=== PATIENT | male | born 1965 | race Hispanic/Latino ===

== ENCOUNTER 2024-06-26 20:20 | Inpatient (IN) | payer OTHER, SELFPAY ==
--- NOTE | ~2024-06-26 | XR_ITS ---
EXAMINATION: XR chest ET placement DATE: 06/26/2024 20:47 INDICATION: Intubation. TECHNIQUE: A single frontal view of the chest was obtained. COMPARISON: Chest 2 views 06/28/2015 FINDINGS: There is no pneumonia, pleural effusion, or pneumothorax. The heart size is normal. The end otracheal tube tip is 2.4 cm above the terri. The nasogastric tube tip is in the stomach. IMPRESSION: 1. No acute cardiopulmonary disease. Reviewed, dictated and finalized at location A.
[2024-06-26 20:22] VITALS: BP 49/37; PULSE 64; RESP 19; TEMP 36.4; O2SAT 92
[2024-06-26 20:25] VITALS: PULSE 64; O2SAT 92
[2024-06-26] MEDS: RAPID SEQUENCE INTUBATION KIT 1 EACH (20:30)
[2024-06-26 20:38] VITALS: BP 49/37; PULSE 64
[2024-06-26] MEDS: NOREPINEPHRINE 8 MG/D5W 250 ML 8 MG/250 ML BAG 5 MG (20:38)
[2024-06-26 20:40] VITALS: PULSE 100; O2SAT 93
[2024-06-26 21:03] LABS: Hematocrit 53.6 % (42.0-52.0); Hemoglobin 16.7 g/dL (14.0-18.0); Mean Corpuscular HGB Conc 31.2 g/dl (32-36); Mean Corpuscular Hemoglobin 30.1 pg (26-34); Mean Corpuscular Volume 96.8 fl (80-100); Mean Platelet Volume 10.3 fl (7.4-10.4); Platelet Count Result 272 k/mm3 (150-375); Red Blood Count 5.54 M/mm3 (4.6-6.20); Red Cell Distribution Width 13.8 % (11.5-14.5); White Blood Count 14.5 K/mm3 (4.5-10.0)
--- NOTE | 2024-06-26 21:05 | ED.CPR ---
HPI - CPR General Chief Complaint: Cardiac Arrest/CPR Stated Complaint: POST CARDIAC ARREST/ROSC IN FIELD History of Present Illness HPI narrative: Patient is a 59-year-old male who presents to the emergency department this evening status post return of spontaneous circulation. EMS states that patient was a witnessed cardiac arrest by a bystander who started CPR. Upon their arrival, CPR continued and patient was administered a total of 3 epinephrine, 2 defibrillations and 300 mg of IV amiodarone with return of spontaneous circulation. Patient intubated prior to arrival. [place] achieved approximately 6 minutes prior to arrival to the emergency department. Remainder of the history of present illness and review of systems limited secondary to patient's current status. Related Data Allergies Allergy/AdvReac Type Severity Reaction Status Date / Time morphine Allergy Mild Itching Verified 05/30/24 11:22 Review of Systems Review of Systems: Unable to obtain a full review of systems secondary to patient's current status. [facility] Past Medical History Medical History Allergic rhinitis Anxiety and depression Arthritis Calculus of gallbladder with acute cholecystitis without obstruction Diabetes HTN (hypertension) Hyperplastic colon polyp Testosterone deficiency Vitamin B12 deficiency Surgical History Surgical History H/O knee surgery H/O shoulder surgery History of back surgery History of facial surgery Hx of cholecystectomy Social History Social History Smoking status: Former smoker Alcohol intake: current Substance use: never Substance use type: does not use Living arrangements: with family Occupation/Education: occupation Gender identity (if verbalized by the patient): Male Sexual Orientation (if Verbalized by the Patient): Straight or Heterosexual Exam Narrative: General: Unresponsive, intubated. HEENT: Pupils round and reactive to light, foaming in the oropharynx Neck: Trachea midline, no JVD, no lymphadenopathy. Cardiovascular: Regular rate and rhythm, no murmurs, rubs or gallops, no peripheral edema. Respiratory: Intubated actively being bagged, normal breath sounds bilaterally slightly diminished on a left side. Abdomen: Soft, nontender, nondistended. Musculoskeletal: No joint swelling or deformity, normal muscle tone. Skin: No rashes or petechia, no signs of infection. Neurological: Intubated and mechanically ventilated, unable to assess. Course Vital Signs Vital signs: Vital Signs Temperature 97.6 F 06/26/24 20:22 Pulse Rate 64 06/26/24 20:22 Respiratory Rate 19 06/26/24 20:22 Blood Pressure 49/37 L 06/26/24 20:22 Pulse Oximetry 92 06/26/24 20:22 Oxygen Delivery Mechanical Ventilation 06/26/24 20:22 Temperature 97.6 F 06/26/24 20:22 Pulse Rate 61 06/26/24 22:19 Respiratory Rate 19 06/26/24 20:22 Blood Pressure 83/67 L 06/26/24 22:19 Pulse Oximetry 92 06/26/24 20:25 Oxygen Delivery Mechanical Ventilation 06/26/24 20:25 MDM - Cardiac Arrest/CPR MDM Narrative Medical decision making narrative: The patient was evaluated by myself in the emergency department. History is obtained from EMS and physical exam was performed. External medical records were reviewed at this time. IV was established and pertinent tests were ordered. Shortly after arrival, patient was starting to breathe on his own, clamped down on the ET tube. Pupils equal and reactive bilaterally. Patient was administered 100 mg of IV rocuronium and 20 mg of IV etomidate as he is biting down on the tube. ET tube placement was confirmed and tube was pulled back 1 cm. Patient had bilateral breath sounds that were equal. Vital signs were obtained and patient was found to have a blood pressure of 49/37 mmHg. Patient was administ
--- NOTE | 2024-06-26 21:08 | PC.NURSE ---
Called [facility] at 2053. Called [facility] to be on standby at 2054. Did edna for the laboratory assistant at 2055. Kristina called back at 2056. Ranjana called back at 2099. Cary called back at 2102.
[2024-06-26 21:13] LABS: INR 1.3; Prothrombin Time 16.3 Seconds (11.1-14.7)
[2024-06-26 21:14] LABS: Partial Thromboplastin Time 31.6 Seconds (22.3-36.8)
[2024-06-26 21:15] LABS: Add Urine Microscopic? YES; Appearance Urine Clear (Clear); Bacteria Urine None Seen /hpf; Bilirubin Urine Negative (Negative); Blood Urine 2+ (Negative); Color Urine Yellow (Yellow); Glucose Urine UA 3+ mg/dL (Negative); Ketones Urine Negative (Negative); Leukocyte Esterase Ur Negative LEU/UL (Negative); Need Manual Microscopic Reviewed; Nitrate Urine Negative (Negative); Non Pathogenic Casts 0-2; Protein Urine Trace mg/dL (Negative); RBC Urine 21-50 /hpf (0-2); Specific Grav Ur 1.019 (1.001-1.035); Squamous Epithelial Cell Urine None Seen /hpf (Few); Urobilinogen Urine 0.2 mg/dL (<2.0)
[2024-06-26] MEDS: HEPARIN SOD/D5W 100 UNITS/ML 25,000 UNITS/250 ML BAG 10 UNITS IV CONT (21:15)
--- NOTE | 2024-06-26 21:17 | PC.NURSE ---
Addendum entered by Maura Dumas RN 06/26/24 22:14: Dr. Perez verbally ordered profolol but due to pt low blood pressure we had it on standby. Pt never received profolol. Addendum entered by Maura Dumas RN 06/26/24 21:45: Pt arrival to ED around [address] Perez in room along with development educator Kelly, Alison ParkerLhqlfx-Vowyz-Bzxvdue-Ruchi, and krystal Barrientos and ED respiratory. Items present in room include crash cart, ultrasound, KATHI, RSI kit, and suctioning. Pt initial vital signs are 64 hr, 19 resp, 92% on mechanical ventilation, and 49/37. Dr. Perez verbally ordered to continue EMS NS fluid bag along with an additional liter of NS and for a Levophed drip to be started. FANNY Pacheco and Nina started these medications at 2014 and 2037. Pt is breathing on his own and fighting the ET tube so Dr. Perez verbally ordered 20 of etimidate and rocuronium 100 of rocuronium. FANNY Pacheco administered these medications at 2029 in R AC peripheral access. X-ray called to confirm placement of ET tube at 2039 and confirmed in correct spot. FANNY Hopper placed NG tube in pt 25 at the lip around 2034. At 2043 pt vitals were 68 hr, 17 respirations, 90%, and 90/62. ED respiratory and FANNY Pacheco bagging pt in transition to being placed on BIPAP. Temp fink was placed 2040. Pt was placed on BIPAP at 2049. Vitals at 2051: 114 hr, 16 resp, 91% and 111/80. EKG was taken and shown a STEMI. STEMI called to ED at 2055 and shipyard laborer notified to come in. Dr. Perez verbally ordered 5000 of heparin drip and started in L wrist at 2101. FANNY Pacheco and Mattie prepped pt for shipyard laborer. lab aid arrival to ED around 2129. Report was given to Ranjana from shipyard laborer and they departed with pt and ED respiratory at 2139. Original Note: Pt arrival to ED around [address] Perez in room along with development educator Katie, RNs Bella, and techs Floyd and ED respiratory. Items present in room include crash cart, ultrasound, KATHI and suctioning. Pt initial vital signs are 64 hr, 19 resp, 92% on mechanical ventilation, and 49/37. Dr. Perez verbally ordered for a Levophed drip to be started. Pt was fighting the ET tube so Dr. Lovell verbally ordered 20 of etimidate and rocuronium 100 of rocuronium.
--- NOTE | 2024-06-26 21:21 | PC.NURSE ---
2108 5,000 unit heparin bolus given via IV push alanis Perez.
[2024-06-26 21:22] LABS: Alveolar/Arterial O2 Gradient 568.3 mmHg; Base Excess ABG -21.5 mEq/l (+/-2.0); Fractional Inspired Oxygen 100 %; HCO3 ABG 10.8 mEq/l (22.0-26.0); Oxygen Saturation ABG 91.7 % (95.0-100.0); Oxyhemoglobin 91.4 % THb (90.0-100.0); PCO2 ABG 49.7 mmHg (35.0-45.0); PO2 FiO2 Ratio Arterial Blood 0.95 %; Total Hemoglobin 16.3 g/dL (12.0-18.0)
[2024-06-26 21:22] LABS: Alanine Aminotransferase 125 U/L (6-50); Albumin Level 4.6 g/dL (3.5-5.1); Alkaline Phosphatase 83 U/L (38-126); Anion Gap 32 mmol/L (4-12); Aspartate Amino Transferase 196 U/L (17-59); Bilirubin,Total 0.6 mg/dL (0.2-1.3); Blood Urea Nitrogen 13 mg/dL (9-20); Calcium 9.3 mg/dL (8.4-10.2); Carbon Dioxide 12 mmol/L (22-30); Chloride 95 mmol/L (98-107); Estimated CRCL calculation 49 ml/min; Estimated Glomerular Filt Rate 48; Glucose 339 mg/dL (65-110); Lipase 235 U/L (23-300); Potassium 2.5 mmol/L (3.4-5.0); Sodium 139 mmol/L (137-145)
[2024-06-26 21:23] LABS: Device VENTILATOR; Modified Allen's Test Pass; Site Drawn RIGHT RADIAL; pH ABG 6.953 (7.350-7.450)
[2024-06-26 21:24] LABS: Troponin I 0.027 ng/mL (0.000-0.034)
[2024-06-26 21:24] LABS: Arterial Blood Gas PEEP 5 cmH2O; Arterial Blood Gas Tidal Volume 510 ml; Arterial Blood Gas Vent Mode CMV; Arterial Blood Gas Ventilator rate 18 /MIN
[2024-06-26 21:34] LABS: Band Neutrophils Percent 2 % (0-6); Eosinophils Absolute Manual 0.43 K/mm3 (0.02-0.50); Eosinophils Percent Manual 3 % (0-4); Lymphocytes Absolute Manual 7.97 K/mm3 (1.1-4.5); Monocytes Percent Manual 9 % (3-9); Neutrophils Absolute Manual 4.78 K/mm3 (1.3-6.7); Neutrophils Percent Manual 31 % (46-73); Nucleated Red Blood Cells 1 %; Total Cells Counted 100
[2024-06-26 21:35] LABS: Platelet Estimate Adequate (Adequate); Schistocytes None Seen
--- NOTE | 2024-06-26 21:40 | PC.NURSE ---
2140: Pt did not receive the medications aspirin and brillinta due to the pt being intubated and NG tube being on continuous suction due to the pts bloody secretions.
[2024-06-26 21:43] LABS: Lactic Acid Reflex 16.6 mmol/L (0.7-2.0)
[2024-06-26 21:45] LABS: Magnesium 2.7 mg/dL (1.6-2.3)
--- NOTE | 2024-06-26 21:56 | WPDMODSED ---
Moderate Sedation Note-Pt Data Patient Data Diagnosis: STEMI Present Complaint: STEMI Procedure to be performed/Plan: Primary PCI Allergies Allergy/AdvReac Type Severity Reaction Status Date / Time morphine Allergy Mild Itching Verified 05/30/24 11:22 Home Medications Medication Instructions Recorded Confirmed Type albuterol sulfate 90 mcg/actuation See Rx Instructions inhalation Q6H 04/28/23 05/30/24 Rx aerosol inhaler shortness of breath or wheezing #8.5 grams diclofenac sodium 75 mg 75 mg PO BID #180 tabs 04/28/23 05/30/24 Rx tablet,delayed release ergocalciferol (vitamin D2) 1,250 1,250 mcg PO WEEKLY #12 caps 04/28/23 05/30/24 Rx mcg (50,000 unit) capsule (Vitamin D2) simvastatin 40 mg tablet 40 mg PO QHS #90 tabs 11/06/23 05/30/24 Rx amlodipine 10 mg-valsartan 320 1 tablet PO DAILY #90 tabs 02/07/24 05/30/24 Rx mg-hydrochlorothiazide 25 mg tablet fenofibrate nanocrystallized 145 145 mg PO DAILY #90 tabs 02/07/24 05/30/24 Rx mg tablet quetiapine 25 mg tablet (Seroquel) 25 mg PO QHS #90 tabs 02/07/24 05/30/24 Rx nabumetone 750 mg tablet 750 mg PO BID PRN arthritis pain 02/13/24 05/30/24 Rx #180 tabs glimepiride 2 mg tablet 2 mg PO BID #180 tabs 03/01/24 05/30/24 Rx sildenafil 100 mg tablet See Rx Instructions .Route 04/02/24 05/30/24 Rx .COMPLEX #30 tabs zolpidem 10 mg tablet 10 mg PO QHS PRN insomnia #30 tabs 04/02/24 05/30/24 Rx escitalopram oxalate 20 mg tablet 20 mg PO DAILY #90 tabs 04/30/24 05/30/24 Rx dapagliflozin propanediol 10 mg 10 mg PO DAILY #90 tabs 05/29/24 05/30/24 Rx tablet (Farxiga) cyanocobalamin (vitamin B-12) 1,000 mcg IM MONTHLY #3 mL 05/30/24 Rx 1,000 mcg/mL injection solution montelukast 10 mg tablet 10 mg PO DAILY #30 tabs 05/30/24 05/30/24 Rx (Singulair) syringe with needle, safety 3 mL #9 ea 05/30/24 Rx 21 gauge x 1 (Monoject Safety Syringes) testosterone cypionate 200 mg/mL 200 mg IM .2weeks #1 mL 06/03/24 Rx intramuscular oil nirmatrelvir 300 mg (150 mg See Rx Instructions PO .COMPLEX 06/13/24 Rx x2)-ritonavir 100 mg tablet,dose #30 ea pack (Paxlovid) sitagliptin phosphate 100 mg 100 mg PO DAILY #90 tabs 06/14/24 Rx tablet (Januvia) Current Medications: Active Medications Heparin Sodium (Porcine) (Heparin Sodium 5,000 Units/Ml Vial) 3,500 units IV PUSH PRN PRN PRN Reason: aPTT 55 - 70 seconds Heparin Sodium (Porcine) (Heparin Sodium 5,000 Units/Ml Vial) 4,000 units IV PUSH PRN PRN PRN Reason: aPTT less than 55 seconds Norepinephrine Bitartrate (Levophed 8 Mg/D5w 250 Ml) 8 mg in 250 mls @ 9.375 mls/hr IV CONT .Q24H HUMBERTO; Protocol Heparin Sodium/Dextrose (Heparin Sodium/D5w 100 Units/Ml) 25,000 units in 250 mls @ 10 mls/hr IV CONT .Q24H HUMBERTO; Protocol Last Admin: 06/26/24 21:15 Dose: 1,000 units/hr, 10 mls/hr Potassium Chloride (Kcl 20 Meq/Sw 100 Ml) 100 mls @ 50 mls/hr IVPB ONCE ONE Stop: 06/26/24 23:21 Potassium Chloride (Kcl 20 Meq/Sw 100 Ml) 100 mls @ 50 mls/hr IVPB ONCE ONE Stop: 06/26/24 23:26 Sedation/Anesthesia: No previous sedation/anesthesia problems (including family history). [facility] Past Medical History Medical History Allergic rhinitis Anxiety and depression Arthritis Calculus of gallbladder with acute cholecystitis without obstruction Diabetes HTN (hypertension) Hyperplastic colon polyp Testosterone deficiency Vitamin B12 deficiency Surgical History Surgical History H/O knee surgery H/O shoulder surgery History of back surgery History of facial surgery Hx of cholecystectomy Social History Social History Smoking status: Former smoker Alcohol intake: current Substance use: never Substance use type: does not use Living arrangements: with family Occupation/Education: occupation Gender identity (if verbalized
--- NOTE | 2024-06-26 21:57 | PM.IMHP ---
H&P: HPI History of Present Illness Date/Time: 06/26/24 21:57 Chief Complaint: VFIB cardiac arrest Narrative: Patient is a 59 year old male with hypertension, hyperlipidemia, diabetes mellitus, COPD, low testosterone who presented to [place] ER after out of hospital cardiac arrest. Patient intubated and sedated, therefore, cannot obtain any history from the patient. History obtained from the patient's chart and medical team. Per EMS, patient had a witnessed out of hospital cardiac arrest. CPR started by bystander and taken over by EMS. Patient was administered total of 3 rounds of Epi, 2 defibrillations, and 300mg IV Amiodarone with ROSC. Patient intubated prior to arrival to ED. In the ED, initial EKG showed sinus rhythm with ST elevations in the anterolateral leads. Patient was started on Levophed for hypotension. Cath team activated. UPDATE: Additional history obtained from the patient's girlfriend after cardiac catheterization. Patient arrested while they were having sex. He turned blue. She called 911 and started chest compressions immediately. Markie had not reported any symptoms or complaints earlier in the day. He does not smoke. Drinks a few beers every few days -- has not had any alcohol withdrawal symptoms in the past. Review of Systems Review of Systems: ROS unobtainable: Yes unobtainable due to endotracheal tube and unobtainable due to medical condition PMFSH Past Medical History Medical History Allergic rhinitis Anxiety and depression Arthritis Calculus of gallbladder with acute cholecystitis without obstruction Diabetes HTN (hypertension) Hyperplastic colon polyp Testosterone deficiency Vitamin B12 deficiency Surgical History Surgical History H/O knee surgery H/O shoulder surgery History of back surgery History of facial surgery Hx of cholecystectomy Social History Social History Smoking status: Former smoker Alcohol intake: current Substance use: never Substance use type: does not use Living arrangements: with family Occupation/Education: occupation Gender identity (if verbalized by the patient): Male Sexual Orientation (if Verbalized by the Patient): Straight or Heterosexual Meds Home Medications and Allergies Home Medications Medication Instructions Recorded Confirmed Type albuterol sulfate 90 mcg/actuation See Rx Instructions inhalation Q6H 04/28/23 05/30/24 Rx aerosol inhaler shortness of breath or wheezing #8.5 grams diclofenac sodium 75 mg 75 mg PO BID #180 tabs 04/28/23 05/30/24 Rx tablet,delayed release ergocalciferol (vitamin D2) 1,250 1,250 mcg PO WEEKLY #12 caps 04/28/23 05/30/24 Rx mcg (50,000 unit) capsule (Vitamin D2) simvastatin 40 mg tablet 40 mg PO QHS #90 tabs 11/06/23 05/30/24 Rx amlodipine 10 mg-valsartan 320 1 tablet PO DAILY #90 tabs 02/07/24 05/30/24 Rx mg-hydrochlorothiazide 25 mg tablet fenofibrate nanocrystallized 145 145 mg PO DAILY #90 tabs 02/07/24 05/30/24 Rx mg tablet quetiapine 25 mg tablet (Seroquel) 25 mg PO QHS #90 tabs 02/07/24 05/30/24 Rx nabumetone 750 mg tablet 750 mg PO BID PRN arthritis pain 02/13/24 05/30/24 Rx #180 tabs glimepiride 2 mg tablet 2 mg PO BID #180 tabs 03/01/24 05/30/24 Rx sildenafil 100 mg tablet See Rx Instructions .Route 04/02/24 05/30/24 Rx .COMPLEX #30 tabs zolpidem 10 mg tablet 10 mg PO QHS PRN insomnia #30 tabs 04/02/24 05/30/24 Rx escitalopram oxalate 20 mg tablet 20 mg PO DAILY #90 tabs 04/30/24 05/30/24 Rx dapagliflozin propanediol 10 mg 10 mg PO DAILY #90 tabs 05/29/24 05/30/24 Rx tablet (Farxiga) cyanocobalamin (vitamin B-12) 1,000 mcg IM MONTHLY #3 mL 05/30/24 Rx 1,000 mcg/mL injection solution montelukast 10 mg tablet 10 mg PO DAILY #30 tabs 05/30/24 05/30/24 Rx (Singulair) syringe with needle, safety 3 mL #9 ea 05/12
[2024-06-26 22:19] VITALS: BP 83/67; PULSE 61
[2024-06-26] MEDS: NOREPINEPHRINE 8 MG/D5W 250 ML 8 MG/250 ML BAG 9.38 MG IV CONT (22:19)
--- NOTE | 2024-06-26 23:00 | ECG_ITS ---
Test Date: 2024-06-26 20:34:57 Measurements Intervals [place] Rate: 56 P: 86 WV: 152 QRS: 102 QRSD: 116 T: 0 QT: 386 QTc: 373 Interpretive Statements SINUS BRADYCARDIA RIGHT AXIS DEVIATION [QRS AXIS > 100] LOW QRS VOLTAGE IN PRECORDIAL LEADS [QRS DEFLECTION < 1.0 mV IN CHEST LEADS] MODERATE INTRAVENTRICULAR CONDUCTION DELAY [110+ ms QRS DURATION] MARKED ST ELEVATION, CONSIDER ANTEROLATERAL INJURY [MARKED ST ELEVATION W/O NORMALLY INFLECTED T-WAVE IN V3-V6] ACUTE OR No previous ECG available for comparison Electronically Signed On 06-27-2024 10:19:57 CDT by Radha Alvarado M.D.
[2024-06-27] VITALS (15 sets, daily range): BP systolic 93–143; BP diastolic 62–102; PULSE 96–112; RESP 21–28; TEMP 36.8; O2SAT 98–100; BMI 29.7
--- NOTE | 2024-06-27 | WPDCARDPROC ---
Cardiac Cath Procedure Note Date of procedure:: 06/27/24 Performing physician:: CATHETERIZATION LABORATORY REPORT Procedure Date: 06/27/2024 Piano Teacher: Radha Alvarado M.D., [facility]? Referring Physician: Tha Perez M.D. ([facility]) Anesthesia: Versed and Fentanyl were ordered and given in my presence at 22:07, procedure ended at 23:54. Supervision of nurse monitored moderate sedation with Versed and Fentanyl was provided for 107 minutes. Total of Versed 4mg and Fentanyl 100mcg were administered by the Environmental Protection Officer FANNY Weston. Pre-op Diagnosis: Anterolateral STEMI Post-op Diagnosis: 1. Two vessel coronary artery disease. PASTRY CHEF of the proximal RCA with wwtti-it-ncpic and hhve-ds-ssvob collaterals. Complete occlusion of the proximal LAD, with roakt-sy-gkqq-collaterals to the septal branches. Unable to wire the LAD occlusion despite multiple attempts with multiple wires; suspect this may be more of a subacute/chronic occlusion. Likely combination of underlying significant CAD + significant hypokalemia (K of 2.5) precipitated ventricular arrhythmia. 2. Left ventricular end-diastolic pressure of 8mmHg Procedure(s): 1. Moderate sedation 2. Ultrasound-guided access of the right radial artery 3. Coronary angiography 4. Left heart cath 5. Left ventricular angiogram 6. Ultrasound-guided access of the right common femoral artery 7. IABP placement 8. Ultrasound-guided access of the left femoral vein. 9. Insertion of 5F venous sheath in the left femoral vein for central line access Access Site: Right radial artery Right common femoral artery Left femoral vein Brief History and Clinical Indications: Patient is a 59 year old male with hypertension, hyperlipidemia, diabetes mellitus, COPD, low testosterone who presented to [place] ER after out of hospital cardiac arrest. Patient intubated and sedated, therefore, cannot obtain any history from the patient. History obtained from the patient's chart and medical team. Per EMS, patient had a witnessed out of hospital cardiac arrest. CPR started by bystander and taken over by EMS. Patient was administered total of 3 rounds of Epi, 2 defibrillations, and 300mg IV Amiodarone with ROSC. Patient intubated prior to arrival to ED. In the ED, initial EKG showed sinus rhythm with ST elevations in the anterolateral leads. Patient was started on Levophed for hypotension. Cath team activated. Time out called, patient name, date of , medical record number, allergies, procedure performed, identify Piano Teacher, patient and staff member concurred with accurate data, procedure carried on. Findings: LEFT HEART CATHETERIZATION FINDINGS: 1. Left main: The distal left main has a 40% stenosis. 2. Left anterior descending: The proximal LAD is completely occluded in its proximal portion right at the bifurcation of the diagonal branch. There are bicxx-ft-elbj collaterals from the RCA to the LAD septal branches. 3. Ramus: The Ramus has mild disease in the proximal portion. No significant obstructive disease. 4. Left circumflex: The left circumflex artery has mild disease in the proximal portion. No significant obstructive disease. 5. Right coronary artery: The RCA is the dominant vessel. The RCA is PASTRY CHEF in the proximal portion. There are umwbq-tg-qxktw bridging collaterals providing some antegrade flow. There are wker-bb-xkmdt collaterals filling the distal RCA territory. There are olddu-tf-ptor collaterals from the RCA to the LAD septal branches. 6. Left ventricle: A. End-diastolic pressure 8 mmHg. B. LV gram: LVEF appears to be preserved (Was done while on Levophed). The apex appears to be hypokinetic. C. No significant gradient across aortic valve on catheter pullback. Description of Procedure: Patient transferred to chemical laboratory technician room. Prepped and draped in usual sterile fashion. 2% lidocaine injected subcutaneously in right wrist area. 22-gauge venipuncture catheter used to acces
[2024-06-27 00:01] LABS: Reflex Lactic Acid Yes or No Add Lactic
[2024-06-27] MEDS: FENTANYL 2,500MCG/NS250ML(*CRX 2,500 MCG/250 ML BAG 7.5 MCG IV CONT (01:30)
[2024-06-27] MEDS: MIDAZOLAM 100MG/NS 100ML(*CRX) 100 MG/100 ML BAG IV CONT (01:31)
--- NOTE | 2024-06-27 01:31 | ADMGEN ---
This patient, Markie Delgado, was admitted to Intensive Care Unit-5 on 06/27/24 at 0105. Patient/family oriented to hospital policies and general routines including ID bracelet, bed and alarms, visiting hours, pain management, procedures, bathroom and other care routines, personal items, smoking policy, room service/diet, and visiting hours. Information on how to activate the Rapid Response Team has been discussed. Patient/Family are encouraged to report perceived risks to care and to ask questions if they do not understand what they are told or what they should do.
--- NOTE | 2024-06-27 01:34 | PM.TDS ---
Transfer Discharge Sum: Prov Provider Date of admission: 06/26/24 21:10 Primary care physician: DANIS Castillo Admitting clinician: Radha Alvarado MD Attending physician on admission: Radha Alvarado Attending physician on discharge: Radha Alvarado Discharging clinician: Radha Alvarado Anticipated date of transfer: 06/27/24 Receiving physician/facility: [facility] DS: Admitting Diagnosis Discharge Date 06/27 Admitting Diagnosis STEMI, out of hospital cardiac arrest DS: Discharge Diagnosis Discharge Diagnosis (1) ST elevation (STEMI) myocardial infarction: Code(s): I21.3 - ST elevation (STEMI) myocardial infarction of unspecified site Status: Acute (2) Cardiac arrest with ventricular fibrillation: Code(s): I46.9 - Cardiac arrest, cause unspecified; I49.01 - Ventricular fibrillation Status: Acute (3) Hypokalemia: Code(s): E87.6 - Hypokalemia Status: Acute (4) COPD (chronic obstructive pulmonary disease): Qualifiers: COPD type: unspecified COPD Qualified Code(s): J44.9 - Chronic obstructive pulmonary disease, unspecified Code(s): J44.9 - Chronic obstructive pulmonary disease, unspecified Status: Acute (5) Dyslipidemia: Code(s): E78.5 - Hyperlipidemia, unspecified Status: Acute (6) HTN (hypertension): Qualifiers: Hypertension type: primary hypertension Qualified Code(s): I10 - Essential (primary) hypertension Code(s): I10 - Essential (primary) hypertension Status: Acute (7) Diabetes: Qualifiers: Diabetes mellitus type: type 2 Diabetes mellitus manager terminal insulin use: without manager terminal use Diabetes mellitus complication status: without complication Qualified Code(s): E11.9 - Type 2 diabetes mellitus without complications Code(s): E11.9 - Type 2 diabetes mellitus without complications Status: Acute Transfer Discharge Sum: Med Medications Active and Home Medications: Home Medications albuterol sulfate 90 mcg/actuation aerosol inhaler See Rx Instructions inhalation Q6H shortness of breath or wheezing #8.5 grams 04/28/23 [Rx Confirmed 05/30/24] diclofenac sodium 75 mg tablet,delayed release 75 mg PO BID #180 tabs 04/28/23 [Rx Confirmed 05/30/24] ergocalciferol (vitamin D2) 1,250 mcg (50,000 unit) capsule (Vitamin D2) 1,250 mcg PO WEEKLY #12 caps 04/28/23 [Rx Confirmed 05/30/24] simvastatin 40 mg tablet 40 mg PO QHS #90 tabs 11/06/23 [Rx Confirmed 05/30/24] amlodipine 10 mg-valsartan 320 mg-hydrochlorothiazide 25 mg tablet 1 tablet PO DAILY #90 tabs 02/07/24 [Rx Confirmed 05/30/24] fenofibrate nanocrystallized 145 mg tablet 145 mg PO DAILY #90 tabs 02/07/24 [Rx Confirmed 05/30/24] quetiapine 25 mg tablet (Seroquel) 25 mg PO QHS #90 tabs 02/07/24 [Rx Confirmed 05/30/24] nabumetone 750 mg tablet 750 mg PO BID PRN arthritis pain #180 tabs 02/13/24 [Rx Confirmed 05/30/24] glimepiride 2 mg tablet 2 mg PO BID #180 tabs 03/01/24 [Rx Confirmed 05/30/24] sildenafil 100 mg tablet See Rx Instructions .Route .COMPLEX #30 tabs 04/02/24 [Rx Confirmed 05/30/24] zolpidem 10 mg tablet 10 mg PO QHS PRN insomnia #30 tabs 04/02/24 [Rx Confirmed 05/30/24] escitalopram oxalate 20 mg tablet 20 mg PO DAILY #90 tabs 04/30/24 [Rx Confirmed 05/30/24] dapagliflozin propanediol 10 mg tablet (Farxiga) 10 mg PO DAILY #90 tabs 05/29/24 [Rx Confirmed 05/30/24] cyanocobalamin (vitamin B-12) 1,000 mcg/mL injection solution 1,000 mcg IM MONTHLY #3 mL 05/30/24 [Rx] montelukast 10 mg tablet (Singulair) 10 mg PO DAILY #30 tabs 05/30/24 [Rx Confirmed 05/30/24] syringe with needle, safety 3 mL 21 gauge x 1 (Monoject Safety Syringes) #9 ea 05/30/24 [Rx] testosterone cypionate 200 mg/mL intramuscular oil 200 mg IM .2weeks #1 mL 06/03/24 [Rx] nirmatrelvir 300 mg (150 mg x2)-ritonavir 100 mg tablet,dose pack (Paxlovid) See Rx Instructions PO .COMPLEX #30 ea 06/13/24 [Rx] sitagliptin phosphate 100 mg tablet (Januvia) 100 mg PO DAILY #9
[2024-06-27] MEDS: KCL 20 MEQ/SW 100 ML 100 ML 50 MEQ IVPB (01:52)
[2024-06-27] MEDS: SODIUM BICARBONATE 8.4% 50 MEQ/50 ML SYRINGE 100 MEQ IV PUSH (01:56)
--- NOTE | 2024-06-27 02:09 | ADMGEN ---
This patient, Markie Delgado, was admitted to Intensive Care Unit-5. Patient/family oriented to hospital policies and general routines including ID bracelet, bed and alarms, visiting hours, pain management, procedures, bathroom and other care routines, personal items, smoking policy, room service/diet, and visiting hours. Information on how to activate the Rapid Response Team has been discussed. Patient/Family are encouraged to report perceived risks to care and to ask questions if they do not understand what they are told or what they should do.
[2024-06-27] MEDS: VASOPRESSIN INJ 100 UNITS in DEXTROSE 5% 95 ML IV CONT (02:20)
--- NOTE | 2024-06-27 02:52 | PC.NURSE ---
Flight team arrived at 1028
== END 2024-06-27 03:34 | disposition short-term general hospital (02) | DRG 270 ==
LOC: ANHED 20:43 → ANHICU 21:12
PROVIDERS: Admitting Provider Internal Medicine; Emergency Provider Emergency Medicine; PCP Nurse Practitioner Family; Visit Provider Internal Medicine
PROC: 4A023N7 Measurement of Cardiac Sampling and Pressure, Left Heart, Percutaneous Approach (ICD-10-PCS; CPT 93452; principal; 2024-06-26 21:20)
PROC: 5A1935Z Respiratory Ventilation, Less than 24 Consecutive Hours (ICD-10-PCS; CPT 92920; 2024-06-26 21:20)
PROC: 5A1935Z Respiratory Ventilation, Less than 24 Consecutive Hours (ICD-10-PCS; CPT 36140; 2024-06-26 21:20)
PROC: 5A1935Z Respiratory Ventilation, Less than 24 Consecutive Hours (ICD-10-PCS; 2024-06-26 21:20)
DX: I21.09 ST elevation (STEMI) myocardial infarction involving other coronary artery of anterior wall (principal); I46.2 Cardiac arrest due to underlying cardiac condition; I49.01 Ventricular fibrillation; F32.A Depression, unspecified; E53.8 Deficiency of other specified B group vitamins; E11.9 Type 2 diabetes mellitus without complications; E87.6 Hypokalemia; F41.9 Anxiety disorder, unspecified; I10 Essential (primary) hypertension; I25.10 Atherosclerotic heart disease of native coronary artery without angina pectoris; J44.9 Chronic obstructive pulmonary disease, unspecified; Z90.49 Acquired absence of other specified parts of digestive tract; Z87.891 Personal history of nicotine dependence; Z79.84 Long term (current) use of oral hypoglycemic drugs
CPT/HCPCS: 33967; 36140; 36415; 36600; 43762; 80053; 81001; 82805; 83605; 83690; 83735; 84484; 85018; 85025; 85610; 85730; 87086; 92920; 93005; 93458; 94002; 96365; 96366; 96367; 96376; 99285; A9270; C1725; C1769; C1887; C1894; J0583; J1644; J2003; J2250; J2305; J2371; J2704; J3010; J3480; J7040

== ENCOUNTER 2024-08-15 08:07 | Outpatient (CLI) | payer OTHER, SELFPAY ==
--- NOTE | 2024-08-15 12:49 | P.NEURO_ITS ---
Neurology EEG Report General Information Date of Study: 08/15/24 TEST electroencephalogram DIAGNOSIS history of head trauma CONDITION OF RECORDING neurodiagnostic lab EEG NUMBER [id number] CLINICAL HISTORY History of myocardial infarction 10 weeks ago and a fall leading to head trauma EEG DESCRIPTION During wakefulness the background activity consists of posterior dominant for the med to 10 hertz with an amplitude of 20-40 microvolts which appears well- formed and reactive to eye opening. Anteriorly low amplitude mixed frequency activity was seen. There is a good anteroposterior gradient. Hyperventilation was not performed. Patient did not progress to stage 2 sleep. Forty social performed during which no significant abnormal background changes were seen. No episode of driving response was noted. IMPRESSION This is a normal EEG obtained during awake state.
== END 2024-08-15 08:08 | disposition home or self-care (01) ==
LOC: ANHNEURO 08:09
PROVIDERS: PCP Nurse Practitioner Family; Visit Provider Psychiatry & Neurology Neurology
DX: Z87.828 Personal history of other (healed) physical injury and trauma (principal)
CPT/HCPCS: 95816

== ENCOUNTER 2024-08-21 09:43 | Outpatient (CLI) | payer OTHER, SELFPAY ==
--- NOTE | ~2024-08-21 | CT_ITS ---
CT Scan of the Chest without Contrast: Clinical Indication: Prominent right hilum Technique: Contiguous sections were acquired throughout the chest without intravenous contrast. Dose reduction technique was used on this scan by utilizing automated exposure control and iterative recon struction technique. The dose-length product (DLP) was 209.45 mGy-cm. Findings: There is no evidence of any significant mediastinal, hilar or axillary lymphadenopathy. Extensive cor onary artery calcification present. There is no evidence of pleural or pericardial effusion. The lungs are clear. No pulmonary nodules or infiltrates are noted. Images through the upper abdomen reveal no abnormalities. Impression: No significant abnormalities seen. Reviewed, dictated and finalized at location . HOST/HOSTESS Impression: No significant abnormalities seen.
== END 2024-08-21 09:44 | disposition home or self-care (01) ==
PROVIDERS: PCP Nurse Practitioner Family; Visit Provider Nurse Practitioner Family
DX: R93.89 Abnormal findings on diagnostic imaging of other specified body structures (principal)
CPT/HCPCS: 71250

== ENCOUNTER 2024-10-18 08:55 | Outpatient (CLI) | payer OTHER, SELFPAY ==
--- OUTSIDE RECORDS SUMMARY | 2024-10-18 09:18 | XMS_ITS | Encounter Summary ---
Author Organization [facility] Healthcare Address [address] [place] [address] Care Team Providers Care Child Support Case Officer Name Role Phone Victor Manuel Woo MD Unavailable Radha Alvarado MD Unavailable Mariela Del Castillo MD Primary Care Provider [phone] Reason for Visit * Reason Onset Date Comments Dizziness 10/15/2024 Encounter Details Date Type Department Care Team (Late st Contact Info) Description 10/15/2024 Telephone [facility] Cardiology [address] [place] [address] Radha Alvarado MD [address] [address] Dizziness Social History Tobacco Use Types Packs/Day Years Used Date Smoking Tobacco: Former Cigarettes Smokeless Tobacco: Never Comments:Has not smoked sinc e age 24. OASIS D0700: Social Isolation Answer Da te Recorded Frequency of experiencing loneliness or isolatio n Never 10/07/2024 OASIS A1250: Transportation Answer Date Recorded Lack of Transportation (Medical) No 10/07/2024 Lack of Transportation (Non-Medical) No 10/07/2024 Patient Unable or Declines to Respond No 10/07/2024 OASIS B1300: Health Literacy Answer Sam e Recorded Frequency of needing help to read materials from doctor or pharmacy Never 10/07/2024 [facility] Utilities Answer Date Recorded In the past 12 months has th e electric, gas, oil, or water company threatened to shut off services in your home? No 09/24/2024 Social Connection and Isolation Panel [NHANES] A nswer Date Recorded In a typical week, how many times do you talk on the phone with family, friends, or neighbors? Patient declined 09/24/2024 How often do you get togethe r with friends or relatives? Never 09/24/2024 How often do you attend baptism or spiritism serv ices? Never 09/24/2024 Do you belong to any clubs o r organizations such as baptism groups, unions, fraternal or athletic groups, or school groups? No 09/24/2024 How often do you attend meet ings of the clubs or organizations you belong to? Never 09/24/2024 Are you , , di vorced, , never , or living with a partner? 09/24/2024 AUDIT-C Answer Date Recorded Q1: How often do you have a drink containing alcohol? Never 09/24/2024 Q2: How many drinks containi ng alcohol do you have on a typical day when you are drinking? Patient does not drink Q3: How often do you have si x or more drinks on one occasion? Never 09/24/2024 Overall Financial Resource Strain (CARDIA) Answe r Date Recorded How hard is it for you to pa y for the very basics like food, housing, medical care, and heating? Somewhat hard 09/24/2024 PHQ-2 Answer Date Recorded PHQ-2 Total Score (If total score is 3 or more points, staff should administer the PHQ-9) 0 09/25/2024 Hunger Vital Sign Answer Date Recorded Within the past 12 months, y ou worried that your food would run out before you got the money to buy more. Sometimes true Within the past 12 months, t he food you bought just didn't last and you didn't have money to get more. Sometimes true PRAPARE - Transportation Answer Date Re corded In the past 12 months, has l ack of transportation kept you from medical appointments or from getting medications? No 09/11 In the past 12 months, has l ack of transportation kept you from meetings, work, or from getting things needed for daily living? No 09/24/2024 Housing Stability Vital Sign Answer Sam e Recorded In the last 12 months, was t here a time when you were not able to pay the mortgage or rent on time? No 09/24/2024 In the past 12 months, how m any times have you moved where you were living? 0 09/24/2024 At any time in the past 12 m [facility], were you homeless or living in a long term (including now)? No 09/24/2024 Personal Safety Answer Date Recorded Have you ever been in or are you currently in a harmful physical or emotional relationship or is someone making you feel afraid or unsafe? 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 R PROGRAMMER * Telephone Encounter - Marlys Aden RN - 10/15/2024 3:58 PM R PROGRAMMER Spoke with sabrina Uribe scheduled on in the office with CT. 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 Jojo states pt has c/o constant dizziness x 3 days.Bp 134/90 hr 68 BS 157. No pain, no sob, per Jojo pt is stable when he walks. No change in dizziness with position change or head movement. Pt eating and drinking fine. She states that a call was placed to pcp office and they were advised to call our office to discuss. Jojo states she is worried that pts electrolytes are off. Advised to have pt ambulate with caution, go to ER for any new orworsening symptoms. Will forward to RP. Please advise. R PROGRAMMER * Telephone Encounter - Amy Serrato - 10/15/2024 1:54 PM CST Jojo (pts S.O.) states that for the last 3 days the patient has been experiencing dizziness. States that she believes it may be due to his medications. Requesting a call back to discuss. Please advise. Thank you. 10/15 BP: 134/90 Contact [phone] R PROGRAMMER documented in this encounter Plan of Treatment Not on file documented as of this encounter Visit Diagnoses Not on filedocumented in this encounter Care Teams Child Support Case Officer Relationship Specialty Start Date End Date Mariela Del Castillo MD [address] [facility] [address] [address] PCP - General Family Medicine 09/26/24 [place] [address] [place] [address] Surgeon Cardiothoracic Surgery 09/26/24 Radha Alvarado MD [address] [facility] [address], [place] [address] Consulting Physician Interventional Cardiology 09/26/24 documented as of this encounter
--- OUTSIDE RECORDS SUMMARY | 2024-10-18 09:18 | XMS_ITS | Encounter Summary ---
Author Organization [facility] Healthcare Address [address] [place] [address] Care Team Providers Care Steel Post Installer Name Role Phone Victor Manuel Woo MD Unavailable [phone] Radha Alvarado MD Unavailable [phone] Mariela Del Castillo MD Primary Care Provider [phone] Encounter Details Date Type Department Care Team (Late st Contact Info) Description 10/04/2024 [facility] Post Discharge Follow up phone call [facility] [address] [place] [address] Ruchi Whitman RN Social History Tobacco Use Types Packs/Day Years [...] materials from doctor or pharmacy Never 10/07/2024 [facility] Utilities Answer Date Recorded In the past 12 months has e electric, gas, oil, or water company [...] Never 09/24/2024 How often do you attend sabianist or hinduism serv ices? Never 09/24/2024 Do you belong to any clubs o r organizations such as sabianist groups, unions, fraternal or athletic groups, or [...] any time in the past 12 m [facility], were you homeless or living in a longterm (including now)? No 09/24/2024 Personal Safety Answer Date Recorded Have you ever been in or are you currently in a harmful physical or emotional relationship or is someone making you feel afraid or unsafe? 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 Gender Identity Not on file Sexual Orientation Not on file documented as of this encounter Plan of Treatment Not on file documented as of this encounter Visit Diagnoses Not on filedocumented in this encounter Care Teams Steel Post Installer Relationship Specialty Start Date End Date Mariela Del Castillo MD [address] [facility] [address] [address] PCP - General Family Medicine 09/26/24 [place] [address] [address] [facility] [address] [place] [address] Surgeon Cardiothoracic Surgery 09/26/24 Radha Alvarado MD [address] [facility] [address], [place] [address] Consulting Physician Interventional Cardiology 09/26/24 documented as of this encounter
--- OUTSIDE RECORDS SUMMARY | 2024-10-18 09:18 | XMS_ITS | Encounter Summary ---
Author Organization [facility] Healthcare Address [address] [place] [id number] Care Team Providers Care Cell Pourer Name Role Phone Victor Manuel Woo MD Unavailable [phone] Radha Alvarado MD Unavailable [phone] Mariela Del Castillo MD Primary Care Provider [phone] Reason for Visit * Reason Comments Follow-up Encounter Details Date Type Department Care Team (Late st Contact Info) Description 10/17/2024 2:00 PM SLITTING MACHINE OPERATOR Office Visit [facility] Medical Group Cardiology [address] [address] Jazmin Machado NP [address] [facility] [address] [place] [address] Dizziness (Primary Dx); Coronary artery disease involving [place] coronary artery of [place] heart without angina pectoris; Hx of CABG; Type 2 diabetes mellitus without complication, with long-term current use of insulin ([facility]/HCC) (HCC) Social History Tobacco Use Types Packs/Day Years [...] materials from doctor or pharmacy Never 10/07/2024 [facility] Utilities Answer Date Recorded In the [...] Never 09/24/2024 How often do you attend christian or amish serv ices? Never 09/24/2024 Do you belong to any clubs o r organizations such as christian groups, unions, fraternal or athletic groups, or [...] any time in the past 12 m [facility], were you homeless or living in a [facility] (including now)? No 09/24/2024 Personal Safety Answer Date Recorded Have you ever been in or are you currently in a harmful physical or emotional relationship or is someone making you feel afraid or unsafe? Denies 09/20/2024 Sex and Gender Information Value Date Recorded Sex Assigned at Not on file Legal Sex Male 1:22 PM SLITTING MACHINE OPERATOR Gender Identity Not on file Sexual Orientation Not on file documented as of this encounter Last Filed Vital Signs Vital Sign Reading Time Taken Comments Blood Pressure 128/76 10/17/2024 1:58 PM SLITTING MACHINE OPERATOR Pulse 68 10/17/2024 1:58 PM SLITTING MACHINE OPERATOR Temperature - - Respiratory Rate - - Oxygen Saturation 98% 10/17/2024 1:58 PM SLITTING MACHINE OPERATOR Inhaled Oxygen Concentration - - Weight 82.1 kg (181 lb) 10/17/2024 1:58 PM SLITTING MACHINE OPERATOR Height 170.2 cm (5' 7 ) 10/17/2024 1:58 PM SLITTING MACHINE OPERATOR Body Mass Index 28.35 10/17/2024 1:58 PM SLITTING MACHINE OPERATOR documented in this encounter Progress Notes * Jazmin Machado NP - 10/17/2024 2:00 PM CST Images from the original note were not included. [facility] Medical Group Cardiology [address] [place] [address] Date of Visit: 10/17/2024 Patient ID: Markie Delgado 1965 Chief Complaint Patient presents with Follow-up Markie Delgado is a 59 y.o. male who comes to the office for a hospital follow up after CABG with thecomplaint of new onset dizziness. History of Present Illness: Markie Delgado is a 59 y.o. male with the following history: Coronary artery disease, found at the time of VF cardiac arrest in June 2024. Cardiac catheterization showed FARM OPERATIONS TECHNICAL DIRECTOR of the proximal RCA and complete occlusion of the proximal LAD. Unable to wire the LAD, suspecting it was more of a subacute or even chronic occlusion. Subsequent ECGs showed improvement in the ST elevations with no signs of active ischemia on ECGs. Transferred to [facility] for CTS evaluation. Required IABP for cardiogenic shock. Had prolonged hospitalization due to issues with mental status -- deemed not to be a candidate for CABG or complex PCI given issues with encephalopathy likely due to anoxic brain injury Ventricular fibrillation cardiac arrest in June 2024. [facility] Cardiac catheterization showed FARM OPERATIONS TECHNICAL DIRECTOR of the proximal RCA and complete occlusion of the proximal LAD. Unable to wire the LAD, suspecting it was more of a subacute or even chronic occlusion. Subsequent ECGs showed improvement in the ST elevations with no signs of active ischemia on ECGs. VF arrest likely due to underlying severe CAD, hypokalemia (K was 2.5 on presentation). Not a candidate for ICD given issues with encephalopathy due to anoxic brain injury and inability to cooperate. Heart failure with reduced LVEF / Ischemic cardiomyopathy, diagnosed in June 2024. LVEF 06/27/2024 30-40%. Repeat TTE 07/07/2024 showed LVEF 40%. Paroxysmal atrial fibrillation, diagnosed during hospitalization in June 2024. Hypertension Hyperlipidemia Type 2 Diabetes mellitus 08/14/[address] Alvarado: Presents for hospital follow up visit. Since being discharged from the hospital, he has not had any more issues with delirium. Has diffuse chest pain that comes with changing body positions, has been getting better since hospital discharge. Tolerating currentmedications well. Seeing Dr. Camejo with Neurology at [place]. Not back to fully doing the activities that he was doing before his cardiac arrest, but working on becoming more active. Interval history: Markie Delgado was taken to the operating room on 09/20/24 for CABG x3-CASAS to LAD, SVG to PDA, SVG to diagonal branch; ligation of left atrial appendage, performed by Dr. Woo. He had more PAF post-operatively and by the time of discharge was in sinus rhythm on amiodarone and Eliquis. 10/17/2024 Hospital follow-up with VESSEL BUILDER: Mrakie Delgado comes to the office today for a hospital followup visit. He is here for complaint of dizziness. He is accompanied by his significant other Jojo. Five days ago he began having dizziness which occurs throughout the day. Perhaps a little worse when he stands up, but no worse or better when he turns his head. He denies any vision changes or any sense of sinus congestion. Home blood pressures have been 130s over 70s, blood sugars 120s to 130s. He denies syncope falls chest pain or shortness of breath. He has reduced appetite but no nausea or vomiting, bowel habits normal. Medical History: Past Medical History: Diagnosis Date Anoxic encephalopathy ([facility]) Anxiety denies - states has mood disorder Cardiac arrest with ventricular fibrillation ([facility]/HCC) ([facility]) Cardiogenic shock ([facility]) COPD (chronic obstructive pulmonary disease) ([facility]) Coronary artery disease Delayed emergence from general anesthesia Depression denies - states has mood disorder Diabetes mellitus ([facility]) Hyperlipidemia Hypertension Insomnia PAF (paroxysmal atrial fibrillation) (CMS/HCC) ([facility]) PONV (postoperative nausea and vomiting) STEMI (ST elevation myocardial infarction) ([facility]) Type 2 diabetes mellitus ([facility]) Past Surgical History: Procedure Laterality Date CARDIAC CATHETERIZATION 06/2024 @ [facility] CHOLECYSTECTOMY COLONOSCOPY REPLACEMENT TOTAL KNEE Bilateral SHOULDER ARTHROSCOPY Right rotator cuff and tendon repair SPINE SURGERY 1994 L4-5 Social History Tobacco Use Smoking Status Former Types: Cigarettes Smokeless Tobacco Never Tobacco Comments Has not smoked since age 24. Social History Tobacco Use Smoking status: Former Types: Cigarettes Smokeless tobacco: Never Tobacco comments: Has not smoked since age 24. Substance and Sexual Activity Drug use: Not Currently Sexual activity: Defer Alcohol Use: Not At Risk (09/24/2024) AUDIT-C Frequency of Alcohol Consumption: Never Average Number of Drinks: Patient does not drink Frequency of Binge Drinking: Never Family History Family history unknown: Yes Review of Systems Constitutional: Positive for decreased appetite and weight loss. Negative for malaise/fatigue and weight gain. Cardiovascular: Negative for chest pain, dyspnea on exertion, leg swelling, near-syncope, orthopnea, palpitations, paroxysmal nocturnal dyspnea and syncope. Respiratory: Negative for cough, shortness of breath and sleep disturbances due to breathing. Neurological: Positive for dizziness. Vital Signs: BP 128/76 (BP Location: Left arm, Patient Position: Sitting) Pulse 68 Ht 170.2 cm (5' 7 ) Wt 82.1 kg (181 lb) SpO2 98% BMI 28.35 kg/m?? 14:15 BP sitting 120/74 14:17 BP standing 118/70 Physical Exam Constitutional: General: He is not in acute distress. Appearance: He is well-developed. HENT: Head: Normocephalic and atraumatic. Eyes: General: No scleral icterus. Extraocular Movements: Extraocular movements intact. Conjunctiva/sclera: Conjunctivae normal. Neck: Vascular: No JVD. Trachea: No tracheal deviation. Cardiovascular: Rate and Rhythm: Normal rate and regular rhythm. Heart sounds: Normal heart sounds. No murmur heard. Comments: Sternal incision looks benign, mostly healed Pulmonary: Effort: Pulmonary effort is normal. No respiratory distress. Breath sounds: Normal breath sounds. Skin: General: Skin is warm and dry. Neurological: Mental Status: He is alert and oriented to person, place, and time. Psychiatric: Mood and Affect: Mood normal. Behavior: Behavior normal. Allergies Allergen Reactions Morphine Itching Current Outpatient Medications: Accu-Chek Softclix Lancets lancets, USE TO TEST EVERY DAY, Disp: , Rfl: amiodarone (PACERONE) 200 mg tablet, Take 2 tablets (400 mg total) by mouth 2 (two) times a day for7 days, THEN 2 tablets (400 mg total) daily., Disp: 88 tablet, Rfl: 0 apixaban (ELIQUIS) 5 mg tablet, Take 1 tablet (5 mg total) by mouth every 12 (twelve) hours, Disp: 60 tablet, Rfl: 1 aspirin 81 mg chewable tablet, Take 1 tablet (81 mg total) by mouth daily, Disp: 30 tablet, Rfl: 11 blood glucose diagnostic strip, 1 month supply, Disp: 100 strip, Rfl: 0 blood-glucose meter kit, 1 meter, Disp: 1 kit, Rfl: 0 carvediloL (COREG) 6.25 mg tablet, Take 1 tablet (6.25 mg total) by mouth 2 (two) times a day with meals, Disp: 60 tablet, Rfl: 1 dapagliflozin propanediol (FARXIGA) 10 mg tablet, Take 1 tablet (10 mg total) by mouth every morning, Disp: , Rfl: docusate sodium (COLACE) 100 mg capsule, Take 1 capsule (100 mg total) by mouth 2 (two) times a day, Disp: , Rfl: Droplet Pen Needle 31 gauge x 3/16 needle, USE ONE DAILY WITH INSULIN PEN, Disp: , Rfl: escitalopram (LEXAPRO) 20 mg tablet, Take 1 tablet (20 mg total) by mouth daily, Disp: 30 tablet, Rfl: 1 folic acid (FOLVITE) 1 mg tablet, Take 1 tablet (1 mg total) by mouth daily, Disp: 30 tablet, Rfl: 11 furosemide (LASIX) 40 mg tablet, Take 1 tablet (40 mg total) by mouth daily, Disp: 30 tablet, Rfl: 0 glimepiride (AMARYL) 2 mg tablet, Take 1 tablet (2 mg total) by mouth 2 (two) times a day after breakfast and dinner, Disp: , Rfl: insulin glargine 100 unit/mL (3 mL) pen for injection, Inject 5 Units under the skin daily, Disp: 15 mL, Rfl: 0 potassium chloride ER (KLOR-CON) 20 mEq CR tablet, Take 1 tablet (20 mEq total) by mouth daily WithLasix, Disp: 30 tablet, Rfl: 0 QUEtiapine (SEROquel) 25 mg tablet, Take 1 tablet (25 mg total) by mouth nightly, Disp: 30 tablet, Rfl: 1 rosuvastatin (CRESTOR) 40 mg tablet, Take 1 tablet (40 mg total) by mouth nightly, Disp: 30 tablet,Rfl: 1 spironolactone (ALDACTONE) 25 mg tablet, Take 1 tablet (25 mg total) by mouth daily, Disp: 30 tablet, Rfl: 1 thiamine (VITAMIN B1) 100 mg tablet, Take 1 tablet (100 mg total) by mouth daily, Disp: 30 tablet, Rfl: 11 traZODone (DESYREL) 100 mg tablet, Take 1 tablet (100 mg total) by mouth nightly, Disp: 30 tablet, Rfl: 0 zolpidem (AMBIEN) 10 mg tablet, Take 1 tablet (10 mg total) by mouth nightly as needed for sleep, Disp: , Rfl: acetaminophen 500 mg capsule, Take 2 capsules (1,000 mg total) by mouth every 6 (six) hours (Patient not taking: Reported on 10/17/2024), Disp: , Rfl: oxyCODONE (ROXICODONE) 5 mg immediate release tablet, Take 1 tablet (5 mg total) by mouth every 4 (four) hours as needed for pain (Patient not taking: Reported on 10/17/2024), Disp: 21 tablet, Rfl: 0 Lab Results Component Value Date POTASSIUM 3.9 10/01/2024 BUNSER 11 10/01/2024 CREATININE 0.88 10/01/2024 CHOL 132 06/27/2024 TRIG 115 06/30/2024 LDLCALC 56 06/27/2024 HDL 40 06/27/2024 Lab Results Component Value Date WBC 8.0 10/01/2024 HGB 9.2 (L) 10/01/2024 HCT 28.8 (L) 10/01/2024 MCV 86.7 10/01/2024 No results found for this or any previous visit (from the past 4 hours). No results found for: POCCHOL , POCHDL , POCTRIG , POCLDL , POCNONHDL , POCCHLPL Assessment: Diagnoses and all orders for this visit: Dizziness (Primary) - Basic metabolic panel; Future - CBC with auto differential; Future - Lipid panel; Future Coronary artery disease involving [place] coronary artery of [place] heart without angina pectoris Hx of CABG Type 2 diabetes mellitus without complication, with long-term current use of insulin ([facility]) ([facility]) Plan/Recommendations: He is s/p CABG 4 weeks ago. Five days ago he began experiencing persistent dizziness. Symptom is not consistent with vertigo. He has not recorded any episodes of hypoglycemia associated with this. Orthostatic blood pressure check in the office today is negative. Patient's significant other is concerned about electrolyte derangement. I will send him for a BMP, and because he is postop I will recheck his CBC as well. The patient also requests to check a fasting lipid panel. He will go to the lab tomorrow morning, I will watch her his result, and follow-up him over the phone with recommendations. For now no medication changes are immediately indicated. 10/17/2024 JONNY You- Nurse Practitioner with [facility] Cardiology This note is dictated and transcribed using [employer] Software. Ship Painter Helper variancesmay occur. Despite proofreading, typographical errors may occur. Cosigned by Radha Alvarado MD at 10/17/2024 2:50 PM SLITTING MACHINE OPERATOR TING MACHINE OPERATOR TING MACHINE OPERATOR documented in this encounter Plan of Treatment Scheduled Orders Name Type Priority Associated Diagnoses Orde r Schedule Basic metabolic panel Lab Routine Dizziness Expected: 10/17/2024, Expires: 10/17/2025 CBC with auto differential Lab Routine Dizziness Expected: 10/17/2024, Expires: 10/17/2025 Lipid panel Lab Routine Dizziness Expected: 10/17/2024, Expires: 10/17/2025 documented as of this encounter Visit Diagnoses Diagnosis Dizziness- Primary Dizziness and giddiness Coronary artery disease involving [place] coronary artery of [place] heart without angina pectoris Hx of CABG Postsurgical aortocoronary bypass status Type 2 diabetes mellitus without complication, with long-term current use of insulin ([facility]/HCC) ([facility]) documented in this encounter Historical Medications * This list may reflect changes made after this encounter. zolpidem (AMBIEN) 10 mg tabletIndications :Sleep-Onset Insomnia Take 1 tablet (10 mg total) by mouth nightly as needed for sleep added in this encounter Care Teams Cell Pourer Relationship Specialty Start Date End Date Mariela Del Castillo MD [address] [facility] [address] [address] PCP - General Family Medicine 09/26/24 [place] [address] [facility] [address] [place] [address] Surgeon Cardiothoracic Surgery 09/26/24 Radha Alvarado MD [address] [facility] [address], [place] [id number] Consulting Physician Interventional Cardiology 09/26/24 documented as of this encounter
--- OUTSIDE RECORDS SUMMARY | 2024-10-18 09:19 | XMS_ITS | Clinical Summary ---
Author Organization [facility] Address [address] [place] [id number] Care Team Providers Care Vat Tender Name Role Phone Cassidyt, Generic Provider Primary Care Provider Unavailable Allergies No known active allergies Medications simvastatin (ZOCOR) 40 mg tablet 1 tab(s) Active amLODIPine-valsa rtan 5-320 mg Tablet 1 tab(s) Active escitalopram oxalate (LEXAPRO) 10 mg tablet 1 tab(s) Active traMADoL (ULTRAM) 50 mg tablet 1-2 tab(s) 06/09/2017 Active fenofibric acid (TRILIPIX) 135 mg Capsule, Delayed Release(E.C.) 1 cap(s) Active diclofenac sodium (VOLTAREN) 75 mg Tablet, Delayed Release (E.C.) 1 tab(s) 04/20/2017 Acti ve dapagliflozin (Farxiga) 5 mg Tablet Take by mouth daily. Active diclofenac sodium (VOLTAREN) 75 mg Tablet, Delayed Release (E.C.) Take 1 Tablet (75 mg) by mouth 2 times daily. 60 Tablet 3 01/14/2021 Active Active Problems Problem Noted Date Diagnosed Date Status post bilateral knee replacements 01/15/20 21 Family History Medical History Relation Name Comments Arthritis-osteo Mother Hypertension Mother Relation Name Status Comments Mother Social History Tobacco Use Types Packs/Day Years Used Date Smoking Tobacco: Never Alcohol Use Standard Drinks/Week Comments Never 0 (1 standard drink = 0.6 oz pur e alcohol) Sex and Gender Information Value Date Recorded Sex Assigned at Not on file Legal Sex Male 11:35 PM CDT Gender Identity Not on file Sexual Orientation Not on file Last Filed Vital Signs Vital Sign Reading Time Taken Comments Blood Pressure 122/64 01/14/2021 9:10 AM CDT Pulse - - Temperature - - Respiratory Rate - - Oxygen Saturation - - Inhaled Oxygen Concentration - - Weight 88.5 kg (195 lb) 01/14/2021 9:10 AM CDT Height 170.2 cm (5' 7 ) 01/14/2021 9:10 AM CDT Body Mass Index 30.54 01/14/2021 9:10 AM CDT Plan of Treatment Health Maintenance Due Date Last Done Comments DTAP/TDAP/TD VACCINES (1 - Tdap) 01/21/1983 COLORECTAL SCREENING 01/21/2009 Colorectal Cancer Screening 01/21/2009 FIT-DNA Q 3 years 01/21/2009 FIT/FOBT Q 1 year 01/21/2009 Flex Sig/CT Colonography Q 5 years 01/21/2009 ZOSTER VACCINE (1 of 2) 01/21/2014 RSV VACCINE (60+ or ) (1 - Risk 60-74 years 1-dose series) 2024 INFLUENZA VACCINE (#1) 2024 HEPATITIS B VACCINES Aged Out No long er eligible based on patient's age [place] [phone] Care Teams Vat Tender Relationship Specialty Start Date End Date Alondra Cerna Provider PCP - General 01/14/21
--- OUTSIDE RECORDS SUMMARY | 2024-10-18 09:19 | XMS_ITS | Referral Summary ---
Author Organization [facility] Address [address] [place] [address] Care Team Providers Care Literature Teacher Name Role Phone Victor Manuel Woo MD Unavailable [phone] Giuseppe Alvarado MD Unavailable [phone] Mariela Del Castillo MD Primary Care Provider [phone] Encounters Date Type Department Care Team Description 10/17/2024 2:00 PM ARTIST BLACKSMITH Office Visit [facility] Cardiology [address] [place] [address] [address] [place] [address] Jamzin Machado NP Dizziness (Primary Dx); Coronary artery disease involving [place] coronary artery of [place] heart without angina pectoris; Hx of CABG; Type 2 diabetes mellitus without complication, with long-term current use of insulin ([facility]) (HCC) 10/15/[address] [facility] Cardiology [address] [place] [address] [address] [place] [address] Giuseppe Alvarado MD Dizziness 10/07/2024 Home Care Visit [address] [address] [address] [place] [address] Gerson Medina RN SN VIRTUAL OASIS DISCHARGE 10/07/2024 Home Care Visit [address] [place] [id number] Zhane Mathis, RN TELEPHONE ENCOUNTER 10/04/2024 [facility] Post Discharge Follow up phone call [facility] [address] [place] [address] Ruchi Whitman RN 10/02/2024 Home Care Visit [address] [address] [address] [place] [address] Zhane Mathis, RN CASE COMMUNICATION 10/02/2024 Telephone [facility] [address] [facility] [address] [place] [address] Mariela Del Castillo MD 10/01/2024 11:45 AM ARTIST BLACKSMITH - 10/01/2024 11:59 PM ARTIST BLACKSMITH Hospital Encounter [facility] [address] [place] [address] Discharge Disposition: Discharge to home or self care 10/01/2024 11:00 AM ARTIST BLACKSMITH Home Care Visit [address] [address] [address] [place] [address] Gerson Medina RN SN HOME VISIT 09/30/2024 1:00 PM ARTIST BLACKSMITH Home Care Visit [address] [address] [address] [place] [address] Alicia Auguste, PT PT INITIAL EVALUATION 09/29/2024 Plan of Care Documentation [address] [address] [address] [place] [address] 09/27/2024 2:00 PM ARTIST BLACKSMITH Home Care Visit [address] [address] [address] [place] [address] Tangela Zavala, FANNY SN OASIS START OF CARE 09/26/2024 Telephone [facility] [address] [facility] [address] [place] [address] Mariela Del Castillo MD suzan 09/26/2024 Telephone [facility] Home Care Services [address] [place] [address] Paul Alexandre MA 09/20/2024 5:29 AM ARTIST BLACKSMITH - 09/26/2024 5:43 PM ARTIST BLACKSMITH Hospital Encounter [address] [address] Victor Manuel Woo MD Coronary artery disease of [place] artery of [place] heart with stable angina pectoris (HCC) (Primary Dx); Coronary artery disease (CAD) excluded; Primary hypertension; Type 2 diabetes mellitus with hyperglycemia, without long-term current use of insulin (HCC) Discharge Disposition: Discharge to home, home health skilled care 09/20/2024 8:00 AM ARTIST BLACKSMITH - 09/20/2024 1:00 PM ARTIST BLACKSMITH Surgery [facility] Operating Room [address] [place] [id number] Victor Manuel Woo MD CABG X 2-3, LIGATION OF LA APPENDAGE /240MIN 09/20/2024 7:50 AM ARTIST BLACKSMITH Anesthesia Event [facility] Operating Room [address] [place] [id number] Barry Ellington MD Barnhart, Lynlee Jo, NP 09/17/2024 8:55 AM ARTIST BLACKSMITH - 09/17/2024 11:59 PM ARTIST BLACKSMITH Hospital Encounter [facility] Diagnostic Imaging [address] [place] [id number] Discharge Disposition: Discharge to home or self care 09/17/2024 8:45 AM ARTIST BLACKSMITH Pre-Admission Testing [facility] Pre Anesthesia Testing [address] [place] [id number] Coronary artery disease of [place] heart with stable angina pectoris, unspecified vessel or lesion type (HCC); Pre-op testing 09/05/2024 Telephone [facility] Medical Group Cardiology [address] [facility] [address] [place] [phone] Giuseppe Alvarado MD 08/27/2024 2:30 PM ARTIST BLACKSMITH Office Visit [facility] Surgery [address] [facility] [address] [place] [phone] Victor Manuel Woo MD Coronary artery disease involving [place] coronary artery of [place] heart without angina pectoris 08/26/2024 10:15 AM ARTIST BLACKSMITH Ancillary Procedure [facility] Cardiology [address] [facility] [address] [place] [phone] Coronary artery disease involving [place] coronary artery of [place] heart without angina pectoris 08/14/2024 Telephone [facility] Medical [facility] Cardiology at [address] [place] [phone] Giuseppe Alvarado MD 08/14/2024 9:00 AM ARTIST BLACKSMITH Office Visit [facility] Cardiology at [address] [place] [address] Giuseppe Alvarado MD Type 2 diabetes mellitus with hyperglycemia, unspecified whether intermediate manager insulin use (HCC) (Primary Dx); Coronary artery disease involving [place] coronary artery of [place] heart without angina pectoris; Cardiac arrest with ventricular fibrillation (CMS/HCC) (HCC); Paroxysmal atrial fibrillation (CMS/HCC) (HCC); Primary hypertension; Mixed hyperlipidemia from Last 3 Months Allergies Active Allergy Reactions Criticality Noted Date Comments Morphine Itching Low 06/27/2024 Medications dapagliflozin propanediol (FARXIGA) 10 mg tabletIndication s:heart failure associated with type 2 diabetes mellitus Take 1 tablet (10 mg total) by mouth every morning Active apixaban (ELIQUIS) 5 mg tabletIndication s:atrial fibrillation Take 1 tablet (5 mg total) by mouth every 12 (twelve) hours 60 tablet 1 07/17/20 24 Active escitalopram (LEXAPRO) 20 mg tabletIndication s:Anxiety with Depression Take 1 tablet (20 mg total) by mouth daily 30 tablet 1 07/17/20 24 Active QUEtiapine (SEROquel) 25 mg tabletIndication s:Generalized Anxiety Disorder Take 1 tablet (25 mg total) by mouth nightly 30 tablet 1 07/17/20 24 Active aspirin 81 mg chewable tabletIndication s:Myocardial Reinfarction Prevention Take 1 tablet (81 mg total) by mouth daily 30 tablet 07/18/20 24 025 Active folic acid (FOLVITE) 1 mg tabletIndication s:Folate Deficiency Take 1 tablet (1 mg total) by mouth daily 30 tablet 07/18/20 24 025 Active insulin glargine 100 unit/mL (3 mL) pen for injectionIndicat ions:Diabetes Inject 5 Units under the skin daily 15 mL 07/17/20 24 Active thiamine (VITAMIN B1) 100 mg tabletIndication s:Thiamine Deficiency Take 1 tablet (100 mg total) by mouth daily 30 tablet 11 07/18/20 24 025 Active traZODone (DESYREL) 100 mg tabletIndication s:insomnia associated with depression Take 1 tablet (100 mg total) by mouth nightly 30 tablet 07/17/20 24 Active blood-glucose meter kit 1 meter 1 kit 07/17/20 24 Active blood glucose diagnostic strip 1 month supply 100 strip 07/17/20 24 Active Droplet Pen Needle 31 gauge x 11/24 needle USE ONE DAILY WITH INSULIN PEN 08/28/20 Active Accu-Chek Softclix Lancets lancets USE TO TEST EVERY DAY 08/29/20 24 Active glimepiride (AMARYL) 2 mg tabletIndication s:type 2 diabetes mellitus Take 1 tablet (2 mg total) by mouth 2 (two) times a day after breakfast and dinner 09/18/19 25 Active rosuvastatin (CRESTOR) 40 mg tabletIndication s:coronary artery disease Take 1 tablet (40 mg total) by mouth nightly 30 tablet 1 09/26/19 25 025 Active acetaminophen 500 mg capsuleIndicatio ns:Pain Take 2 capsules (1,000 mg total) by mouth every 6 (six) hours 09/26/19 25 Active Additional Information Patient not taking.Reported on 10/17/2024 amiodarone (PACERONE) 200 mg tabletIndication s:Prevention of A. Fib Post Cardio-Thoracic Surgery Take 2 tablets (400 mg total) by mouth 2 (two) times a day for 7 days, THEN 2 tablets (400 mg total) daily. 88 tablet 09/26/19 25 025 Active docusate sodium (COLACE) 100 mg capsuleIndicatio ns:constipation Take 1 capsule (100 mg total) by mouth 2 (two) times a day 09/26/19 25 Active furosemide (LASIX) 40 mg tablet Take 1 tablet (40 mg total) by mouth daily 30 tablet 09/27/19 25 025 Active potassium chloride ER (KLOR-CON) 20 mEq CR tablet Take 1 tablet (20 mEq total) by mouth daily With Lasix 30 tablet 09/26/19 25 025 Active spironolactone (ALDACTONE) 25 mg tablet Take 1 tablet (25 mg total) by mouth daily 30 tablet 1 09/27/19 25 025 Active carvediloL (COREG) 6.25 mg tabletIndication s:Myocardial Reinfarction Prevention Take 1 tablet (6.25 mg total) by mouth 2 (two) times a day with meals 60 tablet 1 09/26/19 25 025 Active oxyCODONE (ROXICODONE) 5 mg immediate release tabletIndication s:Pain Take 1 tablet (5 mg total) by mouth every 4 (four) hours as needed for pain 21 tablet 09/26/19 Active Additional Information Patient not taking.Reported on 10/17/2024 zolpidem (AMBIEN) 10 mg tabletIndication s:Sleep-Onset Insomnia Take 1 tablet (10 mg total) by mouth nightly as needed for sleep Active carvediloL (COREG) 12.5 mg tablet Take 1 tablet (12.5 mg total) by mouth 2 (two) times a day with meals 60 tablet 11 07/17/20 24 025 Discontinu ed(Stop Taking at Discharge) rosuvastatin (CRESTOR) 20 mg tablet Take 1 tablet (20 mg total) by mouth nightly 30 tablet 07/17/20 24 025 Discontinu ed(Stop Taking at Discharge) losartan (COZAAR) 25 mg tablet Take 1 tablet (25 mg total) by mouth daily 30 tablet 11 08/14/20 24 025 Discontinu ed(Stop Taking at Discharge) methocarbamoL (ROBAXIN) 500 mg tabletIndication s:Muscle Spasm Take 1 tablet (500 mg total) by mouth 3 (three) times a day for 7 days 21 tablet 09/26/19 25 Active Problems Problem Noted Date Diagnosed Date Coronary artery disease (CAD) excluded Coronary artery disease of n ative heart with stable angina pectoris 08/27/2024 Coronary artery disease invo lving [place] coronary artery of [place] heart without angina pectoris 08/14/2024 Cardiac arrest with ventricular fibrillation (CM S/HCC) 08/14/2024 Primary hypertension 08/14/2024 Mixed hyperlipidemia 08/14/2024 Paroxysmal atrial fibrillation (CMS/HCC) 024 Gross hematuria 07/13/2024 Altered mental status 07/13/2024 Type 2 diabetes mellitus wit h hyperglycemia, without long-term current use of insulin 07/12/2024 STEMI (ST elevation myocardial infarction) 06/27 Cardiogenic shock 06/27/2024 Anoxic encephalopathy 06/27/2024 TATY (obstructive sleep apnea) 02/18/2022 Overview (02/18/2022): Refused treatment. Status post uvulectomy Status post bilateral knee replacements 01/15/20 21 Immunizations Name Administration Dates Next Due Influenza, Quadrivalent, Sherin l Culture-based MDCK, Preservative Free, Antibiotic Free, Intramuscular 07/20/2022,06/24/2017 Influenza, Quadrivalent, Spl it, Preservative Free, Intramuscular 07/07/2021,05/26/2020,06/24/2018 Influenza, Trivalent, IM (MDV) 06/28/2014,2012 Influenza, Trivalent, Preser vative Free, Intramuscular 06/30/2016 Pneumococcal Conjugate Pcv20 07/20/2022 Pneumococcal Polysaccharide PPV23 07/06/2013 Social History Tobacco Use Types Packs/Day Years Used Date Smoking Tobacco: Former Cigarettes Smokeless Tobacco: Never Tobacco Cessation:Counseling Given: Not Answered Comments:Has not smoked since age 24. OASIS D0700: Social Isolation Answer [...] materials from doctor or pharmacy Never 10/07/2024 [facility] Utilities Answer Date Recorded In the past 12 months has th e [employer] gas, oil, or water [employer] threatened to shut off services in your home? No 09/24/2024 Social Connection and Isolation Panel [NHANES] A nswer Date Recorded In a typical week, how many times do you talk on the phone with family, friends, or neighbors? Patient declined 09/24/2024 How often do you get togethe r with friends or relatives? Never 09/24/2024 How often do you attend taoism or zoroastrian serv ices? Never 09/24/2024 Do you belong to any clubs o r organizations such as taoism groups, unions, fraternal or athletic groups, or [...] any time in the past [address] [facility], were you homeless or living in a assisted (including now)? No 09/24/2024 Personal Safety Answer Date Recorded Have you ever been in or are you currently in a harmful physical or emotional relationship or is someone making you feel afraid or unsafe? Denies 09/20/2024 Sex and Gender Information Value Date Recorded Sex Assigned at Not on file Legal Sex Male 1:22 PM ARTIST BLACKSMITH Gender Identity Not on file Sexual Orientation Not on file Last Filed Vital Signs Vital Sign Reading Time Taken Comments Blood Pressure 128/76 10/17/2024 1:58 PM ARTIST BLACKSMITH Pulse 68 10/17/2024 1:58 PM ARTIST BLACKSMITH Temperature 36.3 C (97.4 F) 10/01/2024 11:26 AM ARTIST BLACKSMITH Respiratory Rate 18 10/01/2024 11:26 AM ARTIST BLACKSMITH Oxygen Saturation 98% 10/17/2024 1:58 PM ARTIST BLACKSMITH Inhaled Oxygen Concentration - - Weight 82.1 kg (181 lb) 10/17/2024 1:58 PM ARTIST BLACKSMITH Height 170.2 cm (5' 7 ) 10/17/2024 1:58 PM ARTIST BLACKSMITH Body Mass Index 28.35 10/17/2024 1:58 PM ARTIST BLACKSMITH Plan of Treatment Not on file Medical Devices Implanted Type Area Telephoto Installer Device Identifier Shelf Expiration Date Model / Serial / Lot Atricure Device Closure Atriclip Nitinol Titanium Polyester 45 D L45mm L6cm Flexible Shaft Plunger Irrigator Gravity Flow Left Atrial Appendage Exclusion System [id number] - [id number] Implanted:Qty: 1 on 09/20/2024 by Victor Manuel Woo MD at [facility] Clip Left: Atrial Appendage Atricure 04/11/2027 [id number] / / [id number] Procedures Procedure Name Priority Date/Time Associated Diagnosis Comments EGFR Routine 10/01/2024 11:45 AM ARTIST BLACKSMITH CBC WITHOUT DIFFERENTIAL Routine 10/01/2024 11:45 AM ARTIST BLACKSMITH GLUCOSE, RANDOM (OUTREACH) Routine 10/01/2024 11:45 AM ARTIST BLACKSMITH BASIC METABOLIC PANEL WITHOUT GLUCOSE, PLASMA (OUTREACH) Routine 10/01/2024 11:45 AM ARTIST BLACKSMITH POTASSIUM LEVEL Timed 09/26/2024 12:55 PM ARTIST BLACKSMITH POCT GLUCOSE DEVICE Routine 09/26/2024 1 2:08 PM ARTIST BLACKSMITH PEP THERAPY Routine 09/26/2024 9:20 AM ARTIST BLACKSMITH POCT GLUCOSE DEVICE Routine 09/26/2024 7 :40 AM ARTIST BLACKSMITH XR CHEST 1 VIEW IP Routine 09/26/2024 5:50 AM ARTIST BLACKSMITH EGFR Routine 09/26/2024 4:50 AM ARTIST BLACKSMITH MAGNESIUM Routine 09/26/2024 4:50 AM ARTIST BLACKSMITH RENAL FUNCTION PANEL Routine 09/26/2024 4:50 AM ARTIST BLACKSMITH CBC WITHOUT DIFFERENTIAL Routine 09/26/2024 4:50 AM ARTIST BLACKSMITH ECG 12-LEAD STAT 09/26/2024 3:00 AM ARTIST BLACKSMITH POCT GLUCOSE DEVICE Routine 09/26/2024 2 :16 AM ARTIST BLACKSMITH POCT GLUCOSE DEVICE Routine 09/25/2024 8 :04 PM ARTIST BLACKSMITH POCT GLUCOSE DEVICE Routine 09/25/2024 5 :43 PM ARTIST BLACKSMITH POCT GLUCOSE DEVICE Routine 09/25/2024 1 2:25 PM ARTIST BLACKSMITH POCT GLUCOSE DEVICE Routine 09/25/2024 8 :01 AM ARTIST BLACKSMITH XR CHEST 1 VIEW IP Routine 09/25/2024 5:47 AM ARTIST BLACKSMITH EGFR Routine 09/25/2024 5:40 AM ARTIST BLACKSMITH PROTIME-INR Routine 09/25/2024 5:40 AM ARTIST BLACKSMITH APTT Routine 09/25/2024 5:40 AM ARTIST BLACKSMITH MAGNESIUM Routine 09/25/2024 5:40 AM ARTIST BLACKSMITH RENAL FUNCTION PANEL Routine 09/25/2024 5:40 AM ARTIST BLACKSMITH CBC WITHOUT DIFFERENTIAL Routine 09/25/2024 5:40 AM ARTIST BLACKSMITH POCT GLUCOSE DEVICE Routine 09/24/2024 9 :58 PM ARTIST BLACKSMITH POCT GLUCOSE DEVICE Routine 09/24/2024 5 :30 PM ARTIST BLACKSMITH POCT GLUCOSE DEVICE Routine 09/24/2024 1 2:14 PM ARTIST BLACKSMITH EGFR Routine 09/24/2024 10:41 AM ARTIST BLACKSMITH MAGNESIUM Routine 09/24/2024 10:41 AM ARTIST BLACKSMITH RENAL FUNCTION PANEL Routine 09/24/2024 10:41 AM ARTIST BLACKSMITH CBC WITHOUT DIFFERENTIAL Routine 09/24/2024 10:41 AM ARTIST BLACKSMITH ECG 12-LEAD Routine 09/24/2024 10:30 AM ARTIST BLACKSMITH POCT GLUCOSE DEVICE Routine 09/24/2024 7 :58 AM ARTIST BLACKSMITH XR CHEST 1 VIEW IP Routine 09/24/2024 6:29 AM ARTIST BLACKSMITH POCT GLUCOSE DEVICE Routine 09/23/2024 9 :35 PM ARTIST BLACKSMITH POCT GLUCOSE DEVICE Routine 09/23/2024 4 :59 PM ARTIST BLACKSMITH EGFR Timed 09/23/2024 2:00 PM ARTIST BLACKSMITH MAGNESIUM Timed 09/23/2024 2:00 PM ARTIST BLACKSMITH RENAL FUNCTION PANEL Timed 09/23/2024 2:00 PM ARTIST BLACKSMITH POCT GLUCOSE DEVICE Routine 09/23/2024 1 1:59 AM ARTIST BLACKSMITH POCT GLUCOSE DEVICE Routine 09/23/2024 8 :06 AM ARTIST BLACKSMITH CRITICAL CARE Routine 09/23/2024 7:46 AM ARTIST BLACKSMITH Coronary artery disease of [place] artery of [place] heart with stable angina pectoris (HCC) EGFR Routine 09/23/2024 4:41 AM ARTIST BLACKSMITH DIFFERENTIAL AUTO Routine 09/23/2024 4:4 1 AM ARTIST BLACKSMITH CALCIUM,IONIZED, WHOLE BLOOD STAT 09/23/2024 4:41 AM ARTIST BLACKSMITH OXYHEMOGLOBIN, CENTRAL VENOUS STAT 09/23/2024 4:41 AM ARTIST BLACKSMITH PHOSPHORUS Routine 09/23/2024 4:41 AM ARTIST BLACKSMITH MAGNESIUM Routine 09/23/2024 4:41 AM ARTIST BLACKSMITH BASIC METABOLIC PANEL Routine 09/23/2024 4:41 AM ARTIST BLACKSMITH CBC WITH AUTO DIFFERENTIAL Routine 09/23/2024 4:41 AM ARTIST BLACKSMITH XR CHEST 1 VIEW IP Routine 09/23/2024 4:01 AM ARTIST BLACKSMITH MAGNESIUM STAT 09/22/2024 9:55 PM ARTIST BLACKSMITH CALCIUM,IONIZED, WHOLE BLOOD STAT 09/22/2024 9:55 PM ARTIST BLACKSMITH POTASSIUM LEVEL STAT 09/22/2024 9:55 PM ARTIST BLACKSMITH POCT GLUCOSE DEVICE Routine 09/22/2024 8 :09 PM ARTIST BLACKSMITH CRITICAL CARE Routine 09/22/2024 7:30 PM ARTIST BLACKSMITH Coronary artery disease of [place] artery of [place] heart with stable angina pectoris (HCC) POCT GLUCOSE DEVICE Routine 09/22/2024 5 :04 PM ARTIST BLACKSMITH EGFR Routine 09/22/2024 1:16 PM ARTIST BLACKSMITH DIFFERENTIAL AUTO Routine 09/22/2024 1:1 6 PM ARTIST BLACKSMITH MAGNESIUM Routine 09/22/2024 1:16 PM ARTIST BLACKSMITH CBC WITH AUTO DIFFERENTIAL Routine 09/22/2024 1:16 PM ARTIST BLACKSMITH CALCIUM,IONIZED, WHOLE BLOOD Routine 09/22/2024 1:16 PM ARTIST BLACKSMITH BASIC METABOLIC PANEL Routine 09/22/2024 1:16 PM ARTIST BLACKSMITH POCT GLUCOSE DEVICE Routine 09/22/2024 1 2:17 PM ARTIST BLACKSMITH POCT GLUCOSE DEVICE Routine 09/22/2024 8 :05 AM ARTIST BLACKSMITH CRITICAL CARE Routine 09/22/2024 6:52 AM ARTIST BLACKSMITH Coronary artery disease of [place] artery of [place] heart with stable angina pectoris (HCC) XR CHEST 1 VIEW IP Routine 09/22/2024 5:35 AM ARTIST BLACKSMITH OXYHEMOGLOBIN, CENTRAL VENOUS STAT 09/22/2024 4:15 AM ARTIST BLACKSMITH EGFR Routine 09/22/2024 3:33 AM ARTIST BLACKSMITH DIFFERENTIAL AUTO Routine 09/22/2024 3:3 3 AM ARTIST BLACKSMITH PHOSPHORUS Routine 09/22/2024 3:33 AM ARTIST BLACKSMITH MAGNESIUM Routine 09/22/2024 3:33 AM ARTIST BLACKSMITH BASIC METABOLIC PANEL Routine 09/22/2024 3:33 AM ARTIST BLACKSMITH CBC WITH AUTO DIFFERENTIAL Routine 09/22/2024 3:33 AM ARTIST BLACKSMITH POCT GLUCOSE DEVICE Routine 09/21/2024 1 1:56 PM ARTIST BLACKSMITH POCT GLUCOSE DEVICE Routine 09/21/2024 8 :43 PM ARTIST BLACKSMITH EGFR STAT 09/21/2024 8:27 PM ARTIST BLACKSMITH DIFFERENTIAL AUTO STAT 09/21/2024 8:2 7 PM ARTIST BLACKSMITH CALCIUM,IONIZED, WHOLE BLOOD STAT 09/21/2024 8:27 PM ARTIST BLACKSMITH MAGNESIUM STAT 09/21/2024 8:27 PM ARTIST BLACKSMITH CBC WITH AUTO DIFFERENTIAL STAT 09/21/2024 8:27 PM ARTIST BLACKSMITH BASIC METABOLIC PANEL STAT 09/21/2024 8:27 PM ARTIST BLACKSMITH CRITICAL CARE Routine 09/21/2024 7:29 PM ARTIST BLACKSMITH Coronary artery disease of [place] artery of [place] heart with stable angina pectoris (HCC) POCT GLUCOSE DEVICE Routine 09/21/2024 7 :19 PM ARTIST BLACKSMITH POCT GLUCOSE DEVICE Routine 09/21/2024 6 :13 PM ARTIST BLACKSMITH POCT GLUCOSE DEVICE Routine 09/21/2024 4 :56 PM ARTIST BLACKSMITH POCT GLUCOSE DEVICE Routine 09/21/2024 2 :45 PM ARTIST BLACKSMITH EGFR Timed 09/21/2024 1:42 PM ARTIST BLACKSMITH MAGNESIUM Timed 09/21/2024 1:42 PM ARTIST BLACKSMITH CALCIUM,IONIZED, WHOLE BLOOD Timed 09/21/2024 1:42 PM ARTIST BLACKSMITH BASIC METABOLIC PANEL Timed 09/21/2024 1:42 PM ARTIST BLACKSMITH CBC WITHOUT DIFFERENTIAL Timed 09/21/2024 1:42 PM ARTIST BLACKSMITH POCT GLUCOSE DEVICE Routine 09/21/2024 1 2:36 PM ARTIST BLACKSMITH POCT GLUCOSE DEVICE Routine 09/21/2024 1 0:50 AM ARTIST BLACKSMITH ECG 12-LEAD Routine 09/21/2024 10:14 AM ARTIST BLACKSMITH POCT GLUCOSE DEVICE Routine 09/21/2024 9 :43 AM ARTIST BLACKSMITH POCT GLUCOSE DEVICE Routine 09/21/2024 8 :39 AM ARTIST BLACKSMITH CRITICAL CARE Routine 09/21/2024 8:32 AM ARTIST BLACKSMITH Coronary artery disease of [place] artery of [place] heart with stable angina pectoris (HCC) POCT GLUCOSE DEVICE Routine 09/21/2024 7 :31 AM ARTIST BLACKSMITH POCT GLUCOSE DEVICE Routine 09/21/2024 6 :28 AM ARTIST BLACKSMITH XR CHEST 1 VIEW IP Routine 09/21/2024 6:00 AM ARTIST BLACKSMITH POCT GLUCOSE DEVICE Routine 09/21/2024 5 :01 AM ARTIST BLACKSMITH EGFR Routine 09/21/2024 4:41 AM ARTIST BLACKSMITH DIFFERENTIAL AUTO Routine 09/21/2024 4:4 1 AM ARTIST BLACKSMITH OXYHEMOGLOBIN, CENTRAL VENOUS Routine 09/21/2024 4:41 AM ARTIST BLACKSMITH PHOSPHORUS Routine 09/21/2024 4:41 AM ARTIST BLACKSMITH MAGNESIUM Routine 09/21/2024 4:41 AM ARTIST BLACKSMITH BASIC METABOLIC PANEL Routine 09/21/2024 4:41 AM ARTIST BLACKSMITH CBC WITH AUTO DIFFERENTIAL Routine 09/21/2024 4:41 AM ARTIST BLACKSMITH POCT GLUCOSE DEVICE Routine 09/21/2024 4 :04 AM ARTIST BLACKSMITH POCT GLUCOSE DEVICE Routine 09/21/2024 2 :57 AM ARTIST BLACKSMITH POCT GLUCOSE DEVICE Routine 09/21/2024 1 :42 AM ARTIST BLACKSMITH POCT GLUCOSE DEVICE Routine 09/21/2024 1 2:45 AM ARTIST BLACKSMITH POCT GLUCOSE DEVICE Routine 09/20/2024 1 1:46 PM ARTIST BLACKSMITH OXYHEMOGLOBIN, CENTRAL VENOUS STAT 09/20/2024 11:41 PM ARTIST BLACKSMITH EGFR STAT 09/20/2024 11:33 PM ARTIST BLACKSMITH DIFFERENTIAL AUTO STAT 09/20/2024 11: 33 PM ARTIST BLACKSMITH MAGNESIUM STAT 09/20/2024 11:33 PM ARTIST BLACKSMITH CBC WITH AUTO DIFFERENTIAL STAT 09/20/2024 11:33 PM ARTIST BLACKSMITH CALCIUM,IONIZED, WHOLE BLOOD STAT 09/20/2024 11:33 PM ARTIST BLACKSMITH BASIC METABOLIC PANEL STAT 09/20/2024 11:33 PM ARTIST BLACKSMITH POCT GLUCOSE DEVICE Routine 09/20/2024 1 0:34 PM ARTIST BLACKSMITH BLOOD GAS, ARTERIAL STAT 09/20/2024 1 0:30 PM ARTIST BLACKSMITH POCT GLUCOSE DEVICE Routine 09/20/2024 9 :38 PM ARTIST BLACKSMITH POCT GLUCOSE DEVICE Routine 09/20/2024 8 :35 PM ARTIST BLACKSMITH POCT GLUCOSE DEVICE Routine 09/20/2024 7 :33 PM ARTIST BLACKSMITH EGFR STAT 09/20/2024 6:39 PM ARTIST BLACKSMITH CALCIUM,IONIZED, WHOLE BLOOD STAT 09/20/2024 6:39 PM ARTIST BLACKSMITH MAGNESIUM STAT 09/20/2024 6:39 PM ARTIST BLACKSMITH BASIC METABOLIC PANEL STAT 09/20/2024 6:39 PM ARTIST BLACKSMITH CBC WITHOUT DIFFERENTIAL Timed 09/20/2024 6:39 PM ARTIST BLACKSMITH BLOOD GAS, ARTERIAL Timed 09/20/2024 6 :39 PM ARTIST BLACKSMITH POCT GLUCOSE DEVICE Routine 09/20/2024 6 :30 PM ARTIST BLACKSMITH POCT GLUCOSE DEVICE Routine 09/20/2024 5 :07 PM ARTIST BLACKSMITH POCT GLUCOSE DEVICE Routine 09/20/2024 4 :25 PM ARTIST BLACKSMITH XR CHEST 1 VIEW Critical/Life-T hreatening 09/20/2024 3:00 PM ARTIST BLACKSMITH EGFR STAT 09/20/2024 2:59 PM ARTIST BLACKSMITH CALCIUM,IONIZED, WHOLE BLOOD STAT 09/20/2024 2:59 PM ARTIST BLACKSMITH APTT STAT 09/20/2024 2:59 PM ARTIST BLACKSMITH PROTIME-INR STAT 09/20/2024 2:59 PM ARTIST BLACKSMITH CBC WITHOUT DIFFERENTIAL Timed 09/20/2024 2:59 PM ARTIST BLACKSMITH BLOOD GAS, ARTERIAL Timed 09/20/2024 2 :59 PM ARTIST BLACKSMITH BASIC METABOLIC PANEL STAT 09/20/2024 2:59 PM ARTIST BLACKSMITH CRITICAL CARE Routine 09/20/2024 2:58 PM ARTIST BLACKSMITH Coronary artery disease of [place] artery of [place] heart with stable angina pectoris (HCC) POCT GLUCOSE DEVICE Routine 09/20/2024 2 :44 PM ARTIST BLACKSMITH POC BLOOD GAS AND CHEMISTRIES, ARTERIAL Routine 09/20/2024 1:56 PM ARTIST BLACKSMITH TRANSFUSE PLATELETS Timed 09/20/2024 1 :19 PM ARTIST BLACKSMITH POCT ACTIVATED CLOTTING TIME, HIGH RANGE Routine 09/20/2024 12:52 PM ARTIST BLACKSMITH POC BLOOD GAS AND CHEMISTRIES, ARTERIAL Routine 09/20/2024 12:50 PM ARTIST BLACKSMITH POCT ACTIVATED CLOTTING TIME, HIGH RANGE Routine 09/20/2024 12:47 PM ARTIST BLACKSMITH POC BLOOD GAS AND CHEMISTRIES, ARTERIAL Routine 09/20/2024 12:18 PM ARTIST BLACKSMITH POCT ACTIVATED CLOTTING TIME, HIGH RANGE Routine 09/20/2024 12:15 PM ARTIST BLACKSMITH PLATELET COUNT STAT 09/20/2024 12:03 PM ARTIST BLACKSMITH POC BLOOD GAS AND CHEMISTRIES, ARTERIAL Routine 09/20/2024 11:28 AM ARTIST BLACKSMITH POCT ACTIVATED CLOTTING TIME, HIGH RANGE Routine 09/20/2024 11:26 AM ARTIST BLACKSMITH POC BLOOD GAS AND CHEMISTRIES, ARTERIAL Routine 09/20/2024 10:47 AM ARTIST BLACKSMITH POCT ACTIVATED CLOTTING TIME, HIGH RANGE Routine 09/20/2024 10:44 AM ARTIST BLACKSMITH POCT ACTIVATED CLOTTING TIME, HIGH RANGE Routine 09/20/2024 9:44 AM ARTIST BLACKSMITH ANESTHESIA ARTERIAL LINE PLACEMENT Routine 09/20/2024 9:37 AM ARTIST BLACKSMITH ANESTHESIA CENTRAL VENOUS LINE PLACEMENT Routine 09/20/2024 9:35 AM ARTIST BLACKSMITH ANESTHESIA CENTRAL VENOUS LINE PLACEMENT Routine 09/20/2024 9:35 AM ARTIST BLACKSMITH SD AN ELECTIVE ENDOTRACHEAL AIRWAY Routine 09/20/2024 9:34 AM ARTIST BLACKSMITH POC BLOOD GAS AND CHEMISTRIES, ARTERIAL Routine 09/20/2024 8:31 AM ARTIST BLACKSMITH POCT ACTIVATED CLOTTING TIME, HIGH RANGE Routine 09/20/2024 8:27 AM ARTIST BLACKSMITH CORONARY ARTERY BYPASS GRAFT - INTERNAL MAMMARY/SAPHENOUS VEIN GRAFT - LEG 09/20/2024 7:49 AM ARTIST BLACKSMITH Coronary artery disease of [place] heart with stable angina pectoris, unspecified vessel or lesion type (HCC) CORONARY ARTERY BYPASS GRAFT - INTERNAL MAMMARY ARTERY 09/20/2024 7:49 AM ARTIST BLACKSMITH Coronary artery disease of [place] heart with stable angina pectoris, unspecified vessel or lesion type (HCC) TYPE AND SCREEN Timed 09/20/2024 7:25 AM ARTIST BLACKSMITH POCT GLUCOSE DEVICE Routine 09/20/2024 6 :11 AM ARTIST BLACKSMITH PREPARE PLATELETS STAT 09/20/2024 5:3 1 AM ARTIST BLACKSMITH PREPARE RBC STAT 09/20/2024 5:31 AM ARTIST BLACKSMITH ECG 12-LEAD Routine 09/17/2024 9:25 AM ARTIST BLACKSMITH Coronary artery disease of [place] heart with stable angina pectoris, unspecified vessel or lesion type (HCC) XR CHEST PA LATERAL 2 VIEWS Schedule Routine, Read Routine (OP Routine) 09/17/2024 9:07 AM ARTIST BLACKSMITH Coronary artery disease of [place] heart with stable angina pectoris, unspecified vessel or lesion type (HCC) EGFR Routine 09/17/2024 9:01 AM ARTIST BLACKSMITH Coronary artery disease of [place] heart with stable angina pectoris, unspecified vessel or lesion type (HCC) BASIC METABOLIC PANEL Routine 09/17/2024 9:01 AM ARTIST BLACKSMITH Coronary artery disease of [place] heart with stable angina pectoris, unspecified vessel or lesion type (HCC) PROTIME-INR Routine 09/17/2024 9:01 AM ARTIST BLACKSMITH Coronary artery disease of [place] heart with stable angina pectoris, unspecified vessel or lesion type (HCC) APTT Routine 09/17/2024 9:01 AM ARTIST BLACKSMITH Coronary artery disease of [place] heart with stable angina pectoris, unspecified vessel or lesion type (HCC) CBC WITHOUT DIFFERENTIAL Routine 09/17/2024 9:01 AM ARTIST BLACKSMITH Coronary artery disease of [place] heart with stable angina pectoris, unspecified vessel or lesion type (HCC) TYPE AND SCREEN Routine 09/17/2024 9:01 AM ARTIST BLACKSMITH Coronary artery disease of [place] heart with stable angina pectoris, unspecified vessel or lesion type (HCC) HEMOGLOBIN A1C Routine 09/17/2024 9:01 AM ARTIST BLACKSMITH Pre-op testing URINALYSIS AND REFLEX TO MICROSCOPIC AND CULTURE Routine 09/17/2024 9:01 AM ARTIST BLACKSMITH Coronary artery disease of [place] heart with stable angina pectoris, unspecified vessel or lesion type (HCC) TRANSTHORACIC ECHO (TTE) LIMITED/FOLLOW UP WO DOPPLER/CF W CONTRAST Routine 08/26/2024 11:20 AM ARTIST BLACKSMITH Coronary artery disease involving [place] coronary artery of [place] heart without angina pectoris LIPID PANEL Timed 06/27/2024 10:26 AM CDT HEPATITIS PANEL, ACUTE STAT 06/27/2024 5:24 AM CDT from Last 3 Months or Most Recently Relevant to Health Maintenance Results * (ABNORMAL) Glucose, random (Outreach) (10/01/2024 11:45 AM ARTIST BLACKSMITH) Glucose 228(H) 70 - 199 mg/dL Comment: Interpretive Data Fasting glucose >/= 126 mg/dl is diagnostic for diabetes. Fasting is defined as no caloric intake for at least 8 hours. Fasting glucose between 100 mg/dl to 125 mg/dl is diagnostic of prediabetes. In a patient with classic symptoms of hyperglycemia or hyperglycemic crisis, a random glucose >/= 200 mg/dl is diagnostic for diabetes. In the absence of unequivocal hyperglycemia, results should be confirmed by repeat testing. The classification and Diagnosis of Diabetes Diabetes Care 202; 46: S19-S40. Current interpretive data was last revised 2022. Blood 10/01/2024 11:4 5 AM ARTIST BLACKSMITH 10/01/2024 3:38 PM ARTIST BLACKSMITH us Notinfile Unknown LAB BLOOD ORDERABLES Final Res ult [facility] [place] [address] * eGFR (10/01/2024 11:45 AM ARTIST BLACKSMITH) eGFR >90 >=60 mL/min/1. 73 m2 Comment: Interpretive Data Reference Interval Normal >/= 90 mL/min/1.73m2 Mildly decreased* 60 - 89 mL/min/1.73m2 Mildly to moderately decreased 45 - 59 mL/min/1.73m2 Moderately to severely decreased 30 - 44 mL/min/1.73m2 Severely decreased 15 - 29 mL/min/1.73m2 Kidney Failure < 15 mL/min/1.73m2 *Relative to young adult level Estimated glomerular filtration rate is determined by the 2020 CKD-EPI equation recommended by the National Kidney Foundation (A Unifying Approach to GFR Estimation: Recommendations of the NKF-ASK Task Force on Reassessing the Inclusion of Race in Diagnosing Kidney Disease, JASN 2020). The CKD-EPI equation should not be used for patients with unstable renal function and has not been validated in children and those over 70. Current interpretive data was last reviewed 2021. Blood 10/01/2024 11:4 5 AM ARTIST BLACKSMITH 10/01/2024 4:03 PM ARTIST BLACKSMITH us Notinfile Unknown LAB BLOOD ORDERABLES Final Res ult [facility] [place] [address] * Basic metabolic panel without glucose (10/01/2024 11:45 AM ARTIST BLACKSMITH) [facility] Sodium 137 135 - 145 mmol/L Comment:Repeated and Verifie d Potassium, pl 3.9 3.3 - 4.9 mmol/L [facility] Comment:Repeated and Verifie d Chloride 101 97 - 110 mmol/L [facility] Comment:Repeated and Verifie d CO2 23 22 - 32 mmol/L [facility] Anion gap 13 2 - 15 mmol/L [facility] Comment:Reviewed BUN 11 6 - 25 mg/dL [facility] Creatinine 0.88 0.80 - 1.30 mg/dL [facility] Calcium 9.0 8.5 - 10.3 mg/dL [facility] Comment:Repeated and Verifie d Blood 10/01/2024 11:4 5 AM ARTIST BLACKSMITH 10/01/2024 3:38 PM ARTIST BLACKSMITH us Notinfile Unknown LAB BLOOD ORDERABLES Final Res ult [facility] [place] [address] * (ABNORMAL) CBC without differential (10/01/2024 11:45 AM ARTIST BLACKSMITH) [facility] WBC 8.0 3.8 - 9.9 K/cumm Hgb 9.2(L) 13.0 - 17.5 g/dL [facility] Hct 28.8(L) 38.9 - 50.3 % [facility] Plt 565(H) 150 - 400 K/cumm [facility] MPV 9.8 9.1 - 12.3 fL [facility] RBC 3.32(L) 4.30 - 5.80 M/cumm [facility] MCV 86.7 81.3 - 96.4 fL [facility] MCH 27.7 27.1 - 33.3 pg [facility] MCHC 31.9(L) 32.3 - 35.7 g/dL [facility] RDW CV 13.3 11.1 - 14.9 % [facility] RDW SD 42.0 35.7 - 48.1 fL [facility] NRBC abs 0.00 0.00 - 0.01 K/cumm [facility] Blood 10/01/2024 11:4 5 AM ARTIST BLACKSMITH 10/01/2024 3:38 PM ARTIST BLACKSMITH Notinfile Unknown LAB BLOOD ORDERABLES Final Res ult [facility] [place] [address] * (ABNORMAL) Potassium (09/26/2024 12:55 PM ARTIST BLACKSMITH) Potassium, pl 3.2(L) 3.3 - 4.9 mmol/L Blood 09/26/2024 12:5 5 PM ARTIST BLACKSMITH 09/26/2024 1:01 PM ARTIST BLACKSMITH us Celsa Orosco NP LAB BLOOD ORDERABLES Final Result Performing Organization Address [facility]/ZIP Co de Phone Number TAB [address] [address] [place] [address] * POCT glucose (09/26/2024 12:08 PM ARTIST BLACKSMITH) Glucose, POC 166 70 - 199 mg/dL Blood 09/26/2024 12:0 8 PM ARTIST BLACKSMITH 09/26/2024 12:08 PM ARTIST BLACKSMITH Victor Manuel Woo MD LAB POCT ORDERABLES - DEVICE Final Result Performing Organization Address City/[facility]/ZIP Co de Phone Number [facility] [place] [address] [address] [place] [address] * POCT glucose (09/26/2024 7:40 AM ARTIST BLACKSMITH) Glucose, POC 177 70 - 199 mg/dL Blood 09/26/2024 7:40 AM ARTIST BLACKSMITH 09/26/2024 7:40 AM ARTIST BLACKSMITH us Victor Manuel Woo MD LAB POCT ORDERABLES - DEVICE Final Result TAB [place] [place] [address] * XR Chest 1 View - Portable - in AM (09/26/2024 5:50 AM ARTIST BLACKSMITH) Anatomical Region Laterality Modality Body, Chest N/A Computed Radiogr aphy 09/26/2024 10:5 4 AM ARTIST BLACKSMITH Impressions 09/26/2024 10:54 AM ARTIST BLACKSMITH Stable cardiomegaly without failure. Electronically signed by: Teddy Doherty M.D. Narrative 09/26/2024 10:54 AM ARTIST BLACKSMITH EXAMINATION: XR CHEST 1 VIEW DATE: 09/26/2024 5:15 AM HISTORY: Follow-up cardiac surgery FINDINGS:Compared with study the previous day, cardiomegaly with postsurgical changes stable. Central sheath superior vena cava. No failure or pneumothorax. Procedure Note Teddy Doherty MD - 09/26/2024 EXAMINATION: XR CHEST 1 VIEW DATE: 09/26/2024 5:15 AM HISTORY: Follow-up cardiac surgery FINDINGS:Compared with study the previous day, cardiomegaly with postsurgical changes stable. Central sheath superior vena cava. No failure or pneumothorax. IMPRESSION: Stable cardiomegaly without failure. Electronically signed by: Teddy Doherty M.D. us Apoorva Mar PRESTIDIGITATOR IMG XR PROCEDURES Final Result * eGFR (09/26/2024 4:50 AM ARTIST BLACKSMITH) eGFR >90 >=60 mL/min/1. 73 m2 Comment: Interpretive Data Reference Interval Normal >/= 90 mL/min/1.73m2 Mildly decreased* 60 - 89 mL/min/1.73m2 Mildly to moderately decreased 45 - 59 mL/min/1.73m2 Moderately to severely decreased 30 - 44 mL/min/1.73m2 Severely decreased 15 - 29 mL/min/1.73m2 Kidney Failure < 15 mL/min/1.73m2 *Relative to young adult level Estimated glomerular filtration rate is determined by the 2020 CKD-EPI equation recommended by the National Kidney Foundation (A Unifying Approach to GFR Estimation: Recommendations of the NKF-ASK Task Force on Reassessing the Inclusion of Race in Diagnosing Kidney Disease, JASN 2020). The CKD-EPI equation should not be used for patients with unstable renal function and has not been validated in children and those over 70. Current interpretive data was last reviewed 2021. Blood 09/26/2024 4:50 AM ARTIST BLACKSMITH 09/26/2024 5:07 AM ARTIST BLACKSMITH Apoorva Mar NP LAB BLOOD ORDERABLES Fin al Result [facility] [address] [address] [place] [address] * (ABNORMAL) CBC without differential (09/26/2024 4:50 AM ARTIST BLACKSMITH) WBC 7.1 3.8 - 9.9 K/cumm Hgb 8.6(L) 13.0 - 17.5 g/dL [facility] Hct 26.8(L) 38.9 - 50.3 % [facility] Plt 296 150 - 400 K/cumm [facility] MPV 9.8 9.1 - 12.[address] [facility] RBC 3.17(L) 4.30 - 5.80 M/cumm [facility] MCV 84.5 81.3 - 96.[address] [facility] MCH 27.1 27.1 - 33.[address] [facility] MCHC 32.1(L) 32.3 - 35.7 g/dL [facility] RDW CV 13.2 11.1 - 14.9 % [facility] RDW SD 40.9 35.7 - 48.[address] [facility] NRBC abs 0.02(H) 0.00 - 0.01 K/cumm [facility] Blood 09/26/2024 4:50 AM ARTIST BLACKSMITH 09/26/2024 5:03 AM ARTIST BLACKSMITH Apoorva Mar PRESTIDIGITATOR LAB BLOOD ORDERABLES Fin al Result Performing Organization Address [facility] Co de Phone Number TAB [place] [address] [address] [place] [address] * Magnesium (09/26/2024 4:50 AM ARTIST BLACKSMITH) Pathologist [facility] Magnesium 1.8 1.4 - 2.5 mg/dL Blood 09/26/2024 4:50 AM ARTIST BLACKSMITH 09/26/2024 5:03 AM ARTIST BLACKSMITH Apoorva Mar PRESTIDIGITATOR LAB BLOOD ORDERABLES Fin al Result Performing Organization Address [facility] Phone Number TAB [address] [place] [address] * (ABNORMAL) Renal function panel (09/26/2024 4:50 AM ARTIST BLACKSMITH) Pathologist [facility] Sodium 135 135 - 145 mmol/L Potassium, pl 2.9(L) 3.3 - 4.9 mmol/L [facility] Chloride 91(L) 97 - 110 mmol/L [facility] CO2 30 22 - 32 mmol/L [facility] Anion gap 14 2 - 15 mmol/L [facility] BUN 13 6 - 25 mg/dL [facility] Creatinine 0.64(L) 0.80 - 1.30 mg/dL [facility] Glucose 168 70 - 199 mg/dL [facility] Comment: Interpretive Data Fasting glucose >/= 126 mg/dl is diagnostic for diabetes. Fasting is defined as no caloric intake for at least 8 hours. Fasting glucose between 100 mg/dl to 125 mg/dl is diagnostic of prediabetes. In a patient with classic symptoms of hyperglycemia or hyperglycemic crisis, a random glucose >/= 200 mg/dl is diagnostic for diabetes. In the absence of unequivocal hyperglycemia, results should be confirmed by repeat testing. The classification and Diagnosis of Diabetes Diabetes Care 2021; 46: S19-S40. Current interpretive data was last revised 2022. Calcium 9.3 8.5 - 10.3 mg/dL [facility] Phosphorus, pl 3.8 2.3 - 4.5 mg/dL [facility] Albumin 3.8 3.5 - 5.0 g/dL TAB Blood 09/26/2024 4:50 AM ARTIST BLACKSMITH 09/26/2024 5:03 AM ARTIST BLACKSMITH Apoorva Mar NP LAB BLOOD ORDERABLES Fin al Result Performing Organization Address [facility] Co de Phone Number TAB [place] [address] [address] Department [place] [place] [address] * ECG 12 lead (09/26/2024 3:00 AM ARTIST BLACKSMITH) 09/26/2024 3:00 AM ARTIST BLACKSMITH Narrative [facility] - 09/26/2024 10:04 AM ARTIST BLACKSMITH Vent Rate: 76 bpm RR Interval: 789 msec SD Interval: 164 msec QRS Duration: 101 msec QT Interval: 328 msec QTC Interval: 358 msec P-R-T [place]: 20 - 18 - 35 degrees IMPRESSION: SINUS RHYTHM SEPTAL MYOCARDIAL INFARCTION , OF INDETERMINATE AGE POSSIBLE INFERIOR MYOCARDIAL INFARCTION , OF INDETERMINATE AGE Electronically Signed By: Dion Mitchell MD, [facility] Victor Manuel Woo MD ECG ORDERABLES Final Result Performing Organization Address [facility] Phone Number [facility] * POCT glucose (09/26/2024 2:16 AM ARTIST BLACKSMITH) Glucose, POC 157 70 - 199 mg/dL Blood 09/26/2024 2:16 AM ARTIST BLACKSMITH 09/26/2024 2:16 AM ARTIST BLACKSMITH Victor Manuel Woo MD LAB POCT ORDERABLES - DEVICE Final Result Performing Organization Address [facility] Co de Phone Number TAB [place] [address] [address] [place] [address] * POCT glucose (09/25/2024 8:04 PM ARTIST BLACKSMITH) Glucose, POC 179 70 - 199 mg/dL Blood 09/25/2024 8:04 PM ARTIST BLACKSMITH 09/25/2024 8:04 PM ARTIST BLACKSMITH us Victor Manuel Woo MD LAB POCT ORDERABLES - DEVICE Final Result TAB [place] [address] [address] [facility] [employer] [address] * POCT glucose (09/25/2024 5:43 PM ARTIST BLACKSMITH) Glucose, POC 143 70 - 199 mg/dL Blood 09/25/2024 5:43 PM ARTIST BLACKSMITH 09/25/2024 5:43 PM ARTIST BLACKSMITH Victor Manuel Woo MD LAB POCT ORDERABLES - DEVICE Final Result Performing Organization Address [facility] Co de Phone Number YOLISLLUVIA [place] [address] [address] [facility] [employer] [address] * (ABNORMAL) POCT glucose (09/25/2024 12:25 PM ARTIST BLACKSMITH) Glucose, POC 226(H) 70 - 199 mg/dL Blood 09/25/2024 12:2 5 PM ARTIST BLACKSMITH 09/25/2024 12:25 PM ARTIST BLACKSMITH us Victor Manuel Woo MD LAB POCT ORDERABLES - DEVICE Final Result Performing Organization Address [facility] Co de Phone Number YOLISLLUVIA [place] [address] [address] [place] [address] * POCT glucose (09/25/2024 8:01 AM ARTIST BLACKSMITH) Glucose, POC 147 70 - 199 mg/dL Blood 09/25/2024 8:01 AM ARTIST BLACKSMITH 09/25/2024 8:01 AM ARTIST BLACKSMITH us Victor Manuel Woo MD LAB POCT ORDERABLES - DEVICE Final Result Performing Organization Address City/[facility]/ZIP Co de Phone Number YOLISLLUVIA [place] [address] [address] [place] [address] * XR Chest 1 View - Portable - in AM (09/25/2024 5:47 AM ARTIST BLACKSMITH) Anatomical Region Laterality Modality Body, Chest N/A Computed Radiogr aphy 09/25/2024 8:20 AM ARTIST BLACKSMITH Impressions 09/25/2024 8:20 AM ARTIST BLACKSMITH Stable cardiomegaly without failure. Electronically signed by: Rodrick Modi M.D. Narrative 09/25/2024 8:20 AM ARTIST BLACKSMITH EXAMINATION: XR CHEST 1 VIEW DATE: 09/25/2024 5:20 AM HISTORY: Follow-up cardiac surgery FINDINGS:Compared with study the previous day, cardiomegaly with postsurgical changes stable. Central sheath superior vena cava. No failure or pneumothorax. Procedure Note Rodrick Modi MD - 09/25/2024 EXAMINATION: XR CHEST 1 VIEW DATE: 09/25/2024 5:20 AM HISTORY: Follow-up cardiac surgery FINDINGS:Compared with study the previous day, cardiomegaly with postsurgical changes stable. Central sheath superior vena cava. No failure or pneumothorax. IMPRESSION: Stable cardiomegaly without failure. Electronically signed by: Rodrick Modi M.D. Apoorva Mar PRESTIDIGITATOR IMG XR PROCEDURES Final Result * eGFR (09/25/2024 5:40 AM ARTIST BLACKSMITH) eGFR >90 >=60 mL/min/1. 73 m2 Comment: Interpretive Data Reference Interval Normal >/= 90 mL/min/1.73m2 Mildly decreased* 60 - 89 mL/min/1.73m2 Mildly to moderately decreased 45 - 59 mL/min/1.73m2 Moderately to severely decreased 30 - 44 mL/min/1.73m2 Severely decreased 15 - 29 mL/min/1.73m2 Kidney Failure < 15 mL/min/1.73m2 *Relative to young adult level Estimated glomerular filtration rate is determined by the 2020 CKD-EPI equation recommended by the National Kidney Foundation (A Unifying Approach to GFR Estimation: Recommendations of the NKF-ASK Task Force on Reassessing the Inclusion of Race in Diagnosing Kidney Disease, JASN 2020). The CKD-EPI equation should not be used for patients with unstable renal function and has not been validated in children and those over 70. Current interpretive data was last reviewed 2021. Blood 09/25/2024 5:40 AM ARTIST BLACKSMITH 09/25/2024 6:03 AM ARTIST BLACKSMITH Apoorva Mar PRESTIDIGITATOR LAB BLOOD ORDERABLES Fin al Result Performing Organization Address [facility] Co de Phone Number [facility] [address] [address] [facility] [employer] [address] * aPTT (09/25/2024 5:40 AM ARTIST BLACKSMITH) aPTT 30 28 - 38 sec Comment: Interpretive Data Heparin therapeutic range: 66.0 - 100.0 seconds. Range based on correlation with therapeutic heparin activity range of 0.3 - 0.7 Units/mL. Current interpretive data was last revised on 2023. Blood 09/25/2024 5:40 AM ARTIST BLACKSMITH 09/25/2024 5:58 AM ARTIST BLACKSMITH Celsa Orosco PRESTIDIGITATOR LAB BLOOD ORDERABLES Final Result Performing Organization Address [facility] Co de Phone Number [facility] [address] [address] [facility] [place] [address] * Protime-INR (09/25/2024 5:40 AM ARTIST BLACKSMITH) PT 12.8 9.7 - 13.0 sec INR 1.18 0.90 - 1.20 TAB Comment: Interpretive data Oral anticoagulant therapeutic ranges: Venous thromboembolism prophylaxis or treatment: 2.0-3.0 CARDIOLOGY Standard range: 2.0-3.0 High-intensity range: 2.5-3.5 Refer to indication-specific guidelines for appropriate target ranges for prosthetic heart valve replacement. Current interpretive data was last revised on 2019. Blood 09/25/2024 5:40 AM ARTIST BLACKSMITH 09/25/2024 5:58 AM ARTIST BLACKSMITH Celsa Orosco PRESTIDIGITATOR LAB BLOOD ORDERABLES Final Result Performing Organization Address City/[facility]/ZIP Co de Phone Number TAB [place] [place] [employer] [address] * (ABNORMAL) CBC without differential (09/25/2024 5:40 AM ARTIST BLACKSMITH) WBC 6.4 3.8 - 9.9 K/cumm Hgb 8.3(L) 13.0 - 17.5 g/dL [facility] Hct 26.0(L) 38.9 - 50.3 % [facility] Plt 236 150 - 400 K/cumm [facility] MPV 9.9 9.1 - 12.3 fL [facility] RBC 3.08(L) 4.30 - 5.80 M/cumm [facility] MCV 84.4 81.3 - 96.4 fL [facility] MCH 26.9(L) 27.1 - 33.3 pg [facility] MCHC 31.9(L) 32.3 - 35.7 g/dL [facility] RDW CV 13.2 11.1 - 14.9 % [facility] RDW SD 40.5 35.7 - 48.[address] [facility] NRBC abs 0.00 0.00 - 0.01 K/cumm [facility] Blood 09/25/2024 5:40 AM ARTIST BLACKSMITH 09/25/2024 5:58 AM ARTIST BLACKSMITH Apoorva Mar PRESTIDIGITATOR LAB BLOOD ORDERABLES Fin al Result Performing Organization Address City/[facility]/ZIP Co de Phone Number TAB [place] Department [place] [employer] [place] [address] * Magnesium (09/25/2024 5:40 AM ARTIST BLACKSMITH) Magnesium 2.1 1.4 - 2.5 mg/dL Blood 09/25/2024 5:40 AM ARTIST BLACKSMITH 09/25/2024 5:58 AM ARTIST BLACKSMITH Apoorva Mar PRESTIDIGITATOR LAB BLOOD ORDERABLES Fin al Result TAB [place] [address] [place] [address] * (ABNORMAL) Renal function panel (09/25/2024 5:40 AM ARTIST BLACKSMITH) Sodium 138 135 - 145 mmol/L Potassium, pl 2.9(L) 3.3 - 4.9 mmol/L [facility] Chloride 94(L) 97 - 110 mmol/L [facility] CO2 31 22 - 32 mmol/L [facility] Anion gap 13 2 - 15 mmol/L [facility] BUN 16 6 - 25 mg/dL [facility] Creatinine 0.63(L) 0.80 - 1.30 mg/dL [facility] Glucose 125 70 - 199 mg/dL [facility] Comment: Interpretive Data Fasting glucose >/= 126 mg/dl is diagnostic for diabetes. Fasting is defined as no caloric intake for at least 8 hours. Fasting glucose between 100 mg/dl to 125 mg/dl is diagnostic of prediabetes. In a patient with classic symptoms of hyperglycemia or hyperglycemic crisis, a random glucose >/= 200 mg/dl is diagnostic for diabetes. In the absence of unequivocal hyperglycemia, results should be confirmed by repeat testing. The classification and Diagnosis of Diabetes Diabetes Care 202; 46: S19-S40. Current interpretive data was last revised 2022. Calcium 9.1 8.5 - 10.3 mg/dL [facility] Phosphorus, pl 4.6(H) 2.3 - 4.5 mg/dL [facility] Albumin 3.6 3.5 - 5.0 g/dL [facility] Blood 09/25/2024 5:40 AM ARTIST BLACKSMITH 09/25/2024 5:58 AM ARTIST BLACKSMITH us Apoorva Mra NP LAB BLOOD ORDERABLES Fin al Result TAB [place] [address] [address] [place] [address] * POCT glucose (09/24/2024 9:58 PM ARTIST BLACKSMITH) Glucose, POC 138 70 - 199 mg/dL Blood 09/24/2024 9:58 PM ARTIST BLACKSMITH 09/24/2024 9:58 PM ARTIST BLACKSMITH us Victor Manuel Woo MD LAB POCT ORDERABLES - DEVICE Final Result Performing Organization Address [facility] Co de Phone Number TAB [place] [address] [address] [facility] [place] [address] * POCT glucose (09/24/2024 5:30 PM ARTIST BLACKSMITH) Glucose, POC 117 70 - 199 mg/dL Blood 09/24/2024 5:30 PM ARTIST BLACKSMITH 09/24/2024 5:30 PM ARTIST BLACKSMITH us Victor Manuel Woo MD LAB POCT ORDERABLES - DEVICE Final Result Performing Organization Address [facility] de Phone Number TAB GEO [address] [address] [facility] [employer] [address] * (ABNORMAL) POCT glucose (09/24/2024 12:14 PM ARTIST BLACKSMITH) Glucose, POC 215(H) 70 - 199 mg/dL Blood 09/24/2024 12:1 4 PM ARTIST BLACKSMITH 09/24/2024 12:14 PM ARTIST BLACKSMITH Result [facility] us Victor Manuel Woo MD LAB POCT ORDERABLES - DEVICE Final Result Performing Organization Address [facility] de Phone Number TAB GUARDADO [address] [address] [facility] [employer] [address] * eGFR (09/24/2024 10:41 AM ARTIST BLACKSMITH) eGFR >90 >=60 mL/min/1. 73 m2 Comment: Interpretive Data Reference Interval Normal >/= 90 mL/min/1.73m2 Mildly decreased* 60 - 89 mL/min/1.73m2 Mildly to moderately decreased 45 - 59 mL/min/1.73m2 Moderately to severely decreased 30 - 44 mL/min/1.73m2 Severely decreased 15 - 29 mL/min/1.73m2 Kidney Failure < 15 mL/min/1.73m2 *Relative to young adult level Estimated glomerular filtration rate is determined by the 2020 CKD-EPI equation recommended by the National Kidney Foundation (A Unifying Approach to GFR Estimation: Recommendations of the NKF-ASK Task Force on Reassessing the Inclusion of Race in Diagnosing Kidney Disease, JASN 2020). The CKD-EPI equation should not be used for patients with unstable renal function and has not been validated in children and those over 70. Current interpretive data was last reviewed 2021. Blood 09/24/2024 10:4 1 AM ARTIST BLACKSMITH 09/24/2024 10:41 AM ARTIST BLACKSMITH Apoorva Mar NP LAB BLOOD ORDERABLES Fin al Result [facility] [address] [address] [place] [address] * (ABNORMAL) CBC without differential (09/24/2024 10:41 AM ARTIST BLACKSMITH) Pathologist [facility] WBC 7.0 3.8 - 9.9 K/cumm Hgb 8.5(L) 13.0 - 17.5 g/dL [facility] Hct 26.3(L) 38.9 - 50.3 % [facility] Plt 200 150 - 400 K/cumm [facility] MPV 10.3 9.1 - 12.[address] [facility] RBC 3.10(L) 4.30 - 5.80 M/cumm [facility] MCV 84.8 81.3 - 96.[address] [facility] MCH 27.4 27.1 - 33.3 pg [facility] MCHC 32.3 32.3 - 35.7 g/dL [facility] RDW CV 13.2 11.1 - 14.9 % [facility] RDW SD 41.1 35.7 - 48.[address] [facility] NRBC abs 0.00 0.00 - 0.01 K/cumm [facility] Blood 09/24/2024 10:4 1 AM ARTIST BLACKSMITH 09/24/2024 10:41 AM ARTIST BLACKSMITH us Apoorva Mar PRESTIDIGITATOR LAB BLOOD ORDERABLES Fin al Result Performing Organization Address City/[facility]/ZIP Co de Phone Number TAB GUARDADO [address] [address] [facility] [employer] [address] * Magnesium (09/24/2024 10:41 AM ARTIST BLACKSMITH) Pathologist [facility] Magnesium 1.7 1.4 - 2.5 mg/dL Blood 09/24/2024 10:4 1 AM ARTIST BLACKSMITH 09/24/2024 10:41 AM ARTIST BLACKSMITH Apoorva Mar PRESTIDIGITATOR LAB BLOOD ORDERABLES Fin al Result Performing Organization Address [facility] de Phone Number TAB GUARDADO [address] [address] Department [employer] [address] * (ABNORMAL) Renal function panel (09/24/2024 10:41 AM ARTIST BLACKSMITH) Pathologist [facility] Sodium 136 135 - 145 mmol/L Potassium, pl 3.2(L) 3.3 - 4.9 mmol/L [facility] Chloride 93(L) 97 - 110 mmol/L [facility] CO2 30 22 - 32 mmol/L [facility] Anion gap 13 2 - 15 mmol/L [facility] BUN 20 6 - 25 mg/dL [facility] Creatinine 0.64(L) 0.80 - 1.30 mg/dL [facility] Glucose 258(H) 70 - 199 mg/dL [facility] Comment: Interpretive Data Fasting glucose >/= 126 mg/dl is diagnostic for diabetes. Fasting is defined as no caloric intake for at least 8 hours. Fasting glucose between 100 mg/dl to 125 mg/dl is diagnostic of prediabetes. In a patient with classic symptoms of hyperglycemia or hyperglycemic crisis, a random glucose >/= 200 mg/dl is diagnostic for diabetes. In the absence of unequivocal hyperglycemia, results should be confirmed by repeat testing. The classification and Diagnosis of Diabetes Diabetes Care 2021; 46: S19-S40. Current interpretive data was last revised 2022. Calcium 9.1 8.5 - 10.3 mg/dL [facility] Phosphorus, pl 2.6 2.3 - 4.5 mg/dL [facility] Albumin 3.6 3.5 - 5.0 g/dL [facility] Blood 09/24/2024 10:4 1 AM ARTIST BLACKSMITH 09/24/2024 10:41 AM ARTIST BLACKSMITH Apoorva Mar PRESTIDIGITATOR LAB BLOOD ORDERABLES Fin al Result Performing Organization Address [facility] Co de Phone Number TAB GUARDADO [address] [address] Department [place] [employer] [place] [address] * ECG 12 lead (09/24/2024 10:30 AM ARTIST BLACKSMITH) 09/24/2024 10:3 0 AM ARTIST BLACKSMITH Narrative [facility] - 09/24/2024 1:12 PM ARTIST BLACKSMITH Vent Rate: 75 bpm RR Interval: 790 msec SD Interval: 156 msec QRS Duration: 95 msec QT Interval: 402 msec QTC Interval: 432 msec P-R-T [place]: 26 - 10 - 47 degrees IMPRESSION: SINUS RHYTHM PROBABLE INFERIOR MYOCARDIAL INFARCTION , OF INDETERMINATE AGE [35 ms Q WAVE IN II/aVF] ANTEROSEPTAL MYOCARDIAL INFARCTION , OF INDETERMINATE AGE [40+ ms Q WAVE IN V1- V4] ABNORMAL ECG No significant change since previous tracing Electronically Signed By: Feliz Garnett MD, [facility] us Celsa Orosco PRESTIDIGITATOR ECG ORDERABLES Final Resu lt Performing Organization Address [facility] Co de Phone Number [facility] * POCT glucose (09/24/2024 7:58 AM ARTIST BLACKSMITH) Glucose, POC 172 70 - 199 mg/dL Blood 09/24/2024 7:58 AM ARTIST BLACKSMITH 09/24/2024 7:58 AM ARTIST BLACKSMITH us Victor Manuel Woo MD LAB POCT ORDERABLES - DEVICE Final Result Performing Organization Address [facility]/ZIP Co de Phone Number TAB GUARDADO [address] [address] [place] [address] * XR Chest 1 View - Portable - in AM (09/24/2024 6:29 AM ARTIST BLACKSMITH) Anatomical Region Laterality Modality Body, Chest N/A Computed Radiogr aphy 09/24/2024 8:06 AM ARTIST BLACKSMITH Impressions 09/24/2024 8:06 AM ARTIST BLACKSMITH Chest tube removal without pneumothorax. No failure. Electronically signed by: Rodrick Modi M.D. Narrative 09/24/2024 8:06 AM ARTIST BLACKSMITH EXAMINATION: XR CHEST 1 VIEW DATE: 09/24/2024 5:10 AM HISTORY: Cardiac surgery follow-up FINDINGS:Compared with the study of the prior day, interval removal of thoracostomy tubes and mediastinal drain. Ralston-Shae catheter withdrawn into the superior vena cava. Cardiomegaly with postsurgical changes are seen without failure. No pneumothorax. No infiltrates Procedure Note Rodrick Modi MD - 09/24/2024 EXAMINATION: XR CHEST 1 VIEW DATE: 09/24/2024 5:10 AM HISTORY: Cardiac surgery follow-up FINDINGS:Compared with the study of the prior day, interval removal of thoracostomy tubes and mediastinal drain. Ralston-Shae catheter withdrawn into the superior vena cava. Cardiomegaly with postsurgical changes are seen without failure. No pneumothorax. No infiltrates IMPRESSION: Chest tube removal without pneumothorax. No failure. Electronically signed by: Rodrick Modi M.D. us Apoorva Mar PRESTIDIGITATOR IMG XR PROCEDURES Final Result * POCT glucose (09/23/2024 9:35 PM ARTIST BLACKSMITH) Glucose, POC 109 70 - 199 mg/dL Blood 09/23/2024 9:35 PM ARTIST BLACKSMITH 09/23/2024 9:35 PM ARTIST BLACKSMITH us Victor Manuel Woo MD LAB POCT ORDERABLES - DEVICE Final Result TAB [address] [address] Department of Laboratories [place], [place] [id number] * (ABNORMAL) POCT glucose (09/23/2024 4:59 PM ARTIST BLACKSMITH) Glucose, POC 220(H) 70 - 199 mg/dL Blood 09/23/2024 4:59 PM ARTIST BLACKSMITH 09/23/2024 4:59 PM ARTIST BLACKSMITH Victor Manuel Woo MD LAB POCT ORDERABLES - DEVICE Final Result Performing Organization Address City/[facility] Co de Phone Number TAB GUARDADO [address] [address] Department [place] [address] * eGFR (09/23/2024 2:00 PM ARTIST BLACKSMITH) eGFR >90 >=60 mL/min/1. 73 m2 Comment: Interpretive Data Reference Interval Normal >/= 90 mL/min/1.73m2 Mildly decreased* 60 - 89 mL/min/1.73m2 Mildly to moderately decreased 45 - 59 mL/min/1.73m2 Moderately to severely decreased 30 - 44 mL/min/1.73m2 Severely decreased 15 - 29 mL/min/1.73m2 Kidney Failure < 15 mL/min/1.73m2 *Relative to young adult level Estimated glomerular filtration rate is determined by the 2020 CKD-EPI equation recommended by the National Kidney Foundation (A Unifying Approach to GFR Estimation: Recommendations of the NKF-ASK Task Force on Reassessing the Inclusion of Race in Diagnosing Kidney Disease, JASN 2020). The CKD-EPI equation should not be used for patients with unstable renal function and has not been validated in children and those over 70. Current interpretive data was last reviewed 2021. Blood 09/23/2024 2:00 PM ARTIST BLACKSMITH 09/23/2024 2:04 PM ARTIST BLACKSMITH us Apoorva Mar NP LAB BLOOD ORDERABLES Fin al Result Performing Organization Address City/[facility]/ZIP Co de Phone Number TAB GUARDADO [address] [address] Department [employer] [place] [address] * Magnesium (09/23/2024 2:00 PM ARTIST BLACKSMITH) Magnesium 2.0 1.4 - 2.5 mg/dL Blood 09/23/2024 2:00 PM ARTIST BLACKSMITH 09/23/2024 2:04 PM ARTIST BLACKSMITH Apoorva Mar PRESTIDIGITATOR LAB BLOOD ORDERABLES Fin al Result Performing Organization Address [facility] Co de Phone Number TAB GUARDADO [address] [address] [place] [employer] [place] [address] * (ABNORMAL) Renal function panel (09/23/2024 2:00 PM ARTIST BLACKSMITH) Pathologist [facility] Sodium 135 135 - 145 mmol/L Potassium, pl 3.2(L) 3.3 - 4.9 mmol/L [facility] Chloride 96(L) 97 - 110 mmol/L [facility] CO2 29 22 - 32 mmol/L [facility] Anion gap 10 2 - 15 mmol/L [facility] BUN 18 6 - 25 mg/dL [facility] Creatinine 0.51(L) 0.80 - 1.30 mg/dL [facility] Glucose 224(H) 70 - 199 mg/dL [facility] Comment: Interpretive Data Fasting glucose >/= 126 mg/dl is diagnostic for diabetes. Fasting is defined as no caloric intake for at least 8 hours. Fasting glucose between 100 mg/dl to 125 mg/dl is diagnostic of prediabetes. In a patient with classic symptoms of hyperglycemia or hyperglycemic crisis, a random glucose >/= 200 mg/dl is diagnostic for diabetes. In the absence of unequivocal hyperglycemia, results should be confirmed by repeat testing. The classification and Diagnosis of Diabetes Diabetes Care 2021; 46: S19-S40. Current interpretive data was last revised 2022. Calcium 8.8 8.5 - 10.3 mg/dL [facility] Phosphorus, pl 2.2(L) 2.3 - 4.5 mg/dL [facility] Albumin 3.6 3.5 - 5.0 g/dL [facility] Blood 09/23/2024 2:00 PM ARTIST BLACKSMITH 09/23/2024 2:04 PM ARTIST BLACKSMITH Apoorva Mar PRESTIDIGITATOR LAB BLOOD ORDERABLES Fin al Result Performing Organization Address [facility] Co de Phone Number TAB GUARDADO [address] [address] Department [employer] [place] [address] * (ABNORMAL) POCT glucose (09/23/2024 11:59 AM ARTIST BLACKSMITH) Glucose, POC 236(H) 70 - 199 mg/dL Blood 09/23/2024 11:5 9 AM ARTIST BLACKSMITH 09/23/2024 11:59 AM ARTIST BLACKSMITH Victor Manuel Woo MD LAB POCT ORDERABLES - DEVICE Final Result Performing Organization Address [facility] [place] [address] [address] [facility] [employer] [address] * POCT glucose (09/23/2024 8:06 AM ARTIST BLACKSMITH) Glucose, POC 158 70 - 199 mg/dL Blood 09/23/2024 8:06 AM ARTIST BLACKSMITH 09/23/2024 8:06 AM ARTIST BLACKSMITH Victor Manuel Woo MD LAB POCT ORDERABLES - DEVICE Final Result Performing Organization Address [facility] [place] [address] [address] [facility] [employer] [place] [address] * Critical Care (09/23/2024 7:46 AM ARTIST BLACKSMITH) Narrative Jamal Lombardi MD - 09/23/2024 7:46 AM ARTIST BLACKSMITH Apoorva Mar NP 09/23/2024 8:10 AM Critical Care Performed by: Apoorva Mar NP Authorized by: Apoorva Mar NP CRITICAL CARE: Team: ANDRESSA Shift: AM Level of Billing: Critical Care My time spent with this patient was 100 minutes: Critical Provider Statement: I have seen and examined the patient on this day of service. I have reviewed and confirmed the history, physical exam, laboratory and radiologic data as documented in the signed ICU note. I have reviewed and discussed my treatment plan with the ICU team and other medical/dairy feed sales consultant staff, making frequent assessments and decisions regarding this patient's complex medical care. Critical Care time was exclusive of time spent performing separately billed procedures, treating other patients, and teaching. This time was in addition to and separate from critical care provided by other practitioners in my group on this day of service. Critical Care was necessary to treat or prevent imminent or life-threatening deterioration of the following conditions: I spent time reviewing and interpreting data from bedside monitors, laboratory results, and imaging, I spent time discussing the management of this critically ill patient with consultants and the medical staff and I spent time documenting in the medical record Apoorva Mar NP IN CLINIC/BEDSIDE ORDERA BLES Final Result * Oxyhemoglobin, central venous (09/23/2024 4:41 AM ARTIST BLACKSMITH) Oxyhemoglobin, CV 68.3 % Comment: Interpretive Data No reference range established. Current interpretive data was last revised 2019. Blood 09/23/2024 4:41 AM ARTIST BLACKSMITH 09/23/2024 4:50 AM ARTIST BLACKSMITH Victor Manuel Woo MD LAB BLOOD ORDERABLES Final R esult Performing Organization Address City/[facility] [place] [address] [place] [employer] [place] [address] * Calcium, ionized, whole blood (09/23/2024 4:41 AM ARTIST BLACKSMITH) Ca, ionized, bld 4.88 4.50 - 5.10 mg/dL Blood 09/23/2024 4:41 AM ARTIST BLACKSMITH 09/23/2024 4:50 AM ARTIST BLACKSMITH Victor Manuel Woo MD LAB [place]LOOD [place] [address] [address] Department [employer] [place], [place] [id number] * eGFR (09/23/2024 4:41 AM ARTIST BLACKSMITH) eGFR >90 >=60 mL/min/1. 73 m2 Comment: Interpretive Data Reference Interval Normal >/= 90 mL/min/1.73m2 Mildly decreased* 60 - 89 mL/min/1.73m2 Mildly to moderately decreased 45 - 59 mL/min/1.73m2 Moderately to severely decreased 30 - 44 mL/min/1.73m2 Severely decreased 15 - 29 mL/min/1.73m2 Kidney Failure < 15 mL/min/1.73m2 *Relative to young adult level Estimated glomerular filtration rate is determined by the 2020 CKD-EPI equation recommended by the National Kidney Foundation (A Unifying Approach to GFR Estimation: Recommendations of the NKF-ASK Task Force on Reassessing the Inclusion of Race in Diagnosing Kidney Disease, JASN 2020). The CKD-EPI equation should not be used for patients with unstable renal function and has not been validated in children and those over 70. Current interpretive data was last reviewed 2021. Blood 09/23/2024 4:41 AM ARTIST BLACKSMITH 09/23/2024 4:51 AM ARTIST BLACKSMITH us Victor Manuel Woo MD LAB BLOOD ORDERABLES Final R esult [facility] [address] [address] [place] [address] * Differential, auto (09/23/2024 4:41 AM ARTIST BLACKSMITH) Neutrophil abs 6.0 1.5 - 6.5 K/cumm Imm gran abs 0.0 0.0 - 0.1 K/cumm [facility] Lymphocyte abs 2.0 0.8 - 3.3 K/cumm [facility] Monocyte abs 0.7 0.2 - 0.8 K/cumm [facility] Eosinophil abs 0.4 0.0 - 0.5 K/cumm [facility] Basophil abs 0.0 0.0 - 0.1 K/cumm [facility] Neutrophil pct 64.9 % [facility] Comment: Interpretive Data Percent cell count reference ranges are not reported, since discordance with absolute values may lead to misinterpretation of CBC data. Current Interpretive Data was last revised on 2017. Imm gran pct 0.3 % TAB Comment: Interpretive Data Percent cell count reference ranges are not reported, since discordance with absolute values may lead to misinterpretation of CBC data. Current Interpretive Data was last revised on 2017. Lymphocyte pct 21.9 % [facility] Comment: Interpretive Data Percent cell count reference ranges are not reported, since discordance with absolute values may lead to misinterpretation of CBC data. Current Interpretive Data was last revised on 2017. Monocyte pct 7.9 % [facility] Comment: Interpretive Data Percent cell count reference ranges are not reported, since discordance with absolute values may lead to misinterpretation of CBC data. Current Interpretive Data was last revised on 2017. Eosinophil pct 4.7 % [facility] Comment: Interpretive Data Percent cell count reference ranges are not reported, since discordance with absolute values may lead to misinterpretation of CBC data. Current Interpretive Data was last revised on 2017. Basophil pct 0.3 % [facility] Comment: Interpretive Data Percent cell count reference ranges are not reported, since discordance with absolute values may lead to misinterpretation of CBC data. Current Interpretive Data was last revised on 2017. Blood 09/23/2024 4:41 AM ARTIST BLACKSMITH 09/23/2024 4:54 AM ARTIST BLACKSMITH us Victor Manuel Woo MD LAB BLOOD ORDERABLES Final R esult [facility] [address] [address] [place] [address] * (ABNORMAL) CBC with auto differential (09/23/2024 4:41 AM ARTIST BLACKSMITH) WBC 9.3 3.8 - 9.9 K/cumm Hgb 8.5(L) 13.0 - 17.5 g/dL [facility] Hct 26.3(L) 38.9 - 50.3 % [facility] Plt 133(L) 150 - 400 K/cumm [facility] MPV 10.3 9.1 - 12.[address] [facility] RBC 3.02(L) 4.30 - 5.80 M/cumm [facility] MCV 87.1 81.3 - 96.[address] [facility] MCH 28.1 27.1 - 33.[address] [facility] MCHC 32.3 32.3 - 35.7 g/dL [facility] RDW CV 13.5 11.1 - 14.9 % [facility] RDW SD 42.5 35.7 - 48.[address] [facility] NRBC abs 0.00 0.00 - 0.01 K/cumm [facility] Blood 09/23/2024 4:41 AM ARTIST BLACKSMITH 09/23/2024 4:54 AM ARTIST BLACKSMITH Victor Manuel Woo MD LAB BLOOD ORDERABLES Final R esult Performing Organization Address [facility] Co de Phone Number TAB [phone] [address] [facility] [employer] [address] * (ABNORMAL) Phosphorus (09/23/2024 4:41 AM ARTIST BLACKSMITH) Phosphorus, pl 2.2(L) 2.3 - 4.5 mg/dL Blood 09/23/2024 4:41 AM ARTIST BLACKSMITH 09/23/2024 4:51 AM ARTIST BLACKSMITH Victor Manuel Woo MD LAB BLOOD ORDERABLES Final R esult Performing Organization Address [facility] de Phone Number YOLISLLUVIA [address] [address] [facility] [employer] [address] * Magnesium (09/23/2024 4:41 AM ARTIST BLACKSMITH) Magnesium 2.0 1.4 - 2.5 mg/dL Blood 09/23/2024 4:41 AM ARTIST BLACKSMITH 09/23/2024 4:51 AM ARTIST BLACKSMITH Victor Manuel Woo MD LAB BLOOD ORDERABLES Final R esult Performing Organization Address [facility] Co de Phone Number TAB [address] [address] [facility] [employer] [place] [address] * (ABNORMAL) Basic metabolic panel (09/23/2024 4:41 AM ARTIST BLACKSMITH) Sodium 136 135 - 145 mmol/L Potassium, pl 3.9 3.3 - 4.9 mmol/L [facility] Chloride 102 97 - 110 mmol/L [facility] CO2 25 22 - 32 mmol/L [facility] Anion gap 9 2 - 15 mmol/L [facility] BUN 12 6 - 25 mg/dL [facility] Creatinine 0.51(L) 0.80 - 1.30 mg/dL [facility] Glucose 162 70 - 199 mg/dL [facility] Comment: Interpretive Data Fasting glucose >/= 126 mg/dl is diagnostic for diabetes. Fasting is defined as no caloric intake for at least 8 hours. Fasting glucose between 100 mg/dl to 125 mg/dl is diagnostic of prediabetes. In a patient with classic symptoms of hyperglycemia or hyperglycemic crisis, a random glucose >/= 200 mg/dl is diagnostic for diabetes. In the absence of unequivocal hyperglycemia, results should be confirmed by repeat testing. The classification and Diagnosis of Diabetes Diabetes Care 202; 46: S19-S40. Current interpretive data was last revised 2022. Calcium 8.8 8.5 - 10.3 mg/dL [facility] Blood 09/23/2024 4:41 AM ARTIST BLACKSMITH 09/23/2024 4:51 AM ARTIST BLACKSMITH Victor Manuel Woo MD LAB BLOOD ORDERABLES Final [place] [address] [address] [place] [address] * XR Chest 1 View - Portable - in AM (09/23/2024 4:01 AM ARTIST BLACKSMITH) Anatomical Region Laterality Modality Body, Chest N/A Computed Radiogr aphy 09/23/2024 8:39 AM ARTIST BLACKSMITH Impressions 09/23/2024 8:39 AM ARTIST BLACKSMITH No failure. No pneumothorax. Electronically signed by: Rodrick Modi M.D. Narrative 09/23/2024 8:39 AM ARTIST BLACKSMITH EXAMINATION: XR CHEST 1 VIEW DATE: 09/23/2024 3:15 AM HISTORY: Cardiac surgery follow-up FINDINGS:When compared with study of the prior day, cardiomegaly with postsurgical changes stable. Thoracostomy tubes and mediastinal drain and Ralston-Shae catheter remain in place. Cardiomegaly is seen. No evidence of pneumothorax or failure. Procedure Note Rodrick Modi MD - 09/23/2024 EXAMINATION: XR CHEST 1 VIEW DATE: 09/23/2024 3:15 AM HISTORY: Cardiac surgery follow-up FINDINGS:When compared with study of the prior day, cardiomegaly with postsurgical changes stable. Thoracostomy tubes and mediastinal drain and Ralston-Shae catheter remain in place. Cardiomegaly is seen. No evidence of pneumothorax or failure. IMPRESSION: No failure. No pneumothorax. Electronically signed by: Rodrick Modi M.D. Apoorva Mar PRESTIDIGITATOR IMG XR PROCEDURES Final Result * (ABNORMAL) Calcium, ionized, whole blood (09/22/2024 9:55 PM ARTIST BLACKSMITH) Pathologist [facility] Ca, ionized, bld 4.49(L) 4.50 - 5.10 mg/dL Blood 09/22/2024 9:55 PM ARTIST BLACKSMITH 09/22/2024 10:01 PM ARTIST BLACKSMITH Victor Manuel Woo MD LAB BLOOD ORDERABLES Final R esult Performing Organization Address [facility] de Phone Number [facility] [address] [address] Department [place] [employer] [place] [address] * Potassium (09/22/2024 9:55 PM ARTIST BLACKSMITH) [facility] Potassium, pl 3.4 3.3 - 4.9 mmol/L Blood 09/22/2024 9:55 PM ARTIST BLACKSMITH 09/22/2024 10:01 PM ARTIST BLACKSMITH Victor Manuel Woo MD LAB BLOOD ORDERABLES Final R esult Performing Organization Address [facility]/[place] [facility] Co de Phone Number TAB [phone] [address] [place] [employer] [place] [address] * Magnesium (09/22/2024 9:55 PM ARTIST BLACKSMITH) Magnesium 1.9 1.4 - 2.5 mg/dL Blood 09/22/2024 9:55 PM ARTIST BLACKSMITH 09/22/2024 10:01 PM ARTIST BLACKSMITH Victor Manuel Woo MD LAB BLOOD ORDERABLES Final R esult Performing Organization Address [facility] Co de Phone Number TAB GUARDADO [address] [address] [place] [address] * POCT glucose (09/22/2024 8:09 PM ARTIST BLACKSMITH) Glucose, POC 147 70 - 199 mg/dL Blood 09/22/2024 8:09 PM ARTIST BLACKSMITH 09/22/2024 8:09 PM ARTIST BLACKSMITH Result [facility] Victor Manuel Woo MD LAB POCT ORDERABLES - DEVICE Final Result Performing Organization Address [facility] de Phone Number TAB GUARDADO [address] [place] [address] * Critical Care (09/22/2024 7:30 PM ARTIST BLACKSMITH) Narrative Andressa Jacobs MD - 09/22/2024 7:30 PM ARTIST BLACKSMITH Alex Melendez PA 09/23/2024 5:26 AM Critical Care Performed by: Alex Melendez PA Authorized by: Alex Melendez PA CRITICAL CARE: Team: MELINA Shift: PM Level of Billing: Critical Care My time spent with this patient was 60 minutes: Critical Provider Statement: I have seen and examined the patient on this day of service. I have reviewed and confirmed the history, physical exam, laboratory and radiologic data as documented in the signed ICU note. I have reviewed and discussed my treatment plan with the ICU team and other medical/dairy feed sales consultant staff, making frequent assessments and decisions regarding this patient's complex medical care. Critical Care time was exclusive of time spent performing separately billed procedures, treating other patients, and teaching. This time was in addition to and separate from critical care provided by other practitioners in my group on this day of service. Critical Care was necessary to treat or prevent imminent or life-threatening deterioration of the following conditions: I spent time reviewing and interpreting data from bedside monitors, laboratory results, and imaging, I spent time discussing the management of this critically ill patient with consultants and the medical staff and I spent time documenting in the medical record us Alex SEVILLA IN CLINIC/BEDSIDE ORDERABLES Fin al Result * POCT glucose (09/22/2024 5:04 PM ARTIST BLACKSMITH) Glucose, POC 174 70 - 199 mg/dL Blood 09/22/2024 5:04 PM ARTIST BLACKSMITH 09/22/2024 5:04 PM ARTIST BLACKSMITH Victor Manuel Woo MD LAB POCT ORDERABLES - DEVICE Final Result TAB [id number] [place] [employer] [address] * Calcium, ionized, whole blood (09/22/2024 1:16 PM ARTIST BLACKSMITH) Ca, ionized, bld 4.58 4.50 - 5.10 mg/dL Blood 09/22/2024 1:16 PM ARTIST BLACKSMITH 09/22/2024 1:24 PM ARTIST BLACKSMITH Victor Manuel Woo MD LAB BLOOD ORDERABLES Final R esult Performing Organization Address City/[facility]/ZIP Co de Phone Number [facility] [address] [address] [employer] [place], [place] [id number] * eGFR (09/22/2024 1:16 PM ARTIST BLACKSMITH) eGFR >90 >=60 mL/min/1. 73 m2 Comment: Interpretive Data Reference Interval Normal >/= 90 mL/min/1.73m2 Mildly decreased* 60 - 89 mL/min/1.73m2 Mildly to moderately decreased 45 - 59 mL/min/1.73m2 Moderately to severely decreased 30 - 44 mL/min/1.73m2 Severely decreased 15 - 29 mL/min/1.73m2 Kidney Failure < 15 mL/min/1.73m2 *Relative to young adult level Estimated glomerular filtration rate is determined by the 2020 CKD-EPI equation recommended by the National Kidney Foundation (A Unifying Approach to GFR Estimation: Recommendations of the NKF-ASK Task Force on Reassessing the Inclusion of Race in Diagnosing Kidney Disease, JASN 202). The CKD-EPI equation should not be used for patients with unstable renal function and has not been validated in children and those over 70. Current interpretive data was last reviewed 2021. Blood 09/22/2024 1:16 PM ARTIST BLACKSMITH 09/22/2024 1:24 PM ARTIST BLACKSMITH us Victor Manuel Woo MD LAB BLOOD ORDERABLES Final R esult [facility] [id number] [place] [address] * (ABNORMAL) Differential, auto (09/22/2024 1:16 PM ARTIST BLACKSMITH) Neutrophil abs 6.8(H) 1.5 - 6.5 K/cumm Imm gran abs 0.1 0.0 - 0.1 K/cumm [facility] Lymphocyte abs 1.7 0.8 - 3.3 K/cumm [facility] Monocyte abs 0.9(H) 0.2 - 0.8 K/cumm [facility] Eosinophil abs 0.3 0.0 - 0.5 K/cumm [facility] Basophil abs 0.0 0.0 - 0.1 K/cumm [facility] Neutrophil pct 69.4 % [facility] Comment: Interpretive Data Percent cell count reference ranges are not reported, since discordance with absolute values may lead to misinterpretation of CBC data. Current Interpretive Data was last revised on 2017. Imm gran pct 0.6 % TAB Comment: Interpretive Data Percent cell count reference ranges are not reported, since discordance with absolute values may lead to misinterpretation of CBC data. Current Interpretive Data was last revised on 2017. Lymphocyte pct 17.0 % TAB Comment: Interpretive Data Percent cell count reference ranges are not reported, since discordance with absolute values may lead to misinterpretation of CBC data. Current Interpretive Data was last revised on 2017. Monocyte pct 9.6 % [facility] Comment: Interpretive Data Percent cell count reference ranges are not reported, since discordance with absolute values may lead to misinterpretation of CBC data. Current Interpretive Data was last revised on 2017. Eosinophil pct 3.1 % [facility] Comment: Interpretive Data Percent cell count reference ranges are not reported, since discordance with absolute values may lead to misinterpretation of CBC data. Current Interpretive Data was last revised on 2017. Basophil pct 0.3 % [facility] Comment: Interpretive Data Percent cell count reference ranges are not reported, since discordance with absolute values may lead to misinterpretation of CBC data. Current Interpretive Data was last revised on 2017. Blood 09/22/2024 1:16 PM ARTIST BLACKSMITH 09/22/2024 1:25 PM ARTIST BLACKSMITH us Victor Manuel Woo MD LAB BLOOD ORDERABLES Final R esult [facility] [address] [address] [place] [address] * (ABNORMAL) CBC with auto differential (09/22/2024 1:16 PM ARTIST BLACKSMITH) WBC 9.8 3.8 - 9.9 K/cumm Hgb 8.4(L) 13.0 - 17.5 g/dL [facility] Hct 25.7(L) 38.9 - 50.3 % [facility] Plt 112(L) 150 - 400 K/cumm [facility] MPV 9.8 9.1 - 12.[address] [facility] RBC 2.97(L) 4.30 - 5.80 M/cumm [facility] MCV 86.5 81.3 - 96.[address] [facility] MCH 28.3 27.1 - 33.[address] [facility] MCHC 32.7 32.3 - 35.7 g/dL [facility] RDW CV 13.6 11.1 - 14.9 % [facility] RDW SD 42.3 35.7 - 48.[address] [facility] NRBC abs 0.00 0.00 - 0.01 K/cumm [facility] Blood 09/22/2024 1:16 PM ARTIST BLACKSMITH 09/22/2024 1:25 PM [facility]IST BLACKSMITH Victor Manuel Woo MD LAB BLOOD ORDERABLES Final R esult TAB GUARDADO [address] [address] [facility] [employer] [place] [address] * Magnesium (09/22/2024 1:16 PM ARTIST BLACKSMITH) Pathologist [facility] Magnesium 2.1 1.4 - 2.5 mg/dL Blood 09/22/2024 1:16 PM ARTIST BLACKSMITH 09/22/2024 1:24 PM [facility]IST BL[facility]SMITH Victor Manuel Woo MD LAB BLOOD ORDERABLES Final R esult Performing Organization Address [facility] de Phone Number TAB GURADADO [address] [address] [place] [address] * (ABNORMAL) Basic metabolic panel (09/22/2024 1:16 PM ARTIST BLACKSMITH) Pathologist [facility] Sodium 137 135 - 145 mmol/L Potassium, pl 4.3 3.3 - 4.9 mmol/L [facility] Chloride 106 97 - 110 mmol/L [facility] CO2 20(L) 22 - 32 mmol/L [facility] Anion gap 11 2 - 15 mmol/L [facility] BUN 14 6 - 25 mg/dL [facility] Creatinine 0.60(L) 0.80 - 1.30 mg/dL [facility] Glucose 207(H) 70 - 199 mg/dL [facility] Comment: Interpretive Data Fasting glucose >/= 126 mg/dl is diagnostic for diabetes. Fasting is defined as no caloric intake for at least 8 hours. Fasting glucose between 100 mg/dl to 125 mg/dl is diagnostic of prediabetes. In a patient with classic symptoms of hyperglycemia or hyperglycemic crisis, a random glucose >/= 200 mg/dl is diagnostic for diabetes. In the absence of unequivocal hyperglycemia, results should be confirmed by repeat testing. The classification and Diagnosis of Diabetes Diabetes Care 2021; 46: S19-S40. Current interpretive data was last revised 2022. Calcium 8.5 8.5 - 10.3 mg/dL [facility] Blood 09/22/2024 1:16 PM ARTIST BLACKSMITH 09/22/2024 1:24 PM ARTIST BLACKSMITH Victor Manuel Woo MD LAB BLOOD ORDERABLES Final R esult Performing Organization Address [facility] Co de Phone Number TAB [phone] [address] [facility] [employer] [address] * POCT glucose (09/22/2024 12:17 PM ARTIST BLACKSMITH) Glucose, POC 187 70 - 199 mg/dL Blood 09/22/2024 12:1 7 PM ARTIST BLACKSMITH 09/22/2024 12:17 PM ARTIST BLACKSMITH Victor Manuel Woo MD LAB POCT ORDERABLES - DEVICE Final Result Performing Organization Address [facility] Co de Phone Number YOLISLLUVIA [address] [address] [facility] [employer] [address] * (ABNORMAL) POCT glucose (09/22/2024 8:05 AM ARTIST BLACKSMITH) Glucose, POC 225(H) 70 - 199 mg/dL Blood 09/22/2024 8:05 AM ARTIST BLACKSMITH 09/22/2024 8:05 AM ARTIST BLACKSMITH Victor Manuel Woo MD LAB POCT ORDERABLES - DEVICE Final Result Performing Organization Address [facility] Co de Phone Number [facility] [address] [address] [facility] [employer] [address] * Critical Care (09/22/2024 6:52 AM ARTIST BLACKSMITH) Narrative Jamal Lombardi MD - 09/22/2024 6:52 AM ARTIST BLACKSMITH Ora Smith NP 09/22/2024 6:16 PM Critical Care Performed by: Ora Smith NP Authorized by: Ora Smith NP CRITICAL CARE: Team: ANDRESSA Shift: AM Level of Billing: Critical Care My time spent with this patient was 60 minutes: Critical Provider Statement: I have seen and examined the patient on this day of service. I have reviewed and confirmed the history, physical exam, laboratory and radiologic data as documented in the signed ICU note. I have reviewed and discussed my treatment plan with the ICU team and other medical/dairy feed sales consultant staff, making frequent assessments and decisions regarding this patient's complex medical care. Critical Care time was exclusive of time spent performing separately billed procedures, treating other patients, and teaching. This time was in addition to and separate from critical care provided by other practitioners in my group on this day of service. Critical Care was necessary to treat or prevent imminent or life-threatening deterioration of the following conditions: I spent time reviewing and interpreting data from bedside monitors, laboratory results, and imaging, I spent time discussing the management of this critically ill patient with consultants and the medical staff and I spent time documenting in the medical record Ora Smith NP IN CLINIC/BEDSIDE ORDERABLES Final Result * XR Chest 1 View - Portable - in AM (09/22/2024 5:35 AM ARTIST BLACKSMITH) Anatomical Region Laterality Modality Body, Chest N/A Computed Radiogr aphy 09/22/2024 8:12 AM ARTIST BLACKSMITH Impressions 09/22/2024 8:12 AM ARTIST BLACKSMITH Findings/impression: Pulmonary arterial catheter, right thoracostomy tube, left thoracostomy tube, and mediastinal drain are appropriately positioned. Poststernotomy changes are noted. Cardiomediastinal silhouette is normal in size. No pneumothorax or pleural effusion. Mild pulmonary vascular congestion. No consolidation. Electronically signed by: Raul Mendieta II, D.O. Narrative 09/22/2024 8:12 AM ARTIST BLACKSMITH EXAMINATION: XR CHEST 1 VIEW DATE: 09/22/2024 5:00 AM INDICATION: Cardiac surgery. COMPARISON: 09/21/2024. Procedure Note Raul Mendieta II, DO - 09/22/2024 EXAMINATION: XR CHEST 1 VIEW DATE: 09/22/2024 5:00 AM INDICATION: Cardiac surgery. COMPARISON: 09/21/2024. IMPRESSION: Findings/impression: Pulmonary arterial catheter, right thoracostomy tube, left thoracostomy tube, and mediastinal drain are appropriately positioned. Poststernotomy changes are noted. Cardiomediastinal silhouette is normal in size. No pneumothorax or pleural effusion. Mild pulmonary vascular congestion. No consolidation. Electronically signed by: Raul Mendieta II, D.O. us Apoorva Mar PRESTIDIGITATOR IMG XR PROCEDURES Final Result * Oxyhemoglobin, central venous (09/22/2024 4:15 AM ARTIST BLACKSMITH) Oxyhemoglobin, CV 59.1 % Comment: Interpretive Data No reference range established. Current interpretive data was last revised 2019. Blood 09/22/2024 4:15 AM ARTIST BLACKSMITH 09/22/2024 4:25 AM ARTIST BLACKSMITH us Victor Manuel Woo MD LAB BLOOD ORDERABLES Final R esult [facility] [id number] [address] [facility] [place], [place] [id number] * eGFR (09/22/2024 3:33 AM ARTIST BLACKSMITH) eGFR >90 >=60 mL/min/1. 73 m2 Comment: Interpretive Data Reference Interval Normal >/= 90 mL/min/1.73m2 Mildly decreased* 60 - 89 mL/min/1.73m2 Mildly to moderately decreased 45 - 59 mL/min/1.73m2 Moderately to severely decreased 30 - 44 mL/min/1.73m2 Severely decreased 15 - 29 mL/min/1.73m2 Kidney Failure < 15 mL/min/1.73m2 *Relative to young adult level Estimated glomerular filtration rate is determined by the 2020 CKD-EPI equation recommended by the National Kidney Foundation (A Unifying Approach to GFR Estimation: Recommendations of the NKF-ASK Task Force on Reassessing the Inclusion of Race in Diagnosing Kidney Disease, JASN 2020). The CKD-EPI equation should not be used for patients with unstable renal function and has not been validated in children and those over 70. Current interpretive data was last reviewed 2021. Blood 09/22/2024 3:33 AM ARTIST BLACKSMITH 09/22/2024 4:33 AM ARTIST BLACKSMITH us Victor Manuel Woo MD LAB BLOOD ORDERABLES Final R esult [facility] [id number] [address] [place] [address] * (ABNORMAL) Differential, auto (09/22/2024 3:33 AM ARTIST BLACKSMITH) Neutrophil abs 8.8(H) 1.5 - 6.5 K/cumm Imm gran abs 0.1 0.0 - 0.1 K/cumm [facility] Lymphocyte abs 1.5 0.8 - 3.3 K/cumm [facility] Monocyte abs 1.0(H) 0.2 - 0.8 K/cumm [facility] Eosinophil abs 0.1 0.0 - 0.5 K/cumm [facility] Basophil abs 0.0 0.0 - 0.1 K/cumm [facility] Neutrophil pct 76.2 % [facility] Comment: Interpretive Data Percent cell count reference ranges are not reported, since discordance with absolute values may lead to misinterpretation of CBC data. Current Interpretive Data was last revised on 2017. Imm gran pct 0.6 % [facility] Comment: Interpretive Data Percent cell count reference ranges are not reported, since discordance with absolute values may lead to misinterpretation of CBC data. Current Interpretive Data was last revised on 2017. Lymphocyte pct 12.9 % [facility] Comment: Interpretive Data Percent cell count reference ranges are not reported, since discordance with absolute values may lead to misinterpretation of CBC data. Current Interpretive Data was last revised on 2017. Monocyte pct 9.0 % [facility] Comment: Interpretive Data Percent cell count reference ranges are not reported, since discordance with absolute values may lead to misinterpretation of CBC data. Current Interpretive Data was last revised on 2017. Eosinophil pct 1.0 % [facility] Comment: Interpretive Data Percent cell count reference ranges are not reported, since discordance with absolute values may lead to misinterpretation of CBC data. Current Interpretive Data was last revised on 2017. Basophil pct 0.3 % [facility] Comment: Interpretive Data Percent cell count reference ranges are not reported, since discordance with absolute values may lead to misinterpretation of CBC data. Current Interpretive Data was last revised on 2017. Blood 09/22/2024 3:33 AM ARTIST BLACKSMITH 09/22/2024 4:34 AM ARTIST BLACKSMITH Victor Manuel Woo MD LAB BLOOD ORDERABLES Final R esult Performing Organization Address City/[facility]/ZIP Co de Phone Number TAB GUARDADO [address] [place] [employer] [place] [address] * (ABNORMAL) CBC with auto differential (09/22/2024 3:33 AM ARTIST BLACKSMITH) WBC 11.6(H) 3.8 - 9.9 K/cumm Hgb 8.8(L) 13.0 - 17.5 g/dL [facility] Hct 26.9(L) 38.9 - 50.3 % [facility] Plt 126(L) 150 - 400 K/cumm [facility] MPV 10.2 9.1 - 12.3 fL [facility] RBC 3.11(L) 4.30 - 5.80 M/cumm [facility] MCV 86.5 81.3 - 96.4 fL [facility] MCH 28.3 27.1 - 33.3 pg [facility] MCHC 32.7 32.3 - 35.7 g/dL [facility] RDW CV 13.6 11.1 - 14.9 % [facility] RDW SD 42.8 35.7 - 48.[address] [facility] NRBC abs 0.00 0.00 - 0.01 K/cumm [facility] Blood 09/22/2024 3:33 AM ARTIST BLACKSMITH 09/22/2024 4:34 AM [facility]IST [facility] Victor Manuel Woo MD LAB BLOOD ORDERABLES Final R esult TAB GUARDADO [address] [address] [place] [address] * Phosphorus (09/22/2024 3:33 AM ARTIST BLACKSMITH) Pathologist [facility] Phosphorus, pl 3.2 2.3 - 4.5 mg/dL Blood 09/22/2024 3:33 AM ARTIST BLACKSMITH 09/22/2024 4:33 AM ARTIST BLACKSMITH Victor Manuel Woo MD LAB BLOOD ORDERABLES Final R esult Performing Organization Address City/[facility] Co de Phone Number TAB GUARDADO [address] [address] [place] [address] * Magnesium (09/22/2024 3:33 AM ARTIST BLACKSMITH) [facility] Magnesium 2.1 1.4 - 2.5 mg/dL Blood 09/22/2024 3:33 AM ARTIST BLACKSMITH 09/22/2024 4:33 AM ARTIST BLACKSMITH Victor Manuel Woo MD LAB BLOOD ORDERABLES Final R esult Performing Organization Address [facility] de Phone Number TAB GUARDAD[address] [address] [address] [place] [address] * (ABNORMAL) Basic metabolic panel (09/22/2024 3:33 AM ARTIST BLACKSMITH) Pathologist [facility] Sodium 139 135 - 145 mmol/L Potassium, pl 3.8 3.3 - 4.9 mmol/L [facility] Chloride 106 97 - 110 mmol/L [facility] CO2 21(L) 22 - 32 mmol/L [facility] Anion gap 12 2 - 15 mmol/L [facility] BUN 12 6 - 25 mg/dL [facility] Creatinine 0.68(L) 0.80 - 1.30 mg/dL [facility] Glucose 210(H) 70 - 199 mg/dL [facility] Comment: Interpretive Data Fasting glucose >/= 126 mg/dl is diagnostic for diabetes. Fasting is defined as no caloric intake for at least 8 hours. Fasting glucose between 100 mg/dl to 125 mg/dl is diagnostic of prediabetes. In a patient with classic symptoms of hyperglycemia or hyperglycemic crisis, a random glucose >/= 200 mg/dl is diagnostic for diabetes. In the absence of unequivocal hyperglycemia, results should be confirmed by repeat testing. The classification and Diagnosis of Diabetes Diabetes Care 2021; 46: S19-S40. Current interpretive data was last revised 2022. Calcium 8.4(L) 8.5 - 10.3 mg/dL TAB Blood 09/22/2024 3:33 AM ARTIST BLACKSMITH 09/22/2024 4:33 AM ARTIST BLACKSMITH Victor Manuel Woo MD LAB BLOOD ORDERABLES Final R esult Performing Organization Address [facility] Co de Phone Number YOLISLLUVIA [address] [address] [employer] [place], [place] [id number] * POCT glucose (09/21/2024 11:56 PM ARTIST BLACKSMITH) Glucose, POC 175 70 - 199 mg/dL Blood 09/21/2024 11:5 6 PM ARTIST BLACKSMITH 09/21/2024 11:56 PM ARTIST BLACKSMITH Victor Manuel Woo MD LAB POCT ORDERABLES - DEVICE Final Result Performing Organization Address [facility] Co de Phone Number [facility] [address] [place] [address] * POCT glucose (09/21/2024 8:43 PM ARTIST BLACKSMITH) Glucose, POC 118 70 - 199 mg/dL Blood 09/21/2024 8:43 PM ARTIST BLACKSMITH 09/21/2024 8:43 PM ARTIST BLACKSMITH Victor Manuel Woo MD LAB POCT ORDERABLES - DEVICE Final Result Performing Organization Address [facility] Co de Phone Number TAB [address] [address] [place] [address] * Calcium, ionized, whole blood (09/21/2024 8:27 PM ARTIST BLACKSMITH) Ca, ionized, bld 4.60 4.50 - 5.10 mg/dL Blood 09/21/2024 8:27 PM ARTIST BLACKSMITH 09/21/2024 8:33 PM ARTIST BLACKSMITH Victor Manuel Woo MD LAB BLOOD ORDERABLES Final R esult Performing Organization Address City/[facility]/ZIP Co de Phone Number TAB GUARDADO [address] [address] Department [place] [employer] [place] [address] * eGFR (09/21/2024 8:27 PM ARTIST BLACKSMITH) eGFR >90 >=60 mL/min/1. 73 m2 Comment: Interpretive Data Reference Interval Normal >/= 90 mL/min/1.73m2 Mildly decreased* 60 - 89 mL/min/1.73m2 Mildly to moderately decreased 45 - 59 mL/min/1.73m2 Moderately to severely decreased 30 - 44 mL/min/1.73m2 Severely decreased 15 - 29 mL/min/1.73m2 Kidney Failure < 15 mL/min/1.73m2 *Relative to young adult level Estimated glomerular filtration rate is determined by the 2020 CKD-EPI equation recommended by the National Kidney Foundation (A Unifying Approach to GFR Estimation: Recommendations of the NKF-ASK Task Force on Reassessing the Inclusion of Race in Diagnosing Kidney Disease, JASN 2020). The CKD-EPI equation should not be used for patients with unstable renal function and has not been validated in children and those over 70. Current interpretive data was last reviewed 2021. Blood 09/21/2024 8:27 PM ARTIST BLACKSMITH 09/21/2024 8:37 PM ARTIST BLACKSMITH Victor Manuel Woo MD LAB BLOOD ORDERABLES Final R esult TAB [address] [address] [address] Department of [employer] [place], [place] [phone] * (ABNORMAL) Differential, auto (09/21/2024 8:27 PM ARTIST BLACKSMITH) Neutrophil abs 8.0(H) 1.5 - 6.5 K/cumm Imm gran abs 0.1 0.0 - 0.1 K/cumm [facility] Lymphocyte abs 2.0 0.8 - 3.3 K/cumm [facility] Monocyte abs 1.2(H) 0.2 - 0.8 K/cumm [facility] Eosinophil abs 0.2 0.0 - 0.5 K/cumm [facility] Basophil abs 0.1 0.0 - 0.1 K/cumm [facility] Neutrophil pct 69.4 % [facility] Comment: Interpretive Data Percent cell count reference ranges are not reported, since discordance with absolute values may lead to misinterpretation of CBC data. Current Interpretive Data was last revised on 2017. Imm gran pct 0.6 % [facility] Comment: Interpretive Data Percent cell count reference ranges are not reported, since discordance with absolute values may lead to misinterpretation of CBC data. Current Interpretive Data was last revised on 2017. Lymphocyte pct 17.8 % [facility] Comment: Interpretive Data Percent cell count reference ranges are not reported, since discordance with absolute values may lead to misinterpretation of CBC data. Current Interpretive Data was last revised on 2017. Monocyte pct 10.0 % [facility] Comment: Interpretive Data Percent cell count reference ranges are not reported, since discordance with absolute values may lead to misinterpretation of CBC data. Current Interpretive Data was last revised on 2017. Eosinophil pct 1.8 % [facility] Comment: Interpretive Data Percent cell count reference ranges are not reported, since discordance with absolute values may lead to misinterpretation of CBC data. Current Interpretive Data was last revised on 2017. Basophil pct 0.4 % [facility] Comment: Interpretive Data Percent cell count reference ranges are not reported, since discordance with absolute values may lead to misinterpretation of CBC data. Current Interpretive Data was last revised on 2017. Blood 09/21/2024 8:27 PM ARTIST BLACKSMITH 09/21/2024 8:33 PM ARTIST BLACKSMITH us Victor Manuel Woo MD LAB BLOOD ORDERABLES Final R esult TAB [place] [address] Department of Laboratories [place] [id number] * (ABNORMAL) CBC with auto differential (09/21/2024 8:27 PM ARTIST BLACKSMITH) WBC 11.5(H) 3.8 - 9.9 K/cumm Hgb 9.1(L) 13.0 - 17.5 g/dL [facility] Hct 28.0(L) 38.9 - 50.3 % [facility] Plt 138(L) 150 - 400 K/cumm [facility] CH MPV 9.5 9.1 - 12.3 fL [facility] RBC 3.26(L) 4.30 - 5.80 M/cumm [facility] CH MCV 85.9 81.3 - 96.4 fL [facility] CH MCH 27.9 27.1 - 33.3 pg [facility] CH MCHC 32.5 32.3 - 35.7 g/dL [facility] RDW CV 13.5 11.1 - 14.9 % [facility] RDW SD 42.1 35.7 - 48.1 fL [facility] NRBC abs 0.00 0.00 - 0.01 K/cumm [facility] Blood 09/21/2024 8:27 PM ARTIST BLACKSMITH 09/21/2024 8:33 PM ARTIST BLACKSMITH Victor Manuel Woo MD LAB BLOOD ORDERABLES Final R esult Performing Organization Address City/[facility] Co de Phone Number YOLISLLUVIA [place] [place] [address] * Magnesium (09/21/2024 8:27 PM ARTIST BLACKSMITH) Pathologist [facility] Magnesium 1.9 1.4 - 2.5 mg/dL Blood 09/21/2024 8:27 PM ARTIST BLACKSMITH 09/21/2024 8:33 PM ARTIST BLACKSMITH Victor Manuel Woo MD LAB BLOOD ORDERABLES Final R esult TAB [place] [address] Department [place] [employer] [place] [address] * (ABNORMAL) Basic metabolic panel (09/21/2024 8:27 PM ARTIST BLACKSMITH) Sodium 140 135 - 145 mmol/L Potassium, pl 3.4 3.3 - 4.9 mmol/L [facility] Chloride 107 97 - 110 mmol/L [facility] CO2 21(L) 22 - 32 mmol/L [facility] Anion gap 12 2 - 15 mmol/L [facility] BUN 11 6 - 25 mg/dL [facility] Creatinine 0.76(L) 0.80 - 1.30 mg/dL [facility] Glucose 117 70 - 199 mg/dL [facility] Comment: Interpretive Data Fasting glucose >/= 126 mg/dl is diagnostic for diabetes. Fasting is defined as no caloric intake for at least 8 hours. Fasting glucose between 100 mg/dl to 125 mg/dl is diagnostic of prediabetes. In a patient with classic symptoms of hyperglycemia or hyperglycemic crisis, a random glucose >/= 200 mg/dl is diagnostic for diabetes. In the absence of unequivocal hyperglycemia, results should be confirmed by repeat testing. The classification and Diagnosis of Diabetes Diabetes Care 2021; 46: S19-S40. Current interpretive data was last revised 2022. Calcium 8.6 8.5 - 10.3 mg/dL [facility] Blood 09/21/2024 8:27 PM ARTIST BLACKSMITH 09/21/2024 8:33 PM ARTIST BLACKSMITH us Victor Manuel Woo MD LAB BLOOD ORDERABLES Final R esult [facility] [address] [place] [address] * Critical Care (09/21/2024 7:29 PM ARTIST BLACKSMITH) Narrative Andressa Jacobs MD - 09/21/2024 7:29 PM ARTIST BLACKSMITH Alex Melendez PA 09/22/2024 5:41 AM Critical Care Performed by: Alex Melendez PA Authorized by: Alex Melendez PA CRITICAL CARE: Team: ANDRESSA Shift: PM Level of Billing: Critical Care My time spent with this patient was 65 minutes: Critical Provider Statement: I have seen and examined the patient on this day of service. I have reviewed and confirmed the history, physical exam, laboratory and radiologic data as documented in the signed ICU note. I have reviewed and discussed my treatment plan with the ICU team and other medical/dairy feed sales consultant staff, making frequent assessments and decisions regarding this patient's complex medical care. Critical Care time was exclusive of time spent performing separately billed procedures, treating other patients, and teaching. This time was in addition to and separate from critical care provided by other practitioners in my group on this day of service. Critical Care was necessary to treat or prevent imminent or life-threatening deterioration of the following conditions: I spent time reviewing and interpreting data from bedside monitors, laboratory results, and imaging, I spent time discussing the management of this critically ill patient with consultants and the medical staff and I spent time documenting in the medical record us Alex SEVILLA IN CLINIC/BEDSIDE ORDERABLES Fin al Result * POCT glucose (09/21/2024 7:19 PM ARTIST BLACKSMITH) Glucose, POC 142 70 - 199 mg/dL Blood 09/21/2024 7:19 PM ARTIST BLACKSMITH 09/21/2024 7:19 PM ARTIST BLACKSMITH Victor Manuel Woo MD LAB POCT ORDERABLES - DEVICE Final Result Performing Organization Address [facility] [place] [address] [address] [place] [address] * POCT glucose (09/21/2024 6:13 PM ARTIST BLACKSMITH) Glucose, POC 130 70 - 199 mg/dL Blood 09/21/2024 6:13 PM ARTIST BLACKSMITH 09/21/2024 6:13 PM ARTIST BLACKSMITH Victor Manuel Woo MD LAB POCT ORDERABLES - DEVICE Final Result Performing Organization Address [facility] [place] [address] [address] Department [place] [employer] [place] [address] * POCT glucose (09/21/2024 4:56 PM ARTIST BLACKSMITH) Glucose, POC 141 70 - 199 mg/dL Blood 09/21/2024 4:56 PM ARTIST BLACKSMITH 09/21/2024 4:56 PM ARTIST BLACKSMITH us Victor Manuel Woo MD LAB POCT ORDERABLES - DEVICE Final Result Performing Organization Address [facility] Co de Phone Number TAB [place] [address] [facility] [employer] [address] * POCT glucose (09/21/2024 2:45 PM ARTIST BLACKSMITH) [facility] Glucose, POC 116 70 - 199 mg/dL Blood 09/21/2024 2:45 PM ARTIST BLACKSMITH 09/21/2024 2:45 PM ARTIST BLACKSMITH us Victor Manuel Woo MD LAB POCT ORDERABLES - DEVICE Final Result Performing Organization Address [facility] de Phone Number TAB GEO [address] [place] [employer] [address] * Calcium, ionized, whole blood (09/21/2024 1:42 PM ARTIST BLACKSMITH) [facility] Ca, ionized, bld 4.93 4.50 - 5.10 mg/dL Blood 09/21/2024 1:42 PM ARTIST BLACKSMITH 09/21/2024 1:44 PM ARTIST BLACKSMITH Result [facility] us Victor Manuel Woo MD LAB BLOOD ORDERABLES Final R esult Performing Organization Address [facility] Co de Phone Number YOLISLLUVIA GUARD[place] [address] [facility] [place] [address] * eGFR (09/21/2024 1:42 PM ARTIST BLACKSMITH) [facility] eGFR >90 >=60 mL/min/1. 73 m2 Comment: Interpretive Data Reference Interval Normal >/= 90 mL/min/1.73m2 Mildly decreased* 60 - 89 mL/min/1.73m2 Mildly to moderately decreased 45 - 59 mL/min/1.73m2 Moderately to severely decreased 30 - 44 mL/min/1.73m2 Severely decreased 15 - 29 mL/min/1.73m2 Kidney Failure < 15 mL/min/1.73m2 *Relative to young adult level Estimated glomerular filtration rate is determined by the 2020 CKD-EPI equation recommended by the National Kidney Foundation (A Unifying Approach to GFR Estimation: Recommendations of the NKF-ASK Task Force on Reassessing the Inclusion of Race in Diagnosing Kidney Disease, JASN 202). The CKD-EPI equation should not be used for patients with unstable renal function and has not been validated in children and those over 70. Current interpretive data was last reviewed 2021. Blood 09/21/2024 1:42 PM ARTIST BLACKSMITH 09/21/2024 1:46 PM ARTIST BLACKSMITH us Victor Manuel Woo MD LAB BLOOD ORDERABLES Final R esult [facility] [address] [place] [address] * (ABNORMAL) CBC without differential (09/21/2024 1:42 PM ARTIST BLACKSMITH) WBC 9.5 3.8 - 9.9 K/cumm Hgb 9.3(L) 13.0 - 17.5 g/dL [facility] Hct 29.1(L) 38.9 - 50.3 % [facility] Plt 149(L) 150 - 400 K/cumm [facility] MPV 9.6 9.1 - 12.[address] [facility] RBC 3.37(L) 4.30 - 5.80 M/cumm [facility] MCV 86.4 81.3 - 96.4 fL [facility] MCH 27.6 27.1 - 33.3 pg [facility] MCHC 32.0(L) 32.3 - 35.7 g/dL [facility] RDW CV 13.3 11.1 - 14.9 % [facility] RDW SD 42.2 35.7 - 48.1 fL [facility] NRBC abs 0.00 0.00 - 0.01 K/cumm [facility] Blood 09/21/2024 1:42 PM ARTIST BLACKSMITH 09/21/2024 1:46 PM ARTIST BLACKSMITH Victor Manuel Woo MD LAB BLOOD ORDERABLES Final R esult Performing Organization Address City/[facility]/ZIP Co de Phone Number TAB [place] [address] [place] [address] * Magnesium (09/21/2024 1:42 PM ARTIST BLACKSMITH) Pathologist [facility] Magnesium 2.0 1.4 - 2.5 mg/dL Blood 09/21/2024 1:42 PM ARTIST BLACKSMITH 09/21/2024 1:44 PM ARTIST BLACKSMITH Victor Manuel Woo MD LAB BLOOD ORDERABLES Final R [facility] Performing Organization Address [facility] de Phone Number TAB [place] [address] [place] [address] * (ABNORMAL) Basic metabolic panel (09/21/2024 1:42 PM ARTIST BLACKSMITH) Pathologist [facility] Sodium 141 135 - 145 mmol/L Potassium, pl 3.6 3.3 - 4.9 mmol/L [facility] Chloride 109 97 - 110 mmol/L [facility] CO2 20(L) 22 - 32 mmol/L [facility] Anion gap 12 2 - 15 mmol/L [facility] BUN 10 6 - 25 mg/dL [facility] Creatinine 0.70(L) 0.80 - 1.30 mg/dL [facility] Glucose 130 70 - 199 mg/dL [facility] Comment: Interpretive Data Fasting glucose >/= 126 mg/dl is diagnostic for diabetes. Fasting is defined as no caloric intake for at least 8 hours. Fasting glucose between 100 mg/dl to 125 mg/dl is diagnostic of prediabetes. In a patient with classic symptoms of hyperglycemia or hyperglycemic crisis, a random glucose >/= 200 mg/dl is diagnostic for diabetes. In the absence of unequivocal hyperglycemia, results should be confirmed by repeat testing. The classification and Diagnosis of Diabetes Diabetes Care 2021; 46: S19-S40. Current interpretive data was last revised 2022. Calcium 8.6 8.5 - 10.3 mg/dL [facility] Blood 09/21/2024 1:42 PM ARTIST BLACKSMITH 09/21/2024 1:44 PM ARTIST BLACKSMITH us Victor Manuel Woo MD LAB BLOOD ORDERABLES Final R esult Performing Organization Address [facility] Co de Phone Number TAB GU[place] [address] [address] [facility] [employer] [address] * POCT glucose (09/21/2024 12:36 PM ARTIST BLACKSMITH) Glucose, POC 100 70 - 199 mg/dL Blood 09/21/2024 12:3 6 PM ARTIST BLACKSMITH 09/21/2024 12:36 PM ARTIST BLACKSMITH us Victor Manuel Woo MD LAB POCT ORDERABLES - DEVICE Final Result Performing Organization Address [facility] Co de Phone Number TAB [place] [address] [address] [facility] [employer] [address] * POCT glucose (09/21/2024 10:50 AM ARTIST BLACKSMITH) Glucose, POC 115 70 - 199 mg/dL Blood 09/21/2024 10:5 0 AM ARTIST BLACKSMITH 09/21/2024 10:50 AM ARTIST BLACKSMITH us Victor Manuel Woo MD LAB POCT ORDERABLES - DEVICE Final Result Performing Organization Address [facility] Co de Phone Number TAB [place] [address] [address] [facility] [employer] [address] * ECG 12 lead (09/21/2024 10:14 AM ARTIST BLACKSMITH) 09/21/2024 10:1 4 AM ARTIST BLACKSMITH Narrative [facility] - 09/21/2024 12:09 PM ARTIST BLACKSMITH Vent Rate: 74 bpm RR Interval: 803 msec SD Interval: 154 msec QRS Duration: 96 msec QT Interval: 374 msec QTC Interval: 402 msec P-R-T [place]: 11 - -9 - 50 degrees IMPRESSION: SINUS RHYTHM WITH SINUS ARRHYTHMIA INFERIOR MYOCARDIAL INFARCTION , OF INDETERMINATE AGE [40+ ms Q WAVE AND/OR ST/T ABNORMALITY IN II/aVF] ABNORMAL ECG NO CHANGE FROM PREVIOUS TRACING NOTED Electronically Signed By: Bashir Mayberry MD Victor Manuel Woo MD ECG ORDERABLES Final Result Performing Organization Address [facility] Co de Phone Number [facility] * POCT glucose (09/21/2024 9:43 AM ARTIST BLACKSMITH) Glucose, POC 137 70 - 199 mg/dL Blood 09/21/2024 9:43 AM ARTIST BLACKSMITH 09/21/2024 9:43 AM ARTIST BLACKSMITH Victor Manuel Woo MD LAB POCT ORDERABLES - DEVICE Final Result Performing Organization Address [facility] Co ar Phone Number TAB [place] [address] Department [place] [employer] [place] [address] * POCT glucose (09/21/2024 8:39 AM ARTIST BLACKSMITH) Glucose, POC 127 70 - 199 mg/dL Blood 09/21/2024 8:39 AM ARTIST BLACKSMITH 09/21/2024 8:39 AM ARTIST BLACKSMITH Victor Manuel Woo MD LAB POCT ORDERABLES - DEVICE Final Result Performing Organization Address [facility] [place] [address] [address] Department [place] [employer] [place] [address] * Critical Care (09/21/2024 8:32 AM ARTIST BLACKSMITH) Narrative Jamal Lombardi MD - 09/21/2024 8:32 AM ARTIST BLACKSMITH Ora Smith NP 09/21/2024 6:09 PM Critical Care Performed by: Ora Smith NP Authorized by: Ora Smith NP CRITICAL CARE: Team: ANDRESSA Shift: AM Level of Billing: Critical Care My time spent with this patient was 65 minutes: Critical Provider Statement: I have seen and examined the patient on this day of service. I have reviewed and confirmed the history, physical exam, laboratory and radiologic data as documented in the signed ICU note. I have reviewed and discussed my treatment plan with the ICU team and other medical/dairy feed sales consultant staff, making frequent assessments and decisions regarding this patient's complex medical care. Critical Care time was exclusive of time spent performing separately billed procedures, treating other patients, and teaching. This time was in addition to and separate from critical care provided by other practitioners in my group on this day of service. Critical Care was necessary to treat or prevent imminent or life-threatening deterioration of the following conditions: I spent time reviewing and interpreting data from bedside monitors, laboratory results, and imaging, I spent time discussing the management of this critically ill patient with consultants and the medical staff and I spent time documenting in the medical record Ora Smith NP IN CLINIC/BEDSIDE ORDERABLES Final Result * POCT glucose (09/21/2024 7:31 AM ARTIST BLACKSMITH) Glucose, POC 135 70 - 199 mg/dL Blood 09/21/2024 7:31 AM ARTIST BLACKSMITH 09/21/2024 7:31 AM ARTIST BLACKSMITH Victor Manuel Woo MD LAB POCT ORDERABLES - DEVICE Final Result Performing Organization Address [facility] de Phone [place] [facility] [address] [address] [place] [address] * POCT glucose (09/21/2024 6:28 AM ARTIST BLACKSMITH) Glucose, POC 137 70 - 199 mg/dL Blood 09/21/2024 6:28 AM ARTIST BLACKSMITH 09/21/2024 6:28 AM ARTIST BLACKSMITH Victor Manuel Woo MD LAB POCT ORDERABLES - DEVICE Final Result Performing Organization Address [facility] [place] [address] [address] Department [place] [employer] [place] [address] * XR Chest 1 View - Portable - in AM (09/21/2024 6:00 AM ARTIST BLACKSMITH) Anatomical Region Laterality Modality Body, Chest N/A Computed Radiogr aphy 09/21/2024 7:53 AM ARTIST BLACKSMITH Impressions 09/21/2024 7:53 AM ARTIST BLACKSMITH Findings/impression: Pulmonary arterial catheter, mediastinal drain, and bilateral thoracostomy tubes are appropriately positioned. No cardiomegaly. Poststernotomy changes and mild pulmonary vascular congestion. No pneumothorax or pleural effusion. Electronically signed by: Raul Mendieta II, D.O. Narrative 09/21/2024 7:53 AM ARTIST BLACKSMITH EXAMINATION: XR CHEST 1 VIEW DATE: 09/21/2024 5:05 AM INDICATION: Cardiac surgery. COMPARISON: 09/20/2024. Procedure Note Raul Mendieta II, DO - 09/21/2024 EXAMINATION: XR CHEST 1 VIEW DATE: 09/21/2024 5:05 AM INDICATION: Cardiac surgery. COMPARISON: 09/20/2024. IMPRESSION: Findings/impression: Pulmonary arterial catheter, mediastinal drain, and bilateral thoracostomy tubes are appropriately positioned. No cardiomegaly. Poststernotomy changes and mild pulmonary vascular congestion. No pneumothorax or pleural effusion. Electronically signed by: Raul Mendieta II, D.O. us Apoorva Mar PRESTIDIGITATOR IMG XR PROCEDURES Final Result * POCT glucose (09/21/2024 5:01 AM ARTIST BLACKSMITH) Glucose, POC 121 70 - 199 mg/dL Blood 09/21/2024 5:01 AM ARTIST BLACKSMITH 09/21/2024 5:01 AM ARTIST BLACKSMITH us Victor Manuel Woo MD LAB POCT ORDERABLES - DEVICE Final Result TAB [place] [address] [address] [place] [address] * Oxyhemoglobin, central venous (09/21/2024 4:41 AM ARTIST BLACKSMITH) Oxyhemoglobin, CV 66.2 % Comment: Interpretive Data No reference range established. Current interpretive data was last revised 2019. Blood 09/21/2024 4:41 AM ARTIST BLACKSMITH 09/21/2024 4:59 AM ARTIST BLACKSMITH Victor Manuel Woo MD LAB BLOOD ORDERABLES Final R esult Performing Organization Address City/[facility]/ZIP Co de Phone Number TAB [place] [address] [address] Department [place] [employer] [place] [address] * eGFR (09/21/2024 4:41 AM ARTIST BLACKSMITH) eGFR >90 >=60 mL/min/1. 73 m2 Comment: Interpretive Data Reference Interval Normal >/= 90 mL/min/1.73m2 Mildly decreased* 60 - 89 mL/min/1.73m2 Mildly to moderately decreased 45 - 59 mL/min/1.73m2 Moderately to severely decreased 30 - 44 mL/min/1.73m2 Severely decreased 15 - 29 mL/min/1.73m2 Kidney Failure < 15 mL/min/1.73m2 *Relative to young adult level Estimated glomerular filtration rate is determined by the 2020 CKD-EPI equation recommended by the National Kidney Foundation (A Unifying Approach to GFR Estimation: Recommendations of the NKF-ASK Task Force on Reassessing the Inclusion of Race in Diagnosing Kidney Disease, JASN 2021). The CKD-EPI equation should not be used for patients with unstable renal function and has not been validated in children and those over 70. Current interpretive data was last reviewed 2021. Blood 09/21/2024 4:41 AM ARTIST BLACKSMITH 09/21/2024 5:04 AM ARTIST BLACKSMITH us Victor Manuel Woo MD LAB BLOOD ORDERABLES Final R esult TAB [place] [address] [address] [place] [address] * Differential, auto (09/21/2024 4:41 AM ARTIST BLACKSMITH) Neutrophil abs 5.9 1.5 - 6.5 K/cumm Imm gran abs 0.0 0.0 - 0.1 K/cumm [facility] Lymphocyte abs 1.3 0.8 - 3.3 K/cumm [facility] Monocyte abs 0.7 0.2 - 0.8 K/cumm [facility] Eosinophil abs 0.0 0.0 - 0.5 K/cumm [facility] Basophil abs 0.0 0.0 - 0.1 K/cumm [facility] Neutrophil pct 73.1 % [facility] Comment: Interpretive Data Percent cell count reference ranges are not reported, since discordance with absolute values may lead to misinterpretation of CBC data. Current Interpretive Data was last revised on 2017. Imm gran pct 0.4 % [facility] Comment: Interpretive Data Percent cell count reference ranges are not reported, since discordance with absolute values may lead to misinterpretation of CBC data. Current Interpretive Data was last revised on 2017. Lymphocyte pct 16.6 % [facility] Comment: Interpretive Data Percent cell count reference ranges are not reported, since discordance with absolute values may lead to misinterpretation of CBC data. Current Interpretive Data was last revised on 2017. Monocyte pct 9.0 % [facility] Comment: Interpretive Data Percent cell count reference ranges are not reported, since discordance with absolute values may lead to misinterpretation of CBC data. Current Interpretive Data was last revised on 2017. Eosinophil pct 0.5 % [facility] Comment: Interpretive Data Percent cell count reference ranges are not reported, since discordance with absolute values may lead to misinterpretation of CBC data. Current Interpretive Data was last revised on 2017. Basophil pct 0.4 % [facility] Comment: Interpretive Data Percent cell count reference ranges are not reported, since discordance with absolute values may lead to misinterpretation of CBC data. Current Interpretive Data was last revised on 2017. Blood 09/21/2024 4:41 AM ARTIST BLACKSMITH 09/21/2024 5:04 AM ARTIST BLACKSMITH us Victor Manuel Woo MD LAB BLOOD ORDERABLES Final R esult YOLIS[address]UV[facility] [address] [address] [place] [address] * (ABNORMAL) CBC with auto differential (09/21/2024 4:41 AM ARTIST BLACKSMITH) [facility] WBC 8.0 3.8 - 9.9 K/cumm Hgb 9.4(L) 13.0 - 17.5 g/dL [facility] CH Hct 29.8(L) 38.9 - 50.3 % [facility] Plt 150 150 - 400 K/cumm [facility] MPV 10.0 9.1 - 12.[address] [facility] RBC 3.43(L) 4.30 - 5.80 M/cumm [facility] CH MCV 86.9 81.3 - 96.[address] [facility] MCH 27.4 27.1 - 33.3 pg [facility] MCHC 31.5(L) 32.3 - 35.7 g/dL [facility] RDW CV 13.2 11.1 - 14.9 % [facility] RDW SD 41.3 35.7 - 48.[address] [facility] NRBC abs 0.00 0.00 - 0.01 K/cumm [facility] Blood 09/21/2024 4:41 AM ARTIST BLACKSMITH 09/21/2024 5:04 AM ARTIST BLACKSMITH Victor Manuel Woo MD LAB BLOOD ORDERABLES Final R esult Performing Organization Address City/[facility] Co de Phone Number YOLISLLUVIA GUARDADO [address] [address] [facility] [place] [address] * (ABNORMAL) Phosphorus (09/21/2024 4:41 AM ARTIST BLACKSMITH) [facility] Phosphorus, pl 5.1(H) 2.3 - 4.5 mg/dL Blood 09/21/2024 4:41 AM ARTIST BLACKSMITH 09/21/2024 5:04 AM ARTIST BLACKSMITH Victor Manuel Woo MD LAB BLOOD ORDERABLES Final R esult Performing Organization Address City/[facility] Co de Phone Number [facility] [address] [address] [place] [address] * Magnesium (09/21/2024 4:41 AM ARTIST BLACKSMITH) Magnesium 2.2 1.4 - 2.5 mg/dL Blood 09/21/2024 4:41 AM ARTIST BLACKSMITH 09/21/2024 5:04 AM ARTIST BLACKSMITH Victor Manuel Woo MD LAB BLOOD ORDERABLES Final R esult Performing Organization Address City/[facility]/ZIP Co de Phone Number [facility] [facility] [id number] [place] [address] * (ABNORMAL) Basic metabolic panel (09/21/2024 4:41 AM ARTIST BLACKSMITH) Pathologist [facility] Sodium 146(H) 135 - 145 mmol/L Potassium, pl 3.7 3.3 - 4.9 mmol/L [facility] Chloride 114(H) 97 - 110 mmol/L [facility] CO2 22 22 - 32 mmol/L [facility] Anion gap 10 2 - 15 mmol/L [facility] BUN 9 6 - 25 mg/dL [facility] Creatinine 0.62(L) 0.80 - 1.30 mg/dL [facility] Glucose 133 70 - 199 mg/dL [facility] Comment: Interpretive Data Fasting glucose >/= 126 mg/dl is diagnostic for diabetes. Fasting is defined as no caloric intake for at least 8 hours. Fasting glucose between 100 mg/dl to 125 mg/dl is diagnostic of prediabetes. In a patient with classic symptoms of hyperglycemia or hyperglycemic crisis, a random glucose >/= 200 mg/dl is diagnostic for diabetes. In the absence of unequivocal hyperglycemia, results should be confirmed by repeat testing. The classification and Diagnosis of Diabetes Diabetes Care 202; 46: S19-S40. Current interpretive data was last revised 2022. Calcium 8.2(L) 8.5 - 10.3 mg/dL [facility] Blood 09/21/2024 4:41 AM ARTIST BLACKSMITH 09/21/2024 5:04 AM ARTIST BLACKSMITH Victor Manuel Woo MD LAB BLOOD ORDERABLES Final R esult Performing Organization Address City/[facility]/ZIP Co de Phone Number [facility] [address] [facility] [place] [address] * POCT glucose (09/21/2024 4:04 AM ARTIST BLACKSMITH) Glucose, POC 159 70 - 199 mg/dL Blood 09/21/2024 4:04 AM ARTIST BLACKSMITH 09/21/2024 4:04 AM ARTIST BLACKSMITH Victor Manuel Woo MD LAB POCT ORDERABLES - DEVICE Final Result Performing Organization Address [facility] Co de Phone Number TAB [facility]ARD[facility] [address] [facility] [employer] [address] * POCT glucose (09/21/2024 2:57 AM ARTIST BLACKSMITH) Glucose, POC 136 70 - 199 mg/dL Blood 09/21/2024 2:57 AM ARTIST BLACKSMITH 09/21/2024 2:57 AM ARTIST BLACKSMITH Victor Manuel Woo MD LAB POCT ORDERABLES - DEVICE Final Result Performing Organization Address [facility] Co de Phone Number TAB [facility] [address] [facility] [employer] [address] * POCT glucose (09/21/2024 1:42 AM ARTIST BLACKSMITH) Glucose, POC 140 70 - 199 mg/dL Blood 09/21/2024 1:42 AM ARTIST BLACKSMITH 09/21/2024 1:42 AM ARTIST BLACKSMITH Victor Manuel Woo MD LAB POCT ORDERABLES - DEVICE Final Result Performing Organization Address [facility] Co de Phone Number TAB [facility] [address] [address] [facility] [employer] [address] * POCT glucose (09/21/2024 12:45 AM ARTIST BLACKSMITH) Glucose, POC 126 70 - 199 mg/dL Blood 09/21/2024 12:4 5 AM ARTIST BLACKSMITH 09/21/2024 12:45 AM ARTIST BLACKSMITH us Victor Manuel Woo MD LAB POCT ORDERABLES - DEVICE Final Result Performing Organization Address [facility] Co de Phone Number TAB [facility] [address] [facility] [employer] [address] * POCT glucose (09/20/2024 11:46 PM ARTIST BLACKSMITH) Glucose, POC 141 70 - 199 mg/dL Blood 09/20/2024 11:4 6 PM ARTIST BLACKSMITH 09/20/2024 11:46 PM ARTIST BLACKSMITH Victor Manuel Woo MD LAB POCT ORDERABLES - DEVICE Final Result Performing Organization Address [facility] de Phone Number TAB [facility] [address] [facility] [employer] [address] * Oxyhemoglobin, central venous (09/20/2024 11:41 PM ARTIST BLACKSMITH) Oxyhemoglobin, CV 69.2 % Comment: Interpretive Data No reference range established. Current interpretive data was last revised 2019. Blood 09/20/2024 11:4 1 PM ARTIST BLACKSMITH 09/20/2024 11:54 PM ARTIST BLACKSMITH us Victor Manuel Woo MD LAB BLOOD ORDERABLES Final R esult Performing Organization Address [facility] Co de Phone Number TAB [facility] [address] [address] [facility] [employer] [address] * (ABNORMAL) Calcium, ionized, whole blood (09/20/2024 11:33 PM ARTIST BLACKSMITH) Ca, ionized, bld 5.22(H) 4.50 - 5.10 mg/dL Blood 09/20/2024 11:3 3 PM ARTIST BLACKSMITH 09/20/2024 11:54 PM ARTIST BLACKSMITH us Victor Manuel Woo MD LAB BLOOD ORDERABLES Final R esult Performing Organization Address City/[facility] Co de Phone Number TAB [facility] [address] [place] [address] * eGFR (09/20/2024 11:33 PM ARTIST BLACKSMITH) eGFR >90 >=60 mL/min/1. 73 m2 Comment: Interpretive Data Reference Interval Normal >/= 90 mL/min/1.73m2 Mildly decreased* 60 - 89 mL/min/1.73m2 Mildly to moderately decreased 45 - 59 mL/min/1.73m2 Moderately to severely decreased 30 - 44 mL/min/1.73m2 Severely decreased 15 - 29 mL/min/1.73m2 Kidney Failure < 15 mL/min/1.73m2 *Relative to young adult level Estimated glomerular filtration rate is determined by the 2020 CKD-EPI equation recommended by the National Kidney Foundation (A Unifying Approach to GFR Estimation: Recommendations of the NKF-ASK Task Force on Reassessing the Inclusion of Race in Diagnosing Kidney Disease, JASN 2020). The CKD-EPI equation should not be used for patients with unstable renal function and has not been validated in children and those over 70. Current interpretive data was last reviewed 2021. Blood 09/20/2024 11:3 3 PM ARTIST BLACKSMITH 09/21/2024 12:28 AM ARTIST BLACKSMITH Victor Manuel Woo MD LAB BLOOD ORDERABLES Final R esult Performing Organization Address City/[facility] Co de Phone Number TAB [facility] [address] Department [place] [employer] [place] [address] * (ABNORMAL) Differential, auto (09/20/2024 11:33 PM ARTIST BLACKSMITH) Neutrophil abs 5.5 1.5 - 6.5 K/cumm Imm gran abs 0.0 0.0 - 0.1 K/cumm [facility] Lymphocyte abs 0.7(L) 0.8 - 3.3 K/cumm [facility] Monocyte abs 0.4 0.2 - 0.8 K/cumm [facility] Eosinophil abs 0.0 0.0 - 0.5 K/cumm [facility] Basophil abs 0.0 0.0 - 0.1 K/cumm [facility] Neutrophil pct 82.9 % [facility] Comment: Interpretive Data Percent cell count reference ranges are not reported, since discordance with absolute values may lead to misinterpretation of CBC data. Current Interpretive Data was last revised on 2017. Imm gran pct 0.5 % [facility] Comment: Interpretive Data Percent cell count reference ranges are not reported, since discordance with absolute values may lead to misinterpretation of CBC data. Current Interpretive Data was last revised on 2017. Lymphocyte pct 10.3 % [facility] Comment: Interpretive Data Percent cell count reference ranges are not reported, since discordance with absolute values may lead to misinterpretation of CBC data. Current Interpretive Data was last revised on 2017. Monocyte pct 5.3 % [facility] Comment: Interpretive Data Percent cell count reference ranges are not reported, since discordance with absolute values may lead to misinterpretation of CBC data. Current Interpretive Data was last revised on 2017. Eosinophil pct 0.5 % [facility] Comment: Interpretive Data Percent cell count reference ranges are not reported, since discordance with absolute values may lead to misinterpretation of CBC data. Current Interpretive Data was last revised on 2017. Basophil pct 0.5 % [facility] Comment: Interpretive Data Percent cell count reference ranges are not reported, since discordance with absolute values may lead to misinterpretation of CBC data. Current Interpretive Data was last revised on 2017. Blood 09/20/2024 11:3 3 PM ARTIST BLACKSMITH 09/20/2024 11:54 PM ARTIST BLACKSMITH us Victor Manuel Woo MD LAB BLOOD ORDERABLES Final R esult [facility] [address] [facility] [place] [address] * (ABNORMAL) CBC with auto differential (09/20/2024 11:33 PM ARTIST BLACKSMITH) WBC 6.6 3.8 - 9.9 K/cumm Hgb 9.6(L) 13.0 - 17.5 g/dL [facility] Hct 29.9(L) 38.9 - 50.3 % [facility] Plt 146(L) 150 - 400 K/cumm [facility] MPV 9.8 9.1 - 12.3 fL [facility] RBC 3.45(L) 4.30 - 5.80 M/cumm [facility] MCV 86.7 81.3 - 96.[address] [facility] MCH 27.8 27.1 - 33.3 pg [facility] MCHC 32.1(L) 32.3 - 35.7 g/dL [facility] RDW CV 13.2 11.1 - 14.9 % [facility] CH RDW SD 41.1 35.7 - 48.[address] [facility] NRBC abs 0.00 0.00 - 0.01 K/cumm [facility] Blood 09/20/2024 11:3 3 PM ARTIST BLACKSMITH 09/20/2024 11:54 PM ARTIST BLACKSMITH Victor Manuel Woo MD LAB BLOOD ORDERABLES Final R esult Performing Organization Address [facility] Co de Phone Number TAB [address] [place] [employer] [place] [address] * Magnesium (09/20/2024 11:33 PM ARTIST BLACKSMITH) Magnesium 1.9 1.4 - 2.5 mg/dL Blood 09/20/2024 11:3 3 PM ARTIST BLACKSMITH 09/20/2024 11:54 PM ARTIST BLACKSMITH Victor Manuel Woo MD LAB BLOOD ORDERABLES Final R esult Performing Organization Address [facility] Co de Phone Number TAB [phone] [facility] [employer] [place], [place] [id number] * (ABNORMAL) Basic metabolic panel (09/20/2024 11:33 PM ARTIST BLACKSMITH) Sodium 148(H) 135 - 145 mmol/L Potassium, pl 3.8 3.3 - 4.9 mmol/L [facility] Chloride 115(H) 97 - 110 mmol/L [facility] CO2 23 22 - 32 mmol/L [facility] Anion gap 10 2 - 15 mmol/L [facility] BUN 9 6 - 25 mg/dL [facility] Creatinine 0.62(L) 0.80 - 1.30 mg/dL [facility] Glucose 146 70 - 199 mg/dL [facility] Comment: Interpretive Data Fasting glucose >/= 126 mg/dl is diagnostic for diabetes. Fasting is defined as no caloric intake for at least 8 hours. Fasting glucose between 100 mg/dl to 125 mg/dl is diagnostic of prediabetes. In a patient with classic symptoms of hyperglycemia or hyperglycemic crisis, a random glucose >/= 200 mg/dl is diagnostic for diabetes. In the absence of unequivocal hyperglycemia, results should be confirmed by repeat testing. The classification and Diagnosis of Diabetes Diabetes Care 2021; 46: S19-S40. Current interpretive data was last revised 2022. Calcium 8.7 8.5 - 10.3 mg/dL [facility] Blood 09/20/2024 11:3 3 PM ARTIST BLACKSMITH 09/20/2024 11:54 PM ARTIST BLACKSMITH Victor Manuel Woo MD LAB BLOOD ORDERABLES Final R esult Performing Organization Address City/[facility] Co de Phone Number TAB [facility] [address] [place] [address] * POCT glucose (09/20/2024 10:34 PM ARTIST BLACKSMITH) Glucose, POC 128 70 - 199 mg/dL Blood 09/20/2024 10:3 4 PM ARTIST BLACKSMITH 09/20/2024 10:34 PM ARTIST BLACKSMITH Victor Manuel Woo MD LAB POCT ORDERABLES - DEVICE Final Result Performing Organization Address City/[facility]/ZIP Co de Phone Number TAB [facility] [address] Department [place] [employer] [place] [address] * (ABNORMAL) Blood gas, arterial (09/20/2024 10:30 PM ARTIST BLACKSMITH) pH, Art 7.34(L) 7.35 - 7.45 PCO2, Arterial 43 35 - 45 mmHg [facility] PO2, Arterial 106 83 - 108 mmHg [facility] HCO3 Art (Calculated) 22 20 - 30 mmol/L [facility] BE, art -2 mmol/L [facility] Comment: Interpretive Data No Reference Range Established Current Interpretive Data was last revised on 2017 O2 Sat Art (Measured) 97(H) 90 - 95 % [facility] Blood 09/20/2024 10:3 0 PM ARTIST BLACKSMITH 09/20/2024 10:39 PM ARTIST BLACKSMITH Victro Manuel Woo MD LAB BLOOD ORDERABLES Final R esult Performing Organization Address [facility] Co de Phone Number TAB [facility] [address] [address] [facility] [employer] [place] [address] * POCT glucose (09/20/2024 9:38 PM ARTIST BLACKSMITH) Glucose, POC 100 70 - 199 mg/dL Blood 09/20/2024 9:38 PM ARTIST BLACKSMITH 09/20/2024 9:38 PM ARTIST BLACKSMITH Victor Manuel Woo MD LAB POCT ORDERABLES - DEVICE Final Result Performing Organization Address [facility] Co de Phone Number TAB [facility] [address] [place] [address] * POCT glucose (09/20/2024 8:35 PM ARTIST BLACKSMITH) Glucose, POC 100 70 - 199 mg/dL Blood 09/20/2024 8:35 PM ARTIST BLACKSMITH 09/20/2024 8:35 PM ARTIST BLACKSMITH Victor Manuel Woo MD LAB POCT ORDERABLES - DEVICE Final Result Performing Organization Address [facility] Co de Phone Number TAB [facility] [address] [place] [address] * POCT glucose (09/20/2024 7:33 PM ARTIST BLACKSMITH) Pathologist [facility] Glucose, POC 112 70 - 199 mg/dL Blood 09/20/2024 7:33 PM ARTIST BLACKSMITH 09/20/2024 7:33 PM ARTIST BLACKSMITH Victor Manuel Woo MD LAB POCT ORDERABLES - DEVICE Final Result TAB [facility] [address] Department of [employer] [place], [place] [id number] * (ABNORMAL) Calcium, ionized, whole blood (09/20/2024 6:39 PM ARTIST BLACKSMITH) [facility] Ca, ionized, bld 5.54(H) 4.50 - 5.10 mg/dL Blood 09/20/2024 6:39 PM ARTIST BLACKSMITH 09/20/2024 6:55 PM ARTIST BLACKSMITH Victor Manuel Woo MD LAB BLOOD ORDERABLES Final R esult Performing Organization Address City/[facility] Co de Phone Number TAB [facility] [address] Department [place] [employer] [place] [address] * eGFR (09/20/2024 6:39 PM ARTIST BLACKSMITH) [facility] eGFR >90 >=60 mL/min/1. 73 m2 Comment: Interpretive Data Reference Interval Normal >/= 90 mL/min/1.73m2 Mildly decreased* 60 - 89 mL/min/1.73m2 Mildly to moderately decreased 45 - 59 mL/min/1.73m2 Moderately to severely decreased 30 - 44 mL/min/1.73m2 Severely decreased 15 - 29 mL/min/1.73m2 Kidney Failure < 15 mL/min/1.73m2 *Relative to young adult level Estimated glomerular filtration rate is determined by the 2020 CKD-EPI equation recommended by the National Kidney Foundation (A Unifying Approach to GFR Estimation: Recommendations of the NKF-ASK Task Force on Reassessing the Inclusion of Race in Diagnosing Kidney Disease, JASN 2020). The CKD-EPI equation should not be used for patients with unstable renal function and has not been validated in children and those over 70. Current interpretive data was last reviewed 2021. Blood 09/20/2024 6:39 PM ARTIST BLACKSMITH 09/20/2024 7:02 PM ARTIST BLACKSMITH Victor Manuel Woo MD LAB BLOOD ORDERABLES Final R esult Performing Organization Address City/[facility] Co de Phone Number TAB [facility] [address] [place] [employer] [place] [address] * (ABNORMAL) CBC without differential (09/20/2024 6:39 PM ARTIST BLACKSMITH) WBC 7.0 3.8 - 9.9 K/cumm Hgb 9.9(L) 13.0 - 17.5 g/dL [facility] Hct 30.2(L) 38.9 - 50.3 % [facility] Plt 141(L) 150 - 400 K/cumm [facility] MPV 9.5 9.1 - 12.3 fL [facility] RBC 3.55(L) 4.30 - 5.80 M/cumm [facility] MCV 85.1 81.3 - 96.4 fL [facility] MCH 27.9 27.1 - 33.3 pg [facility] MCHC 32.8 32.3 - 35.7 g/dL [facility] RDW CV 13.1 11.1 - 14.9 % [facility] RDW SD 40.9 35.7 - 48.1 fL [facility] NRBC abs 0.00 0.00 - 0.01 K/cumm [facility] Blood 09/20/2024 6:39 PM ARTIST BLACKSMITH 09/20/2024 6:56 PM ARTIST BLACKSMITH Victor Manuel Woo MD LAB BLOOD ORDERABLES Final R esult Performing Organization Address City/[facility]/ZIP Co de Phone Number TAB [facility] [address] [place] [employer] [place] [address] * Magnesium (09/20/2024 6:39 PM ARTIST BLACKSMITH) Magnesium 2.1 1.4 - 2.5 mg/dL Blood 09/20/2024 6:39 PM ARTIST BLACKSMITH 09/20/2024 6:55 PM ARTIST BLACKSMITH Victor Manuel Woo MD LAB BLOOD ORDERABLES Final R esult Performing Organization Address [facility] de Phone Number TAB [facility] [address] [address] [facility] [place], [place] [id number] * (ABNORMAL) Blood gas, arterial (09/20/2024 6:39 PM ARTIST BLACKSMITH) pH, Art 7.41 7.35 - 7.45 PCO2, Arterial 36 35 - 45 mmHg [facility] PO2, Arterial 201(H) 83 - 108 mmHg [facility] HCO3 Art (Calculated) 23 20 - 30 mmol/L [facility] BE, art -2 mmol/L [facility] Comment: Interpretive Data No Reference Range Established Current Interpretive Data was last revised on 2017 O2 Sat Art (Measured) 99(H) 90 - 95 % [facility] Blood 09/20/2024 6:39 PM ARTIST BLACKSMITH 09/20/2024 6:55 PM ARTIST BLACKSMITH Victor Manuel Woo MD LAB BLOOD ORDERABLES Final R esult Performing Organization Address [facility] de Phone Number TAB [facility] [address] [address] Department [place] [employer] [place] [address] * (ABNORMAL) Basic metabolic panel (09/20/2024 6:39 PM ARTIST BLACKSMITH) Sodium 147(H) 135 - 145 mmol/L Potassium, pl 3.5 3.3 - 4.9 mmol/L [facility] Chloride 115(H) 97 - 110 mmol/L [facility] CO2 21(L) 22 - 32 mmol/L [facility] Anion gap 11 2 - 15 mmol/L [facility] BUN 9 6 - 25 mg/dL [facility] Creatinine 0.51(L) 0.80 - 1.30 mg/dL [facility] Glucose 132 70 - 199 mg/dL [facility] Comment: Interpretive Data Fasting glucose >/= 126 mg/dl is diagnostic for diabetes. Fasting is defined as no caloric intake for at least 8 hours. Fasting glucose between 100 mg/dl to 125 mg/dl is diagnostic of prediabetes. In a patient with classic symptoms of hyperglycemia or hyperglycemic crisis, a random glucose >/= 200 mg/dl is diagnostic for diabetes. In the absence of unequivocal hyperglycemia, results should be confirmed by repeat testing. The classification and Diagnosis of Diabetes Diabetes Care 2021; 46: S19-S40. Current interpretive data was last revised 2022. Calcium 10.0 8.5 - 10.3 mg/dL TAB Blood 09/20/2024 6:39 PM ARTIST BLACKSMITH 09/20/2024 6:55 PM ARTIST BLACKSMITH Victor Manuel Woo MD LAB BLOOD ORDERABLES Final R esult Performing Organization Address [facility] Co de Phone Number TAB [facility] [address] [address] [facility] [employer] [place] [address] * POCT glucose (09/20/2024 6:30 PM ARTIST BLACKSMITH) Glucose, POC 129 70 - 199 mg/dL Blood 09/20/2024 6:30 PM ARTIST BLACKSMITH 09/20/2024 6:30 PM ARTIST BLACKSMITH Victor Manuel Woo MD LAB POCT ORDERABLES - DEVICE Final Result Performing Organization Address [facility] de Phone Number TAB [address] [place] [address] * POCT glucose (09/20/2024 5:07 PM ARTIST BLACKSMITH) Glucose, POC 142 70 - 199 mg/dL Blood 09/20/2024 5:07 PM ARTIST BLACKSMITH 09/20/2024 5:07 PM ARTIST BLACKSMITH Victor Manuel Woo MD LAB POCT ORDERABLES - DEVICE Final Result Performing Organization Address [facility] Co de Phone Number [facility] [address] [address] [place] [address] * POCT glucose (09/20/2024 4:25 PM ARTIST BLACKSMITH) Glucose, POC 113 70 - 199 mg/dL Blood 09/20/2024 4:25 PM ARTIST BLACKSMITH 09/20/2024 4:25 PM ARTIST BLACKSMITH Victor Manuel Woo MD LAB POCT ORDERABLES - DEVICE Final Result TAB [facility] [address] [place] [address] * XR Chest 1 View - Portable (09/20/2024 3:00 PM ARTIST BLACKSMITH) Anatomical Region Laterality Modality Body, Chest N/A Computed Radiogr aphy 09/20/2024 3:07 PM ARTIST BLACKSMITH Impressions 09/20/2024 3:07 PM ARTIST BLACKSMITH FINDINGS/IMPRESSION: Endotracheal tube terminates 2.8 cm from the terri. Enteric tube is appropriately positioned. Bilateral thoracostomy tubes and mediastinal drain are appropriately positioned. Pulmonary arterial catheter is appropriately positioned. Poststernotomy changes. No pneumothorax or pleural effusion. Cardiac mediastinal silhouette is normal in size. No acute osseous abnormality. Electronically signed by: Raul Mendieta II, D.O. Narrative 09/20/2024 3:07 PM ARTIST BLACKSMITH EXAMINATION: XR CHEST 1 VIEW DATE: 09/20/2024 2:55 PM INDICATION: Cardiac surgery. COMPARISON: 09/17/2024. Procedure Note Raul Mendieta II, DO - 09/20/2024 EXAMINATION: XR CHEST 1 VIEW DATE: 09/20/2024 2:55 PM INDICATION: Cardiac surgery. COMPARISON: 09/17/2024. IMPRESSION: FINDINGS/IMPRESSION: Endotracheal tube terminates 2.8 cm from the terri. Enteric tube is appropriately positioned. Bilateral thoracostomy tubes and mediastinal drain are appropriately positioned. Pulmonary arterial catheter is appropriately positioned. Poststernotomy changes. No pneumothorax or pleural effusion. Cardiac mediastinal silhouette is normal in size. No acute osseous abnormality. Electronically signed by: Robby Leitman II, D.O. us Victor Manuel Woo MD IMG XR PROCEDURES Final Resu lt * Calcium, ionized, whole blood (09/20/2024 2:59 PM ARTIST BLACKSMITH) Ca, ionized, bld 4.77 4.50 - 5.10 mg/dL Blood 09/20/2024 2:59 PM ARTIST BLACKSMITH 09/20/2024 3:03 PM ARTIST BLACKSMITH Victor Manuel Woo MD LAB BLOOD ORDERABLES Final R esult Performing Organization Address [facility] Co de Phone Number TAB [phone] [place] [employer] [place] [address] * eGFR (09/20/2024 2:59 PM ARTIST BLACKSMITH) eGFR >90 >=60 mL/min/1. 73 m2 Comment: Interpretive Data Reference Interval Normal >/= 90 mL/min/1.73m2 Mildly decreased* 60 - 89 mL/min/1.73m2 Mildly to moderately decreased 45 - 59 mL/min/1.73m2 Moderately to severely decreased 30 - 44 mL/min/1.73m2 Severely decreased 15 - 29 mL/min/1.73m2 Kidney Failure < 15 mL/min/1.73m2 *Relative to young adult level Estimated glomerular filtration rate is determined by the 2020 CKD-EPI equation recommended by the National Kidney Foundation (A Unifying Approach to GFR Estimation: Recommendations of the NKF-ASK Task Force on Reassessing the Inclusion of Race in Diagnosing Kidney Disease, JASN 2020). The CKD-EPI equation should not be used for patients with unstable renal function and has not been validated in children and those over 70. Current interpretive data was last reviewed 2021. Blood 09/20/2024 2:59 PM ARTIST BLACKSMITH 09/20/2024 3:04 PM ARTIST BLACKSMITH us Victor Manuel Woo MD LAB BLOOD ORDERABLES Final R esult Performing Organization Address City/[facility]/ZIP Co de Phone Number TAB [phone] [place] [employer] [address] * aPTT (09/20/2024 2:59 PM ARTIST BLACKSMITH) aPTT 34 28 - 38 sec Comment: Interpretive Data Heparin therapeutic range: 66.0 - 100.0 seconds. Range based on correlation with therapeutic heparin activity range of 0.3 - 0.7 Units/mL. Current interpretive data was last revised on 2023. Blood 09/20/2024 2:59 PM ARTIST BLACKSMITH 09/20/2024 3:04 PM ARTIST BLACKSMITH Victor Manuel Woo MD LAB BLOOD ORDERABLES Final R esult Performing Organization Address [facility] Co de Phone Number TAB GEO [address] [place] [address] * (ABNORMAL) Protime-INR (09/20/2024 2:59 PM ARTIST BLACKSMITH) PT 18.5(H) 9.7 - 13.0 sec INR 1.69(H) 0.90 - 1.20 TAB [facility] Comment: Interpretive data Oral anticoagulant therapeutic ranges: Venous thromboembolism prophylaxis or treatment: 2.0-3.0 CARDIOLOGY Standard range: 2.0-3.0 High-intensity range: 2.5-3.5 Refer to indication-specific guidelines for appropriate target ranges for prosthetic heart valve replacement. Current interpretive data was last revised on 2019. Blood 09/20/2024 2:59 PM ARTIST BLACKSMITH 09/20/2024 3:04 PM ARTIST BLACKSMITH Victor Manuel Woo MD LAB BLOOD ORDERABLES Final R esult Performing Organization Address [facility] Co de Phone Number TAB [address] [employer] [place], [place] [phone] * (ABNORMAL) CBC without differential (09/20/2024 2:59 PM ARTIST BLACKSMITH) WBC 4.6 3.8 - 9.9 K/cumm Hgb 9.9(L) 13.0 - 17.5 g/dL [facility] Hct 30.5(L) 38.9 - 50.3 % [facility] Plt 117(L) 150 - 400 K/cumm [facility] MPV 9.5 9.1 - 12.3 fL [facility] RBC 3.54(L) 4.30 - 5.80 M/cumm [facility] MCV 86.2 81.3 - 96.4 fL [facility] MCH 28.0 27.1 - 33.3 pg [facility] MCHC 32.5 32.3 - 35.7 g/dL [facility] RDW CV 13.1 11.1 - 14.9 % [facility] RDW SD 40.9 35.7 - 48.1 fL [facility] NRBC abs 0.00 0.00 - 0.01 K/cumm [facility] Blood 09/20/2024 2:59 PM ARTIST BLACKSMITH 09/20/2024 3:04 PM ARTIST BLACKSMITH Victor Manuel Woo MD LAB BLOOD ORDERABLES Final R esult Performing Organization Address [facility] de Phone Number TAB GUARDADO [address] Department [employer] [place] [address] * (ABNORMAL) Blood gas, arterial (09/20/2024 2:59 PM ARTIST BLACKSMITH) pH, Art 7.30(L) 7.35 - 7.45 PCO2, Arterial 42 35 - 45 mmHg [facility] PO2, Arterial 194(H) 83 - 108 mmHg [facility] HCO3 Art (Calculated) 20 20 - 30 mmol/L [facility] BE, art -5 mmol/L [facility] Comment: Interpretive Data No Reference Range Established Current Interpretive Data was last revised on 2017 O2 Sat Art (Measured) 98(H) 90 - 95 % [facility] Blood 09/20/2024 2:59 PM ARTIST BLACKSMITH 09/20/2024 3:03 PM ARTIST BLACKSMITH Victor Manuel Woo MD LAB BLOOD ORDERABLES Final R esult Performing Organization Address City/[facility] Co de Phone Number YOLISLLUVIA GUARDADO [address] [place] [address] * (ABNORMAL) Basic metabolic panel (09/20/2024 2:59 PM ARTIST BLACKSMITH) Sodium 146(H) 135 - 145 mmol/L Potassium, pl 3.7 3.3 - 4.9 mmol/L [facility] Chloride 117(H) 97 - 110 mmol/L [facility] CO2 20(L) 22 - 32 mmol/L [facility] Anion gap 9 2 - 15 mmol/L [facility] BUN 9 6 - 25 mg/[facility] Creatinine 0.49(L) 0.80 - 1.30 mg/dL [facility] Glucose 142 70 - 199 mg/dL [facility] Comment: Interpretive Data Fasting glucose >/= 126 mg/dl is diagnostic for diabetes. Fasting is defined as no caloric intake for at least 8 hours. Fasting glucose between 100 mg/dl to 125 mg/dl is diagnostic of prediabetes. In a patient with classic symptoms of hyperglycemia or hyperglycemic crisis, a random glucose >/= 200 mg/dl is diagnostic for diabetes. In the absence of unequivocal hyperglycemia, results should be confirmed by repeat testing. The classification and Diagnosis of Diabetes Diabetes Care 2021; 46: S19-S40. Current interpretive data was last revised 2022. Calcium 7.4(L) 8.5 - 10.3 mg/dL [facility] Blood 09/20/2024 2:59 PM ARTIST BLACKSMITH 09/20/2024 3:04 PM ARTIST BLACKSMITH Victor Manuel Woo MD LAB BLOOD ORDERABLES Final R esult [facility] [address] [address] [place] [address] * Critical Care (09/20/2024 2:58 PM ARTIST BLACKSMITH) Narrative Tima Izquierdo MD - 09/20/2024 2:58 PM ARTIST BLACKSMITH Ora Smith NP 09/20/2024 5:34 PM Critical Care Performed by: Ora Smith NP Authorized by: Ora Smith NP CRITICAL CARE: Team: ANDRESSA Shift: AM Level of Billing: Critical Care My time spent with this patient was 80 minutes: Critical Provider Statement: I have seen and examined the patient on this day of service. I have reviewed and confirmed the history, physical exam, laboratory and radiologic data as documented in the signed ICU note. I have reviewed and discussed my treatment plan with the ICU team and other medical/dairy feed sales consultant staff, making frequent assessments and decisions regarding this patient's complex medical care. Critical Care time was exclusive of time spent performing separately billed procedures, treating other patients, and teaching. This time was in addition to and separate from critical care provided by other practitioners in my group on this day of service. Critical Care was necessary to treat or prevent imminent or life-threatening deterioration of the following conditions: I spent time reviewing and interpreting data from bedside monitors, laboratory results, and imaging, I spent time discussing the management of this critically ill patient with consultants and the medical staff and I spent time documenting in the medical record Ora Smith NP IN CLINIC/BEDSIDE ORDERABLES Final Result * POCT glucose (09/20/2024 2:44 PM ARTIST BLACKSMITH) Glucose, POC 115 70 - 199 mg/dL Blood 09/20/2024 2:44 PM ARTIST BLACKSMITH 09/20/2024 2:44 PM ARTIST BLACKSMITH Victor Manuel Woo MD LAB POCT ORDERABLES - DEVICE Final Result Performing Organization Address City/State/[facility] Co de Phone Number [facility] [address] [place] [address] * (ABNORMAL) POC Blood Gas and Chemistries, Arterial - (09/20/2024 1:56 PM ARTIST BLACKSMITH) pH, Art POC 7.34(L) 7.35 - 7.45 pCO2, Art POC 39 35 - 45 mmHg [facility] pO2, Art POC 94 83 - 108 mmHg [facility] Na, POC 141 135 - 145 mmol/L [facility] K POC 3.6 3.3 - 4.9 mmol/L [facility] Comment: Interpretive Data This method is not able to assess for hemolysis, which may falsely increase potassium concentrations. If further testing is needed to evaluate this result, consider in-laboratory plasma potassium. Current Interpretive Data was last revised on 2022. Ionized Ca, POC 4.54 4.50 - 5.10 mg/dL [facility] Glucose, POC 122 70 - 199 mg/dL [facility] Lactate, POC 1.3 0.7 - 2.0 mmol/L [facility] O2Hb, Art POC 96.4(H) 90.0 - 95.0 % [facility] SO2 (linda) arterial 98(H) 90 - 95 % [facility] Total CO2, Art POC 22 21 - 30 mmol/L [facility] BE, art, POC -4 mmol/L [facility] Hct, POC 29.0(L) 38.9 - 50.3 % [facility] Total Hb, POC 9.7(L) 13.0 - 17.5 g/dL [facility] Blood 09/20/2024 1:56 PM ARTIST BLACKSMITH 09/20/2024 1:56 PM ARTIST BLACKSMITH Victor Manuel Woo MD LAB POCT ORDERABLES - DEVICE Final Result Performing Organization Address [facility] Co de Phone Number [facility] [address] [place] [address] * Transfuse platelets (09/20/2024 1:20 PM ARTIST BLACKSMITH) Blood Barry Ellington MD BLOOD TRANSFUSION ORDERABLES F inal Result Performing Organization Address [facility] Co de Phone Number [facility] [address] Department of [employer] [place], [place] [phone] * POC Activated Clotting Time, High Range (09/20/2024 12:52 PM ARTIST BLACKSMITH) ACT 104 87 - 138 sec Blood 09/20/2024 12:5 2 PM ARTIST BLACKSMITH 09/20/2024 12:52 PM ARTIST BLACKSMITH Victor Manuel Woo MD LAB BLOOD ORDERABLES Final R esult TAB GUARDADO [address] Department of [employer] [place], [place] [id number] * (ABNORMAL) POC Blood Gas and Chemistries, Arterial - (09/20/2024 12:50 PM ARTIST BLACKSMITH) Pathologist [facility] pH, Art POC 7.35 7.35 - 7.45 pCO2, Art POC 40 35 - 45 mmHg [facility] pO2, Art POC 160(H) 83 - 108 mmHg [facility] Na, POC 140 135 - 145 mmol/L [facility] K POC 4.5 3.3 - 4.9 mmol/L [facility] Comment: Interpretive Data This method is not able to assess for hemolysis, which may falsely increase potassium concentrations. If further testing is needed to evaluate this result, consider in-laboratory plasma potassium. Current Interpretive Data was last revised on 2022. Ionized Ca, POC 4.84 4.50 - 5.10 mg/dL [facility] Glucose, POC 129 70 - 199 mg/dL [facility] Lactate, POC 2.0 0.7 - 2.0 mmol/L [facility] O2Hb, Art POC 97.6(H) 90.0 - 95.0 % [facility] SO2 (linda) arterial 100(H) 90 - 95 % [facility] Total CO2, Art POC 23 21 - 30 mmol/L [facility] BE, art, POC -3 mmol/L [facility] Hct, POC 27.0(L) 38.9 - 50.3 % [facility] Total Hb, POC 9.1(L) 13.0 - 17.5 g/dL [facility] Blood 09/20/2024 12:5 0 PM ARTIST BLACKSMITH 09/20/2024 12:50 PM ARTIST BLACKSMITH us Victor Manuel Woo MD LAB POCT ORDERABLES - DEVICE Final Result TAB GUARD[address] Department [place] [employer] [place] [address] * (ABNORMAL) POC Activated Clotting Time, High Range (09/20/2024 12:47 PM ARTIST BLACKSMITH) ACT 178(H) 87 - 138 sec Blood 09/20/2024 12:4 7 PM ARTIST BLACKSMITH 09/20/2024 12:47 PM ARTIST BLACKSMITH Victor Manuel Woo MD LAB BLOOD ORDERABLES Final R esult [facility] [address] [address] Department [place] [address] * (ABNORMAL) POC Blood Gas and Chemistries, Arterial - (09/20/2024 12:18 PM ARTIST BLACKSMITH) pH, Art POC 7.43 7.35 - 7.45 pCO2, Art POC 37 35 - 45 mmHg [facility] pO2, Art POC 224(H) 83 - 108 mmHg [facility] Na, POC 140 135 - 145 mmol/L [facility] K POC 5.4(H) 3.3 - 4.9 mmol/L [facility] Comment: Interpretive Data This method is not able to assess for hemolysis, which may falsely increase potassium concentrations. If further testing is needed to evaluate this result, consider in-laboratory plasma potassium. Current Interpretive Data was last revised on 2022. Ionized Ca, POC 4.33(L) 4.50 - 5.10 mg/dL [facility] Glucose, POC 93 70 - 199 mg/dL [facility] Lactate, POC 1.8 0.7 - 2.0 mmol/L [facility] O2Hb, Art POC 97.5(H) 90.0 - 95.0 % [facility] SO2 (linda) arterial 99(H) 90 - 95 % [facility] Total CO2, Art POC 26 21 - 30 mmol/L [facility] BE, art, POC 0 mmol/L [facility] Hct, POC 26.0(L) 38.9 - 50.3 % [facility] Total Hb, POC 8.8(L) 13.0 - 17.5 g/dL [facility] Blood 09/20/2024 12:1 8 PM ARTIST BLACKSMITH 09/20/2024 12:18 PM ARTIST BLACKSMITH Victor Manuel Woo MD LAB POCT ORDERABLES - DEVICE Final Result Performing Organization Address [facility] Co de Phone Number TAB GUARDADO [address] [address] [facility] [employer] [place] [address] * (ABNORMAL) POC Activated Clotting Time, High Range (09/20/2024 12:15 PM ARTIST BLACKSMITH) ACT 588(H) 87 - 138 sec Blood 09/20/2024 12:1 5 PM ARTIST BLACKSMITH 09/20/2024 12:15 PM ARTIST BLACKSMITH Victor Manuel Woo MD LAB BLOOD ORDERABLES Final R esult Performing Organization Address [facility] de Phone Number TAB GUARDADO [address] [address] [facility] [employer] [place] [address] * (ABNORMAL) Platelet count (09/20/2024 12:03 PM ARTIST BLACKSMITH) Pathologist [facility] Plt 134(L) 150 - 400 K/cumm Blood 09/20/2024 12:0 3 PM ARTIST BLACKSMITH 09/20/2024 12:08 PM ARTIST BLACKSMITH Narrative TAB - 09/20/2024 12:10 PM ARTIST BLACKSMITH [place] EXT [id number]. THANK YOU Victor Manuel Woo MD LAB BLOOD ORDERABLES Final R esult Performing Organization Address [facility] Co de Phone Number TAB GUARDADO [address] [address] [place] [employer] [address] * (ABNORMAL) POC Blood Gas and Chemistries, Arterial - (09/20/2024 11:28 AM ARTIST BLACKSMITH) pH, Art POC 7.36 7.35 - 7.45 pCO2, Art POC 40 35 - 45 mmHg [facility] pO2, Art POC 291(H) 83 - 108 mmHg [facility] Na, POC 139 135 - 145 mmol/L [facility] K POC 4.0 3.3 - 4.9 mmol/L [facility] Comment: Interpretive Data This method is not able to assess for hemolysis, which may falsely increase potassium concentrations. If further testing is needed to evaluate this result, consider in-laboratory plasma potassium. Current Interpretive Data was last revised on 2022. Ionized Ca, POC 4.58 4.50 - 5.10 mg/dL [facility] Glucose, POC 82 70 - 199 mg/dL [facility] Lactate, POC 1.6 0.7 - 2.0 mmol/L [facility] O2Hb, Art POC 97.0(H) 90.0 - 95.0 % [facility] SO2 (linda) arterial 97(H) 90 - 95 % [facility] Total CO2, Art POC 24 21 - 30 mmol/L [facility] BE, art, POC -3 mmol/L [facility] Hct, POC 27.0(L) 38.9 - 50.3 % [facility] Total Hb, POC 8.9(L) 13.0 - 17.5 g/dL [facility] Blood 09/20/2024 11:2 8 AM ARTIST BLACKSMITH 09/20/2024 11:28 AM ARTIST BLACKSMITH Victor Manuel Woo MD LAB POCT ORDERABLES - DEVICE Final Result Performing Organization Address [facility] Co de Phone Number TAB GEO [address] [place] [employer] [place] [address] * (ABNORMAL) POC Activated Clotting Time, High Range (09/20/2024 11:26 AM ARTIST BLACKSMITH) ACT 722(H) 87 - 138 sec Blood 09/20/2024 11:2 6 AM ARTIST BLACKSMITH 09/20/2024 11:26 AM ARTIST BLACKSMITH Victor Manuel Woo MD LAB BLOOD ORDERABLES Final R esult Performing Organization Address City/[facility] Co de Phone Number YOLISLLUVIA GUARDADO [address] [address] [facility] [place] [employer] [place] [address] * (ABNORMAL) POC Blood Gas and Chemistries, Arterial - (09/20/2024 10:47 AM ARTIST BLACKSMITH) pH, Art POC 7.33(L) 7.35 - 7.45 pCO2, Art POC 42 35 - 45 mmHg [facility] pO2, Art POC 289(H) 83 - 108 mmHg [facility] Na, POC 138 135 - 145 mmol/L [facility] K POC 4.0 3.3 - 4.9 mmol/L [facility] Comment: Interpretive Data This method is not able to assess for hemolysis, which may falsely increase potassium concentrations. If further testing is needed to evaluate this result, consider in-laboratory plasma potassium. Current Interpretive Data was last revised on 2022. Ionized Ca, POC 4.55 4.50 - 5.10 mg/dL [facility] Glucose, POC 91 70 - 199 mg/dL [facility] Lactate, POC 1.5 0.7 - 2.0 mmol/L [facility] O2Hb, Art POC 97.6(H) 90.0 - 95.0 % [facility] SO2 (linda) arterial 100(H) 90 - 95 % [facility] Total CO2, Art POC 23 21 - 30 mmol/L [facility] BE, art, POC -4 mmol/L [facility] Hct, POC 29.0(L) 38.9 - 50.3 % [facility] Total Hb, POC 9.7(L) 13.0 - 17.5 g/dL [facility] Blood 09/20/2024 10:4 7 AM ARTIST BLACKSMITH 09/20/2024 10:47 AM ARTIST BLACKSMITH us Victor Manuel Woo MD LAB POCT ORDERABLES - DEVICE Final Result Performing Organization Address [facility] Co de Phone Number TAB GEO [address] [address] [place] [employer] [place] [address] * (ABNORMAL) POC Activated Clotting Time, High Range (09/20/2024 10:44 AM ARTIST BLACKSMITH) ACT 639(H) 87 - 138 sec Blood 09/20/2024 10:4 4 AM ARTIST BLACKSMITH 09/20/2024 10:44 AM ARTIST BLACKSMITH Victor Manuel Woo MD LAB BLOOD ORDERABLES Final R esult TAB GUARDADO [address] [address] [place] [address] * (ABNORMAL) POC Activated Clotting Time, High Range (09/20/2024 9:44 AM ARTIST BLACKSMITH) ACT 562(H) 87 - 138 sec Blood 09/20/2024 9:44 AM ARTIST BLACKSMITH 09/20/2024 9:44 AM ARTIST BLACKSMITH us Victor Manuel Woo MD LAB BLOOD ORDERABLES Final R esult TAB [address] Department [place] [address] * Arterial Line (09/20/2024 9:37 AM ARTIST BLACKSMITH) Narrative Barry Ellington MD - 09/20/2024 9:37 AM ARTIST BLACKSMITH Tong Ahuja AA 09/20/2024 9:37 AM Arterial Line Patient location: pre-op holding End time: 09/20/2024 7:35 AM Indication: continuous blood pressure monitoring and blood sampling needed Ultrasound assisted: yes Staff: Supervising provider: Barry Ellington MD Placed by: AA: Tong Ahuja AA Procedure prep: Prep solution: chlorhexadine/alcohol Prep: provider hat/mask and sterile gloves Skin infiltrated with lidocaine 1%: yes Arterial line: Catheter size: 20 gauge Catheter length: 1 and 3/4 inch Catheter type: wire-guided catheter Seldinger technique: yes Laterality: left Site: radial artery Line secured: Tegaderm and tape Results: good waveform and good blood return Number of attempts: 1 Assessment: Events: patient tolerated procedure well with no complications us Barry Ellington MD ANESTHESIA ORDERABLES Final Re sult * BW AN SHEATH INTRODUCER PERFORMABLE, PULMONARY ARTERY CATH (09/20/2024 9:35 AM ARTIST BLACKSMITH) Narrative Barry Ellington MD - 09/20/2024 9:35 AM ARTIST BLACKSMITH Tong Ahuja AA 09/20/2024 9:36 AM Central Venous Line Patient location: OR End Time: 09/20/2024 8:20 AM Indication: central venous access and CVP monitoring Staff: Supervising provider: Barry Ellington MD Placed by: AA: Tong Ahuja AA Procedure prep: Patient position: Trendelenburg. PPE: provider hand hygiene, provider hat/mask, sterile gloves, sterile gown, full body drape, sterile probe covers, sterile gel and large sterile drape. Prep solution: chlorhexadine/alcohol was applied to area. Ultrasound Evaluation: Ultrasound was prepped into field. Ultrasound image(s) saved to archive. Central line: Laterality: right Site: internal jugular Catheter type: multi-lumen access catheter (MAC) Catheter size: 9 Fr. Catheter length: 11.5 cm Technique: anatomy identified with surface landmarks, anatomy identified with ultrasound, vein located with finder needle, Seldinger technique, wire threaded easily and wire removed intact Venous verification: pressure transduced and ultrasound confirmation Post insertion: all ports aspirated, all ports flushed easily, line sutured in place and occlusive dressing applied Number of attempts: 1 PA catheter placement: PA catheter type: oximetric PA catheter size: 8 Fr PA catheter laterality: right PA catheter site: internal jugular Placement guided by: pressure tracing changes and verified by CYNTHIA PA catheter depth 47 cmNo Assessment: Events: patient tolerated procedure well with no complications Additional comments: Atraumatic ultrasound guided insertion of central line with maximal sterile barrier technique. us Barry Ellington MD ANESTHESIA ORDERABLES Final Re sult * SD AN ELECTIVE ENDOTRACHEAL AIRWAY (09/20/2024 9:34 AM ARTIST BLACKSMITH) Narrative Barry Ellington MD - 09/20/2024 9:34 AM ARTIST BLACKSMITH Tong Ahuja AA 09/20/2024 9:35 AM Airway Patient location: OR Urgency: elective Indications for airway management: anesthesia Difficult airway: no Staff: Supervising provider: Barry Ellington MD Placed by: AA: Tong Ahuja AA Emergent airway documentation: Risks and benefits discussed: yes Consent obtained: yes Consent given by: patient Airway prep: Preoxygenated: yes Patient position: sniffing Spontaneous ventilation during airway: absent Sedation level during airway: GA Final airway details: Final airway type: endotracheal airway Tube type: ETT ETT size: 8.0 mm Cuffed: yes Technique used for successful ETT placement: video laryngoscopy Insertion site: oral Blade type: Tigre Video blade type: Verdin Blade size: 3 Cormack-Lehane (video): grade I - full view of glottis Cuff inflated with: air ETT to lips: 23 cm Placement verified by: auscultation and CO2 detection Airway secured with: silk tape Number of attempts: 1 Additional comments: Placed by Kristyn BEGUM. us Barry Ellington MD ANESTHESIA ORDERABLES Final Re sult * (ABNORMAL) POC Blood Gas and Chemistries, Arterial - (09/20/2024 8:31 AM ARTIST BLACKSMITH) pH, Art POC 7.39 7.35 - 7.45 pCO2, Art POC 39 35 - 45 mmHg [facility] pO2, Art POC 257(H) 83 - 108 mmHg [facility] Na, POC 137 135 - 145 mmol/L [facility] K POC 3.5 3.3 - 4.9 mmol/L [facility] Comment: Interpretive Data This method is not able to assess for hemolysis, which may falsely increase potassium concentrations. If further testing is needed to evaluate this result, consider in-laboratory plasma potassium. Current Interpretive Data was last revised on 2022. Ionized Ca, POC 4.75 4.50 - 5.10 mg/dL [facility] Glucose, POC 156 70 - 199 mg/dL [facility] Lactate, POC 1.3 0.7 - 2.0 mmol/L [facility] O2Hb, Art POC 97.5(H) 90.0 - 95.0 % [facility] SO2 (linda) arterial 100(H) 90 - 95 % [facility] Total CO2, Art POC 25 21 - 30 mmol/L [facility] BE, art, POC -1 mmol/L [facility] Hct, POC 42.0 38.9 - 50.3 % [facility] Total Hb, POC 14.0 13.0 - 17.5 g/dL [facility] Blood 09/20/2024 8:31 AM ARTIST BLACKSMITH 09/20/2024 8:31 AM ARTIST BLACKSMITH us Victor Manuel Woo MD LAB POCT ORDERABLES - DEVICE Final Result TAB [address] [address] [facility] [employer] [address] * POC Activated Clotting Time, High Range (09/20/2024 8:27 AM ARTIST BLACKSMITH) Pathologist [facility] ACT 120 87 - 138 sec Blood 09/20/2024 8:27 AM ARTIST BLACKSMITH 09/20/2024 8:27 AM ARTIST BLACKSMITH Victor Manuel Woo MD LAB BLOOD ORDERABLES Final R esult Performing Organization Address [facility] de Phone Number [facility] [address] [address] [facility] [employer] [address] * Type and screen (09/20/2024 7:25 AM ARTIST BLACKSMITH) [facility] Tereza, indirect Negative ABO Rh O Positive [facility] Blood 09/20/2024 7:25 AM ARTIST BLACKSMITH 09/20/2024 7:38 AM ARTIST BLACKSMITH Narrative [facility] - 09/20/2024 8:20 AM ARTIST BLACKSMITH Has the patient had Daratumumab or Isatuximab in the past 6 months?->Unknown Result [facility] Victor Manuel Woo MD LAB BLOOD BANK TEST ORDERABL ES Final Result Performing Organization Address [facility] de Phone Number TAB [address] [address] [place] [address] * (ABNORMAL) POCT glucose (09/20/2024 6:11 AM ARTIST BLACKSMITH) [facility] Glucose, POC 203(H) 70 - 199 mg/dL Blood 09/20/2024 6:11 AM ARTIST BLACKSMITH 09/20/2024 6:11 AM ARTIST BLACKSMITH Result [facility] Victor Manuel Woo MD LAB POCT ORDERABLES - DEVICE Final Result Performing Organization Address [facility] de Phone Number [facility] [address] [address] [place] [address] * Prepare platelets: 2 Units (09/20/2024 5:31 AM ARTIST BLACKSMITH) Product code [id number] Unit Number [id number] [facility] Product Blood Type APOS [facility] Dispense Status PRESUMED TRANSFUSED [facility] Blood (Blood, Venous) 09/20/2024 5:31 AM ARTIST BLACKSMITH Narrative [facility] - 09/20/2024 10:15 PM ARTIST BLACKSMITH Specify Procedure:->CABG Are special requirements needed? (all products are leukoreduced)->No Date required:-[id number] PLT # of Units:-2-Units Reasons:-Hold for procedure (specify procedure)} Rashad Jones PRESTIDIGITATOR BLOOD BANK PRODUCT ORDERAB[place] [address] [address] [place] [address] * Prepare RBC: 4 Units (09/20/2024 5:31 AM ARTIST BLACKSMITH) Product code [id number] [facility] Unit Number [id number] 9-* [facility] Product Blood Type OPOS [facility] Dispense Status RETURNED [facility] Product code [id number] [facility] Unit Number [id number] 5-P [facility] Product Blood Type OPOS [facility] Dispense Status RETURNED [facility] Product code [id number] [facility] Unit Number [id number] 9-3 [facility] Product Blood Type OPOS [facility] Dispense Status RETURNED [facility] Product code [id number] Unit Number [id number] 2-L [facility] Product Blood Type OPOS [facility] Dispense Status RETURNED [facility] Blood 09/20/2024 5:31 AM ARTIST BLACKSMITH Narrative [facility] - 09/21/2024 12:24 AM ARTIST BLACKSMITH Specify Procedure:->CABG Are special requirements needed? (All products are leukoreduced and CMV- safe)- >No Date required:-[id number] LRRBC # of [id number] Reasons:-Hold for procedure (specify procedure)} Rashad Jones NP BLOOD BANK PRODUCT ORDERABLES F inal Result Performing Organization Address City/[facility]/ZIP Co de Phone Number TAB GUARDADO [address] [address] [place] [address] * ECG 12 lead (09/17/2024 9:25 AM ARTIST BLACKSMITH) 09/17/2024 9:25 AM ARTIST BLACKSMITH Narrative [facility] - 09/17/2024 9:19 AM ARTIST BLACKSMITH Vent Rate: 60 bpm RR Interval: 996 msec SD Interval: 171 msec QRS Duration: 96 msec QT Interval: 416 msec QTC Interval: 416 msec P-R-T [place]: 1 - -2 - 50 degrees IMPRESSION: SINUS RHYTHM INFERIOR MYOCARDIAL INFARCTION , PROBABLY OLD ANTEROSEPTAL MYOCARDIAL INFARCTION , OF INDETERMINATE AGE ABNORMAL ECG Electronically Signed By: Yady Ward MD Victor Manuel Woo MD ECG ORDERABLES Final Result Performing Organization Address [facility] Co de Phone Number [facility] * XR Chest PA Lateral 2 View (09/17/2024 9:07 AM ARTIST BLACKSMITH) Anatomical Region Laterality Modality Body, Chest N/A Computed Radiogr aphy 09/17/2024 9:10 AM ARTIST BLACKSMITH Impressions 09/17/2024 9:10 AM ARTIST BLACKSMITH Normal study. Borderline cardiomegaly. Electronically signed by: Rodrick Modi M.D. Narrative 09/17/2024 9:10 AM ARTIST BLACKSMITH EXAMINATION: XR CHEST PA LATERAL 2 VIEWS HISTORY: Coronary artery disease FINDINGS: Comparison is made study of 06/30/2024. Heart size upper limits of normal. No failure fluid or infiltrates. Degeneration thoracic spine Procedure Note Rodrick Modi MD - 09/17/2024 EXAMINATION: XR CHEST PA LATERAL 2 VIEWS HISTORY: Coronary artery disease FINDINGS: Comparison is made study of 06/30/2024. Heart size upper limits of normal. No failure fluid or infiltrates. Degeneration thoracic spine IMPRESSION: Normal study. Borderline cardiomegaly. Electronically signed by: Rodrick Modi M.D. Victor Manuel Woo MD IMG XR PROCEDURES Final Resu lt * eGFR (09/17/2024 9:01 AM ARTIST BLACKSMITH) eGFR >90 >=60 mL/min/1. 73 m2 Comment: Interpretive Data Reference Interval Normal >/= 90 mL/min/1.73m2 Mildly decreased* 60 - 89 mL/min/1.73m2 Mildly to moderately decreased 45 - 59 mL/min/1.73m2 Moderately to severely decreased 30 - 44 mL/min/1.73m2 Severely decreased 15 - 29 mL/min/1.73m2 Kidney Failure < 15 mL/min/1.73m2 *Relative to young adult level Estimated glomerular filtration rate is determined by the 2020 CKD-EPI equation recommended by the National Kidney Foundation (A Unifying Approach to GFR Estimation: Recommendations of the NKF-ASK Task Force on Reassessing the Inclusion of Race in Diagnosing Kidney Disease, JASN 2020). The CKD-EPI equation should not be used for patients with unstable renal function and has not been validated in children and those over 70. Current interpretive data was last reviewed 2021. Blood 09/17/2024 9:01 AM ARTIST BLACKSMITH 09/17/2024 9:07 AM ARTIST BLACKSMITH Victor Manuel Woo MD LAB BLOOD ORDERABLES Final R esult [facility] [address] [place] [address] * (ABNORMAL) Urinalysis reflex to microscopic and culture Urine, clean voided (09/17/2024 9:01 AM ARTIST BLACKSMITH) Color, ur Straw Yellow Clarity, ur Clear Clear TAB Specific gravity, ur 1.019 1.003 - 1.030 TAB pH, urine 5.5 TAB Comment: Interpretive Data U rine pH is affected by diet, medications, systemic acid-base disturbances, and renal tubular function. pH may affect urinary stone formation. For example, urine pH below 6.0 may help reduce the tendency for calcium phosphate stones and pH greater than 6.0 may reduce the tendency for uric acid stone formation. Source: [facility] Current Interpretive Data was last revised on 2017 Protein, ur ql Negative Negative CERNER Glucose, ur ql 4+(A) Negative [facility] CH Ketones, ur Negative Negative [facility] Bilirubin, ur Negative Negative [facility] Blood, ur Negative Negative [facility] Urobilinogen, ur <2.0 <2.0 mg/dL CERNER Nitrite, ur Negative Negative [facility] Leukocyte esterase, ur Negative Negative [facility] CH UA reflex comment Reflex conditions for microscopic UA and culture not met. [facility] Urine, clean voided 09/17/2024 9:01 AM ARTIST BLACKSMITH 09/17/2024 9:32 AM ARTIST BLACKSMITH Victor Manuel Woo MD LAB MICROBIOLOGY - GENERAL O RDERABLES Final Result Performing Organization Address [facility] Co de Phone Number TAB [address] [place] [employer] [place] [address] * aPTT (09/17/2024 9:01 AM ARTIST BLACKSMITH) aPTT 32 28 - 38 sec Comment: Interpretive Data Heparin therapeutic range: 66.0 - 100.0 seconds. Range based on correlation with therapeutic heparin activity range of 0.3 - 0.7 Units/mL. Current interpretive data was last revised on 2023. Blood 09/17/2024 9:01 AM ARTIST BLACKSMITH 09/17/2024 9:07 AM ARTIST BLACKSMITH Victor Manuel Woo MD LAB BLOOD ORDERABLES Final R esult Performing Organization Address City/[facility] Co de Phone Number TAB [address] [place] [address] * Protime-INR (09/17/2024 9:01 AM ARTIST BLACKSMITH) PT 11.6 9.7 - 13.0 sec INR 1.07 0.90 - 1.20 [facility] Comment: Interpretive data Oral anticoagulant therapeutic ranges: Venous thromboembolism prophylaxis or treatment: 2.0-3.0 CARDIOLOGY Standard range: 2.0-3.0 High-intensity range: 2.5-3.5 Refer to indication-specific guidelines for appropriate target ranges for prosthetic heart valve replacement. Current interpretive data was last revised on 2019. Blood 09/17/2024 9:01 AM ARTIST BLACKSMITH 09/17/2024 9:07 AM ARTIST BLACKSMITH Victor Manuel Woo MD LAB BLOOD ORDERABLES Final R esult Performing Organization Address [facility] Co de Phone Number TAB [place] [address] [place] [address] * CBC without differential (09/17/2024 9:01 AM ARTIST BLACKSMITH) Pathologist [facility] WBC 6.0 3.8 - 9.9 K/cumm Hgb 14.8 13.0 - 17.5 g/dL [facility] Hct 45.3 38.9 - 50.3 % [facility] Plt 229 150 - 400 K/cumm [facility] MPV 9.8 9.1 - 12.[address] [facility] RBC 5.34 4.30 - 5.80 M/cumm [facility] MCV 84.8 81.3 - 96.4 fL [facility] MCH 27.7 27.1 - 33.3 pg [facility] MCHC 32.7 32.3 - 35.7 g/dL [facility] RDW CV 12.8 11.1 - 14.9 % [facility] RDW SD 39.5 35.7 - 48.[address] [facility] NRBC abs 0.00 0.00 - 0.01 K/cumm [facility] Blood 09/17/2024 9:01 AM ARTIST BLACKSMITH 09/17/2024 9:07 AM ARTIST BLACKSMITH Victor Manuel Woo MD LAB BLOOD ORDERABLES Final R esult Performing Organization Address [facility] Co de Phone Number TAB [place] [address] [place] [place] [address] * Type and screen (09/17/2024 9:01 AM ARTIST BLACKSMITH) Pathologist [facility] Tereza, indirect Negative ABO Rh O Positive [facility] Blood 09/17/2024 9:01 AM ARTIST BLACKSMITH 09/17/2024 9:25 AM ARTIST BLACKSMITH Narrative [facility] - 09/17/2024 1:26 PM ARTIST BLACKSMITH Has the patient had Daratumumab or Isatuximab in the past 6 months?->Unknown Victor Manuel Woo MD LAB BLOOD BANK TEST ORDERABL ES Final Result Performing Organization Address [facility] Co de Phone Number TAB [place] [address] [place] [place] [address] * (ABNORMAL) Hemoglobin A1c (09/17/2024 9:01 AM ARTIST BLACKSMITH) [facility] Hgb A1C 7.1(H) 4.0 - 5.6 % Estimated Average Glucose 157 mg/dL [facility] Comment: The ADA recommends reporting an estimated Average Glucose (eAG) with all Hemoglobin A1c results using the equation derived from a study of 507 normal and diabetic adults. Minority populations were underrepresented and children were not included. (Diabetes Care 31:4302-4425, 2008). The eAG is not equivalent to a fasting glucose. Blood 09/17/2024 9:01 AM ARTIST BLACKSMITH 09/17/2024 9:07 AM ARTIST BLACKSMITH Victor Manuel Woo MD LAB BLOOD ORDERABLES Final R esult Performing Organization Address City/[facility]/ZIP Co de Phone Number YOLIS[facility]IA [place] [place] [place] [address] * (ABNORMAL) Basic metabolic panel (09/17/2024 9:01 AM ARTIST BLACKSMITH) [facility] Sodium 138 135 - 145 mmol/L Potassium, pl 3.8 3.3 - 4.9 mmol/L [facility] Chloride 101 97 - 110 mmol/L [facility] CO2 25 22 - 32 mmol/L [facility] Anion gap 12 2 - 15 mmol/L [facility] BUN 8 6 - 25 mg/dL [facility] Creatinine 0.60(L) 0.80 - 1.30 mg/dL [facility] Glucose 164 70 - 199 mg/dL [facility] Comment: Interpretive Data Fasting glucose >/= 126 mg/dl is diagnostic for diabetes. Fasting is defined as no caloric intake for at least 8 hours. Fasting glucose between 100 mg/dl to 125 mg/dl is diagnostic of prediabetes. In a patient with classic symptoms of hyperglycemia or hyperglycemic crisis, a random glucose >/= 200 mg/dl is diagnostic for diabetes. In the absence of unequivocal hyperglycemia, results should be confirmed by repeat testing. The classification and Diagnosis of Diabetes Diabetes Care 2021; 46: S19-S40. Current interpretive data was last revised 2022. Calcium 9.4 8.5 - 10.3 mg/dL [facility] Blood 09/17/2024 9:01 AM ARTIST BLACKSMITH 09/17/2024 9:07 AM ARTIST BLACKSMITH us Victor Manuel Woo MD LAB BLOOD ORDERABLES Final R esult [facility] [address] [place] [address] * TRANSTHORACIC ECHO (TTE) LIMITED/FOLLOW UP WO DOPPLER/CF W CONTRAST (08/26/2024 11:20 AM ARTIST BLACKSMITH) Anatomical Region Laterality Modality Ultrasound 08/26/2024 10:5 6 AM ARTIST BLACKSMITH Narrative 08/26/2024 1:11 PM ARTIST BLACKSMITH [facility] Cardiology [address] [address] [address] [address] [facility] [address] [address] P:[phone] P:[phone] Echocardiographic Report Patient Name: RAYMOND DELGADO L : 1965 Study Date: 08/26/2024 10:56:04 AM Gender: M Tech: LUIS Location: [facility] Provider: GIUSEPPE ALVARADO Height(Cm): 170 BSA: 2.05 Weight(Kg): 88.9 Heart Rate: 58 BP: 123 / 66 Quality: Good Order Provider: ALVARADO,RIPA PROCEDURES: Echocardiographic Report: Limited transthoracic echocardiogram with 2D and Definity contrast. With Strain Analysis. INDICATIONS: I25.10 Atherosclerotic heart disease of [place] coronary artery without angina pectoris. MEASUREMENTS: 2D/MM Value Range EF Mod BP 47 % [ 52 - 72 ] Estimated EF 40-45 % 2D/MM Value Range - FINDINGS: Interpretation Site: Exam was interpreted at [facility]. Left Ventricle: Definity contrast agent used to visually enhance endocardial wall motion and contractility. Mild concentric left ventricular hypertrophy. Mild enlargement of left ventricle cavity. Mild global left ventricular systolic dysfunction. Ejection fraction is measured at 47 %. Ejection Fraction is visually estimated to be 40-45 %. Global Longitudinal Strain is -14 %. GLS is abnormal. These segments of the LV are hypokinetic: mid anterior segment, apical segment, apical anterior segment, apical inferior segment and mid anteroseptum segment. These segments of the LV are akinetic: mid inferoseptum segment and apical septum segment. Right Ventricle: Normal right ventricular size. Normal right ventricular systolic function. Left Atrium: There is mild enlargement of left atrium. Right Atrium: The right atrium is normal in size. Mitral Valve: Normal appearance of the mitral valve. Tricuspid Valve: Normal appearance of the tricuspid valve. Pericardium: Normal pericardium with no significant pericardial effusion. Aorta: Normal aortic root. CONCLUSIONS: Definity contrast agent used to visually enhance endocardial wall motion and contractility. Mild concentric left ventricular hypertrophy. Mild enlargement of left ventricle cavity. Mild global left ventricular systolic dysfunction. Ejection fraction is measured at 47 %. Ejection Fraction is visually estimated to be 40-45 %. Global Longitudinal Strain is -14 %. GLS is abnormal. These segments of the LV are hypokinetic: mid anterior segment, apical segment, apical anterior segment, apical inferior segment and mid anteroseptum segment. These segments of the LV are akinetic: mid inferoseptum segment and apical septum segment. There is mild enlargement of left atrium. Normal sinus rhythm. Electronically Signed By: Tima Kwan MD 08/26/2024 1:11:38 PM ARTIST BLACKSMITH 40-45 Procedure Note Tima Kwan MD - 08/26/2024 [facility] Cardiology [address] [facility] [address], [place] [address] [address] [facility] [address], [place] [address] P:[phone] P:[phone] Echocardiographic Report Patient Name: RAYMOND DELGADO L : 1965 Study Date: 08/26/2024 10:56:04 AM Gender: M Tech: LUIS Location: [facility] Provider: GIUSEPPE ALVARADO Height(Cm): 170 BSA: 2.05 Weight(Kg): 88.9 Heart Rate: 58 BP: 123 / 66 Quality: Good Order Provider: GIUSEPPE ALVARADO PROCEDURES: Echocardiographic Report: Limited transthoracic echocardiogram with 2D and Definity contrast. WithStrain Analysis. INDICATIONS: I25.10 Atherosclerotic heart disease of [place] coronary artery withoutangina pectoris. MEASUREMENTS: 2D/MM Value Range EF Mod BP 47 % [ 52 - 72 ] Estimated EF 40-45 % 2D/MM Value Range - FINDINGS: Interpretation Site: Exam was interpreted at [facility]. Left Ventricle: Definity contrast agent used to visually enhance endocardial wall motionand contractility. Mild concentric left ventricular hypertrophy. Mildenlargement of left ventricle cavity. Mild global left ventricular systolic dysfunction.Ejection fraction is measured at 47 %. Ejection Fraction is visually estimated to be 40-45 %.Global Longitudinal Strain is -14 %. GLS is abnormal. These segments of the LVare hypokinetic: mid anterior segment, apical segment, apical anterior segment, apicalinferior segment and mid anteroseptum segment. These segments of the LV are akinetic: midinferoseptum segment and apical septum segment. Right Ventricle: Normal right ventricular size. Normal right ventricular systolicfunction. Left Atrium: There is mild enlargement of left atrium. Right Atrium: The right atrium is normal in size. Mitral Valve: Normal appearance of the mitral valve. Tricuspid Valve: Normal appearance of the tricuspid valve. Pericardium: Normal pericardium with no significant pericardial effusion. Aorta: Normal aortic root. CONCLUSIONS: Definity contrast agent used to visually enhance endocardial wall motionand contractility. Mild concentric left ventricular hypertrophy. Mildenlargement of left ventricle cavity. Mild global left ventricular systolic dysfunction.Ejection fraction is measured at 47 %. Ejection Fraction is visually estimated to be 40-45 %.Global Longitudinal Strain is -14 %. GLS is abnormal. These segments of the LVare hypokinetic: mid anterior segment, apical segment, apical anterior segment, apicalinferior segment and mid anteroseptum segment. These segments of the LV are akinetic: midinferoseptum segment and apical septum segment. There is mild enlargement of left atrium. Normal sinus rhythm. Electronically Signed By: Tima Kwan MD 08/26/2024 1:11:38 PM ARTIST BLACKSMITH 40-45 [facility] Nadine Alvarado MD CV ECHO PROCEDURES Yumiko l Result * (ABNORMAL) Lipid panel (06/27/2024 10:26 AM CDT) Cholesterol 132 30 - 199 mg/dL Comment: Interpretive Data Ages < or = 19 years Acceptable: <170 mg/dL Borderline high: 170-199 mg/dL High: >or= 200 mg/dL Ages > or = 20 years Desirable: <200 mg/dL Borderline high: 200-239 mg/dL High: >or= 240 mg/dL Literature References: 1. Expert Panel on Integrated Guidelines for Cardiovascular Health and Risk Reduction in Children and Adolescents. Pediatrics 2011;128:S213 2. NCEP Expert Panel. Circulation 2004;110:227 Current Interpretive Data was last revised on 2018. Triglycerides 226(H) <=149 mg/dL TAB Comment: Interpretive Data Ages < or = 9 years Acceptable: <75 mg/dL Borderline high: 75-99 mg/dL High: >or= 100 mg/dL Ages 10 to 20 years Acceptable: <90 mg/dL Borderline high: 90-129 mg/dL High: >or= 130 mg/dL Ages > or = 20 years Desirable: <150 mg/dL Borderline high: 150-199 mg/dL High: 200-499 mg/dL Very high: >or= 499 mg/dL Literature References: 1. Expert Panel on Integrated Guidelines for Cardiovascular Health and Risk Reduction in Children and Adolescents. Pediatrics 2011;128:S213 2. NCEP Expert Panel. Circulation 2004;110:227 Current Interpretive Data was last revised on 2018. HDL 40 >=40 mg/dL TAB Comment: Interpretive Data Ages < or = 19 years Acceptable: >45 mg/dL Borderline low: 40-45 mg/dL Low: <40 mg/dL Ages > or = 20 years Desirable: >or= 60 mg/dL Low: <40 mg/dL Literature References: 1. Expert Panel on Integrated Guidelines for Cardiovascular Health and Risk Reduction in Children and Adolescents. Pediatrics 2011;128:S213 2. NCEP Expert Panel. Circulation 2004;110:227 Current Interpretive Data was last revised on 2018. LDL, calculated 56 <=129 mg/dL TAB Comment: Interpretive Data Ages < or = 19 years Acceptable: <110 mg/dL Borderline high: 110-129 mg/dL High: >or= 130 mg/dL Ages > or = 20 years Optimal: <100 mg/dL Near optimal: 100-129 mg/dL Borderline high: 130-159 mg/dL High: >160 mg/dL Calculated using the Ricardo LDL-C estimating equation. This equation was implemented on 2024. Prior to this date LDL-C was estimated using the Friedewald equation. Literature References: 1. Expert Panel on Integrated Guidelines for Cardiovascular Health and Risk Reduction in Children and Adolescents. Pediatrics 2011;128:S213 2. NCEP Expert Panel. Circulation 2004;110:227 3. Ricardo Bocanegra al. OCTAVIO Cardiol. 2020 January 09;5(5):540-548. doi: 10.1001/[email or web address].2020.0013 Current Interpretive Data was last revised on 2024. Non-HDL Cholesterol 92 mg/dL TAB Comment: Interpretive Data Ages < or = 19 years Acceptable: <120 mg/dL Borderline high: 120-144 mg/dL High: >145 mg/dL Ages > or = 20 years When triglycerides are >200 mg/dL, Non-HDL cholesterol is a secondary target of therapy with treatment goals that are 30 mg/dL greater than the LDL cholesterol target. Literature References: 1. Expert Panel on Integrated Guidelines for Cardiovascular Health and Risk Reduction in Children and Adolescents. Pediatrics 2011;128:S213 2. NCEP Expert Panel. Circulation 2004;110:227 Current Interpretive Data was last revised on 2018. Chol/HDL ratio [address] [facility] Blood 06/27/2024 10:2 6 AM CDT 06/27/2024 10:39 AM CDT Narrative [facility] - 06/27/2024 11:57 AM CDT This lipid panel was automatically ordered due to a significant change in Troponin. The dietary status of the patient at the collection time should be correlated with the lipid results. Arabella Browne MD LAB BLOOD ORDERABLES Yumiko dong Result [facility] [address] [place] [address] * Hepatitis panel, acute Blood (06/27/2024 5:24 AM CDT) Hep A IgM Nonreactive Nonreactive Comment: Interpretive Data: If Hep A IgM Ab is reported as Equivocal, a new sample should be drawn in two weeks for testing. Current interpretive data was last revised on 19. Hep B core IgM Nonreactive Nonreactive [facility] Comment: Interpretive Data If HepB Core IgM Ab is reported as Equivocal, a new sample should be drawn in two weeks for testing. Current interpretive data was last revised on 19. Hep C Ab Nonreactive Nonreactive [facility] Comment: Interpretive Data Nonreactive: Antibodies to HCV not detected. Does NOT exclude the possibility of recent exposure to HCV. Equivocal: Equivocal for HCV antibodies. Supplemental molecular testing will be automatically performed to determine infection status in accordance with current CDC screening recommendations. Reactive: Positive for HCV antibodies. This may represent current or past HCV infection. Supplemental molecular testing will be automatically performed to determine current infection status in accordance with current CDC screening recommendations. Interpretive data was last revised on 2019. HepBsAg Nonreactive Nonreactive TAB [place] Blood 06/27/2024 5:24 AM CDT 06/27/2024 5:37 AM CDT Arabella Browne MD LAB MICROBIOLOGY - GENERA L ORDERABLES Final Result TAB [address] [place] [address] from Last 3 Months or Most Recently Relevant to Health Maintenance Insurance ON LICENSE OF [facility] ON LICENSE OF [facility] Advance Directives For more information, please contact: [phone] * Full Code (Latest Code Status on File) Date Activated Date Inactivated Comments 09/20/2024 2:48 PM 09/26/2024 9:43 PM * Full Code Date Activated Date Inactivated Comments 06/27/2024 4:46 AM 07/17/2024 5:43 PM Care Teams Literature Teacher Relationship Specialty Start Date End Date Mariela Del Castillo MD [address] [place] [address] [place] [address] PCP - General Family Medicine 09/26/24 [place] [address] [facility] [place] [address] Surgeon Cardiothoracic Surgery 09/26/24 Giuseppe Alvarado MD [address] [id number] Consulting Physician Interventional Cardiology 09/26/24
--- OUTSIDE RECORDS SUMMARY | 2024-10-18 09:19 | XMS_ITS | Clinical Summary ---
Author Organization [facility] Address [facility] [place] [address] Care Team Providers Care World Travel Counselor Name Role Phone Unavailable Primary Care Provider Unavailabl e Social History Tobacco Use Types Packs/Day Years Used Date Smoking Tobacco: Never Assessed Sex and Gender Information Value Date Recorded Sex Assigned at Not on file Legal Sex Male 8:06 PM CDT Gender Identity Not on file Sexual Orientation Not on file Plan of Treatment Health Maintenance Due Date Last Done Comments Colorectal Cancer Screening Colonoscopy (10 Years) 1965 Annual Physical 01/21/1967 Hepatitis C 01/21/1982 DTaP, Tdap and Td Vaccines ( 1 - Tdap) 01/21/1983 Zoster Vaccines (1 of 2) 01/21/2014 COVID-19 Vaccine (2023-2 5 season) 2024 Influenza Adult (#1) 2024 RSV Immunization or 60+ Years (1 - 1-dose 75+ series) 01/21/2039 Meningococcal B Vaccine Aged Out No l onger eligible based on patient's age to complete this topic Meningococcal Vaccine Aged Out No anitha brinda eligible based on patient's age to complete this topic Pneumococcal Vaccine: Pediat rics (0 to 5 Years) and At-Risk Patients (6 to 64 Years) Aged Out No longer eligible b ased on patient's age to complete this topic RSV Immunizations Under 20 Months Aged Out No longer eligible based on patient's age to complete this topic Additional Health Concerns Infection Onset Date Last Indicated MRSA 10/01/2018 10/01/2018
--- OUTSIDE RECORDS SUMMARY | 2024-10-18 09:19 | XMS_ITS | Clinical Summary ---
Author Organization [facility] [address] [facility] Address [address] [place] [address] Care Team Providers Care Tobacco Sprayer Name Role Phone Victor Manuel Woo MD Unavailable [phone] Giuseppe Alvarado MD Unavailable [phone] Mariela Del Castillo MD Primary Care Provider [phone] Allergies Active Allergy Reactions Criticality Noted Date [...] 30 tablet 11 07/18/20 24 025 Active folic acid (FOLVITE) 1 mg tabletIndication s:Folate Deficiency Take 1 tablet (1 mg total) by mouth daily 30 tablet 11 07/18/20 24 025 Active insulin glargine 100 [...] meter kit 1 meter 1 kit 07/17/20 Active blood glucose diagnostic strip 1 month supply 100 strip 07/17/20 Active Droplet Pen Needle 31 gauge x 3/16 needle USE ONE DAILY WITH INSULIN PEN [...] as needed for pain 21 tablet 09/26/19 25 Active Additional Information Patient not [...] mg total) by mouth daily 30 tablet 08/14/20 24 025 Discontinu ed(Stop Taking at Discharge) methocarbamoL (ROBAXIN) 500 mg tabletIndication s:Muscle Spasm Take 1 tablet (500 mg total) by mouth 3 (three) times a day for 7 days 21 tablet 09/26/19 25 025 Active Problems Problem Noted Date Diagnosed Date Coronary artery disease (CAD) excluded 5 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 08/27/2024 Coronary artery disease invo lving bois forte coronary artery of bois forte heart without angina pectoris 08/14/2024 Cardiac arrest [...] Status post bilateral knee replacements 01/15/20 21 Encounters Date Type Department Care Team Description 10/17/2024 2:00 PM SMART ENERGY SPECIALIST Office Visit [facility] Cardiology [address] [place] [address] [address] [place] [address] Jazmin Machado NP Dizziness (Primary Dx); Coronary artery disease involving bois forte coronary artery of bois forte heart without angina pectoris; Hx of CABG; Type 2 diabetes mellitus without complication, with long-term current use of insulin ([facility]) ([facility]) 10/15/2024 Telephone [facility] Cardiology [address] [place] [address] [address] [place] [phone] Giuseppe Alvarado MD Dizziness 10/07/2024 Home Care [place] [address] [address] [place] [address] Gerson Medina, RN SN VIRTUAL OASIS DISCHARGE 10/07/2024 Home Care Visit [address] [place] [address] Zhane Mathis, FANNY TELEPHONE ENCOUNTER 10/04/2024 [facility] Post Discharge [place] [address] Ruchi Whitman, FANNY 10/02/2024 Home Care Visit [address] [address] [place] [address] Zhane Mathis, FANNY CASE COMMUNICATION 10/02/2024 Telephone [facility] [address] [facility] [address] [place] [address] Mariela Del Castillo MD 10/01/2024 11:45 AM SMART ENERGY SPECIALIST - 10/01/2024 11:59 PM SMART ENERGY SPECIALIST Hospital Encounter [facility] [address] [place] [address] Discharge Disposition: Discharge to home or self care 10/01/2024 11:00 AM SMART ENERGY SPECIALIST Home Care Visit [address] [address] [place] [address] Gerson Medina RN SN HOME VISIT 09/30/2024 1:00 PM SMART ENERGY SPECIALIST Home Care Visit [address] [place] [address] Alicia Auguste, PT PT INITIAL EVALUATION 09/29/2024 Plan of Care Documentation [address] [address] [place] [address] 09/27/2024 2:00 PM SMART ENERGY SPECIALIST Home Care Visit [address] [address] [place] [address] Tangela Zavala, FANNY SN OASIS START OF CARE 09/26/2024 Telephone [facility] [address] [facility] [address] [facility] [address] [place] [address] Mariela Del Castillo MD suzan 09/26/2024 Telephone [facility] Home Care Services [address] [place] [address] Paul Alexandre MA 09/20/2024 8:00 AM SMART ENERGY SPECIALIST - 09/20/2024 1:00 PM [facility] Surgery [facility] Operating Room [address] [place] [address] Victor Manuel Woo MD CABG X 2-3, LIGATION OF LA APPENDAGE /240MIN 09/20/2024 7:50 AM SMART ENERGY SPECIALIST Anesthesia Event [facility] Operating Room [id number] [place] [address] Barry Ellington MD Barnhart, Lynlee Jo, NP 09/20/2024 5:29 AM SMART ENERGY SPECIALIST - 09/26/2024 5:43 PM SMART ENERGY SPECIALIST Hospital Encounter [address] [address] Victor Manuel Woo MD Coronary artery disease of bois forte artery of bois forte heart with stable angina pectoris (HCC) (Primary Dx); Coronary artery disease (CAD) excluded; Primary hypertension; Type 2 diabetes mellitus with hyperglycemia, without long-term current use of insulin (HCC) Discharge Disposition: Discharge to home, home health skilled care 09/17/2024 8:55 AM SMART ENERGY SPECIALIST - 09/17/2024 11:59 PM SMART ENERGY SPECIALIST Hospital Encounter [facility] Diagnostic Imaging [address] [place] [address] Discharge Disposition: Discharge to home or self care 09/17/2024 8:45 AM SMART ENERGY SPECIALIST Pre-Admission Testing [facility] Pre Anesthesia Testing [address] [place] [address] 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, unspecified vessel or lesion type (HCC); Pre-op testing 09/05/2024 Telephone [facility] Medical Group Cardiology [address] [place] [phone] Giuseppe Alvarado MD 08/27/2024 2:30 PM SMART ENERGY SPECIALIST Office Visit [facility] Surgery [address] [facility] [address] [place] [phone] Victor Manuel Woo MD Coronary artery disease involving bois forte coronary artery of bois forte heart without angina pectoris 08/26/2024 10:15 AM SMART ENERGY SPECIALIST Ancillary Procedure [facility] Cardiology [address] [place] [address] [address] [place] [address] Coronary artery disease involving bois forte coronary artery of bois forte heart without angina pectoris 08/14/2024 9:00 AM SMART ENERGY SPECIALIST Office Visit [facility] Medical Group Cardiology at [address] [place] [phone] Giuseppe Alvarado MD Type 2 diabetes mellitus with hyperglycemia, unspecified whether regional intermodal truck driver insulin use (HCC) (Primary Dx); Coronary artery disease involving bois forte coronary artery of bois forte heart without angina pectoris; Cardiac arrest with ventricular fibrillation (CMS/HCC) (HCC); Paroxysmal atrial fibrillation (CMS/HCC) (HCC); Primary hypertension; Mixed hyperlipidemia 08/14/2024 Telephone [facility] Medical [facility] Cardiology at [address] [place] [address] Giuseppe Alvarado MD from Last 3 Months Immunizations Name Administration Dates Next Due Influenza, Quadrivalent, Sherin l Culture-based MDCK, Preservative Free, Antibiotic Free, Intramuscular 07/20/2022,06/24/2017 Influenza, Quadrivalent, Spl it, Preservative Free, Intramuscular 07/07/2021,05/26/2020,06/24/2018 Influenza, Trivalent, IM (MDV) 06/28/2014,2012 Influenza, Trivalent, Preser vative Free, Intramuscular 06/30/2016 Pneumococcal Conjugate Pcv20 07/20/2022 Pneumococcal Polysaccharide PPV23 07/06/2013 Surgical History Surgery Date Site/Laterality Comments REPLACEMENT TOTAL KNEE Bilateral SHOULDER ARTHROSCOPY Right rotator cuff and tendon repair CHOLECYSTECTOMY SPINE SURGERY 09/11/1994 - 09/10/1995 L4-5 CARDIAC CATHETERIZATION 06/11/2024 - 07/11/2024 @ [facility] COLONOSCOPY Medical History Medical History Date Comments Diabetes mellitus (HCC) Hypertension Hyperlipidemia COPD (chronic obstructive pu lmonary disease) (HCC) Anxiety denies - states has mood disorder Depression denies - states has mood disorder Insomnia STEMI (ST elevation myocardi al infarction) (HCC) Cardiogenic shock (HCC) Coronary artery disease Cardiac arrest with ventricu lar fibrillation (CMS/HCC) (HCC) PAF (paroxysmal atrial fibri llation) (CMS/HCC) (HCC) Type 2 diabetes mellitus (HCC) Anoxic encephalopathy (HCC) PONV (postoperative nausea and vomiting) Delayed emergence from general anesthesia Family History Relation Name Status Comments Father Mother Social History Tobacco Use Types Packs/Day [...] materials from doctor or pharmacy Never 10/07/2024 [facility] Utilities Answer Date Recorded In the past 12 months has th e [employer], gas, oil, or water [employer] threatened to shut off services in your home? No 09/24/2024 Social Connection and Isolation Panel [NHANES] A nswer Date Recorded In a typical week, how many times do you talk on the phone with family, friends, or neighbors? Patient declined 09/24/2024 How often do you get togethe r with friends or relatives? Never 09/24/2024 How often do you attend caodaism or uatsdin serv ices? Never 09/24/2024 Do you belong to any clubs o r organizations such as caodaism groups, unions, fraternal or athletic groups, or [...] any time in the past 12 m [facility], were you homeless or living [...] on file Legal Sex Male 1:22 PM SMART ENERGY SPECIALIST Gender Identity Not on file Sexual Orientation Not on file Obstetrics History Last Filed Vital Signs Vital Sign Reading Time Taken Comments Blood Pressure 128/76 10/17/2024 1:58 PM SMART ENERGY SPECIALIST Pulse 68 10/17/2024 1:58 PM SMART ENERGY SPECIALIST Temperature 36.3 C (97.4 F) 10/01/2024 11:26 AM SMART ENERGY SPECIALIST Respiratory Rate 18 10/01/2024 11:26 AM SMART ENERGY SPECIALIST Oxygen Saturation 98% 10/17/2024 1:58 PM SMART ENERGY SPECIALIST Inhaled Oxygen Concentration - - Weight 82.1 kg (181 lb) 10/17/2024 1:58 PM SMART ENERGY SPECIALIST Height 170.2 cm (5' 7 ) 10/17/2024 1:58 PM SMART ENERGY SPECIALIST Body Mass Index 28.35 10/17/2024 1:58 PM SMART ENERGY SPECIALIST Plan of Treatment Health Maintenance Due Date Last Done Comments Albumin Creatinine Ratio, Urine 1964 Colon Cancer Screening-Colonoscopy 1964 Prostate Cancer Screening-PSA 1964 Dilated Eye Exam 1964 Foot Exam 1964 DTaP/Tdap/Td Vaccine (1 - Tdap) 01/21/1975 Hepatitis B Screening 01/21/1982 Regular Well Visit/Exam 18-64 01/21/1982 Zoster Vaccine (1 of 2) 01/21/2014 Covid-19 Vaccine (2 - 2023-2 5 season) 2024 11/22/2020 Influenza Vaccine (#1) 2024 , 07/07/2021, 05/26/2020, Additional history exists Hemoglobin A1C 03/17/2025 09/17/2024, 06/28/2024 Lipid Panel 06/27/2025 06/27/2024 Depression Screening 08/27/2025 08/27/2024, 08/27/20 24 eGFR 10/01/2025 10/01/2024, 09/11, 09/25/2024, Additional history exists Pneumococcal vaccine <65 Completed 07/20/2022, 06/12 Hepatitis C Screening Completed 06/27/2024 Medical Devices Implanted Type Area Buffer Chrome Device Identifier Shelf Expiration Date Model / Serial / Lot Atricure Device Closure Atriclip Nitinol Titanium Polyester 45 D L45mm L6cm Flexible Shaft Plunger Law Writer Left Atrial Appendage Exclusion System [id number] - [id number] Implanted:Qty: 1 on 09/20/2024 by Victor Manuel Woo MD at [facility] Clip Left: Atrial Appendage Atricure 04/11/2027 [id number] / [id number] Procedures Procedure Name Priority Date/Time Associated Diagnosis Comments EGFR Routine 10/01/2024 11:45 AM SMART ENERGY SPECIALIST CBC WITHOUT DIFFERENTIAL Routine 10/01/2024 11:45 AM SMART ENERGY SPECIALIST GLUCOSE, RANDOM (OUTREACH) Routine 10/01/2024 11:45 AM SMART ENERGY SPECIALIST BASIC METABOLIC PANEL WITHOUT GLUCOSE, PLASMA (OUTREACH) Routine 10/01/2024 11:45 AM SMART ENERGY SPECIALIST POTASSIUM LEVEL Timed 09/26/2024 12:55 PM SMART ENERGY SPECIALIST POCT GLUCOSE DEVICE Routine 09/26/2024 1 2:08 PM SMART ENERGY SPECIALIST PEP THERAPY Routine 09/26/2024 9:20 AM SMART ENERGY SPECIALIST POCT GLUCOSE DEVICE Routine 09/26/2024 7 :40 AM SMART ENERGY SPECIALIST XR CHEST 1 VIEW IP Routine 09/26/2024 5:50 AM SMART ENERGY SPECIALIST EGFR Routine 09/26/2024 4:50 AM SMART ENERGY SPECIALIST MAGNESIUM Routine 09/26/2024 4:50 AM SMART ENERGY SPECIALIST RENAL FUNCTION PANEL Routine 09/26/2024 4:50 AM SMART ENERGY SPECIALIST CBC WITHOUT DIFFERENTIAL Routine 09/26/2024 4:50 AM SMART ENERGY SPECIALIST ECG 12-LEAD STAT 09/26/2024 3:00 AM SMART ENERGY SPECIALIST POCT GLUCOSE DEVICE Routine 09/26/2024 2 :16 AM SMART ENERGY SPECIALIST POCT GLUCOSE DEVICE Routine 09/25/2024 8 :04 PM SMART ENERGY SPECIALIST POCT GLUCOSE DEVICE Routine 09/25/2024 5 :43 PM SMART ENERGY SPECIALIST POCT GLUCOSE DEVICE Routine 09/25/2024 1 2:25 PM SMART ENERGY SPECIALIST POCT GLUCOSE DEVICE Routine 09/25/2024 8 :01 AM SMART ENERGY SPECIALIST XR CHEST 1 VIEW IP Routine 09/25/2024 5:47 AM SMART ENERGY SPECIALIST EGFR Routine 09/25/2024 5:40 AM SMART ENERGY SPECIALIST PROTIME-INR Routine 09/25/2024 5:40 AM SMART ENERGY SPECIALIST APTT Routine 09/25/2024 5:40 AM SMART ENERGY SPECIALIST MAGNESIUM Routine 09/25/2024 5:40 AM SMART ENERGY SPECIALIST RENAL FUNCTION PANEL Routine 09/25/2024 5:40 AM SMART ENERGY SPECIALIST CBC WITHOUT DIFFERENTIAL Routine 09/25/2024 5:40 AM SMART ENERGY SPECIALIST POCT GLUCOSE DEVICE Routine 09/24/2024 9 :58 PM SMART ENERGY SPECIALIST POCT GLUCOSE DEVICE Routine 09/24/2024 5 :30 PM SMART ENERGY SPECIALIST POCT GLUCOSE DEVICE Routine 09/24/2024 1 2:14 PM SMART ENERGY SPECIALIST EGFR Routine 09/24/2024 10:41 AM SMART ENERGY SPECIALIST MAGNESIUM Routine 09/24/2024 10:41 AM SMART ENERGY SPECIALIST RENAL FUNCTION PANEL Routine 09/24/2024 10:41 AM SMART ENERGY SPECIALIST CBC WITHOUT DIFFERENTIAL Routine 09/24/2024 10:41 AM SMART ENERGY SPECIALIST ECG 12-LEAD Routine 09/24/2024 10:30 AM SMART ENERGY SPECIALIST POCT GLUCOSE DEVICE Routine 09/24/2024 7 :58 AM SMART ENERGY SPECIALIST XR CHEST 1 VIEW IP Routine 09/24/2024 6:29 AM SMART ENERGY SPECIALIST POCT GLUCOSE DEVICE Routine 09/23/2024 9:35 PM SMART ENERGY SPECIALIST POCT GLUCOSE DEVICE Routine 09/23/2024 4 :59 PM SMART ENERGY SPECIALIST EGFR Timed 09/23/2024 2:00 PM SMART ENERGY SPECIALIST MAGNESIUM Timed 09/23/2024 2:00 PM SMART ENERGY SPECIALIST RENAL FUNCTION PANEL Timed 09/23/2024 2:00 PM SMART ENERGY SPECIALIST POCT GLUCOSE DEVICE Routine 09/23/2024 1 1:59 AM SMART ENERGY SPECIALIST POCT GLUCOSE DEVICE Routine 09/23/2024 8 :06 AM SMART ENERGY SPECIALIST CRITICAL CARE Routine 09/23/2024 7:46 AM SMART ENERGY SPECIALIST Coronary artery disease of bois forte artery of bois forte heart with stable angina pectoris (HCC) EGFR Routine 09/23/2024 4:41 AM SMART ENERGY SPECIALIST DIFFERENTIAL AUTO Routine 09/23/2024 4:4 1 AM SMART ENERGY SPECIALIST CALCIUM,IONIZED, WHOLE BLOOD STAT 09/23/2024 4:41 AM SMART ENERGY SPECIALIST OXYHEMOGLOBIN, CENTRAL VENOUS STAT 09/23/2024 4:41 AM SMART ENERGY SPECIALIST PHOSPHORUS Routine 09/23/2024 4:41 AM SMART ENERGY SPECIALIST MAGNESIUM Routine 09/23/2024 4:41 AM SMART ENERGY SPECIALIST BASIC METABOLIC PANEL Routine 09/23/2024 4:41 AM SMART ENERGY SPECIALIST CBC WITH AUTO DIFFERENTIAL Routine 09/23/2024 4:41 AM SMART ENERGY SPECIALIST XR CHEST 1 VIEW IP Routine 09/23/2024 4:01 AM SMART ENERGY SPECIALIST MAGNESIUM STAT 09/22/2024 9:55 PM SMART ENERGY SPECIALIST CALCIUM,IONIZED, WHOLE BLOOD STAT 09/22/2024 9:55 PM SMART ENERGY SPECIALIST POTASSIUM LEVEL STAT 09/22/2024 9:55 PM SMART ENERGY SPECIALIST POCT GLUCOSE DEVICE Routine 09/22/2024 8 :09 PM SMART ENERGY SPECIALIST CRITICAL CARE Routine 09/22/2024 7:30 PM SMART ENERGY SPECIALIST Coronary artery disease of bois forte artery of bois forte heart with stable angina pectoris (HCC) POCT GLUCOSE DEVICE Routine 09/22/2024 5 :04 PM SMART ENERGY SPECIALIST EGFR Routine 09/22/2024 1:16 PM SMART ENERGY SPECIALIST DIFFERENTIAL AUTO Routine 09/22/2024 1:1 6 PM SMART ENERGY SPECIALIST MAGNESIUM Routine 09/22/2024 1:16 PM SMART ENERGY SPECIALIST CBC WITH AUTO DIFFERENTIAL Routine 09/22/2024 1:16 PM SMART ENERGY SPECIALIST CALCIUM,IONIZED, WHOLE BLOOD Routine 09/22/2024 1:16 PM SMART ENERGY SPECIALIST BASIC METABOLIC PANEL Routine 09/22/2024 1:16 PM SMART ENERGY SPECIALIST POCT GLUCOSE DEVICE Routine 09/22/2024 1 2:17 PM SMART ENERGY SPECIALIST POCT GLUCOSE DEVICE Routine 09/22/2024 8 :05 AM SMART ENERGY SPECIALIST CRITICAL CARE Routine 09/22/2024 6:52 AM SMART ENERGY SPECIALIST Coronary artery disease of bois forte artery of bois forte heart with stable angina pectoris (HCC) XR CHEST 1 VIEW IP Routine 09/22/2024 5:35 AM SMART ENERGY SPECIALIST OXYHEMOGLOBIN, CENTRAL VENOUS STAT 09/22/2024 4:15 AM SMART ENERGY SPECIALIST EGFR Routine 09/22/2024 3:33 AM SMART ENERGY SPECIALIST DIFFERENTIAL AUTO Routine 09/22/2024 3:3 3 AM SMART ENERGY SPECIALIST PHOSPHORUS Routine 09/22/2024 3:33 AM SMART ENERGY SPECIALIST MAGNESIUM Routine 09/22/2024 3:33 AM SMART ENERGY SPECIALIST BASIC METABOLIC PANEL Routine 09/22/2024 3:33 AM SMART ENERGY SPECIALIST CBC WITH AUTO DIFFERENTIAL Routine 09/22/2024 3:33 AM SMART ENERGY SPECIALIST POCT GLUCOSE DEVICE Routine 09/21/2024 1 1:56 PM SMART ENERGY SPECIALIST POCT GLUCOSE DEVICE Routine 09/21/2024 8 :43 PM SMART ENERGY SPECIALIST EGFR STAT 09/21/2024 8:27 PM SMART ENERGY SPECIALIST DIFFERENTIAL AUTO STAT 09/21/2024 8:2 7 PM SMART ENERGY SPECIALIST CALCIUM,IONIZED, WHOLE BLOOD STAT 09/21/2024 8:27 PM SMART ENERGY SPECIALIST MAGNESIUM STAT 09/21/2024 8:27 PM SMART ENERGY SPECIALIST CBC WITH AUTO DIFFERENTIAL STAT 09/21/2024 8:27 PM SMART ENERGY SPECIALIST BASIC METABOLIC PANEL STAT 09/21/2024 8:27 PM SMART ENERGY SPECIALIST CRITICAL CARE Routine 09/21/2024 7:29 PM SMART ENERGY SPECIALIST Coronary artery disease of bois forte artery of bois forte heart with stable angina pectoris (HCC) POCT GLUCOSE DEVICE Routine 09/21/2024 7 :19 PM SMART ENERGY SPECIALIST POCT GLUCOSE DEVICE Routine 09/21/2024 6 :13 PM SMART ENERGY SPECIALIST POCT GLUCOSE DEVICE Routine 09/21/2024 4 :56 PM SMART ENERGY SPECIALIST POCT GLUCOSE DEVICE Routine 09/21/2024 2 :45 PM SMART ENERGY SPECIALIST EGFR Timed 09/21/2024 1:42 PM SMART ENERGY SPECIALIST MAGNESIUM Timed 09/21/2024 1:42 PM SMART ENERGY SPECIALIST CALCIUM,IONIZED, WHOLE BLOOD Timed 09/21/2024 1:42 PM SMART ENERGY SPECIALIST BASIC METABOLIC PANEL Timed 09/21/2024 1:42 PM SMART ENERGY SPECIALIST CBC WITHOUT DIFFERENTIAL Timed 09/21/2024 1:42 PM SMART ENERGY SPECIALIST POCT GLUCOSE DEVICE Routine 09/21/2024 1 2:36 PM SMART ENERGY SPECIALIST POCT GLUCOSE DEVICE Routine 09/21/2024 1 0:50 AM SMART ENERGY SPECIALIST ECG 12-LEAD Routine 09/21/2024 10:14 AM SMART ENERGY SPECIALIST POCT GLUCOSE DEVICE Routine 09/21/2024 9 :43 AM SMART ENERGY SPECIALIST POCT GLUCOSE DEVICE Routine 09/21/2024 8 :39 AM SMART ENERGY SPECIALIST CRITICAL CARE Routine 09/21/2024 8:32 AM SMART ENERGY SPECIALIST Coronary artery disease of bois forte artery of bois forte heart with stable angina pectoris (HCC) POCT GLUCOSE DEVICE Routine 09/21/2024 7 :31 AM SMART ENERGY SPECIALIST POCT GLUCOSE DEVICE Routine 09/21/2024 6 :28 AM SMART ENERGY SPECIALIST XR CHEST 1 VIEW IP Routine 09/21/2024 6:00 AM SMART ENERGY SPECIALIST POCT GLUCOSE DEVICE Routine 09/21/2024 5 :01 AM SMART ENERGY SPECIALIST EGFR Routine 09/21/2024 4:41 AM SMART ENERGY SPECIALIST DIFFERENTIAL AUTO Routine 09/21/2024 4:4 1 AM SMART ENERGY SPECIALIST OXYHEMOGLOBIN, CENTRAL VENOUS Routine 09/21/2024 4:41 AM SMART ENERGY SPECIALIST PHOSPHORUS Routine 09/21/2024 4:41 AM SMART ENERGY SPECIALIST MAGNESIUM Routine 09/21/2024 4:41 AM SMART ENERGY SPECIALIST BASIC METABOLIC PANEL Routine 09/21/2024 4:41 AM SMART ENERGY SPECIALIST CBC WITH AUTO DIFFERENTIAL Routine 09/21/2024 4:41 AM SMART ENERGY SPECIALIST POCT GLUCOSE DEVICE Routine 09/21/2024 4 :04 AM SMART ENERGY SPECIALIST POCT GLUCOSE DEVICE Routine 09/21/2024 2 :57 AM SMART ENERGY SPECIALIST POCT GLUCOSE DEVICE Routine 09/21/2024 1 :42 AM SMART ENERGY SPECIALIST POCT GLUCOSE DEVICE Routine 09/21/2024 1 2:45 AM SMART ENERGY SPECIALIST POCT GLUCOSE DEVICE Routine 09/20/2024 1 1:46 PM SMART ENERGY SPECIALIST OXYHEMOGLOBIN, CENTRAL VENOUS STAT 09/20/2024 11:41 PM SMART ENERGY SPECIALIST EGFR STAT 09/20/2024 11:33 PM SMART ENERGY SPECIALIST DIFFERENTIAL AUTO STAT 09/20/2024 11: 33 PM SMART ENERGY SPECIALIST MAGNESIUM STAT 09/20/2024 11:33 PM SMART ENERGY SPECIALIST CBC WITH AUTO DIFFERENTIAL STAT 09/20/2024 11:33 PM SMART ENERGY SPECIALIST CALCIUM,IONIZED, WHOLE BLOOD STAT 09/20/2024 11:33 PM SMART ENERGY SPECIALIST BASIC METABOLIC PANEL STAT 09/20/2024 11:33 PM SMART ENERGY SPECIALIST POCT GLUCOSE DEVICE Routine 09/20/2024 1 0:34 PM SMART ENERGY SPECIALIST BLOOD GAS, ARTERIAL STAT 09/20/2024 1 0:30 PM SMART ENERGY SPECIALIST POCT GLUCOSE DEVICE Routine 09/20/2024 9 :38 PM SMART ENERGY SPECIALIST POCT GLUCOSE DEVICE Routine 09/20/2024 8 :35 PM SMART ENERGY SPECIALIST POCT GLUCOSE DEVICE Routine 09/20/2024 7 :33 PM SMART ENERGY SPECIALIST EGFR STAT 09/20/2024 6:39 PM SMART ENERGY SPECIALIST CALCIUM,IONIZED, WHOLE BLOOD STAT 09/20/2024 6:39 PM SMART ENERGY SPECIALIST MAGNESIUM STAT 09/20/2024 6:39 PM SMART ENERGY SPECIALIST BASIC METABOLIC PANEL STAT 09/20/2024 6:39 PM SMART ENERGY SPECIALIST CBC WITHOUT DIFFERENTIAL Timed 09/20/2024 6:39 PM SMART ENERGY SPECIALIST BLOOD GAS, ARTERIAL Timed 09/20/2024 6 :39 PM SMART ENERGY SPECIALIST POCT GLUCOSE DEVICE Routine 09/20/2024 6 :30 PM SMART ENERGY SPECIALIST POCT GLUCOSE DEVICE Routine 09/20/2024 5 :07 PM SMART ENERGY SPECIALIST POCT GLUCOSE DEVICE Routine 09/20/2024 4 :25 PM SMART ENERGY SPECIALIST XR CHEST 1 VIEW Critical/Life-T hreatening 09/20/2024 3:00 PM SMART ENERGY SPECIALIST EGFR STAT 09/20/2024 2:59 PM SMART ENERGY SPECIALIST CALCIUM,IONIZED, WHOLE BLOOD STAT 09/20/2024 2:59 PM SMART ENERGY SPECIALIST APTT STAT 09/20/2024 2:59 PM SMART ENERGY SPECIALIST PROTIME-INR STAT 09/20/2024 2:59 PM SMART ENERGY SPECIALIST CBC WITHOUT DIFFERENTIAL Timed 09/20/2024 2:59 PM SMART ENERGY SPECIALIST BLOOD GAS, ARTERIAL Timed 09/20/2024 2 :59 PM SMART ENERGY SPECIALIST BASIC METABOLIC PANEL STAT 09/20/2024 2:59 PM SMART ENERGY SPECIALIST CRITICAL CARE Routine 09/20/2024 2:58 PM SMART ENERGY SPECIALIST Coronary artery disease of bois forte artery of bois forte heart with stable angina pectoris (HCC) POCT GLUCOSE DEVICE Routine 09/20/2024 2 :44 PM SMART ENERGY SPECIALIST POC BLOOD GAS AND CHEMISTRIES, ARTERIAL Routine 09/20/2024 1:56 PM SMART ENERGY SPECIALIST TRANSFUSE PLATELETS Timed 09/20/2024 1 :19 PM SMART ENERGY SPECIALIST POCT ACTIVATED CLOTTING TIME, HIGH RANGE Routine 09/20/2024 12:52 PM SMART ENERGY SPECIALIST POC BLOOD GAS AND CHEMISTRIES, ARTERIAL Routine 09/20/2024 12:50 PM SMART ENERGY SPECIALIST POCT ACTIVATED CLOTTING TIME, HIGH RANGE Routine 09/20/2024 12:47 PM SMART ENERGY SPECIALIST POC BLOOD GAS AND CHEMISTRIES, ARTERIAL Routine 09/20/2024 12:18 PM SMART ENERGY SPECIALIST POCT ACTIVATED CLOTTING TIME, HIGH RANGE Routine 09/20/2024 12:15 PM SMART ENERGY SPECIALIST PLATELET COUNT STAT 09/20/2024 12:03 PM SMART ENERGY SPECIALIST POC BLOOD GAS AND CHEMISTRIES, ARTERIAL Routine 09/20/2024 11:28 AM SMART ENERGY SPECIALIST POCT ACTIVATED CLOTTING TIME, HIGH RANGE Routine 09/20/2024 11:26 AM SMART ENERGY SPECIALIST POC BLOOD GAS AND CHEMISTRIES, ARTERIAL Routine 09/20/2024 10:47 AM SMART ENERGY SPECIALIST POCT ACTIVATED CLOTTING TIME, HIGH RANGE Routine 09/20/2024 10:44 AM SMART ENERGY SPECIALIST POCT ACTIVATED CLOTTING TIME, HIGH RANGE Routine 09/20/2024 9:44 AM SMART ENERGY SPECIALIST ANESTHESIA ARTERIAL LINE PLACEMENT Routine 09/20/2024 9:37 AM SMART ENERGY SPECIALIST ANESTHESIA CENTRAL VENOUS LINE PLACEMENT Routine 09/20/2024 9:35 AM SMART ENERGY SPECIALIST ANESTHESIA CENTRAL VENOUS LINE PLACEMENT Routine 09/20/2024 9:35 AM SMART ENERGY SPECIALIST VA AN ELECTIVE ENDOTRACHEAL AIRWAY Routine 09/20/2024 9:34 AM SMART ENERGY SPECIALIST POC BLOOD GAS AND CHEMISTRIES, ARTERIAL Routine 09/20/2024 8:31 AM SMART ENERGY SPECIALIST POCT ACTIVATED CLOTTING TIME, HIGH RANGE Routine 09/20/2024 8:27 AM SMART ENERGY SPECIALIST CORONARY ARTERY BYPASS GRAFT - INTERNAL MAMMARY/SAPHENOUS VEIN GRAFT - LEG 09/20/2024 7:49 AM SMART ENERGY SPECIALIST 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, unspecified vessel or lesion type (HCC) CORONARY ARTERY BYPASS GRAFT - INTERNAL MAMMARY ARTERY 09/20/2024 7:49 AM SMART ENERGY SPECIALIST 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, unspecified vessel or lesion type (HCC) TYPE AND SCREEN Timed 09/20/2024 7:25 AM SMART ENERGY SPECIALIST POCT GLUCOSE DEVICE Routine 09/20/2024 6 :11 AM SMART ENERGY SPECIALIST PREPARE PLATELETS STAT 09/20/2024 5:3 1 AM SMART ENERGY SPECIALIST PREPARE RBC STAT 09/20/2024 5:31 AM SMART ENERGY SPECIALIST ECG 12-LEAD Routine 09/17/2024 9:25 AM SMART ENERGY SPECIALIST 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, unspecified vessel or lesion type (HCC) XR CHEST PA LATERAL 2 VIEWS Schedule Routine, Read Routine (OP Routine) 09/17/2024 9:07 AM SMART ENERGY SPECIALIST 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, unspecified vessel or lesion type (HCC) EGFR Routine 09/17/2024 9:01 AM SMART ENERGY SPECIALIST 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, unspecified vessel or lesion type (HCC) BASIC METABOLIC PANEL Routine 09/17/2024 9:01 AM SMART ENERGY SPECIALIST 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, unspecified vessel or lesion type (HCC) PROTIME-INR Routine 09/17/2024 9:01 AM SMART ENERGY SPECIALIST 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, unspecified vessel or lesion type (HCC) APTT Routine 09/17/2024 9:01 AM SMART ENERGY SPECIALIST 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, unspecified vessel or lesion type (HCC) CBC WITHOUT DIFFERENTIAL Routine 09/17/2024 9:01 AM SMART ENERGY SPECIALIST 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, unspecified vessel or lesion type (HCC) TYPE AND SCREEN Routine 09/17/2024 9:01 AM SMART ENERGY SPECIALIST 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, unspecified vessel or lesion type (HCC) HEMOGLOBIN A1C Routine 09/17/2024 9:01 AM SMART ENERGY SPECIALIST Pre-op testing URINALYSIS AND REFLEX TO MICROSCOPIC AND CULTURE Routine 09/17/2024 9:01 AM SMART ENERGY SPECIALIST 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 Blood 10/01/2024 11:4 5 AM SMART ENERGY SPECIALIST 10/01/2024 3:38 PM SMART ENERGY SPECIALIST us Notinfile Unknown LAB BLOOD ORDERABLES Final Res ult Performing Organization Address City/[facility]/ZIP Co de Phone Number TAB [facility] Department [place] [address] * eGFR (10/01/2024 11:45 AM SMART ENERGY SPECIALIST) Pathologist [facility] eGFR >90 >=60 mL/min/1. 73 m2 Comment: [...] reviewed 2021. Blood 10/01/2024 11:4 5 AM SMART ENERGY SPECIALIST 10/01/2024 4:03 PM SMART ENERGY SPECIALIST us Notinfile Unknown LAB BLOOD ORDERABLES Final Res ult [facility] [place] [address] * Basic metabolic panel without glucose (10/01/2024 11:45 AM SMART ENERGY SPECIALIST) Pathologist [facility] Sodium 137 135 - 145 mmol/L Comment:Repeated and Verifie d Potassium, pl 3.9 3.3 - 4.9 mmol/L [facility] Comment:Repeated and Verifie d Chloride 101 97 - 110 mmol/L [facility] Comment:Repeated and Verifie d CO2 23 22 - 32 mmol/L [facility] Anion gap 13 2 - 15 mmol/L [facility] Comment:Reviewed BUN 11 6 - 25 mg/dL [facility] Creatinine 0.88 0.80 - 1.30 mg/dL [facility] Calcium 9.0 8.5 - 10.3 mg/dL [facility] Comment:Repeated and Verifie d Blood 10/01/2024 11:4 5 AM SMART ENERGY SPECIALIST 10/01/2024 3:38 PM SMART ENERGY SPECIALIST us Notinfile Unknown LAB BLOOD ORDERABLES Final Res ult [facility] Department [place] [address] * (ABNORMAL) CBC without differential (10/01/2024 11:45 AM SMART ENERGY SPECIALIST) [facility] WBC 8.0 3.8 - 9.9 K/cumm Hgb 9.2(L) 13.0 - 17.5 g/dL [facility] Hct 28.8(L) 38.9 - 50.3 % [facility] Plt 565(H) 150 - 400 K/cumm [facility] MPV 9.8 9.1 - 12.3 fL [facility] RBC 3.32(L) 4.30 - 5.80 M/cumm [facility] MCV 86.7 81.3 - 96.4 fL [facility] MCH 27.7 27.1 - 33.3 pg [facility] MCHC 31.9(L) 32.3 - 35.7 g/dL [facility] RDW CV 13.3 11.1 - 14.9 % [facility] RDW SD 42.0 35.7 - 48.1 fL [facility] NRBC abs 0.00 0.00 - 0.01 K/cumm [facility] Blood 10/01/2024 11:4 5 AM SMART ENERGY SPECIALIST 10/01/2024 3:38 PM SMART ENERGY SPECIALIST us Notinfile Unknown LAB BLOOD ORDERABLES Final Res ult Performing Organization Address [facility] Co de Phone Number [facility] One [facility] [place] [address] * (ABNORMAL) Potassium (09/26/2024 12:55 PM SMART ENERGY SPECIALIST) Potassium, pl 3.2(L) 3.3 - 4.9 mmol/L Blood 09/26/2024 12:5 5 PM SMART ENERGY SPECIALIST 09/26/2024 1:01 PM SMART ENERGY SPECIALIST Celsa Orosco RESEARCH PROGRAM COORDINATOR LAB BLOOD ORDERABLES Final Result Performing Organization Address [facility] Co de Phone Number [facility] [address] Department [place] [address] * POCT glucose (09/26/2024 12:08 PM SMART ENERGY SPECIALIST) Glucose, POC 166 70 - 199 mg/dL Blood 09/26/2024 12:0 8 PM SMART ENERGY SPECIALIST 09/26/2024 12:08 PM SMART ENERGY SPECIALIST Victor Manuel Woo MD LAB POCT ORDERABLES - DEVICE Final Result Performing Organization Address [facility] Co de Phone [place] [facility] [address] [address] Department [place] [address] * POCT glucose (09/26/2024 7:40 AM SMART ENERGY SPECIALIST) Glucose, POC 177 70 - 199 mg/dL Blood 09/26/2024 7:40 AM SMART ENERGY SPECIALIST 09/26/2024 7:40 AM SMART ENERGY SPECIALIST Victor Manuel Woo MD LAB POCT [place] [address] [address] Department [place] [address] * XR Chest 1 View - Portable - in AM (09/26/2024 5:50 AM SMART ENERGY SPECIALIST) Anatomical Region Laterality Modality Body, Chest N/A Computed Radiogr aphy 09/26/2024 10:5 4 AM SMART ENERGY SPECIALIST Impressions 09/26/2024 10:54 AM SMART ENERGY SPECIALIST Stable cardiomegaly without failure. Electronically signed by: Teddy Doherty M.D. Narrative 09/26/2024 10:54 AM SMART ENERGY SPECIALIST EXAMINATION: XR CHEST 1 VIEW DATE: 09/26/2024 [...] failure. Electronically signed by: Teddy Doherty M.D. Apoorva Mar RESEARCH PROGRAM COORDINATOR IMG XR PROCEDURES Final Result * eGFR (09/26/2024 4:50 AM SMART ENERGY SPECIALIST) eGFR >90 >=60 mL/min/1. 73 m2 Comment: [...] last reviewed 2021. Blood 09/26/2024 4:50 AM SMART ENERGY SPECIALIST 09/26/2024 5:07 AM SMART ENERGY SPECIALIST Apoorva Mar RESEARCH PROGRAM COORDINATOR LAB BLOOD ORDERABLES Fin [place] [address] [address] Department [place] [address] * (ABNORMAL) CBC without differential (09/26/2024 4:50 AM SMART ENERGY SPECIALIST) WBC 7.1 3.8 - 9.9 K/cumm Hgb 8.6(L) 13.0 - 17.5 g/dL [facility] Hct 26.8(L) 38.9 - 50.3 % [facility] Plt 296 150 - 400 K/cumm [facility] MPV 9.8 9.1 - 12.3 fL [facility] RBC 3.17(L) 4.30 - 5.80 M/cumm [facility] MCV 84.5 81.3 - 96.4 fL [facility] MCH 27.1 27.1 - 33.3 pg [facility] MCHC 32.1(L) 32.3 - 35.7 g/dL [facility] RDW CV 13.2 11.1 - 14.9 % [facility] RDW SD 40.9 35.7 - 48.1 fL [facility] NRBC abs 0.02(H) 0.00 - 0.01 K/cumm [facility] Blood 09/26/2024 4:50 AM SMART ENERGY SPECIALIST 09/26/2024 5:03 AM SMART ENERGY SPECIALIST Apoorva Mar RESEARCH PROGRAM COORDINATOR LAB BLOOD ORDERABLES Fin al Result TAB [address] [address] [address] Department [place] [address] * Magnesium (09/26/2024 4:50 AM SMART ENERGY SPECIALIST) Magnesium 1.8 1.4 - 2.5 mg/dL Blood 09/26/2024 4:50 AM SMART ENERGY SPECIALIST 09/26/2024 5:03 AM SMART ENERGY SPECIALIST Apoorva Mar RESEARCH PROGRAM COORDINATOR LAB BLOOD ORDERABLES Fin al Result TAB [place] [address] [address] Department [place] [address] * (ABNORMAL) Renal function panel (09/26/2024 4:50 AM SMART ENERGY SPECIALIST) Sodium 135 135 - 145 mmol/L Potassium, pl 2.9(L) 3.3 - 4.9 mmol/L [facility] Chloride 91(L) 97 - 110 mmol/L [facility] CO2 30 22 - 32 mmol/L [facility] Anion gap 14 2 - 15 mmol/L [facility] BUN 13 6 - 25 mg/dL [facility] Creatinine 0.64(L) 0.80 - 1.30 mg/dL [facility] Glucose 168 70 - 199 mg/dL [facility] Comment: Interpretive Data Fasting glucose >/= 126 [...] [facility] Albumin 3.8 3.5 - 5.0 g/dL [facility] Blood 09/26/2024 4:50 AM SMART ENERGY SPECIALIST 09/26/2024 5:03 AM SMART ENERGY SPECIALIST Apoorva Mar NP LAB BLOOD ORDERABLES Fin al Result Performing Organization Address [facility] Co de Phone Number TAB [place] Department [place] [address] * ECG 12 lead (09/26/2024 3:00 AM SMART ENERGY SPECIALIST) 09/26/2024 3:00 AM SMART ENERGY SPECIALIST Narrative [facility] - 09/26/2024 10:04 AM SMART ENERGY SPECIALIST Vent Rate: 76 bpm RR Interval: 789 msec [place] Interval: 164 msec QRS Duration: 101 msec QT Interval: 328 msec QTC Interval: 358 msec P-R-T [place]: 20 - 18 - 35 degrees IMPRESSION: SINUS RHYTHM SEPTAL MYOCARDIAL INFARCTION , OF INDETERMINATE AGE POSSIBLE INFERIOR MYOCARDIAL INFARCTION , OF INDETERMINATE AGE Electronically Signed By: Dion Mitchell MD, [facility] Victor Manuel Woo MD ECG ORDERABLES Final Result Performing Organization Address [facility] Co de Phone Number [facility] * POCT glucose (09/26/2024 2:16 AM SMART ENERGY SPECIALIST) Glucose, POC 157 70 - 199 mg/dL Blood 09/26/2024 2:16 AM SMART ENERGY SPECIALIST 09/26/2024 2:16 AM SMART ENERGY SPECIALIST Result [facility] Victor Manuel Woo MD LAB POCT ORDERABLES - DEVICE Final Result Performing Organization Address [facility] [place] [address] [address] Department [place] [address] * POCT glucose (09/25/2024 8:04 PM SMART ENERGY SPECIALIST) Glucose, POC 179 70 - 199 mg/dL Blood 09/25/2024 8:04 PM SMART ENERGY SPECIALIST 09/25/2024 8:04 PM SMART ENERGY SPECIALIST Victor Manuel Woo MD LAB POCT ORDERABLES - DEVICE Final Result Performing Organization Address City/[facility]/ZIP Co de Phone Number TAB [place] [address] [address] [facility] [place] [address] * POCT glucose (09/25/2024 5:43 PM SMART ENERGY SPECIALIST) Glucose, POC 143 70 - 199 mg/dL Blood 09/25/2024 5:43 PM SMART ENERGY SPECIALIST 09/25/2024 5:43 PM SMART ENERGY SPECIALIST Victor Manuel Woo MD LAB POCT ORDERABLES - DEVICE Final Result Performing Organization Address [facility] Co de Phone Number TAB [place] [address] [address] [place] [address] * (ABNORMAL) POCT glucose (09/25/2024 12:25 PM SMART ENERGY SPECIALIST) Glucose, POC 226(H) 70 - 199 mg/dL Blood 09/25/2024 12:2 5 PM SMART ENERGY SPECIALIST 09/25/2024 12:25 PM SMART ENERGY SPECIALIST Victor Manuel Woo MD LAB POCT ORDERABLES - DEVICE Final Result Performing Organization Address [facility] Co de Phone Number TAB [place] [address] [address] [place] [address] * POCT glucose (09/25/2024 8:01 AM SMART ENERGY SPECIALIST) Glucose, POC 147 70 - 199 mg/dL Blood 09/25/2024 8:01 AM SMART ENERGY SPECIALIST 09/25/2024 8:01 AM SMART ENERGY SPECIALIST Victor Manuel Woo MD LAB POCT ORDERABLES - DEVICE Final Result Performing Organization Address [facility] Co de Phone Number TAB [place] [address] [address] [facility] [place] [address] * XR Chest 1 View - Portable - in AM (09/25/2024 5:47 AM SMART ENERGY SPECIALIST) Anatomical Region Laterality Modality Body, Chest N/A Computed Radiogr aphy 09/25/2024 8:20 AM SMART ENERGY SPECIALIST Impressions 09/25/2024 8:20 AM SMART ENERGY SPECIALIST Stable cardiomegaly without failure. Electronically signed by: Rodrick Modi M.D. Narrative 09/25/2024 8:20 AM SMART ENERGY SPECIALIST EXAMINATION: XR CHEST 1 VIEW DATE: 09/25/2024 [...] signed by: Rodrick Modi M.D. Apoorva Mar RESEARCH PROGRAM COORDINATOR IMG XR PROCEDURES Final Result * eGFR (09/25/2024 5:40 AM SMART ENERGY SPECIALIST) eGFR >90 >=60 mL/min/1. 73 m2 Comment: [...] last reviewed 2021. Blood 09/25/2024 5:40 AM SMART ENERGY SPECIALIST 09/25/2024 6:03 AM SMART ENERGY SPECIALIST Apoorva Ang Isabela RESEARCH PROGRAM COORDINATOR LAB BLOOD ORDERABLES Fin al Result Performing Organization Address [facility] de Phone Number [facility] [address] [address] [facility] [place] [address] * aPTT (09/25/2024 5:40 AM SMART ENERGY SPECIALIST) aPTT 30 28 - 38 sec Comment: Interpretive Data Heparin therapeutic range: 66.0 - 100.0 seconds. Range based on correlation with therapeutic heparin activity range of 0.3 - 0.7 Units/mL. Current interpretive data was last revised on 2023. Blood 09/25/2024 5:40 AM SMART ENERGY SPECIALIST 09/25/2024 5:58 AM SMART ENERGY SPECIALIST Celsa Orosco RESEARCH PROGRAM COORDINATOR LAB BLOOD ORDERABLES Final Result Performing Organization Address [facility] de Phone Number [facility] [address] [place] [address] * Protime-INR (09/25/2024 5:40 AM SMART ENERGY SPECIALIST) PT 12.8 9.7 - 13.0 sec INR 1.18 0.90 - 1.20 [facility] Comment: Interpretive data Oral anticoagulant therapeutic ranges: Venous thromboembolism prophylaxis or treatment: 2.0-3.0 CARDIOLOGY Standard range: 2.0-3.0 High-intensity range: 2.5-3.5 Refer to indication-specific guidelines for appropriate target ranges for prosthetic heart valve replacement. Current interpretive data was last revised on 2019. Blood 09/25/2024 5:40 AM SMART ENERGY SPECIALIST 09/25/2024 5:58 AM SMART ENERGY SPECIALIST Celsa Orosco RESEARCH PROGRAM COORDINATOR LAB BLOOD ORDERABLES Final Result Performing Organization Address [facility]/ZIP Co de Phone Number TAB [place] [address] [address] [place] [address] * (ABNORMAL) CBC without differential (09/25/2024 5:40 AM SMART ENERGY SPECIALIST) WBC 6.4 3.8 - 9.9 K/cumm Hgb 8.3(L) 13.0 - 17.5 g/dL [facility] Hct 26.0(L) 38.9 - 50.3 % [facility] Plt 236 150 - 400 K/cumm [facility] MPV 9.9 9.1 - 12.3 fL [facility] RBC 3.08(L) 4.30 - 5.80 M/cumm [facility] CH MCV 84.4 81.3 - 96.4 fL [facility] CH MCH 26.9(L) 27.1 - 33.3 pg [facility] MCHC 31.9(L) 32.3 - 35.7 g/dL [facility] CH RDW CV 13.2 11.1 - 14.9 % [facility] RDW SD 40.5 35.7 - 48.1 fL [facility] NRBC abs 0.00 0.00 - 0.01 K/cumm [facility] Blood 09/25/2024 5:40 AM SMART ENERGY SPECIALIST 09/25/2024 5:58 AM SMART ENERGY SPECIALIST us Apoorva Mar RESEARCH PROGRAM COORDINATOR LAB BLOOD ORDERABLES Fin al Result TAB [place] [address] [address] Department [place] [address] * Magnesium (09/25/2024 5:40 AM SMART ENERGY SPECIALIST) Pathologist [facility] Magnesium 2.1 1.4 - 2.5 mg/dL Blood 09/25/2024 5:40 AM SMART ENERGY SPECIALIST 09/25/2024 5:58 AM SMART ENERGY SPECIALIST Apoorva Mar RESEARCH PROGRAM COORDINATOR LAB BLOOD ORDERABLES Fin al Result TAB [place] [address] [address] [place] [address] * (ABNORMAL) Renal function panel (09/25/2024 5:40 AM SMART ENERGY SPECIALIST) Sodium 138 135 - 145 mmol/L Potassium, [...] Calcium 9.1 8.5 - 10.3 mg/dL [facility] Phosphorus, pl 4.6(H) 2.3 - 4.5 mg/dL [facility] CH Albumin 3.6 3.5 - 5.0 g/dL [facility] Blood 09/25/2024 5:40 AM SMART ENERGY SPECIALIST 09/25/2024 5:58 AM SMART ENERGY SPECIALIST us Apoorva Mar NP LAB BLOOD ORDERABLES Fin al Result [facility] [address] [address] Department [place] [address] * POCT glucose (09/24/2024 9:58 PM SMART ENERGY SPECIALIST) Glucose, POC 138 70 - 199 mg/dL Blood 09/24/2024 9:58 PM SMART ENERGY SPECIALIST 09/24/2024 9:58 PM SMART ENERGY SPECIALIST Victor Manuel Woo MD LAB POCT ORDERABLES - DEVICE Final Result Performing Organization Address City/[facility]/ZIP Co de Phone Number TAB [place] [address] [address] [facility] [place] [address] * POCT glucose (09/24/2024 5:30 PM SMART ENERGY SPECIALIST) Glucose, POC 117 70 - 199 mg/dL Blood 09/24/2024 5:30 PM SMART ENERGY SPECIALIST 09/24/2024 5:30 PM SMART ENERGY SPECIALIST Victor Manuel Woo MD LAB POCT ORDERABLES - DEVICE Final Result Performing Organization Address [facility] de Phone Number TAB [place] [address] [address] [facility] [place] [address] * (ABNORMAL) POCT glucose (09/24/2024 12:14 PM SMART ENERGY SPECIALIST) Glucose, POC 215(H) 70 - 199 mg/dL Blood 09/24/2024 12:1 4 PM SMART ENERGY SPECIALIST 09/24/2024 12:14 PM SMART ENERGY SPECIALIST Victor Manuel Woo MD LAB POCT ORDERABLES - DEVICE Final Result Performing Organization Address City/[facility] Co de Phone Number TAB [place] [address] [address] [facility] [place] [address] * eGFR (09/24/2024 10:41 AM SMART ENERGY SPECIALIST) eGFR >90 >=60 mL/min/1. 73 m2 Comment: [...] reviewed 2021. Blood 09/24/2024 10:4 1 AM SMART ENERGY SPECIALIST 09/24/2024 10:41 AM SMART ENERGY SPECIALIST us Apoorva Mar RESEARCH PROGRAM COORDINATOR LAB BLOOD ORDERABLES Fin al Result Performing Organization Address City/[facility]/ZIP Co de Phone Number [facility] [address] [address] Department [place] [address] * (ABNORMAL) CBC without differential (09/24/2024 10:41 AM SMART ENERGY SPECIALIST) WBC 7.0 3.8 - 9.9 K/cumm Hgb 8.5(L) 13.0 - 17.5 g/dL [facility] Hct 26.3(L) 38.9 - 50.3 % [facility] Plt 200 150 - 400 K/cumm [facility] MPV 10.3 9.1 - 12.3 fL [facility] RBC 3.10(L) 4.30 - 5.80 M/cumm [facility] MCV 84.8 81.3 - 96.4 fL [facility] MCH 27.4 27.1 - 33.3 pg [facility] MCHC 32.3 32.3 - 35.7 g/dL [facility] RDW CV 13.2 11.1 - 14.9 % [facility] RDW SD 41.1 35.7 - 48.1 fL [facility] NRBC abs 0.00 0.00 - 0.01 K/cumm [facility] Blood 09/24/2024 10:4 1 AM SMART ENERGY SPECIALIST 09/24/2024 10:41 AM SMART ENERGY SPECIALIST Apoorva Mar NP LAB BLOOD ORDERABLES Fin al Result Performing Organization Address [facility]/ZIP Co de Phone Number TAB [address] [address] Department [place] [address] * Magnesium (09/24/2024 10:41 AM SMART ENERGY SPECIALIST) Pathologist [facility] Magnesium 1.7 1.4 - 2.5 mg/dL Blood 09/24/2024 10:4 1 AM SMART ENERGY SPECIALIST 09/24/2024 10:41 AM SMART ENERGY SPECIALIST Apoorva Mar RESEARCH PROGRAM COORDINATOR LAB BLOOD ORDERABLES Fin al Result [place] [address] [address] Department [place] [address] * (ABNORMAL) Renal function panel (09/24/2024 10:41 AM SMART ENERGY SPECIALIST) Sodium 136 135 - 145 mmol/L Potassium, pl 3.2(L) 3.3 - 4.9 mmol/L [facility] Chloride 93(L) 97 - 110 mmol/L [facility] CO2 30 22 - 32 mmol/L [facility] Anion gap 13 2 - 15 mmol/L [facility] BUN 20 6 - 25 mg/dL [facility] Creatinine 0.64(L) 0.80 - 1.30 mg/dL [facility] Glucose 258(H) 70 - 199 mg/dL [facility] Comment: Interpretive Data Fasting glucose >/= 126 [...] [facility] Albumin 3.6 3.5 - 5.0 g/dL [facility] Blood 09/24/2024 10:4 1 AM SMART ENERGY SPECIALIST 09/24/2024 10:41 AM SMART ENERGY SPECIALIST Apoorva Mar RESEARCH PROGRAM COORDINATOR LAB BLOOD ORDERABLES Fin al Result Performing Organization Address [facility] Co ok Phone Number TAB [place] [address] [address] Department [place] [address] * ECG 12 lead (09/24/2024 10:30 AM SMART ENERGY SPECIALIST) 09/24/2024 10:3 0 AM SMART ENERGY SPECIALIST Narrative [facility] - 09/24/2024 1:12 PM SMART ENERGY SPECIALIST Vent Rate: 75 bpm RR Interval: 790 msec VA Interval: 156 msec QRS Duration: 95 msec QT Interval: 402 msec QTC Interval: 432 msec P-R-T [place]: 26 - 10 - 47 degrees IMPRESSION: SINUS RHYTHM PROBABLE INFERIOR MYOCARDIAL INFARCTION , OF INDETERMINATE AGE [35 ms Q WAVE IN II/aVF] ANTEROSEPTAL MYOCARDIAL INFARCTION , OF INDETERMINATE AGE [40+ ms Q WAVE IN V1- V4] ABNORMAL ECG No significant change since previous tracing Electronically Signed By: Feliz Garnett MD, [facility] Celsa Orosco RESEARCH PROGRAM COORDINATOR ECG ORDERABLES Final Resu lt Performing Organization Address [facility] Phone Number [facility] * POCT glucose (09/24/2024 7:58 AM SMART ENERGY SPECIALIST) Glucose, POC 172 70 - 199 mg/dL Blood 09/24/2024 7:58 AM SMART ENERGY SPECIALIST 09/24/2024 7:58 AM SMART ENERGY SPECIALIST Victor Manuel Woo MD LAB POCT ORDERABLES - DEVICE Final Result Performing Organization Address [facility] Co de Phone Number TAB [place] [address] [address] Department [place] [address] * XR Chest 1 View - Portable - in AM (09/24/2024 6:29 AM SMART ENERGY SPECIALIST) Anatomical Region Laterality Modality Body, Chest N/A Computed Radiogr aphy 09/24/2024 8:06 AM SMART ENERGY SPECIALIST Impressions 09/24/2024 8:06 AM SMART ENERGY SPECIALIST Chest tube removal without pneumothorax. No failure. Electronically signed by: Rodrick Modi M.D. Narrative 09/24/2024 8:06 AM SMART ENERGY SPECIALIST EXAMINATION: XR CHEST 1 VIEW DATE: 09/24/2024 5:10 AM HISTORY: Cardiac surgery follow-up FINDINGS:Compared with the study of the prior day, interval removal of thoracostomy tubes and mediastinal drain. Fairview-Shae catheter withdrawn into the superior vena cava. Cardiomegaly with postsurgical changes are seen without failure. No pneumothorax. No infiltrates Procedure Note Rodrick Modi MD - 09/24/2024 EXAMINATION: XR CHEST 1 VIEW DATE: 09/24/2024 5:10 AM HISTORY: Cardiac surgery follow-up FINDINGS:Compared with the study of the prior day, interval removal of thoracostomy tubes and mediastinal drain. Fairview-Shae catheter withdrawn into the superior vena cava. Cardiomegaly with postsurgical changes are seen without failure. No pneumothorax. No infiltrates IMPRESSION: Chest tube removal without pneumothorax. No failure. Electronically signed by: Rodrick Modi M.D. us Apoorva aMr RESEARCH PROGRAM COORDINATOR IMG XR PROCEDURES Final Result * POCT glucose (09/23/2024 9:35 PM SMART ENERGY SPECIALIST) Glucose, POC 109 70 - 199 mg/dL Blood 09/23/2024 9:35 PM SMART ENERGY SPECIALIST 09/23/2024 9:35 PM SMART ENERGY SPECIALIST us Victor Manuel Woo MD LAB POCT ORDERABLES - DEVICE Final Result [facility] [address] Department [place] [address] * (ABNORMAL) POCT glucose (09/23/2024 4:59 PM SMART ENERGY SPECIALIST) Glucose, POC 220(H) 70 - 199 mg/dL Blood 09/23/2024 4:59 PM SMART ENERGY SPECIALIST 09/23/2024 4:59 PM SMART ENERGY SPECIALIST us Victor Manuel Woo MD LAB POCT ORDERABLES - DEVICE Final Result Performing Organization Address City/[facility] Co de Phone Number TAB GUARDADO [address] [place] [address] * eGFR (09/23/2024 2:00 PM SMART ENERGY SPECIALIST) eGFR >90 >=60 mL/min/1. 73 m2 Comment: [...] last reviewed 2021. Blood 09/23/2024 2:00 PM SMART ENERGY SPECIALIST 09/23/2024 2:04 PM SMART ENERGY SPECIALIST us Apoorva Mar RESEARCH PROGRAM COORDINATOR LAB BLOOD ORDERABLES Fin al Result Performing Organization Address City/[facility]/ZIP Co de Phone Number TAB GUARDADO [address] Department [place] [address] * Magnesium (09/23/2024 2:00 PM SMART ENERGY SPECIALIST) Magnesium 2.0 1.4 - 2.5 mg/dL Blood 09/23/2024 2:00 PM SMART ENERGY SPECIALIST 09/23/2024 2:04 PM SMART ENERGY SPECIALIST Apoorva Mar RESEARCH PROGRAM COORDINATOR LAB BLOOD ORDERABLES Fin al Result Performing Organization Address City/[facility]/ZIP Co de Phone Number TAB GUARDADO [address] [place] [address] * (ABNORMAL) Renal function panel (09/23/2024 2:00 PM SMART ENERGY SPECIALIST) Sodium 135 135 - 145 mmol/L Potassium, pl 3.2(L) 3.3 - 4.9 mmol/L [facility] Chloride 96(L) 97 - 110 mmol/L [facility] CO2 29 22 - 32 mmol/L [facility] Anion gap 10 2 - 15 mmol/L [facility] BUN 18 6 - 25 mg/dL [facility] Creatinine 0.51(L) 0.80 - 1.30 mg/dL [facility] [...] pl 2.2(L) 2.3 - 4.5 mg/dL [facility] Albumin 3.6 3.5 - 5.0 g/dL [facility] Blood 09/23/2024 2:00 PM SMART ENERGY SPECIALIST 09/23/2024 2:04 PM SMART ENERGY SPECIALIST Apoorva Mar RESEARCH PROGRAM COORDINATOR LAB BLOOD ORDERABLES Fin al Result Performing Organization Address City/[facility]/ZIP Co de Phone Number TAB GUARDADO [address] Department [facility] [place], [place] [id number] * (ABNORMAL) POCT glucose (09/23/2024 11:59 AM SMART ENERGY SPECIALIST) Glucose, POC 236(H) 70 - 199 mg/dL Blood 09/23/2024 11:5 9 AM SMART ENERGY SPECIALIST 09/23/2024 11:59 AM SMART ENERGY SPECIALIST Victor Manuel Woo MD LAB POCT ORDERABLES - DEVICE Final Result Performing Organization Address [facility] de Phone Number TAB GUARDAD[place] [address] [place] [address] * POCT glucose (09/23/2024 8:06 AM SMART ENERGY SPECIALIST) Glucose, POC 158 70 - 199 mg/dL Blood 09/23/2024 8:06 AM SMART ENERGY SPECIALIST 09/23/2024 8:06 AM SMART ENERGY SPECIALIST us Victor Manuel Woo MD LAB POCT ORDERABLES - DEVICE Final Result Performing Organization Address [facility] [place] [address] [address] [place] [address] * Critical Care (09/23/2024 7:46 AM SMART ENERGY SPECIALIST) Narrative Jamal Lombardi MD - 09/23/2024 7:46 AM SMART ENERGY SPECIALIST Apoorva Mar NP 09/23/2024 8:10 AM Critical Care Performed by: Apoorva Mar NP Authorized by: Apoorva Mar NP CRITICAL CARE: Team: MELINA Shift: AM Level of Billing: Critical Care [...] plan with the ICU team and other medical/sql server consultant staff, making frequent assessments and decisions [...] spent time documenting in the medical record Result [facility] Apoorva Mar NP IN CLINIC/BEDSIDE ORDERA BLES Final Result * Oxyhemoglobin, central venous (09/23/2024 4:41 AM SMART ENERGY SPECIALIST) Oxyhemoglobin, CV 68.3 % Comment: Interpretive Data No reference range established. Current interpretive data was last revised 2019. Blood 09/23/2024 4:41 AM SMART ENERGY SPECIALIST 09/23/2024 4:50 AM SMART ENERGY SPECIALIST Result [facility] Victor Manuel Woo MD LAB BLOOD ORDERABLES Final R esult Performing Organization Address [facility] Co de Phone Number TAB GUARDADO [address] Department [place] [address] * Calcium, ionized, whole blood (09/23/2024 4:41 AM SMART ENERGY SPECIALIST) Pathologist [facility] Ca, ionized, bld 4.88 4.50 - 5.10 mg/dL Blood 09/23/2024 4:41 AM SMART ENERGY SPECIALIST 09/23/2024 4:50 AM SMART ENERGY SPECIALIST Result [facility] Victor Manuel Woo MD LAB [place] [address] [address] Department [place] [address] * eGFR (09/23/2024 4:41 AM SMART ENERGY SPECIALIST) Pathologist [facility] eGFR >90 >=60 mL/min/1. 73 m2 Comment: [...] last reviewed 2021. Blood 09/23/2024 4:41 AM SMART ENERGY SPECIALIST 09/23/2024 4:51 AM SMART ENERGY SPECIALIST us Victor Manuel Woo MD LAB BLOOD ORDERABLES Final R esult [facility] [address] Department [place] [address] * Differential, auto (09/23/2024 4:41 AM SMART ENERGY SPECIALIST) Neutrophil abs 6.0 1.5 - 6.5 K/cumm Imm gran abs 0.0 0.0 - 0.1 K/cumm [facility] Lymphocyte abs 2.0 0.8 - 3.3 K/cumm [facility] Monocyte abs 0.7 0.2 - 0.8 K/cumm [facility] Eosinophil abs 0.4 0.0 - 0.5 K/cumm [facility] Basophil abs 0.0 0.0 - 0.1 K/cumm [facility] Neutrophil pct 64.9 % [facility] Comment: Interpretive Data Percent cell count reference ranges are not reported, since discordance with absolute values may lead to misinterpretation of CBC data. Current Interpretive Data was last revised on 2017. Imm gran pct 0.3 % [facility] Comment: Interpretive Data Percent cell count reference ranges are not reported, since discordance with absolute values may lead to misinterpretation of CBC data. Current Interpretive Data was last revised on 2017. Lymphocyte pct 21.9 % [facility] Comment: Interpretive Data Percent cell count reference ranges are not reported, since discordance with absolute values may lead to misinterpretation of CBC data. Current Interpretive Data was last revised on 2017. Monocyte pct 7.9 % [facility] Comment: Interpretive Data Percent cell count reference ranges are not reported, since discordance with absolute values may lead to misinterpretation of CBC data. Current Interpretive Data was last revised on 2017. Eosinophil pct 4.7 % [facility] Comment: Interpretive Data Percent cell count reference ranges are not reported, since discordance with absolute values may lead to misinterpretation of CBC data. Current Interpretive Data was last revised on 2017. Basophil pct 0.3 % [facility] Comment: Interpretive Data Percent cell count reference ranges are not reported, since discordance with absolute values may lead to misinterpretation of CBC data. Current Interpretive Data was last revised on 2017. Blood 09/23/2024 4:41 AM SMART ENERGY SPECIALIST 09/23/2024 4:54 AM SMART ENERGY SPECIALIST Victor Manuel Woo MD LAB BLOOD ORDERABLES Final R esult [facility] [address] Department [place] [address] * (ABNORMAL) CBC with auto differential (09/23/2024 4:41 AM SMART ENERGY SPECIALIST) WBC 9.3 3.8 - 9.9 K/cumm Hgb 8.5(L) 13.0 - 17.5 g/dL [facility] Hct 26.3(L) 38.9 - 50.3 % [facility] Plt 133(L) 150 - 400 K/cumm [facility] MPV 10.3 9.1 - 12.3 fL [facility] RBC 3.02(L) 4.30 - 5.80 M/cumm [facility] MCV 87.1 81.3 - 96.4 fL [facility] MCH 28.1 27.1 - 33.3 pg [facility] MCHC 32.3 32.3 - 35.7 g/dL [facility] RDW CV 13.5 11.1 - 14.9 % [facility] RDW SD 42.5 35.7 - 48.1 fL [facility] NRBC abs 0.00 0.00 - 0.01 K/cumm [facility] Blood 09/23/2024 4:41 AM SMART ENERGY SPECIALIST 09/23/2024 4:54 AM SMART ENERGY SPECIALIST Victor Manuel Woo MD LAB BLOOD ORDERABLES Final R esult Performing Organization Address [facility] Co de Phone Number [facility] [address] [place] [address] * (ABNORMAL) Phosphorus (09/23/2024 4:41 AM SMART ENERGY SPECIALIST) Phosphorus, pl 2.2(L) 2.3 - 4.5 mg/dL Blood 09/23/2024 4:41 AM SMART ENERGY SPECIALIST 09/23/2024 4:51 AM SMART ENERGY SPECIALIST Victor Manuel Woo MD LAB BLOOD ORDERABLES Final R esult Performing Organization Address [facility] Co de Phone Number TAB [address] [address] [place] [address] * Magnesium (09/23/2024 4:41 AM SMART ENERGY SPECIALIST) Pathologist [facility] Magnesium 2.0 1.4 - 2.5 mg/dL Blood 09/23/2024 4:41 AM SMART ENERGY SPECIALIST 09/23/2024 4:51 AM SMART ENERGY SPECIALIST Victor Manuel Woo MD LAB BLOOD ORDERABLES Final R esult Performing Organization Address [facility] Co de Phone Number [facility] [address] [place] [address] * (ABNORMAL) Basic metabolic panel (09/23/2024 4:41 AM SMART ENERGY SPECIALIST) Sodium 136 135 - 145 mmol/L Potassium, pl 3.9 3.3 - 4.9 mmol/L [facility] Chloride 102 97 - 110 mmol/L [facility] CO2 25 22 - 32 mmol/L [facility] Anion gap 9 2 - 15 mmol/L [facility] BUN 12 6 - 25 mg/dL [facility] Creatinine 0.51(L) 0.80 - 1.30 mg/dL [facility] Glucose 162 70 - 199 mg/dL [facility] Comment: Interpretive Data Fasting glucose >/= 126 [...] 2022. Calcium 8.8 8.5 - 10.3 mg/dL [facility] Blood 09/23/2024 4:41 AM SMART ENERGY SPECIALIST 09/23/2024 4:51 AM SMART ENERGY SPECIALIST Victor Manuel Woo MD LAB BLOOD ORDERABLES Final R esult [facility] [address] Department [place] [address] * XR Chest 1 View - Portable - in AM (09/23/2024 4:01 AM SMART ENERGY SPECIALIST) Anatomical Region Laterality Modality Body, Chest N/A Computed Radiogr aphy 09/23/2024 8:39 AM SMART ENERGY SPECIALIST Impressions 09/23/2024 8:39 AM SMART ENERGY SPECIALIST No failure. No pneumothorax. Electronically signed by: Rodrick Modi M.D. Narrative 09/23/2024 8:39 AM SMART ENERGY SPECIALIST EXAMINATION: XR CHEST 1 VIEW DATE: 09/23/2024 3:15 AM HISTORY: Cardiac surgery follow-up FINDINGS:When compared with study of the prior day, cardiomegaly with postsurgical changes stable. Thoracostomy tubes and mediastinal drain and Fairview-Shae catheter remain in place. Cardiomegaly is seen. No evidence of pneumothorax or failure. Procedure Note Rodrick Modi MD - 09/23/2024 EXAMINATION: XR CHEST 1 VIEW DATE: 09/23/2024 3:15 AM HISTORY: Cardiac surgery follow-up FINDINGS:When compared with study of the prior day, cardiomegaly with postsurgical changes stable. Thoracostomy tubes and mediastinal drain and Fairview-Shae catheter remain in place. Cardiomegaly is seen. No evidence of pneumothorax or failure. IMPRESSION: No failure. No pneumothorax. Electronically signed by: Rodrick Modi M.D. Apoorva Mar RESEARCH PROGRAM COORDINATOR IMG XR PROCEDURES Final Result * (ABNORMAL) Calcium, ionized, whole blood (09/22/2024 9:55 PM SMART ENERGY SPECIALIST) Ca, ionized, bld 4.49(L) 4.50 - 5.10 mg/dL Blood 09/22/2024 9:55 PM SMART ENERGY SPECIALIST 09/22/2024 10:01 PM SMART ENERGY SPECIALIST Victor Manuel Woo MD LAB BLOOD ORDERABLES Final R esult Performing Organization Address [facility] Co de Phone Number TAB [address] [place] [address] * Potassium (09/22/2024 9:55 PM SMART ENERGY SPECIALIST) Potassium, pl 3.4 3.3 - 4.9 mmol/L Blood 09/22/2024 9:55 PM SMART ENERGY SPECIALIST 09/22/2024 10:01 PM SMART ENERGY SPECIALIST Victor Manuel Woo MD LAB BLOOD ORDERABLES Final R esult Performing Organization Address City/[facility] [place] [address] [address] [employer] [address] * Magnesium (09/22/2024 9:55 PM SMART ENERGY SPECIALIST) Magnesium 1.9 1.4 - 2.5 mg/dL Blood 09/22/2024 9:55 PM SMART ENERGY SPECIALIST 09/22/2024 10:01 PM SMART ENERGY SPECIALIST us Victor Manuel Woo MD LAB BLOOD ORDERABLES Final R esult Performing Organization Address City/[facility] Co de Phone Number TAB GUARDAD[place] [address] Department [place] [address] * POCT glucose (09/22/2024 8:09 PM SMART ENERGY SPECIALIST) Glucose, POC 147 70 - 199 mg/dL Blood 09/22/2024 8:09 PM SMART ENERGY SPECIALIST 09/22/2024 8:09 PM SMART ENERGY SPECIALIST Victor Manuel Woo MD LAB POCT ORDERABLES - DEVICE Final Result Performing Organization Address [facility] de Phone Number TAB GU[place] [address] [place] [address] * Critical Care (09/22/2024 7:30 PM SMART ENERGY SPECIALIST) Narrative Andrsesa Jacobs MD - 09/22/2024 7:30 PM SMART ENERGY SPECIALIST Alex Melendez PA 09/23/2024 5:26 AM Critical [...] plan with the ICU team and other medical/sql server consultant staff, making frequent assessments and decisions [...] spent time documenting in the medical record Alex SEVILLA IN CLINIC/BEDSIDE ORDERABLES Fin al Result * POCT glucose (09/22/2024 5:04 PM SMART ENERGY SPECIALIST) Glucose, POC 174 70 - 199 mg/dL Blood 09/22/2024 5:04 PM SMART ENERGY SPECIALIST 09/22/2024 5:04 PM SMART ENERGY SPECIALIST Victor Manuel Woo MD LAB POCT ORDERABLES - DEVICE Final Result [place] [address] [address] Department [place] [address] * Calcium, ionized, whole blood (09/22/2024 1:16 PM SMART ENERGY SPECIALIST) Ca, ionized, bld 4.58 4.50 - 5.10 mg/dL Blood 09/22/2024 1:16 PM SMART ENERGY SPECIALIST 09/22/2024 1:24 PM SMART ENERGY SPECIALIST Victor Manuel Woo MD LAB BLOOD ORDERABLES Final R esult Performing Organization Address City/[facility]/ZIP Co de Phone Number TAB [address] [employer] [place] [address] * eGFR (09/22/2024 1:16 PM SMART ENERGY SPECIALIST) Pathologist [facility] eGFR >90 >=60 mL/min/1. 73 m2 Comment: [...] last reviewed 2021. Blood 09/22/2024 1:16 PM SMART ENERGY SPECIALIST 09/22/2024 1:24 PM SMART ENERGY SPECIALIST us Victor Manuel Woo MD LAB BLOOD ORDERABLES Final R esult [facility] [address] [address] Department [place] [address] * (ABNORMAL) Differential, auto (09/22/2024 1:16 PM SMART ENERGY SPECIALIST) Neutrophil abs 6.8(H) 1.5 - 6.5 K/cumm Imm gran abs 0.1 0.0 - 0.1 K/cumm [facility] Lymphocyte abs 1.7 0.8 - 3.3 K/cumm [facility] Monocyte abs 0.9(H) 0.2 - 0.8 K/cumm [facility] Eosinophil abs 0.3 0.0 - 0.5 K/cumm [facility] Basophil abs 0.0 0.0 - 0.1 K/cumm [facility] Neutrophil pct 69.4 % [facility] Comment: Interpretive Data Percent cell count reference ranges are not reported, since discordance with absolute values may lead to misinterpretation of CBC data. Current Interpretive Data was last revised on 2017. Imm gran pct 0.6 % [facility] Comment: Interpretive Data Percent cell count reference ranges are not reported, since discordance with absolute values may lead to misinterpretation of CBC data. Current Interpretive Data was last revised on 2017. Lymphocyte pct 17.0 % [facility] Comment: Interpretive Data Percent cell count reference ranges are not reported, since discordance with absolute values may lead to misinterpretation of CBC data. Current Interpretive Data was last revised on 2017. Monocyte pct 9.6 % [facility] Comment: Interpretive Data Percent cell count reference ranges are not reported, since discordance with absolute values may lead to misinterpretation of CBC data. Current Interpretive Data was last revised on 2017. Eosinophil pct 3.1 % [facility] Comment: Interpretive Data Percent cell count reference ranges are not reported, since discordance with absolute values may lead to misinterpretation of CBC data. Current Interpretive Data was last revised on 2017. Basophil pct 0.3 % [facility] Comment: Interpretive Data Percent cell count reference ranges are not reported, since discordance with absolute values may lead to misinterpretation of CBC data. Current Interpretive Data was last revised on 2017. Blood 09/22/2024 1:16 PM SMART ENERGY SPECIALIST 09/22/2024 1:25 PM SMART ENERGY SPECIALIST us Victor Manuel Woo MD LAB BLOOD ORDERABLES Final R esult [facility] [address] [address] Department [place] [address] * (ABNORMAL) CBC with auto differential (09/22/2024 1:16 PM SMART ENERGY SPECIALIST) WBC 9.8 3.8 - 9.9 K/cumm Hgb 8.4(L) 13.0 - 17.5 g/dL [facility] Hct 25.7(L) 38.9 - 50.3 % [facility] Plt 112(L) 150 - 400 K/cumm [facility] MPV 9.8 9.1 - 12.3 fL [facility] RBC 2.97(L) 4.30 - 5.80 M/cumm [facility] MCV 86.5 81.3 - 96.4 fL [facility] MCH 28.3 27.1 - 33.3 pg [facility] MCHC 32.7 32.3 - 35.7 g/dL [facility] RDW CV 13.6 11.1 - 14.9 % [facility] RDW SD 42.3 35.7 - 48.1 fL [facility] NRBC abs 0.00 0.00 - 0.01 K/cumm [facility] Blood 09/22/2024 1:16 PM SMART ENERGY SPECIALIST 09/22/2024 1:25 PM SMART ENERGY SPECIALIST Victor Manuel Woo MD LAB BLOOD ORDERABLES Final R esult Performing Organization Address City/[facility]/ZIP Co de Phone Number TAB GUARD[place]O [address] [facility] [place] [address] * Magnesium (09/22/2024 1:16 PM SMART ENERGY SPECIALIST) Pathologist [facility] Magnesium 2.1 1.4 - 2.5 mg/dL Blood 09/22/2024 1:16 PM SMART ENERGY SPECIALIST 09/22/2024 1:24 PM SMART ENERGY SPECIALIST Victor Manuel Woo MD LAB BLOOD ORDERABLES Final R domitilault Performing Organization Address [facility] de Phone Number TAB GUARD[place] [address] Department [place] [address] * (ABNORMAL) Basic metabolic panel (09/22/2024 1:16 PM SMART ENERGY SPECIALIST) Pathologist [facility] Sodium 137 135 - 145 mmol/L Potassium, pl 4.3 3.3 - 4.9 mmol/L [facility] Chloride 106 97 - 110 mmol/L [facility] CO2 20(L) 22 - 32 mmol/L [facility] Anion gap 11 2 - 15 mmol/L [facility] BUN 14 6 - 25 mg/dL [facility] Creatinine 0.60(L) 0.80 - 1.30 mg/dL [facility] Glucose 207(H) 70 - 199 mg/dL [facility] Comment: Interpretive Data Fasting glucose >/= 126 [...] 2022. Calcium 8.5 8.5 - 10.3 mg/dL [facility] Blood 09/22/2024 1:16 PM SMART ENERGY SPECIALIST 09/22/2024 1:24 PM SMART ENERGY SPECIALIST Victor Manuel Woo MD LAB BLOOD ORDERABLES Final R esult Performing Organization Address [facility] Co de Phone Number TAB GUARD[address] [address] [place] [address] * POCT glucose (09/22/2024 12:17 PM SMART ENERGY SPECIALIST) Glucose, POC 187 70 - 199 mg/dL Blood 09/22/2024 12:1 7 PM SMART ENERGY SPECIALIST 09/22/2024 12:17 PM SMART ENERGY SPECIALIST Victor Manuel Woo MD LAB POCT ORDERABLES - DEVICE Final Result Performing Organization Address [facility] de Phone Number TAB GUARD[place] [address] [place] [address] * (ABNORMAL) POCT glucose (09/22/2024 8:05 AM SMART ENERGY SPECIALIST) Glucose, POC 225(H) 70 - 199 mg/dL Blood 09/22/2024 8:05 AM SMART ENERGY SPECIALIST 09/22/2024 8:05 AM SMART ENERGY SPECIALIST Victor Manuel Woo MD LAB POCT ORDERABLES - DEVICE Final Result Performing Organization Address [facility] de Phone Number TAB [address] [address] [place] [address] * Critical Care (09/22/2024 6:52 AM SMART ENERGY SPECIALIST) Narrative Jamal Lombardi MD - 09/22/2024 6:52 AM SMART ENERGY SPECIALIST Ora Smith NP 09/22/2024 6:16 PM Critical [...] plan with the ICU team and other medical/sql server consultant staff, making frequent assessments and decisions [...] Portable - in AM (09/22/2024 5:35 AM SMART ENERGY SPECIALIST) Anatomical Region Laterality Modality Body, Chest N/A Computed Radiogr aphy 09/22/2024 8:12 AM SMART ENERGY SPECIALIST Impressions 09/22/2024 8:12 AM SMART ENERGY SPECIALIST Findings/impression: Pulmonary arterial catheter, right thoracostomy tube, left thoracostomy tube, and mediastinal drain are appropriately positioned. Poststernotomy changes are noted. Cardiomediastinal silhouette is normal in size. No pneumothorax or pleural effusion. Mild pulmonary vascular congestion. No consolidation. Electronically signed by: Raul Mendieta II, D.O. Narrative 09/22/2024 8:12 AM SMART ENERGY SPECIALIST EXAMINATION: XR CHEST 1 VIEW DATE: 09/22/2024 [...] Raul Mendieta II, D.O. us Apoorva Mar NP IMG XR PROCEDURES Final Result * Oxyhemoglobin, central venous (09/22/2024 4:15 AM SMART ENERGY SPECIALIST) Oxyhemoglobin, CV 59.1 % Comment: Interpretive Data No reference range established. Current interpretive data was last revised 2019. Blood 09/22/2024 4:15 AM SMART ENERGY SPECIALIST 09/22/2024 4:25 AM SMART ENERGY SPECIALIST us Victor Manuel Woo MD LAB BLOOD ORDERABLES Final R esult [facility] [address] [facility] Department of Laboratories [place], [place] [id number] * eGFR (09/22/2024 3:33 AM SMART ENERGY SPECIALIST) eGFR >90 >=60 mL/min/1. 73 m2 Comment: [...] last reviewed 2021. Blood 09/22/2024 3:33 AM SMART ENERGY SPECIALIST 09/22/2024 4:33 AM SMART ENERGY SPECIALIST us Victor Manuel Woo MD LAB BLOOD ORDERABLES [place] [address] [address] Department [place] [address] * (ABNORMAL) Differential, auto (09/22/2024 3:33 AM SMART ENERGY SPECIALIST) Neutrophil abs 8.8(H) 1.5 - 6.5 K/cumm Imm gran abs 0.1 0.0 - 0.1 K/cumm [facility] Lymphocyte abs 1.5 0.8 - 3.3 K/cumm [facility] Monocyte abs 1.0(H) 0.2 - 0.8 K/cumm [facility] Eosinophil abs 0.1 0.0 - 0.5 K/cumm [facility] Basophil abs 0.0 0.0 - 0.1 K/cumm [facility] Neutrophil pct 76.2 % [facility] Comment: Interpretive Data Percent cell count reference ranges are not reported, since discordance with absolute values may lead to misinterpretation of CBC data. Current Interpretive Data was last revised on 2017. Imm gran pct 0.6 % [facility] Comment: Interpretive Data Percent cell count reference ranges are not reported, since discordance with absolute values may lead to misinterpretation of CBC data. Current Interpretive Data was last revised on 2017. Lymphocyte pct 12.9 % [facility] Comment: Interpretive Data Percent cell count reference ranges are not reported, since discordance with absolute values may lead to misinterpretation of CBC data. Current Interpretive Data was last revised on 2017. Monocyte pct 9.0 % [facility] Comment: Interpretive Data Percent cell count reference ranges are not reported, since discordance with absolute values may lead to misinterpretation of CBC data. Current Interpretive Data was last revised on 2017. Eosinophil pct 1.0 % [facility] Comment: Interpretive Data Percent cell count reference ranges are not reported, since discordance with absolute values may lead to misinterpretation of CBC data. Current Interpretive Data was last revised on 2017. Basophil pct 0.3 % [facility] Comment: Interpretive Data Percent cell count reference ranges are not reported, since discordance with absolute values may lead to misinterpretation of CBC data. Current Interpretive Data was last revised on 2017. Blood 09/22/2024 3:33 AM SMART ENERGY SPECIALIST 09/22/2024 4:34 AM SMART ENERGY SPECIALIST Victor Manuel Woo MD LAB BLOOD ORDERABLES Final R esult Performing Organization Address City/[facility]/ZIP Co de Phone Number TAB GUARDADO [address] [employer] [place] [address] * (ABNORMAL) CBC with auto differential (09/22/2024 3:33 AM SMART ENERGY SPECIALIST) WBC 11.6(H) 3.8 - 9.9 K/cumm Hgb 8.8(L) 13.0 - 17.5 g/dL [facility] Hct 26.9(L) 38.9 - 50.3 % [facility] Plt 126(L) 150 - 400 K/cumm [facility] MPV 10.2 9.1 - 12.3 fL [facility] RBC 3.11(L) 4.30 - 5.80 M/cumm [facility] MCV 86.5 81.3 - 96.4 fL [facility] MCH 28.3 27.1 - 33.3 pg [facility] MCHC 32.7 32.3 - 35.7 g/dL [facility] RDW CV 13.6 11.1 - 14.9 % [facility] RDW SD 42.8 35.7 - 48.1 fL [facility] NRBC abs 0.00 0.00 - 0.01 K/cumm [facility] Blood 09/22/2024 3:33 AM SMART ENERGY SPECIALIST 09/22/2024 4:34 AM SMART ENERGY SPECIALIST Victor Manuel Woo MD LAB BLOOD ORDERABLES Final R esult Performing Organization Address City/[facility]/ZIP Co de Phone Number TAB GUARDADO [address] Department [employer] [place], [place] [id number] * Phosphorus (09/22/2024 3:33 AM SMART ENERGY SPECIALIST) Pathologist [facility] Phosphorus, pl 3.2 2.3 - 4.5 mg/dL Blood 09/22/2024 3:33 AM SMART ENERGY SPECIALIST 09/22/2024 4:33 AM SMART ENERGY SPECIALIST Victor Manuel Woo MD LAB BLOOD ORDERABLES Final R esult Performing Organization Address City/[facility]/ZIP Co de Phone Number TAB GUARDADO [address] [place] [address] * Magnesium (09/22/2024 3:33 AM SMART ENERGY SPECIALIST) Pathologist [facility] Magnesium 2.1 1.4 - 2.5 mg/dL Blood 09/22/2024 3:33 AM SMART ENERGY SPECIALIST 09/22/2024 4:33 AM SMART ENERGY SPECIALIST Victor Manuel Woo MD LAB BLOOD ORDERABLES Final R esult Performing Organization Address City/[facility] Co de Phone Number [facility] [address] [place] [address] * (ABNORMAL) Basic metabolic panel (09/22/2024 3:33 AM SMART ENERGY SPECIALIST) Pathologist [facility] Sodium 139 135 - 145 mmol/L Potassium, pl 3.8 3.3 - 4.9 mmol/L [facility] Chloride 106 97 - 110 mmol/L [facility] CO2 21(L) 22 - 32 mmol/L [facility] Anion gap 12 2 - 15 mmol/L [facility] BUN 12 6 - 25 mg/dL [facility] Creatinine 0.68(L) 0.80 - 1.30 mg/dL [facility] Glucose 210(H) 70 - 199 mg/dL [facility] Comment: Interpretive Data Fasting glucose >/= 126 [...] 10.3 mg/dL TAB Blood 09/22/2024 3:33 AM SMART ENERGY SPECIALIST 09/22/2024 4:33 AM SMART ENERGY SPECIALIST Victor Manuel Woo MD LAB BLOOD ORDERABLES Final R esult Performing Organization Address City/[facility]/ZIP Co de Phone Number TAB [address] [employer] [place], [place] [id number] * POCT glucose (09/21/2024 11:56 PM SMART ENERGY SPECIALIST) Glucose, POC 175 70 - 199 mg/dL Blood 09/21/2024 11:5 6 PM SMART ENERGY SPECIALIST 09/21/2024 11:56 PM SMART ENERGY SPECIALIST Victor Manuel Woo MD LAB POCT ORDERABLES - DEVICE Final Result Performing Organization Address [facility] Co de Phone Number [facility] [address] [employer] [place], [place] [id number] * POCT glucose (09/21/2024 8:43 PM SMART ENERGY SPECIALIST) Glucose, POC 118 70 - 199 mg/dL Blood 09/21/2024 8:43 PM SMART ENERGY SPECIALIST 09/21/2024 8:43 PM SMART ENERGY SPECIALIST Victor Manuel Woo MD LAB POCT ORDERABLES - DEVICE Final Result Performing Organization Address City/[facility] Co de Phone Number [facility] [address] [facility] [employer] [place], [place] [phone] * Calcium, ionized, whole blood (09/21/2024 8:27 PM SMART ENERGY SPECIALIST) Ca, ionized, bld 4.60 4.50 - 5.10 mg/dL Blood 09/21/2024 8:27 PM SMART ENERGY SPECIALIST 09/21/2024 8:33 PM SMART ENERGY SPECIALIST Victor Manuel Woo MD LAB BLOOD ORDERABLES Final R esult Performing Organization Address [facility] Co de Phone Number TAB GUARDADO [address] Department of [employer] [place], [place] [id number] * eGFR (09/21/2024 8:27 PM SMART ENERGY SPECIALIST) eGFR >90 >=60 mL/min/1. 73 m2 Comment: [...] last reviewed 2021. Blood 09/21/2024 8:27 PM SMART ENERGY SPECIALIST 09/21/2024 8:37 PM SMART ENERGY SPECIALIST Victor Manuel Woo MD LAB BLOOD ORDERABLES Final R esult Performing Organization Address City/[facility]/ZIP Co de Phone Number TAB GUARDADO [address] [place] [place] [address] * (ABNORMAL) Differential, auto (09/21/2024 8:27 PM SMART ENERGY SPECIALIST) Neutrophil abs 8.0(H) 1.5 - 6.5 K/cumm Imm gran abs 0.1 0.0 - 0.1 K/cumm [facility] Lymphocyte abs 2.0 0.8 - 3.3 K/cumm [facility] Monocyte abs 1.2(H) 0.2 - 0.8 K/cumm [facility] Eosinophil abs 0.2 0.0 - 0.5 K/cumm [facility] Basophil abs 0.1 0.0 - 0.1 K/cumm [facility] Neutrophil pct 69.4 % [facility] Comment: Interpretive Data Percent cell count reference ranges are not reported, since discordance with absolute values may lead to misinterpretation of CBC data. Current Interpretive Data was last revised on 2017. Imm gran pct 0.6 % [facility] Comment: Interpretive Data Percent cell count reference ranges are not reported, since discordance with absolute values may lead to misinterpretation of CBC data. Current Interpretive Data was last revised on 2017. Lymphocyte pct 17.8 % [facility] Comment: Interpretive Data Percent cell count reference ranges are not reported, since discordance with absolute values may lead to misinterpretation of CBC data. Current Interpretive Data was last revised on 2017. Monocyte pct 10.0 % [facility] Comment: Interpretive Data Percent cell count reference ranges are not reported, since discordance with absolute values may lead to misinterpretation of CBC data. Current Interpretive Data was last revised on 2017. Eosinophil pct 1.8 % [facility] Comment: Interpretive Data Percent cell count reference ranges are not reported, since discordance with absolute values may lead to misinterpretation of CBC data. Current Interpretive Data was last revised on 2017. Basophil pct 0.4 % [facility] Comment: Interpretive Data Percent cell count reference ranges are not reported, since discordance with absolute values may lead to misinterpretation of CBC data. Current Interpretive Data was last revised on 2017. Blood 09/21/2024 8:27 PM SMART ENERGY SPECIALIST 09/21/2024 8:33 PM SMART ENERGY SPECIALIST us Victor Manuel Woo MD LAB BLOOD ORDERABLES Final R esult [place] [address] Department [place] [address] * (ABNORMAL) CBC with auto differential (09/21/2024 8:27 PM SMART ENERGY SPECIALIST) WBC 11.5(H) 3.8 - 9.9 K/cumm Hgb 9.1(L) 13.0 - 17.5 g/dL [facility] Hct 28.0(L) 38.9 - 50.3 % [facility] Plt 138(L) 150 - 400 K/cumm [facility] MPV 9.5 9.1 - 12.3 fL [facility] RBC 3.26(L) 4.30 - 5.80 M/cumm [facility] MCV 85.9 81.3 - 96.4 fL [facility] MCH 27.9 27.1 - 33.3 pg [facility] MCHC 32.5 32.3 - 35.7 g/dL [facility] RDW CV 13.5 11.1 - 14.9 % [facility] RDW SD 42.1 35.7 - 48.1 fL [facility] NRBC abs 0.00 0.00 - 0.01 K/cumm [facility] Blood 09/21/2024 8:27 PM SMART ENERGY SPECIALIST 09/21/2024 8:33 PM SMART ENERGY SPECIALIST Victor Manuel Woo MD LAB BLOOD ORDERABLES Final R esult Performing Organization Address [facility] de Phone Number [facility] [address] [place] [address] * Magnesium (09/21/2024 8:27 PM SMART ENERGY SPECIALIST) Pathologist [facility] Magnesium 1.9 1.4 - 2.5 mg/dL Blood 09/21/2024 8:27 PM SMART ENERGY SPECIALIST 09/21/2024 8:33 PM SMART ENERGY SPECIALIST Victor Manuel Woo MD LAB BLOOD ORDERABLES Final R esult Performing Organization Address [facility] Co de Phone Number [facility] [address] [place] [address] * (ABNORMAL) Basic metabolic panel (09/21/2024 8:27 PM SMART ENERGY SPECIALIST) Sodium 140 135 - 145 mmol/L Potassium, pl 3.4 3.3 - 4.9 mmol/L [facility] Chloride 107 97 - 110 mmol/L [facility] CO2 21(L) 22 - 32 mmol/L [facility] Anion gap 12 2 - 15 mmol/L [facility] BUN 11 6 - 25 mg/dL [facility] Creatinine 0.76(L) 0.80 - 1.30 mg/dL [facility] Glucose 117 70 - 199 mg/dL [facility] Comment: Interpretive Data Fasting glucose >/= 126 [...] 2022. Calcium 8.6 8.5 - 10.3 mg/dL [facility] Blood 09/21/2024 8:27 PM SMART ENERGY SPECIALIST 09/21/2024 8:33 PM SMART ENERGY SPECIALIST us Victor Manuel Woo MD LAB BLOOD ORDERABLES Final R esult [facility] [address] [facility] Department [place] [address] * Critical Care (09/21/2024 7:29 PM SMART ENERGY SPECIALIST) Narrative Andressa Jacobs MD - 09/21/2024 7:29 PM SMART ENERGY SPECIALIST Alex Melendez PA 09/22/2024 5:41 AM Critical [...] plan with the ICU team and other medical/sql server consultant staff, making frequent assessments and decisions [...] Result * POCT glucose (09/21/2024 7:19 PM SMART ENERGY SPECIALIST) Glucose, POC 142 70 - 199 mg/dL Blood 09/21/2024 7:19 PM SMART ENERGY SPECIALIST 09/21/2024 7:19 PM SMART ENERGY SPECIALIST us Victor Manuel Woo MD LAB POCT ORDERABLES - DEVICE Final Result Performing Organization Address [facility] [place] [address] [address] [place] [place] [address] * POCT glucose (09/21/2024 6:13 PM SMART ENERGY SPECIALIST) Glucose, POC 130 70 - 199 mg/dL Blood 09/21/2024 6:13 PM SMART ENERGY SPECIALIST 09/21/2024 6:13 PM SMART ENERGY SPECIALIST Victor Manuel Woo MD LAB POCT ORDERABLES - DEVICE Final Result Performing Organization Address City/[facility] [place] [address] [address] [facility] [place] [address] * POCT glucose (09/21/2024 4:56 PM SMART ENERGY SPECIALIST) Glucose, POC 141 70 - 199 mg/dL Blood 09/21/2024 4:56 PM SMART ENERGY SPECIALIST 09/21/2024 4:56 PM SMART ENERGY SPECIALIST Victor Manuel Woo MD LAB POCT ORDERABLES - DEVICE Final Result Performing Organization Address [facility] Co de Phone Number TAB GUARDAD[address] [facility] [place] [address] * POCT glucose (09/21/2024 2:45 PM SMART ENERGY SPECIALIST) Glucose, POC 116 70 - 199 mg/dL Blood 09/21/2024 2:45 PM SMART ENERGY SPECIALIST 09/21/2024 2:45 PM SMART ENERGY SPECIALIST Victor Manuel Woo MD LAB POCT ORDERABLES - DEVICE Final Result Performing Organization Address [facility] Co de Phone Number TAB GUARD[address] [facility] [place] [address] * Calcium, ionized, whole blood (09/21/2024 1:42 PM SMART ENERGY SPECIALIST) Ca, ionized, bld 4.93 4.50 - 5.10 mg/dL Blood 09/21/2024 1:42 PM SMART ENERGY SPECIALIST 09/21/2024 1:44 PM SMART ENERGY SPECIALIST Victor Manuel Woo MD LAB BLOOD ORDERABLES Final R esult Performing Organization Address [facility] Co de Phone Number TAB GUARDADO [address] [facility] [employer] [place], [place] [phone] * eGFR (09/21/2024 1:42 PM SMART ENERGY SPECIALIST) eGFR >90 >=60 mL/min/1. 73 m2 Comment: [...] last reviewed 2021. Blood 09/21/2024 1:42 PM SMART ENERGY SPECIALIST 09/21/2024 1:46 PM SMART ENERGY SPECIALIST us Victor Manuel Woo MD LAB BLOOD ORDERABLES [place] [address] [address] Department [place] [address] * (ABNORMAL) CBC without differential (09/21/2024 1:42 PM SMART ENERGY SPECIALIST) WBC 9.5 3.8 - 9.9 K/cumm Hgb 9.3(L) 13.0 - 17.5 g/dL [facility] Hct 29.1(L) 38.9 - 50.3 % [facility] Plt 149(L) 150 - 400 K/cumm [facility] MPV 9.6 9.1 - 12.3 fL [facility] RBC 3.37(L) 4.30 - 5.80 M/cumm [facility] MCV 86.4 81.3 - 96.4 fL [facility] MCH 27.6 27.1 - 33.3 pg [facility] MCHC 32.0(L) 32.3 - 35.7 g/dL [facility] RDW CV 13.3 11.1 - 14.9 % [facility] RDW SD 42.2 35.7 - 48.1 fL [facility] NRBC abs 0.00 0.00 - 0.01 K/cumm [facility] Blood 09/21/2024 1:42 PM SMART ENERGY SPECIALIST 09/21/2024 1:46 PM SMART ENERGY SPECIALIST us Victor Manuel Woo MD LAB BLOOD ORDERABLES Final R esult Performing Organization Address City/[facility] Co de Phone Number TAB GUARDAD[address] [facility] [place] [address] * Magnesium (09/21/2024 1:42 PM SMART ENERGY SPECIALIST) Pathologist [facility] Magnesium 2.0 1.4 - 2.5 mg/dL Blood 09/21/2024 1:42 PM SMART ENERGY SPECIALIST 09/21/2024 1:44 PM SMART ENERGY SPECIALIST Victor Manuel Woo MD LAB BLOOD ORDERABLES Final R [facility] Performing Organization Address [facility] de Phone Number TAB GUARDAD[address] [place] [place] [address] * (ABNORMAL) Basic metabolic panel (09/21/2024 1:42 PM SMART ENERGY SPECIALIST) Pathologist [facility] Sodium 141 135 - 145 mmol/L Potassium, pl 3.6 3.3 - 4.9 mmol/L [facility] Chloride 109 97 - 110 mmol/L [facility] CO2 20(L) 22 - 32 mmol/L [facility] Anion gap 12 2 - 15 mmol/L [facility] BUN 10 6 - 25 mg/dL [facility] Creatinine 0.70(L) 0.80 - 1.30 mg/dL [facility] Glucose 130 70 - 199 mg/dL [facility] Comment: Interpretive Data Fasting glucose >/= 126 [...] 2022. Calcium 8.6 8.5 - 10.3 mg/dL [facility] Blood 09/21/2024 1:42 PM SMART ENERGY SPECIALIST 09/21/2024 1:44 PM SMART ENERGY SPECIALIST us Victor Manuel Woo MD LAB BLOOD ORDERABLES Final R esult Performing Organization Address [facility] Co de Phone Number TAB GUARDAD[address] [address] [facility] [place] [address] * POCT glucose (09/21/2024 12:36 PM SMART ENERGY SPECIALIST) Glucose, POC 100 70 - 199 mg/dL Blood 09/21/2024 12:3 6 PM SMART ENERGY SPECIALIST 09/21/2024 12:36 PM SMART ENERGY SPECIALIST Victor Manuel Woo MD LAB POCT ORDERABLES - DEVICE Final Result Performing Organization Address [facility] Phone Number TAB GUARD[place] [address] [address] [facility] [place] [address] * POCT glucose (09/21/2024 10:50 AM SMART ENERGY SPECIALIST) Glucose, POC 115 70 - 199 mg/dL Blood 09/21/2024 10:5 0 AM SMART ENERGY SPECIALIST 09/21/2024 10:50 AM SMART ENERGY SPECIALIST Victor Manuel Woo MD LAB POCT ORDERABLES - DEVICE Final Result Performing Organization Address [facility] Phone Number TAB GUARD[address] [address] [facility] [place] [address] * ECG 12 lead (09/21/2024 10:14 AM SMART ENERGY SPECIALIST) 09/21/2024 10:1 4 AM SMART ENERGY SPECIALIST Narrative [facility] - 09/21/2024 12:09 PM SMART ENERGY SPECIALIST Vent Rate: 74 bpm RR Interval: 803 msec VA Interval: 154 msec QRS Duration: 96 msec QT Interval: 374 msec QTC Interval: 402 msec P-R-T [place]: 11 - -9 - 50 degrees IMPRESSION: SINUS RHYTHM WITH SINUS ARRHYTHMIA INFERIOR MYOCARDIAL INFARCTION , OF INDETERMINATE AGE [40+ ms Q WAVE AND/OR ST/T ABNORMALITY IN II/aVF] ABNORMAL ECG NO CHANGE FROM PREVIOUS TRACING NOTED Electronically Signed By: Bashir Mayberry MD Victor Manuel Woo MD ECG ORDERABLES Final Result Performing Organization Address [facility] Co de Phone Number [facility] * POCT glucose (09/21/2024 9:43 AM SMART ENERGY SPECIALIST) Glucose, POC 137 70 - 199 mg/dL Blood 09/21/2024 9:43 AM SMART ENERGY SPECIALIST 09/21/2024 9:43 AM SMART ENERGY SPECIALIST Victor Manuel Woo MD LAB POCT ORDERABLES - DEVICE Final Result Performing Organization Address [facility] Phone Number TAB [address] [place] [address] * POCT glucose (09/21/2024 8:39 AM SMART ENERGY SPECIALIST) Glucose, POC 127 70 - 199 mg/dL Blood 09/21/2024 8:39 AM SMART ENERGY SPECIALIST 09/21/2024 8:39 AM SMART ENERGY SPECIALIST Victor Manuel Woo MD LAB POCT ORDERABLES - DEVICE Final Result Performing Organization Address [facility] Phone Number TAB GUARD[place] [place] [address] * Critical Care (09/21/2024 8:32 AM SMART ENERGY SPECIALIST) Narrative Jamal Lombardi MD - 09/21/2024 8:32 AM SMART ENERGY SPECIALIST Ora Smith NP 09/21/2024 6:09 PM Critical [...] plan with the ICU team and other medical/sql server consultant staff, making frequent assessments and decisions [...] Result * POCT glucose (09/21/2024 7:31 AM SMART ENERGY SPECIALIST) Glucose, POC 135 70 - 199 mg/dL Blood 09/21/2024 7:31 AM SMART ENERGY SPECIALIST 09/21/2024 7:31 AM SMART ENERGY SPECIALIST us Victor Manuel Woo MD LAB POCT ORDERABLES - DEVICE Final Result Performing Organization Address [facility] [place] [address] [address] [employer] [place] [address] * POCT glucose (09/21/2024 6:28 AM SMART ENERGY SPECIALIST) Glucose, POC 137 70 - 199 mg/dL Blood 09/21/2024 6:28 AM SMART ENERGY SPECIALIST 09/21/2024 6:28 AM SMART ENERGY SPECIALIST Victor Manuel Woo MD LAB POCT ORDERABLES - DEVICE Final Result Performing Organization Address [facility] [place] [address] [address] [place] [address] * XR Chest 1 View - Portable - in AM (09/21/2024 6:00 AM SMART ENERGY SPECIALIST) Anatomical Region Laterality Modality Body, Chest N/A Computed Radiogr aphy 09/21/2024 7:53 AM SMART ENERGY SPECIALIST Impressions 09/21/2024 7:53 AM SMART ENERGY SPECIALIST Findings/impression: Pulmonary arterial catheter, mediastinal drain, and bilateral thoracostomy tubes are appropriately positioned. No cardiomegaly. Poststernotomy changes and mild pulmonary vascular congestion. No pneumothorax or pleural effusion. Electronically signed by: Raul Mendieta II, D.O. Narrative 09/21/2024 7:53 AM SMART ENERGY SPECIALIST EXAMINATION: XR CHEST 1 VIEW DATE: 09/21/2024 [...] Raul Mendieta II, D.O. us Apoorva Mar RESEARCH PROGRAM COORDINATOR IMG XR PROCEDURES Final Result * POCT glucose (09/21/2024 5:01 AM SMART ENERGY SPECIALIST) Glucose, POC 121 70 - 199 mg/dL Blood 09/21/2024 5:01 AM SMART ENERGY SPECIALIST 09/21/2024 5:01 AM SMART ENERGY SPECIALIST us Victor Manuel Woo MD LAB POCT ORDERABLES - DEVICE Final Result [facility] [address] [place] [address] * Oxyhemoglobin, central venous (09/21/2024 4:41 AM SMART ENERGY SPECIALIST) Oxyhemoglobin, CV 66.2 % Comment: Interpretive Data No reference range established. Current interpretive data was last revised 2019. Blood 09/21/2024 4:41 AM SMART ENERGY SPECIALIST 09/21/2024 4:59 AM SMART ENERGY SPECIALIST Victor Manuel Woo MD LAB BLOOD ORDERABLES Final R esult Performing Organization Address [facility] Co de Phone Number TAB GUARD[address] [place] [address] * eGFR (09/21/2024 4:41 AM SMART ENERGY SPECIALIST) eGFR >90 >=60 mL/min/1. 73 m2 Comment: [...] last reviewed 2021. Blood 09/21/2024 4:41 AM SMART ENERGY SPECIALIST 09/21/2024 5:04 AM SMART ENERGY SPECIALIST Victor Manuel Woo MD LAB BLOOD ORDERABLES Final R esult Performing Organization Address City/[facility]/ZIP Co de Phone Number TAB GUARD[place] [address] [place] [address] * Differential, auto (09/21/2024 4:41 AM SMART ENERGY SPECIALIST) Neutrophil abs 5.9 1.5 - 6.5 K/cumm Imm gran abs 0.0 0.0 - 0.1 K/cumm [facility] Lymphocyte abs 1.3 0.8 - 3.3 K/cumm [facility] Monocyte abs 0.7 0.2 - 0.8 K/cumm [facility] Eosinophil abs 0.0 0.0 - 0.5 K/cumm [facility] Basophil abs 0.0 0.0 - 0.1 K/cumm [facility] Neutrophil pct 73.1 % [facility] Comment: Interpretive Data Percent cell count reference ranges are not reported, since discordance with absolute values may lead to misinterpretation of CBC data. Current Interpretive Data was last revised on 2017. Imm gran pct 0.4 % [facility] Comment: Interpretive Data Percent cell count reference ranges are not reported, since discordance with absolute values may lead to misinterpretation of CBC data. Current Interpretive Data was last revised on 2017. Lymphocyte pct 16.6 % [facility] Comment: Interpretive Data Percent cell count reference ranges are not reported, since discordance with absolute values may lead to misinterpretation of CBC data. Current Interpretive Data was last revised on 2017. Monocyte pct 9.0 % [facility] Comment: Interpretive Data Percent cell count reference ranges are not reported, since discordance with absolute values may lead to misinterpretation of CBC data. Current Interpretive Data was last revised on 2017. Eosinophil pct 0.5 % [facility] Comment: Interpretive Data Percent cell count reference ranges are not reported, since discordance with absolute values may lead to misinterpretation of CBC data. Current Interpretive Data was last revised on 2017. Basophil pct 0.4 % [facility] Comment: Interpretive Data Percent cell count reference ranges are not reported, since discordance with absolute values may lead to misinterpretation of CBC data. Current Interpretive Data was last revised on 2017. Blood 09/21/2024 4:41 AM SMART ENERGY SPECIALIST 09/21/2024 5:04 AM SMART ENERGY SPECIALIST us Victor Manuel Woo MD LAB BLOOD ORDERABLES Final R esult TAB GEO [address] [address] Department [place] [address] * (ABNORMAL) CBC with auto differential (09/21/2024 4:41 AM SMART ENERGY SPECIALIST) Pathologist [facility] WBC 8.0 3.8 - 9.9 K/cumm Hgb 9.4(L) 13.0 - 17.5 g/dL [facility] Hct 29.8(L) 38.9 - 50.3 % [facility] Plt 150 150 - 400 K/cumm [facility] MPV 10.0 9.1 - 12.3 fL [facility] RBC 3.43(L) 4.30 - 5.80 M/cumm [facility] MCV 86.9 81.3 - 96.4 fL [facility] MCH 27.4 27.1 - 33.3 pg [facility] MCHC 31.5(L) 32.3 - 35.7 g/dL [facility] RDW CV 13.2 11.1 - 14.9 % [facility] RDW SD 41.3 35.7 - 48.1 fL [facility] NRBC abs 0.00 0.00 - 0.01 K/cumm [facility] Blood 09/21/2024 4:41 AM SMART ENERGY SPECIALIST 09/21/2024 5:04 AM SMART ENERGY SPECIALIST Victor Manuel Woo MD LAB BLOOD ORDERABLES Final R esult Performing Organization Address City/[facility] Co de Phone Number YOLISLLUVIA GUARDADO [address] [address] [place] [address] * (ABNORMAL) Phosphorus (09/21/2024 4:41 AM SMART ENERGY SPECIALIST) [facility] Phosphorus, pl 5.1(H) 2.3 - 4.5 mg/dL Blood 09/21/2024 4:41 AM SMART ENERGY SPECIALIST 09/21/2024 5:04 AM SMART ENERGY SPECIALIST Victor Manuel Woo MD LAB BLOOD ORDERABLES Final R esult Performing Organization Address City/[facility]/ZIP Co de Phone Number TAB GUARDADO [address] [address] [facility] [place] [place], [place] [id number] * Magnesium (09/21/2024 4:41 AM SMART ENERGY SPECIALIST) [facility] Magnesium 2.2 1.4 - 2.5 mg/dL Blood 09/21/2024 4:41 AM SMART ENERGY SPECIALIST 09/21/2024 5:04 AM SMART ENERGY SPECIALIST Victor Manuel Woo MD LAB BLOOD ORDERABLES Final R esult Performing Organization Address City/[facility] Co de Phone Number TAB GUARDADO [address] [address] [place] [address] * (ABNORMAL) Basic metabolic panel (09/21/2024 4:41 AM SMART ENERGY SPECIALIST) Pathologist [facility] Sodium 146(H) 135 - 145 mmol/L Potassium, pl 3.7 3.3 - 4.9 mmol/L [facility] Chloride 114(H) 97 - 110 mmol/L [facility] CO2 22 22 - 32 mmol/L [facility] Anion gap 10 2 - 15 mmol/L [facility] BUN 9 6 - 25 mg/dL [facility] Creatinine 0.62(L) 0.80 - 1.30 mg/dL [facility] Glucose 133 70 - 199 mg/dL [facility] Comment: Interpretive Data Fasting glucose >/= 126 [...] 2022. Calcium 8.2(L) 8.5 - 10.3 mg/dL [facility] Blood 09/21/2024 4:41 AM SMART ENERGY SPECIALIST 09/21/2024 5:04 AM SMART ENERGY SPECIALIST Result [facility] Victor Manuel Woo MD LAB BLOOD ORDERABLES Final R esult Performing Organization Address [facility] Co de Phone Number TAB [address] [address] [place] [address] * POCT glucose (09/21/2024 4:04 AM SMART ENERGY SPECIALIST) Glucose, POC 159 70 - 199 mg/dL Blood 09/21/2024 4:04 AM SMART ENERGY SPECIALIST 09/21/2024 4:04 AM SMART ENERGY SPECIALIST us Victor Manuel Woo MD LAB POCT ORDERABLES - DEVICE Final Result Performing Organization Address [facility] de Phone Number TAB [address] [address] [facility] [place] [address] * POCT glucose (09/21/2024 2:57 AM SMART ENERGY SPECIALIST) Glucose, POC 136 70 - 199 mg/dL Blood 09/21/2024 2:57 AM SMART ENERGY SPECIALIST 09/21/2024 2:57 AM SMART ENERGY SPECIALIST Victor Manuel Woo MD LAB POCT ORDERABLES - DEVICE Final Result Performing Organization Address [facility] de Phone Number [facility] [address] [address] [facility] [place] [address] * POCT glucose (09/21/2024 1:42 AM SMART ENERGY SPECIALIST) Glucose, POC 140 70 - 199 mg/dL Blood 09/21/2024 1:42 AM SMART ENERGY SPECIALIST 09/21/2024 1:42 AM SMART ENERGY SPECIALIST us Victor Manuel Woo MD LAB POCT ORDERABLES - DEVICE Final Result Performing Organization Address [facility] de Phone Number [facility] [address] [address] [facility] [place] [address] * POCT glucose (09/21/2024 12:45 AM SMART ENERGY SPECIALIST) Glucose, POC 126 70 - 199 mg/dL Blood 09/21/2024 12:4 5 AM SMART ENERGY SPECIALIST 09/21/2024 12:45 AM SMART ENERGY SPECIALIST Victor Manuel Woo MD LAB POCT ORDERABLES - DEVICE Final Result Performing Organization Address [facility] Co de Phone Number YOLISLLUVIA GUARDADO [address] [address] Moya [facility] [place] [address] * POCT glucose (09/20/2024 11:46 PM SMART ENERGY SPECIALIST) Glucose, POC 141 70 - 199 mg/dL Blood 09/20/2024 11:4 6 PM SMART ENERGY SPECIALIST 09/20/2024 11:46 PM SMART ENERGY SPECIALIST Victor Manuel Woo MD LAB POCT ORDERABLES - DEVICE Final Result Performing Organization Address [facility] Phone Number YOLISLLUVIA GUARDADO [address] [address] Moya [facility] [place] [address] * Oxyhemoglobin, central venous (09/20/2024 11:41 PM SMART ENERGY SPECIALIST) Oxyhemoglobin, CV 69.2 % Comment: Interpretive Data No reference range established. Current interpretive data was last revised 2019. Blood 09/20/2024 11:4 1 PM SMART ENERGY SPECIALIST 09/20/2024 11:54 PM SMART ENERGY SPECIALIST Result [facility] Victor Manuel Woo MD LAB BLOOD ORDERABLES Final R esult Performing Organization Address [facility] de Phone Number YOLISLLUVIA GUARDADO [address] [address] Moya [facility] [place] [address] * (ABNORMAL) Calcium, ionized, whole blood (09/20/2024 11:33 PM SMART ENERGY SPECIALIST) Ca, ionized, bld 5.22(H) 4.50 - 5.10 mg/dL Blood 09/20/2024 11:3 3 PM SMART ENERGY SPECIALIST 09/20/2024 11:54 PM SMART ENERGY SPECIALIST Victor Manuel Woo MD LAB BLOOD ORDERABLES Final R esult Performing Organization Address [facility] Co de Phone Number TAB GUARDADO [address] [address] Moya Department [place] [address] * eGFR (09/20/2024 11:33 PM SMART ENERGY SPECIALIST) eGFR >90 >=60 mL/min/1. 73 m2 Comment: [...] reviewed 2021. Blood 09/20/2024 11:3 3 PM SMART ENERGY SPECIALIST 09/21/2024 12:28 AM SMART ENERGY SPECIALIST us Victor Manuel Woo MD LAB BLOOD ORDERABLES Final R esult TAB GUARDADO [address] [address] Moya Department [place] [address] * (ABNORMAL) Differential, auto (09/20/2024 11:33 PM SMART ENERGY SPECIALIST) Neutrophil abs 5.5 1.5 - 6.5 K/cumm Imm gran abs 0.0 0.0 - 0.1 K/cumm [facility] Lymphocyte abs 0.7(L) 0.8 - 3.3 K/cumm [facility] Monocyte abs 0.4 0.2 - 0.8 K/cumm [facility] Eosinophil abs 0.0 0.0 - 0.5 K/cumm [facility] Basophil abs 0.0 0.0 - 0.1 K/cumm [facility] Neutrophil pct 82.9 % [facility] Comment: Interpretive Data Percent cell count reference ranges are not reported, since discordance with absolute values may lead to misinterpretation of CBC data. Current Interpretive Data was last revised on 2017. Imm gran pct 0.5 % [facility] Comment: Interpretive Data Percent cell count reference ranges are not reported, since discordance with absolute values may lead to misinterpretation of CBC data. Current Interpretive Data was last revised on 2017. Lymphocyte pct 10.3 % [facility] Comment: Interpretive Data Percent cell count reference ranges are not reported, since discordance with absolute values may lead to misinterpretation of CBC data. Current Interpretive Data was last revised on 2017. Monocyte pct 5.3 % [facility] Comment: Interpretive Data Percent cell count reference ranges are not reported, since discordance with absolute values may lead to misinterpretation of CBC data. Current Interpretive Data was last revised on 2017. Eosinophil pct 0.5 % [facility] Comment: Interpretive Data Percent cell count reference ranges are not reported, since discordance with absolute values may lead to misinterpretation of CBC data. Current Interpretive Data was last revised on 2017. Basophil pct 0.5 % [facility] Comment: Interpretive Data Percent cell count reference ranges are not reported, since discordance with absolute values may lead to misinterpretation of CBC data. Current Interpretive Data was last revised on 2017. Blood 09/20/2024 11:3 3 PM SMART ENERGY SPECIALIST 09/20/2024 11:54 PM SMART ENERGY SPECIALIST Victor Manuel Woo MD LAB BLOOD ORDERABLES Final R esult [facility] [address] [address] Department [place] [address] * (ABNORMAL) CBC with auto differential (09/20/2024 11:33 PM SMART ENERGY SPECIALIST) WBC 6.6 3.8 - 9.9 K/cumm Hgb 9.6(L) 13.0 - 17.5 g/dL [facility] Hct 29.9(L) 38.9 - 50.3 % [facility] Plt 146(L) 150 - 400 K/cumm [facility] MPV 9.8 9.1 - 12.3 fL [facility] RBC 3.45(L) 4.30 - 5.80 M/cumm [facility] MCV 86.7 81.3 - 96.4 fL [facility] MCH 27.8 27.1 - 33.3 pg [facility] MCHC 32.1(L) 32.3 - 35.7 g/dL [facility] RDW CV 13.2 11.1 - 14.9 % [facility] RDW SD 41.1 35.7 - 48.1 fL [facility] NRBC abs 0.00 0.00 - 0.01 K/cumm [facility] Blood 09/20/2024 11:3 3 PM SMART ENERGY SPECIALIST 09/20/2024 11:54 PM SMART ENERGY SPECIALIST Victor Manuel Woo MD LAB BLOOD ORDERABLES Final R esult Performing Organization Address [facility] Co de Phone Number [facility] [address] [address] [place] [address] * Magnesium (09/20/2024 11:33 PM SMART ENERGY SPECIALIST) Pathologist [facility] Magnesium 1.9 1.4 - 2.5 mg/dL Blood 09/20/2024 11:3 3 PM SMART ENERGY SPECIALIST 09/20/2024 11:54 PM SMART ENERGY SPECIALIST Victor Manuel Woo MD LAB BLOOD ORDERABLES Final R esult Performing Organization Address [facility] Co de Phone Number [facility] [address] [address] Department [place] [address] * (ABNORMAL) Basic metabolic panel (09/20/2024 11:33 PM SMART ENERGY SPECIALIST) Sodium 148(H) 135 - 145 mmol/L Potassium, pl 3.8 3.3 - 4.9 mmol/L [facility] Chloride 115(H) 97 - 110 mmol/L [facility] CO2 23 22 - 32 mmol/L [facility] Anion gap 10 2 - 15 mmol/L [facility] BUN 9 6 - 25 mg/dL [facility] Creatinine 0.62(L) 0.80 - 1.30 mg/dL [facility] Glucose 146 70 - 199 mg/dL [facility] Comment: Interpretive Data Fasting glucose >/= 126 [...] 2022. Calcium 8.7 8.5 - 10.3 mg/dL [facility] Blood 09/20/2024 11:3 3 PM SMART ENERGY SPECIALIST 09/20/2024 11:54 PM SMART ENERGY SPECIALIST Victor Manuel Woo MD LAB BLOOD ORDERABLES Final R esult Performing Organization Address [facility] Co de Phone Number [facility] [address] [address] [place] [address] * POCT glucose (09/20/2024 10:34 PM SMART ENERGY SPECIALIST) Glucose, POC 128 70 - 199 mg/dL Blood 09/20/2024 10:3 4 PM SMART ENERGY SPECIALIST 09/20/2024 10:34 PM SMART ENERGY SPECIALIST Victor Manuel Woo MD LAB POCT ORDERABLES - DEVICE Final Result Performing Organization Address City/[facility]/ZIP Co de Phone Number [facility] [address] [address] Department [place] [address] * (ABNORMAL) Blood gas, arterial (09/20/2024 10:30 PM SMART ENERGY SPECIALIST) pH, Art 7.34(L) 7.35 - 7.45 PCO2, Arterial 43 35 - 45 mmHg [facility] PO2, Arterial 106 83 - 108 mmHg [facility] HCO3 Art (Calculated) 22 20 - 30 mmol/L [facility] BE, art -2 mmol/L [facility] Comment: Interpretive Data No Reference Range Established Current Interpretive Data was last revised on 2017 O2 Sat Art (Measured) 97(H) 90 - 95 % [facility] Blood 09/20/2024 10:3 0 PM SMART ENERGY SPECIALIST 09/20/2024 10:39 PM SMART ENERGY SPECIALIST Victor Manuel Woo MD LAB BLOOD ORDERABLES Final R esult Performing Organization Address [facility] Co de Phone Number TAB GUARDADO [address] [address] [facility] [place] [address] * POCT glucose (09/20/2024 9:38 PM SMART ENERGY SPECIALIST) Glucose, POC 100 70 - 199 mg/dL Blood 09/20/2024 9:38 PM SMART ENERGY SPECIALIST 09/20/2024 9:38 PM SMART ENERGY SPECIALIST Victor Manuel Woo MD LAB POCT ORDERABLES - DEVICE Final Result Performing Organization Address [facility] Co de Phone Number TAB GUARDADO [address] [address] [facility] [place] [address] * POCT glucose (09/20/2024 8:35 PM SMART ENERGY SPECIALIST) Glucose, POC 100 70 - 199 mg/dL Blood 09/20/2024 8:35 PM SMART ENERGY SPECIALIST 09/20/2024 8:35 PM SMART ENERGY SPECIALIST Victor Manuel Woo MD LAB POCT ORDERABLES - DEVICE Final Result Performing Organization Address [facility] Co de Phone Number TAB GUARDADO [address] [address] [facility] [employer] [place], [place] [id number] * POCT glucose (09/20/2024 7:33 PM SMART ENERGY SPECIALIST) Glucose, POC 112 70 - 199 mg/dL Blood 09/20/2024 7:33 PM SMART ENERGY SPECIALIST 09/20/2024 7:33 PM SMART ENERGY SPECIALIST us Victor Manuel Woo MD LAB POCT ORDERABLES - DEVICE Final Result Performing Organization Address City/[facility] Co de Phone Number TAB GUARDADO [address] [address] [facility] [place] [address] * (ABNORMAL) Calcium, ionized, whole blood (09/20/2024 6:39 PM SMART ENERGY SPECIALIST) Ca, ionized, bld 5.54(H) 4.50 - 5.10 mg/dL Blood 09/20/2024 6:39 PM SMART ENERGY SPECIALIST 09/20/2024 6:55 PM SMART ENERGY SPECIALIST us Victor Manuel Woo MD LAB BLOOD ORDERABLES Final R esult Performing Organization Address [facility] de Phone Number TAB GUARDADO [address] [address] [place] [address] * eGFR (09/20/2024 6:39 PM SMART ENERGY SPECIALIST) eGFR >90 >=60 mL/min/1. 73 m2 Comment: [...] last reviewed 2021. Blood 09/20/2024 6:39 PM SMART ENERGY SPECIALIST 09/20/2024 7:02 PM SMART ENERGY SPECIALIST Victor Manuel Woo MD LAB BLOOD ORDERABLES Final R esult TAB GUARDADO [address] [address] [place] [address] * (ABNORMAL) CBC without differential (09/20/2024 6:39 PM SMART ENERGY SPECIALIST) WBC 7.0 3.8 - 9.9 K/cumm Hgb 9.9(L) 13.0 - 17.5 g/dL [facility] Hct 30.2(L) 38.9 - 50.3 % [facility] Plt 141(L) 150 - 400 K/cumm [facility] MPV 9.5 9.1 - 12.3 fL [facility] RBC 3.55(L) 4.30 - 5.80 M/cumm [facility] MCV 85.1 81.3 - 96.4 fL [facility] MCH 27.9 27.1 - 33.3 pg [facility] MCHC 32.8 32.3 - 35.7 g/dL [facility] CH RDW CV 13.1 11.1 - 14.9 % [facility] RDW SD 40.9 35.7 - 48.1 fL [facility] NRBC abs 0.00 0.00 - 0.01 K/cumm [facility] CH Blood 09/20/2024 6:39 PM SMART ENERGY SPECIALIST 09/20/2024 6:56 PM SMART ENERGY SPECIALIST Victor Manuel Woo MD LAB BLOOD ORDERABLES Final R esult TAB GUARDADO [address] [place] [address] * Magnesium (09/20/2024 6:39 PM SMART ENERGY SPECIALIST) Magnesium 2.1 1.4 - 2.5 mg/dL Blood 09/20/2024 6:39 PM SMART ENERGY SPECIALIST 09/20/2024 6:55 PM SMART ENERGY SPECIALIST Victor Manuel Woo MD LAB BLOOD ORDERABLES Final R esult Performing Organization Address City/[facility]/ZIP Co de Phone Number TAB GUARDADO [address] [address] Department [employer] [place], [place] [id number] * (ABNORMAL) Blood gas, arterial (09/20/2024 6:39 PM SMART ENERGY SPECIALIST) pH, Art 7.41 7.35 - 7.45 PCO2, [...] % [facility] Blood 09/20/2024 6:39 PM SMART ENERGY SPECIALIST 09/20/2024 6:55 PM SMART ENERGY SPECIALIST Victor Manuel Woo MD LAB BLOOD ORDERABLES Final R esult Performing Organization Address [facility] Co de Phone Number TAB GUARDADO [address] [address] Moya Department [employer] [place], [place] [id number] * (ABNORMAL) Basic metabolic panel (09/20/2024 6:39 PM SMART ENERGY SPECIALIST) Sodium 147(H) 135 - 145 mmol/L Potassium, [...] 2022. Calcium 10.0 8.5 - 10.3 mg/dL [facility] Blood 09/20/2024 6:39 PM SMART ENERGY SPECIALIST 09/20/2024 6:55 PM SMART ENERGY SPECIALIST Victor Manuel Woo MD LAB BLOOD ORDERABLES Final R esult Performing Organization Address [facility] Co de Phone Number TAB GUARDADO [address] [address] [place] [address] * POCT glucose (09/20/2024 6:30 PM SMART ENERGY SPECIALIST) Glucose, POC 129 70 - 199 mg/dL Blood 09/20/2024 6:30 PM SMART ENERGY SPECIALIST 09/20/2024 6:30 PM SMART ENERGY SPECIALIST Victor Manuel Woo MD LAB POCT ORDERABLES - DEVICE Final Result Performing Organization Address [facility] Co de Phone Number TAB [address] [address] [place] [address] * POCT glucose (09/20/2024 5:07 PM SMART ENERGY SPECIALIST) Glucose, POC 142 70 - 199 mg/dL Blood 09/20/2024 5:07 PM SMART ENERGY SPECIALIST 09/20/2024 5:07 PM SMART ENERGY SPECIALIST Victor Manuel Woo MD LAB POCT ORDERABLES - DEVICE Final Result Performing Organization Address [facility] Co de Phone Number TAB [address] [address] [facility] [place] [address] * POCT glucose (09/20/2024 4:25 PM SMART ENERGY SPECIALIST) Glucose, POC 113 70 - 199 mg/dL Blood 09/20/2024 4:25 PM SMART ENERGY SPECIALIST 09/20/2024 4:25 PM SMART ENERGY SPECIALIST Victor Manuel Woo MD LAB POCT ORDERABLES - DEVICE Final Result Performing Organization Address City/State/ZIP Co ok Phone Number TAB GUARDADO [address] [facility] Department [place] [address] * XR Chest 1 View - Portable (09/20/2024 3:00 PM SMART ENERGY SPECIALIST) Anatomical Region Laterality Modality Body, Chest N/A Computed Radiogr aphy 09/20/2024 3:07 PM SMART ENERGY SPECIALIST Impressions 09/20/2024 3:07 PM SMART ENERGY SPECIALIST FINDINGS/IMPRESSION: Endotracheal tube terminates 2.8 cm from the terri. Enteric tube is appropriately positioned. Bilateral thoracostomy tubes and mediastinal drain are appropriately positioned. Pulmonary arterial catheter is appropriately positioned. Poststernotomy changes. No pneumothorax or pleural effusion. Cardiac mediastinal silhouette is normal in size. No acute osseous abnormality. Electronically signed by: Raul Mendieta II, D.O. Narrative 09/20/2024 3:07 PM SMART ENERGY SPECIALIST EXAMINATION: XR CHEST 1 VIEW DATE: 09/20/2024 [...] Electronically signed by: Raul Mendieta II, D.O. Victor Manuel Woo MD IMG XR PROCEDURES Final Resu lt * Calcium, ionized, whole blood (09/20/2024 2:59 PM SMART ENERGY SPECIALIST) Pathologist [facility] Ca, ionized, bld 4.77 4.50 - 5.10 mg/dL Blood 09/20/2024 2:59 PM SMART ENERGY SPECIALIST 09/20/2024 3:03 PM SMART ENERGY SPECIALIST Victor Manuel Woo MD LAB BLOOD ORDERABLES Final R esult TAB GUARDADO [address] [address] [place] [address] * eGFR (09/20/2024 2:59 PM SMART ENERGY SPECIALIST) Pathologist [facility] eGFR >90 >=60 mL/min/1. 73 m2 Comment: [...] last reviewed 2021. Blood 09/20/2024 2:59 PM SMART ENERGY SPECIALIST 09/20/2024 3:04 PM SMART ENERGY SPECIALIST us Victor Manuel Woo MD LAB [place] [address] [address] Department [facility] [place], [place] [id number] * aPTT (09/20/2024 2:59 PM SMART ENERGY SPECIALIST) aPTT 34 28 - 38 sec Comment: Interpretive Data Heparin therapeutic range: 66.0 - 100.0 seconds. Range based on correlation with therapeutic heparin activity range of 0.3 - 0.7 Units/mL. Current interpretive data was last revised on 2023. Blood 09/20/2024 2:59 PM SMART ENERGY SPECIALIST 09/20/2024 3:04 PM SMART ENERGY SPECIALIST Victor Manuel Woo MD LAB BLOOD ORDERABLES Final R esult Performing Organization Address [facility] de Phone Number [facility] [address] [address] [place] [address] * (ABNORMAL) Protime-INR (09/20/2024 2:59 PM SMART ENERGY SPECIALIST) Pathologist [facility] PT 18.5(H) 9.7 - 13.0 sec INR 1.69(H) 0.90 - 1.20 TAB Comment: Interpretive data Oral anticoagulant therapeutic ranges: Venous thromboembolism prophylaxis or treatment: 2.0-3.0 CARDIOLOGY Standard range: 2.0-3.0 High-intensity range: 2.5-3.5 Refer to indication-specific guidelines for appropriate target ranges for prosthetic heart valve replacement. Current interpretive data was last revised on 2019. Blood 09/20/2024 2:59 PM SMART ENERGY SPECIALIST 09/20/2024 3:04 PM SMART ENERGY SPECIALIST Victor Manuel Woo MD LAB BLOOD ORDERABLES Final R esult Performing Organization Address [facility] Co de Phone Number TAB [address] [address] [place] [address] * (ABNORMAL) CBC without differential (09/20/2024 2:59 PM SMART ENERGY SPECIALIST) Pathologist [facility] WBC 4.6 3.8 - 9.9 K/cumm Hgb 9.9(L) 13.0 - 17.5 g/dL [facility] Hct 30.5(L) 38.9 - 50.3 % [facility] Plt 117(L) 150 - 400 K/cumm [facility] [...] K/cumm [facility] Blood 09/20/2024 2:59 PM SMART ENERGY SPECIALIST 09/20/2024 3:04 PM SMART ENERGY SPECIALIST Victor Manuel Woo MD LAB BLOOD ORDERABLES Final R esult Performing Organization Address [facility] de Phone Number TAB GUARDADO [address] [address] Moya Department [facility] [place], [place] [id number] * (ABNORMAL) Blood gas, arterial (09/20/2024 2:59 PM SMART ENERGY SPECIALIST) pH, Art 7.30(L) 7.35 - 7.45 PCO2, [...] % [facility] Blood 09/20/2024 2:59 PM SMART ENERGY SPECIALIST 09/20/2024 3:03 PM SMART ENERGY SPECIALIST Victor Manuel Woo MD LAB BLOOD ORDERABLES Final R esult Performing Organization Address [facility] Co de Phone Number TAB GUARDADO [address] [address] Moya Department of [employer] [place], [place] [id number] * (ABNORMAL) Basic metabolic panel (09/20/2024 2:59 PM SMART ENERGY SPECIALIST) Sodium 146(H) 135 - 145 mmol/L Potassium, pl 3.7 3.3 - 4.9 mmol/L [facility] Chloride 117(H) 97 - 110 mmol/L [facility] CO2 20(L) 22 - 32 mmol/L [facility] Anion gap 9 2 - 15 mmol/L [facility] BUN 9 6 - 25 mg/dL [facility] Creatinine 0.49(L) 0.80 - 1.30 mg/dL [facility] Glucose 142 70 - 199 mg/dL [facility] Comment: Interpretive Data Fasting glucose >/= [...] 2022. Calcium 7.4(L) 8.5 - 10.3 mg/dL [facility] Blood 09/20/2024 2:59 PM SMART ENERGY SPECIALIST 09/20/2024 3:04 PM SMART ENERGY SPECIALIST us Victor Manuel Woo MD LAB BLOOD ORDERABLES Final R esult [facility] [address] [address] Department [place] [address] * Critical Care (09/20/2024 2:58 PM SMART ENERGY SPECIALIST) Narrative Tima Izquierdo MD - 09/20/2024 2:58 PM SMART ENERGY SPECIALIST Ora Smith NP 09/20/2024 5:34 PM Critical [...] plan with the ICU team and other medical/sql server consultant staff, making frequent assessments and decisions [...] Result * POCT glucose (09/20/2024 2:44 PM SMART ENERGY SPECIALIST) Glucose, POC 115 70 - 199 mg/dL Blood 09/20/2024 2:44 PM SMART ENERGY SPECIALIST 09/20/2024 2:44 PM SMART ENERGY SPECIALIST Victor Manuel Woo MD LAB POCT ORDERABLES - DEVICE Final Result [facility] [address] [address] Department [place] [address] * (ABNORMAL) POC Blood Gas and Chemistries, Arterial - (09/20/2024 1:56 PM SMART ENERGY SPECIALIST) pH, Art POC 7.34(L) 7.35 - 7.45 [...] g/dL [facility] Blood 09/20/2024 1:56 PM SMART ENERGY SPECIALIST 09/20/2024 1:56 PM SMART ENERGY SPECIALIST Victor Manuel Woo MD LAB POCT ORDERABLES - DEVICE Final Result Performing Organization Address [facility] Co de Phone Number TAB GUARDADO [address] [address] Department [place] [address] * Transfuse platelets (09/20/2024 1:20 PM SMART ENERGY SPECIALIST) Blood Barry Ellington MD BLOOD TRANSFUSION ORDERABLES F inal Result Performing Organization Address [facility] Co de Phone Number YOLISLLUVIA [address] [address] Department of [employer] [place], [place] [id number] * POC Activated Clotting Time, High Range (09/20/2024 12:52 PM SMART ENERGY SPECIALIST) ACT 104 87 - 138 sec Blood 09/20/2024 12:5 2 PM SMART ENERGY SPECIALIST 09/20/2024 12:52 PM SMART ENERGY SPECIALIST Victor Manuel Woo MD LAB BLOOD ORDERABLES Final R esult Performing Organization Address [facility] Co de Phone Number YOLISLLUVIA [address] [place] [address] * (ABNORMAL) POC Blood Gas and Chemistries, Arterial - (09/20/2024 12:50 PM SMART ENERGY SPECIALIST) pH, Art POC 7.35 7.35 - 7.45 [...] CERNER CH Blood 09/20/2024 12:5 0 PM SMART ENERGY SPECIALIST 09/20/2024 12:50 PM SMART ENERGY SPECIALIST us Victor Manuel oWo MD LAB POCT ORDERABLES - DEVICE Final Result TAB GUARDADO [address] [address] Department [place] [address] * (ABNORMAL) POC Activated Clotting Time, High Range (09/20/2024 12:47 PM SMART ENERGY SPECIALIST) ACT 178(H) 87 - 138 sec Blood 09/20/2024 12:4 7 PM SMART ENERGY SPECIALIST 09/20/2024 12:47 PM SMART ENERGY SPECIALIST us Victor Manuel Woo MD LAB BLOOD ORDERABLES Final R esult Performing Organization Address City/[facility]/ZIP Co de Phone Number TAB Jaquez[address] Moya Department [place] [address] * (ABNORMAL) POC Blood Gas and Chemistries, Arterial - (09/20/2024 12:18 PM SMART ENERGY SPECIALIST) pH, Art POC 7.43 7.35 - 7.45 [...] CERNER CH Blood 09/20/2024 12:1 8 PM SMART ENERGY SPECIALIST 09/20/2024 12:18 PM SMART ENERGY SPECIALIST Victor Manuel Woo MD LAB POCT ORDERABLES - DEVICE Final Result TAB GUARDAD[address] Department [place] [address] * (ABNORMAL) POC Activated Clotting Time, High Range (09/20/2024 12:15 PM SMART ENERGY SPECIALIST) Pathologist [facility] ACT 588(H) 87 - 138 sec Blood 09/20/2024 12:1 5 PM SMART ENERGY SPECIALIST 09/20/2024 12:15 PM SMART ENERGY SPECIALIST Victor Manuel Woo MD LAB BLOOD ORDERABLES Final R esult Performing Organization Address [facility]/ZIP Co de Phone Number TAB [address] [place] [address] * (ABNORMAL) Platelet count (09/20/2024 12:03 PM SMART ENERGY SPECIALIST) [facility] Plt 134(L) 150 - 400 K/cumm Blood 09/20/2024 12:0 3 PM SMART ENERGY SPECIALIST 09/20/2024 12:08 PM SMART ENERGY SPECIALIST Narrative TAB - 09/20/2024 12:10 PM SMART ENERGY SPECIALIST PLEASE CALL RESULTS TO EXT [id number]. THANK YOU Victor Manuel Woo MD LAB BLOOD ORDERABLES Final R esult Performing Organization Address [facility] Co de Phone Number TAB [address] [place] [address] * (ABNORMAL) POC Blood Gas and Chemistries, Arterial - (09/20/2024 11:28 AM SMART ENERGY SPECIALIST) Pathologist [facility] pH, Art POC 7.36 7.35 - 7.45 [...] CERNER CH Blood 09/20/2024 11:2 8 AM SMART ENERGY SPECIALIST 09/20/2024 11:28 AM SMART ENERGY SPECIALIST Victor Manuel Woo MD LAB POCT ORDERABLES - DEVICE Final Result Performing Organization Address [facility] Co de Phone Number TAB GEO [address] [address] [employer] [place], [place] [phone] * (ABNORMAL) POC Activated Clotting Time, High Range (09/20/2024 11:26 AM SMART ENERGY SPECIALIST) ACT 722(H) 87 - 138 sec Blood 09/20/2024 11:2 6 AM SMART ENERGY SPECIALIST 09/20/2024 11:26 AM SMART ENERGY SPECIALIST Victor Manuel Woo MD LAB BLOOD ORDERABLES Final R esult Performing Organization Address [facility]/ZIP Co de Phone Number TAB GUARDADO [address] [address] Department [place] [address] * (ABNORMAL) POC Blood Gas and Chemistries, Arterial - (09/20/2024 10:47 AM SMART ENERGY SPECIALIST) pH, Art POC 7.33(L) 7.35 - 7.45 [...] CERNER CH Blood 09/20/2024 10:4 7 AM SMART ENERGY SPECIALIST 09/20/2024 10:47 AM SMART ENERGY SPECIALIST Victor Manuel Woo MD LAB POCT ORDERABLES - DEVICE Final Result Performing Organization Address [facility] Co de Phone Number TAB [address]ARD[address] [employer] [place], [place] [phone] * (ABNORMAL) POC Activated Clotting Time, High Range (09/20/2024 10:44 AM SMART ENERGY SPECIALIST) ACT 639(H) 87 - 138 sec Blood 09/20/2024 10:4 4 AM SMART ENERGY SPECIALIST 09/20/2024 10:44 AM SMART ENERGY SPECIALIST Victor Manuel Woo MD LAB BLOOD ORDERABLES Final R esult Performing Organization Address City/[facility]/ZIP Co de Phone Number TAB GUARDADO [address] [address] Department of [employer] [place], [place] [phone] * (ABNORMAL) POC Activated Clotting Time, High Range (09/20/2024 9:44 AM SMART ENERGY SPECIALIST) ACT 562(H) 87 - 138 sec Blood 09/20/2024 9:44 AM SMART ENERGY SPECIALIST 09/20/2024 9:44 AM SMART ENERGY SPECIALIST us Victor Manuel Woo MD LAB BLOOD ORDERABLES Final [place] TAB [address] [facility] Department [place] [address] * Arterial Line (09/20/2024 9:37 AM SMART ENERGY SPECIALIST) Narrative Barry Ellington MD - 09/20/2024 9:37 AM SMART ENERGY SPECIALIST Tong Ahuja AA 09/20/2024 9:37 AM Arterial [...] PERFORMABLE, PULMONARY ARTERY CATH (09/20/2024 9:35 AM SMART ENERGY SPECIALIST) Narrative Barry Ellington MD - 09/20/2024 9:35 AM SMART ENERGY SPECIALIST Tong Ahuja AA 09/20/2024 9:36 AM Central [...] MD ANESTHESIA ORDERABLES Final Re sult * VA AN ELECTIVE ENDOTRACHEAL AIRWAY (09/20/2024 9:34 AM SMART ENERGY SPECIALIST) Narrative Barry Ellington MD - 09/20/2024 9:34 AM SMART ENERGY SPECIALIST Tong Ahuja AA 09/20/2024 9:35 AM Airway [...] and Chemistries, Arterial - (09/20/2024 8:31 AM SMART ENERGY SPECIALIST) pH, Art POC 7.39 7.35 - 7.45 [...] g/dL CERNER CH Blood 09/20/2024 8:31 AM SMART ENERGY SPECIALIST 09/20/2024 8:31 AM SMART ENERGY SPECIALIST us Victor Manuel Woo MD LAB POCT ORDERABLES - DEVICE Final Result [facility] [address] [address] Department [place] [address] * POC Activated Clotting Time, High Range (09/20/2024 8:27 AM SMART ENERGY SPECIALIST) Pathologist [facility] ACT 120 87 - 138 sec Blood 09/20/2024 8:27 AM SMART ENERGY SPECIALIST 09/20/2024 8:27 AM SMART ENERGY SPECIALIST Victor Manuel Woo MD LAB BLOOD ORDERABLES Final R esult Performing Organization Address [facility] Co de Phone Number TAB GUARDAD[address] [address] [address] [place] [address] * Type and screen (09/20/2024 7:25 AM SMART ENERGY SPECIALIST) [facility] Tereza, indirect Negative ABO Rh O Positive [facility] Blood 09/20/2024 7:25 AM SMART ENERGY SPECIALIST 09/20/2024 7:38 AM SMART ENERGY SPECIALIST Narrative [facility] - 09/20/2024 8:20 AM SMART ENERGY SPECIALIST Has the patient had Daratumumab or Isatuximab in the past 6 months?->Unknown Victor Manuel Woo MD LAB BLOOD BANK TEST ORDERABL ES Final Result Performing Organization Address [facility] Phone Number YOLISLLUVIA GUARDADO [address] [address] [facility] [employer] [place], [place] [phone] * (ABNORMAL) POCT glucose (09/20/2024 6:11 AM SMART ENERGY SPECIALIST) [facility] Glucose, POC 203(H) 70 - 199 mg/dL Blood 09/20/2024 6:11 AM SMART ENERGY SPECIALIST 09/20/2024 6:11 AM SMART ENERGY SPECIALIST Victor Manuel Woo MD LAB POCT ORDERABLES - DEVICE Final Result Performing Organization Address [facility] de Phone Number TAB GUARDADO [address] [address] [facility] [place] [address] * Prepare platelets: 2 Units (09/20/2024 5:31 AM SMART ENERGY SPECIALIST) [facility] Product code [id number] Unit Number [id number] CERNER CH Product Blood Type APOS CERNER CH Dispense Status PRESUMED TRANSFUSED CERNER CH Blood (Blood, Venous) 09/20/2024 5:31 AM SMART ENERGY SPECIALIST Narrative CERNER CH - 09/20/2024 10:15 PM SMART ENERGY SPECIALIST Specify Procedure:->CABG Are special requirements needed? (all products are leukoreduced)->No Date required:-[id number] PLT # of Units:-2-Units Reasons:-Hold for procedure (specify procedure)} Rashad Jones NP BLOOD BANK PRODUCT ORDERABLES F inal Result Performing Organization Address City/[facility]/ZIP Co de Phone Number TAB [address] [address] Department [place] [address] * Prepare RBC: 4 Units (09/20/2024 5:31 AM SMART ENERGY SPECIALIST) Product code [id number] CERNER CH Unit Number [id number] 9-* CERNER CH Product Blood Type OPOS CERNER CH Dispense Status RETURNED CERNER CH Product code H3153P40 CERNER CH Unit Number [id number] 5-P CERNER CH Product Blood Type OPOS CERNER CH Dispense Status RETURNED CERNER CH Product code [id number] CERNER CH Unit Number [id number] 9-3 CERNER CH Product Blood Type OPOS CERNER CH Dispense Status RETURNED CERNER CH Product code [id number] Unit Number [id number] 2-L CERNER CH Product Blood Type OPOS CERNER CH Dispense Status RETURNED CERNER CH Blood 09/20/2024 5:31 AM SMART ENERGY SPECIALIST Narrative CERNER CH - 09/21/2024 12:24 AM SMART ENERGY SPECIALIST Specify Procedure:->CABG Are special requirements needed? (All products are leukoreduced and CMV- safe)- >No Date required:-[id number] LRRBC # of Vevmm-5-Habar Reasons:-Hold for procedure (specify procedure)} Rashad Jones NP BLOOD BANK PRODUCT ORDERABLES F inal Result Performing Organization Address City/[facility]/ZIP Co de Phone Number TAB [address] [address] Department [place] [address] * ECG 12 lead (09/17/2024 9:25 AM SMART ENERGY SPECIALIST) 09/17/2024 9:25 AM SMART ENERGY SPECIALIST Narrative [facility] - 09/17/2024 9:19 AM SMART ENERGY SPECIALIST Vent Rate: 60 bpm RR Interval: 996 msec VA Interval: 171 msec QRS Duration: 96 msec QT Interval: 416 msec QTC Interval: 416 msec P-R-T [place]: 1 - -2 - 50 degrees IMPRESSION: SINUS RHYTHM INFERIOR MYOCARDIAL INFARCTION , PROBABLY OLD ANTEROSEPTAL MYOCARDIAL INFARCTION , OF INDETERMINATE AGE ABNORMAL ECG Electronically Signed By: Yady Ward MD us Victor Manuel Woo MD ECG ORDERABLES Final Result [facility] * XR Chest PA Lateral 2 View (09/17/2024 9:07 AM SMART ENERGY SPECIALIST) Anatomical Region Laterality Modality Body, Chest N/A Computed Radiogr aphy 09/17/2024 9:10 AM SMART ENERGY SPECIALIST Impressions 09/17/2024 9:10 AM SMART ENERGY SPECIALIST Normal study. Borderline cardiomegaly. Electronically signed by: Rodrick Modi M.D. Narrative 09/17/2024 9:10 AM SMART ENERGY SPECIALIST EXAMINATION: XR CHEST PA LATERAL 2 VIEWS [...] cardiomegaly. Electronically signed by: Rodrick Modi M.D. us Victor Manuel Woo MD IMG XR PROCEDURES Final Resu lt * eGFR (09/17/2024 9:01 AM SMART ENERGY SPECIALIST) eGFR >90 >=60 mL/min/1. 73 m2 Comment: [...] last reviewed 2021. Blood 09/17/2024 9:01 AM SMART ENERGY SPECIALIST 09/17/2024 9:07 AM SMART ENERGY SPECIALIST us Victor Manuel Woo MD LAB BLOOD ORDERABLES Final R esult TAB GUARDADO [address] [address] Department [place] [address] * (ABNORMAL) Urinalysis reflex to microscopic and culture Urine, clean voided (09/17/2024 9:01 AM SMART ENERGY SPECIALIST) Color, ur Straw Yellow Clarity, ur Clear Clear [facility] Specific gravity, ur 1.019 1.003 - 1.030 [facility] pH, urine 5.5 TAB Comment: Interpretive Data U rine pH is affected by diet, medications, systemic acid-base disturbances, and renal tubular function. pH may affect urinary stone formation. For example, urine pH below 6.0 may help reduce the tendency for calcium phosphate stones and pH greater than 6.0 may reduce the tendency for uric acid stone formation. Source: [employer] Current Interpretive Data was last revised on 2017 Protein, ur ql Negative Negative CERNER CH Glucose, ur ql 4+(A) Negative [facility] Ketones, ur Negative Negative [facility] Bilirubin, ur Negative Negative CERNER Blood, ur Negative Negative [facility] Urobilinogen, ur <2.0 <2.0 mg/dL CERNER Nitrite, ur Negative Negative [facility] Leukocyte esterase, ur Negative Negative [facility] UA reflex comment Reflex conditions for microscopic UA and culture not met. [facility] Urine, clean voided 09/17/2024 9:01 AM SMART ENERGY SPECIALIST 09/17/2024 9:32 AM SMART ENERGY SPECIALIST Victor Manuel Woo MD LAB MICROBIOLOGY - GENERAL O RDERABLES Final Result Performing Organization Address [facility] Co de Phone Number TAB [address] [address] Department [place] [address] * aPTT (09/17/2024 9:01 AM SMART ENERGY SPECIALIST) aPTT 32 28 - 38 sec Comment: Interpretive Data Heparin therapeutic range: 66.0 - 100.0 seconds. Range based on correlation with therapeutic heparin activity range of 0.3 - 0.7 Units/mL. Current interpretive data was last revised on 2023. Blood 09/17/2024 9:01 AM SMART ENERGY SPECIALIST 09/17/2024 9:07 AM SMART ENERGY SPECIALIST Victor Manuel Woo MD LAB BLOOD ORDERABLES Final R esult Performing Organization Address City/[facility]/ZIP Co de Phone Number TAB [address] [address] Department of Laboratories [place], [place] [phone] * Protime-INR (09/17/2024 9:01 AM SMART ENERGY SPECIALIST) PT 11.6 9.7 - 13.0 sec INR 1.07 0.90 - 1.20 [facility] Comment: Interpretive data Oral anticoagulant therapeutic ranges: Venous thromboembolism prophylaxis or treatment: 2.0-3.0 CARDIOLOGY Standard range: 2.0-3.0 High-intensity range: 2.5-3.5 Refer to indication-specific guidelines for appropriate target ranges for prosthetic heart valve replacement. Current interpretive data was last revised on 2019. Blood 09/17/2024 9:01 AM SMART ENERGY SPECIALIST 09/17/2024 9:07 AM SMART ENERGY SPECIALIST Victor Manuel Woo MD LAB BLOOD ORDERABLES Final R esult Performing Organization Address City/[facility]/ZIP Co de Phone Number TAB GUARDAD[address] [address] [address] [employer] [place], [place] [phone] * CBC without differential (09/17/2024 9:01 AM SMART ENERGY SPECIALIST) WBC 6.0 3.8 - 9.9 K/cumm Hgb 14.8 13.0 - 17.5 g/dL CERNER CH Hct 45.3 38.9 - 50.3 % CERNER CH Plt 229 150 - 400 K/cumm CERNER CH MPV 9.8 9.1 - 12.3 fL CERNER CH RBC 5.34 4.30 - 5.80 M/cumm CERNER CH MCV 84.8 81.3 - 96.4 fL CERNER CH MCH 27.7 27.1 - 33.3 pg CERNER CH MCHC 32.7 32.3 - 35.7 g/dL CERNER CH RDW CV 12.8 11.1 - 14.9 % CERNER CH RDW SD 39.5 35.7 - 48.1 fL CERNER CH NRBC abs 0.00 0.00 - 0.01 K/cumm CERNER CH Blood 09/17/2024 9:01 AM SMART ENERGY SPECIALIST 09/17/2024 9:07 AM SMART ENERGY SPECIALIST Victor Manuel Woo MD LAB BLOOD ORDERABLES Final R esult Performing Organization Address City/[facility]/ZIP Co de Phone Number TAB GUARDADO [address] [address] [facility] [employer] [place], [place] [phone] * Type and screen (09/17/2024 9:01 AM SMART ENERGY SPECIALIST) Tereza, indirect Negative ABO Rh O Positive CERNER Blood 09/17/2024 9:01 AM SMART ENERGY SPECIALIST 09/17/2024 9:25 AM SMART ENERGY SPECIALIST Narrative TAB - 09/17/2024 1:26 PM SMART ENERGY SPECIALIST Has the patient had Daratumumab or Isatuximab in the past 6 months?->Unknown Victor Manuel Woo MD LAB BLOOD BANK TEST ORDERABL ES Final Result Performing Organization Address [facility] de Phone Number TAB [address] [address] [place] [address] * (ABNORMAL) Hemoglobin A1c (09/17/2024 9:01 AM SMART ENERGY SPECIALIST) Hgb A1C 7.1(H) 4.0 - 5.6 % Estimated Average Glucose 157 mg/dL TAB Comment: The ADA recommends reporting an estimated Average Glucose (eAG) with all Hemoglobin A1c results using the equation derived from a study of 507 normal and diabetic adults. Minority populations were underrepresented and children were not included. (Diabetes Care 31:0008-1495, 2008). The eAG is not equivalent to a fasting glucose. Blood 09/17/2024 9:01 AM SMART ENERGY SPECIALIST 09/17/2024 9:07 AM SMART ENERGY SPECIALIST Victor Manuel Woo MD LAB BLOOD ORDERABLES Final R esult Performing Organization Address [facility] de Phone Number YOLISLLUVIA GUARDADO [address] [address] [place] [address] * (ABNORMAL) Basic metabolic panel (09/17/2024 9:01 AM SMART ENERGY SPECIALIST) Sodium 138 135 - 145 mmol/L Potassium, pl 3.8 3.3 - 4.9 mmol/L [facility] Chloride 101 97 - 110 mmol/L [facility] CO2 25 22 - 32 mmol/L [facility] Anion gap 12 2 - 15 mmol/L [facility] BUN 8 6 - 25 mg/dL [facility] Creatinine 0.60(L) 0.80 - 1.30 mg/dL [facility] Glucose 164 70 - 199 mg/dL [facility] Comment: Interpretive Data Fasting glucose >/= 126 [...] 2022. Calcium 9.4 8.5 - 10.3 mg/dL TAB GUARDADO Blood 09/17/2024 9:01 AM SMART ENERGY SPECIALIST 09/17/2024 9:07 AM SMART ENERGY SPECIALIST us Victor Manuel Woo MD LAB BLOOD ORDERABLES Final R esult TAB [address] [address] Department [place] [address] * TRANSTHORACIC ECHO (TTE) LIMITED/FOLLOW UP WO DOPPLER/CF W CONTRAST (08/26/2024 11:20 AM SMART ENERGY SPECIALIST) Anatomical Region Laterality Modality Ultrasound 08/26/2024 10:5 6 AM SMART ENERGY SPECIALIST Narrative 08/26/2024 1:11 PM SMART ENERGY SPECIALIST [facility] Cardiology [address], [place] [address] [address] [facility] [address], [place] [address] P:[phone] P:[phone] Echocardiographic Report Patient Name: RAYMOND DELGADO L : 1965 Study Date: 08/26/2024 10:56:04 AM Gender: M Tech: LUIS Location: [facility] Provider: GIUSEPPE ALVARADO Height(Cm): 170 BSA: 2.05 Weight(Kg): 88.9 Heart Rate: 58 BP: 123 / 66 Quality: Good Order Provider: GIUSEPPE ALVARADO PROCEDURES: Echocardiographic Report: Limited transthoracic echocardiogram with 2D and Definity contrast. With Strain Analysis. INDICATIONS: I25.10 Atherosclerotic heart disease of [place] coronary artery without angina pectoris. MEASUREMENTS: 2D/MM Value Range EF Mod BP 47 % [ 52 - 72 ] Estimated EF 40-45 % 2D/MM Value Range - FINDINGS: Interpretation Site: Exam was interpreted at [facility]. Left Ventricle: Definity contrast agent used to [...] By: Tima Kwan MD 08/26/2024 1:11:38 PM SMART ENERGY SPECIALIST 40-45 Procedure Note Tima Kwan MD - 08/26/2024 [facility] Cardiology [address] [place] [address] [address], [place] [address] P:[phone] P:[phone] Echocardiographic Report Patient Name: RAYMOND DELGADO L : 1965 Study Date: 08/26/2024 10:56:04 AM Gender: M Tech: Location: [facility] Provider: GIUSEPPE ALVARADO Height(Cm): 170 BSA: 2.05 Weight(Kg): 88.9 Heart Rate: 58 BP: 123 / 66 Quality: Good Order Provider: GIUSEPPE ALVARADO PROCEDURES: Echocardiographic Report: Limited transthoracic echocardiogram with 2D and Definity contrast. WithStrain Analysis. INDICATIONS: I25.10 Atherosclerotic heart disease of [place] coronary artery withoutangina pectoris. MEASUREMENTS: 2D/MM Value Range EF Mod BP 47 % [ 52 - 72 ] Estimated EF 40-45 % 2D/MM Value Range - FINDINGS: Interpretation Site: Exam was interpreted at [facility]. Left Ventricle: Definity contrast agent used to [...] By: Tima Kwan MD 08/26/2024 1:11:38 PM SMART ENERGY SPECIALIST 40-45 [facility] Nadine Alvarado MD [...] on 2018. Triglycerides 226(H) <=149 mg/dL TAB GUARDADO Comment: Interpretive Data Ages < or = [...] NCEP Expert Panel. Circulation 2004;110:227 3. Ricardo Conroy. OCTAVIO Cardiol. 2020 January 09;5(5):540-548. doi: 10.1001/[email or web address] [...] last revised on 2018. Chol/HDL ratio 3 [facility] Blood 06/27/2024 10:2 6 AM CDT 06/27/2024 10:39 AM CDT Narrative [facility] - 06/27/2024 11:57 AM CDT This lipid panel was automatically ordered due to a significant change in Troponin. The dietary status of the patient at the collection time should be correlated with the lipid results. Arabella Browne MD LAB BLOOD ORDERABLES Yumiko dong Result [facility] [address] Department of Laboratories [place], [place] [phone] * Hepatitis panel, acute Blood (06/27/2024 5:24 AM CDT) Hep A IgM Nonreactive Nonreactive Comment: Interpretive Data: If Hep A IgM Ab is reported as Equivocal, a new sample should be drawn in two weeks for testing. Current interpretive data was last revised on 19. Hep B core IgM Nonreactive Nonreactive [facility] Comment: Interpretive Data If HepB Core IgM Ab is reported as Equivocal, a new sample should be drawn in two weeks for testing. Current interpretive data was last revised on 19. Hep C Ab Nonreactive Nonreactive [facility] Comment: Interpretive Data Nonreactive: Antibodies to HCV [...] - GENERA L ORDERABLES Final Result TAB GUARDAD[address] [address] [address] Department [place] [address] from Last 3 Months or Most Recently Relevant to Health Maintenance Insurance [employer] [place] [facility] [employer] [place] [facility] Advance Directives For more information, please contact: [phone] * Full Code (Latest Code Status on File) Date Activated Date Inactivated Comments 09/20/2024 2:48 PM 09/26/2024 9:43 PM * Full Code Date Activated Date Inactivated Comments 06/27/2024 4:46 AM 07/17/2024 5:43 PM Care Teams Tobacco Sprayer Relationship Specialty Start Date End Date Mariela Del Castillo MD [address] [place] [address] PCP - General Family Medicine 09/26/24 [place] [address] [address] [facility] [address] [place] [address] Surgeon Cardiothoracic Surgery 09/26/24 Giuseppe Alvarado MD [address] [facility] [address] [place] [address] Consulting Physician Interventional Cardiology 09/26/24
[2024-10-18 09:25] LABS: Basophils Absolute Auto 0.1 K/mm3 (0.0-0.1); Basophils Percent Auto 1.1 % (0.2-1.2); Eosinophils Absolute Auto 0.7 K/mm3 (0-0.3); Eosinophils Percent Auto 11.2 % (0-4.4); Hemoglobin 12.4 g/dL (14.0-18.0); Immature Granulocyte Absolute 0.02 K/mm3 (0.00-0.031); Immature Granulocyte Percent A 0.3 % (0-0.5); Lymphocytes Absolute Auto 1.99 K/mm3 (0.9-3.2); Lymphocytes Percent Auto 31.9 % (18.3-44.2); Mean Corpuscular HGB Conc 31.8 g/dl (32-36); Mean Corpuscular Hemoglobin 26.7 pg (26-34); Mean Corpuscular Volume 84.1 fl (80-100); Mean Platelet Volume 9.6 fl (7.4-10.4); Monocytes Absolute Auto 0.4 K/mm3 (0.1-0.6); Monocytes Percent Auto 6.6 % (2.6-8.5); Neutrophils Percent Auto 48.9 % (45.5-73.1); Platelet Count Result 287 k/mm3 (150-375); Red Blood Count 4.64 M/mm3 (4.6-6.20); White Blood Count 6.2 K/mm3 (4.5-10.0)
[2024-10-18 09:37] LABS: Anion Gap 11 mmol/L (4-12); Blood Urea Nitrogen 11 mg/dL (9-20); Calcium 9.3 mg/dL (8.4-10.2); Carbon Dioxide 23 mmol/L (22-30); Chloride 107 mmol/L (98-107); Cholesterol 136 mg/dL (0-200); Estimated Glomerular Filt Rate > 60; Glucose 103 mg/dL (65-110); HDL Direct 48 mg/dL; Potassium 3.9 mmol/L (3.4-5.0); Sodium 141 mmol/L (137-145); Triglycerides 155 mg/dL (<150)
[2024-10-18 09:51] LABS: LDL Cholesterol Direct 60 mg/dL
== END 2024-10-18 08:56 | disposition home or self-care (01) ==
LOC: ANHLAB 08:57
PROVIDERS: PCP Nurse Practitioner Family; Visit Provider Nurse Practitioner Adult Health
DX: R42 Dizziness and giddiness (principal)
CPT/HCPCS: 36415; 80048; 80061; 84443; 85025

== ENCOUNTER 2024-10-18 15:45 | Outpatient (CLI) | payer OTHER, SELFPAY ==
--- OUTSIDE RECORDS SUMMARY | 2024-10-18 15:50 | XMS_ITS | Encounter Summary ---
Author Organization [facility] Healthcare Address [address] [place] [address] Care Team Providers Care Product Marketing Manager Name Role Phone Victor Manuel Woo MD Unavailable [phone] Radha Alvarado MD Unavailable [phone] Mariela Del Castillo MD Primary Care Provider [phone] Encounter Details Date Type Department Care Team (Late st Contact Info) Description 10/04/2024 [facility] Post Discharge Follow up phone call [facility] [address] [place] [address] Ruchi Whitman RN Social History [...] materials from doctor or pharmacy Never 10/07/2024 [facility] Utilities Answer Date Recorded In the past [...] Never 09/24/2024 How often do you attend restorationist or bahai serv ices? Never 09/24/2024 Do you belong to any clubs o r organizations such as restorationist groups, unions, fraternal or athletic groups, or [...] any time in the past 12 m [facility], were you homeless or living in a skilled nursing (including now)? No 09/24/2024 Personal Safety Answer Date Recorded Have you ever been in or are you currently in a harmful physical or emotional relationship or is someone making you feel afraid or unsafe? Denies 09/20/2024 Sex and Gender Information Value Date Recorded Sex Assigned at Not on file Legal Sex Male 1:22 PM RUBBER GOODS FINISHER Gender Identity Not on file Sexual Orientation Not on file documented as of this encounter Plan of Treatment Not on file documented as of this encounter Visit Diagnoses Not on filedocumented in this encounter Care Teams Product Marketing Manager Relationship Specialty Start Date End Date Mariela Del Castillo MD [address] [facility] [address] [address] PCP - General Family Medicine 09/26/24 [place] [address] [address] [facility] [address] [place] [address] Surgeon Cardiothoracic Surgery 09/26/24 Radha Alvarado MD [address] [facility] [address], [place] [address] Consulting Physician Interventional Cardiology 09/26/24 documented as of this encounter
--- OUTSIDE RECORDS SUMMARY | 2024-10-18 15:50 | XMS_ITS | Encounter Summary ---
Author Organization [facility] Healthcare Address [address] [place] [address] Care Team Providers Care Stratigrapher Name Role Phone Victor Manuel Woo MD Unavailable [phone] Radha Alvarado MD Unavailable [phone] Mariela Del Castillo MD Primary Care Provider [phone] Reason for Referral * Cardiology (Routine) - Closed Specialty Diagnoses / Procedures Referred By Contac t Referred To Contact Diagnoses Dizziness Procedures ECG 12 lead Radha Alvarado MD [address] [address] Phone: tel: fax: [facility] Medical Group Referral ID Status Reason Start Date Expiration Date Visits Re quested Visits Authorized [id number] Closed 10/18/2024 11/17/2025 1 1 ODITY MANAGER Reason for Visit * Reason Onset Date Comments Dizziness 10/15/2024 Encounter Details Date Type Department Care Team (Late st Contact Info) Description 10/15/2024 Telephone [facility] Medical Group Cardiology [address] [place] [address] Radha Alvarado MD [address] [address] Dizziness Social History Tobacco Use [...] materials from doctor or pharmacy Never 10/07/2024 [facility] Utilities Answer Date Recorded In the past 12 months has e [employer], gas, oil, or water company threatened to [...] Never 09/24/2024 How often do you attend scientologist or rastafari serv ices? Never 09/24/2024 Do you belong to any clubs o r organizations such as scientologist groups, unions, fraternal or athletic groups, or [...] any time in the past 12 m [facility], were you homeless or living in a longterm (including now)? No 09/24/2024 Personal Safety Answer Date Recorded Have you ever been in or are you currently in a harmful physical or emotional relationship or is someone making you feel afraid or unsafe? Denies 09/20/2024 Sex and Gender Information Value Date Recorded Sex Assigned at Not on file Legal Sex Male 1:22 PM COMMODITY MANAGER Gender Identity Not on file Sexual Orientation Not on file documented as of this encounter Miscellaneous Notes * Telephone Encounter - Marlys Aden RN - 10/18/2024 3:35 PM COMMODITY MANAGER Pt given paper order for TSH reflex to go to lab to have drawn today. lab stated that they coulddo the TSH but not the reflex with the blood they kadie this morning. ODITY MANAGER * Telephone Encounter - Marlys Aden RN - 10/18/2024 2:57 PM COMMODITY MANAGER Spoke with Jojo, reviewed response below from CT. She verbalizes understanding, will come in this afternoon for ECG. ODITY MANAGER * Telephone Encounter - Jazmin Machado NP - 10/18/2024 2:47 PM COMMODITY MANAGER Please let patient know that Dr. Alvarado and I reviewed his lab results. His electrolytes and kidney function are normal. His CBC shows mild anemia but not bad enough to cause the dizziness. Dr. Alvarado would like him to have an ECG, if they are able to come to the office this afternoon that would be great, if not come on Monday. And Dr. Alvarado also wants to check his thyroid. Please order TSH reflex (maybe call the [facility] lab to see if this could be added onto his tubes from yesterday?). If these are unremarkable, we will recommend that he have further evaluation of the dizziness with his PCP, and also ask his PCP to follow-up on his mild anemia. Thank you. ODITY MANAGER * Telephone Encounter - Marlys Aden RN - 10/18/2024 2:11 PM COMMODITY MANAGER Labs received and scanned under media. Will forward to CT. ODITY MANAGER * Telephone Encounter - Amy Serrato - 10/18/2024 1:53 PM CST FYI: Jojo (pts S.O.) calling back in regard to labs. Relayed the message below from FANNY Bernardo thatwe have not received the labs as of yet and once we do we will reach out to the pt with the results. Jojo was very upset and stated that we needed to call her back as soon as possible. I let her know that we would contact them once we receive the lab results. Contact [phone] ODITY MANAGER * Telephone Encounter - Marlys Aden RN - 10/18/2024 1:36 PM COMMODITY MANAGER Spoke with Jojo, she is wondering if we have received pts lab results from this morning. Advisedthat we have not received them yet. She verbalizes understanding. ODITY MANAGER * Telephone Encounter - Amy Serrato - 10/18/2024 1:23 PM CST Jojo (pts S.O.) requesting a call back. Did not leave any other message. Please advise. Thank you. Contact [phone] ODITY MANAGER * Telephone Encounter - Marlys Aden RN - 10/15/2024 3:59 PM COMMODITY MANAGER Advised to go to the ER for any new or worsening symptoms. ODITY MANAGER * Telephone Encounter - Marlys Aden RN - 10/15/2024 3:58 PM COMMODITY MANAGER Spoke with Jojo, appt scheduled on in the office with CT. ODITY MANAGER * Telephone Encounter - Marlys Aden RN - 10/15/2024 2:12 PM COMMODITY MANAGER Spoke with Jojo, pt is post CABG [...] symptoms. Will forward to RP. Please advise. ODITY MANAGER * Telephone Encounter - Amy Serrato - 10/15/2024 1:54 PM CST Jojo (pts S.O.) states that for the last 3 days the patient has been experiencing dizziness. States that she believes it may be due to his medications. Requesting a call back to discuss. Please advise. Thank you. 10/15 BP: 134/90 Contact [phone] ODITY MANAGER documented in this encounter Plan of Treatment Scheduled Orders Name Type Priority Associated Diagnoses Orde r Schedule ECG 12 lead ECG Routine Dizziness 1 Occurrences starting 10/18/2024 until 10/18/2025 TSH W/REFL FT4 Lab Routine Dizziness Expected: 10/21/2024, Expires: 10/18/2025 documented as of this encounter Visit Diagnoses Diagnosis Dizziness- Primary Dizziness and giddiness documented in this encounter Care Teams Stratigrapher Relationship Specialty Start Date End Date Mariela Del Castillo MD [address] [facility] [address] [address] PCP - General Family Medicine 09/26/24 [place] [address] [address] [place] [address] Surgeon Cardiothoracic Surgery 09/26/24 Radha Alvarado MD [address] [facility] [address], [place] [address] Consulting Physician Interventional Cardiology 09/26/24 documented as of this encounter
--- OUTSIDE RECORDS SUMMARY | 2024-10-18 15:50 | XMS_ITS | Encounter Summary ---
Author Organization [facility] Healthcare Address [address] [place] [address] Care Team Providers Care Delivery Table Feeder Name Role Phone Victor Manuel Woo MD Unavailable [phone] Radha Alvarado MD Unavailable [phone] Mariela Del Castillo MD Primary Care Provider [phone] Reason for Visit * Reason Comments Follow-up Encounter Details Date Type Department Care Team (Late st Contact Info) Description 10/17/2024 2:00 PM COMPUTER LABORATORY TECHNICIAN Office Visit [facility] Medical Group Cardiology [address] [address] Jazmin Machado NP [address] [facility] [address] [place] [address] Dizziness (Primary Dx); Coronary artery disease involving nooksack coronary artery of nooksack heart without angina pectoris; Hx of CABG; Type 2 diabetes mellitus without complication, with long-term current use of insulin ([facility]/HCC) (HCC) Social History Tobacco Use Types [...] materials from doctor or pharmacy Never 10/07/2024 [facility] Utilities Answer Date Recorded In the [...] How often do you attend restorationist or rastafari serv ices? Never 09/24/2024 Do [...] any time in the past 12 m [facility], were you homeless or living in a fpc (including now)? No 09/24/2024 Personal Safety Answer Date Recorded Have you ever been in or are you currently in a harmful physical or emotional relationship or is someone making you feel afraid or unsafe? Denies 09/20/2024 Sex and Gender Information Value Date Recorded Sex Assigned at Not on file Legal Sex Male 1:22 PM COMPUTER LABORATORY TECHNICIAN Gender Identity Not on file Sexual Orientation Not on file documented as of this encounter Last Filed Vital Signs Vital Sign Reading Time Taken Comments Blood Pressure 128/76 10/17/2024 1:58 PM COMPUTER LABORATORY TECHNICIAN Pulse 68 10/17/2024 1:58 PM COMPUTER LABORATORY TECHNICIAN Temperature - - Respiratory Rate - - Oxygen Saturation 98% 10/17/2024 1:58 PM COMPUTER LABORATORY TECHNICIAN Inhaled Oxygen Concentration - - Weight 82.1 kg (181 lb) 10/17/2024 1:58 PM COMPUTER LABORATORY TECHNICIAN Height 170.2 cm (5' 7 ) 10/17/2024 1:58 PM COMPUTER LABORATORY TECHNICIAN Body Mass Index 28.35 10/17/2024 1:58 PM COMPUTER LABORATORY TECHNICIAN documented in this encounter Progress Notes * Jazmin Machado NP - 10/17/2024 2:00 PM CST Images from the original note were not included. [facility] Medical Group Cardiology [address] [place] [address] Date of Visit: 10/17/2024 Patient ID: Markie [...] arrest in June 2024. Cardiac catheterization showed SECURITIES ATTORNEY of the proximal RCA and complete occlusion of the proximal LAD. Unable to wire the LAD, suspecting it was more of a subacute or even chronic occlusion. Subsequent ECGs showed improvement in the ST elevations with no signs of active ischemia on ECGs. Transferred to [facility] for CTS evaluation. Required IABP for cardiogenic shock. Had prolonged hospitalization due to issues with mental status -- deemed not to be a candidate for CABG or complex PCI given issues with encephalopathy likely due to anoxic brain injury Ventricular fibrillation cardiac arrest in June 2024. [facility]. Cardiac catheterization showed SECURITIES ATTORNEY of the proximal RCA and complete occlusion [...] well. Seeing Dr. Camejo with Neurology at [place]. Not back to fully doing the activities [...] amiodarone and Eliquis. 10/17/2024 Hospital follow-up with BODY MAKER: Markie Delgado comes to the office today for [...] Past Medical History: Diagnosis Date Anoxic encephalopathy ([facility]) Anxiety denies - states has mood disorder Cardiac arrest with ventricular fibrillation ([facility]/HCC) ([facility]) Cardiogenic shock ([facility]) COPD (chronic obstructive pulmonary disease) ([facility]) Coronary artery disease Delayed emergence from general anesthesia Depression denies - states has mood disorder Diabetes mellitus ([facility]) Hyperlipidemia Hypertension Insomnia PAF (paroxysmal atrial fibrillation) (CMS/HCC) ([facility]) PONV (postoperative nausea and vomiting) STEMI (ST elevation myocardial infarction) ([facility]) Type 2 diabetes mellitus ([facility]) Past Surgical History: Procedure Laterality Date CARDIAC CATHETERIZATION 06/2024 @ [facility] CHOLECYSTECTOMY COLONOSCOPY REPLACEMENT TOTAL KNEE Bilateral SHOULDER [...] Lipid panel; Future Coronary artery disease involving nooksack coronary artery of nooksack heart without angina pectoris Hx of CABG Type 2 diabetes mellitus without complication, with long-term current use of insulin ([facility]) ([facility]) Plan/Recommendations: He is s/p CABG 4 weeks [...] indicated. 10/17/2024 JONNY You- Nurse Practitioner with [facility] Cardiology This note is dictated and transcribed using [employer] Software. Contracts Director variancesmay occur. Despite proofreading, typographical errors may occur. Cosigned by Radha Alvarado MD at 10/17/2024 2:50 PM COMPUTER LABORATORY TECHNICIAN UTER LABORATORY TECHNICIAN UTER LABORATORY TECHNICIAN documented in this encounter Plan of Treatment [...] Dizziness and giddiness Coronary artery disease involving nooksack coronary artery of nooksack heart without angina pectoris Hx of CABG Postsurgical aortocoronary bypass status Type 2 diabetes mellitus without complication, with long-term current use of insulin ([facility]/HCC) ([facility]) documented in this encounter Historical Medications * This list may reflect changes made after this encounter. zolpidem (AMBIEN) 10 mg tabletIndications :Sleep-Onset Insomnia Take 1 tablet (10 mg total) by mouth nightly as needed for sleep added in this encounter Care Teams Delivery Table Feeder Relationship Specialty Start Date End Date Mariela Del Castillo MD [address] [facility] [address] [address] PCP - General Family Medicine 09/26/24 [place] [address] [address] [facility] [address] [place] [address] Surgeon Cardiothoracic Surgery 09/26/24 Radha Alvarado MD [address] [facility] [address], [place] [address] Consulting Physician Interventional Cardiology 09/26/24 documented as of this encounter
--- OUTSIDE RECORDS SUMMARY | 2024-10-18 15:51 | XMS_ITS | Encounter Summary ---
Author Organization [facility] Healthcare Address [address] [place] [address] Care Team Providers Care Wrecking Car Driver Name Role Phone Victor Manuel Woo MD Unavailable [phone] Radha Alvarado MD Unavailable Mariela Del Castillo MD Primary Care Provider [phone] Reason for Visit * Cardiology (Routine) - Closed Specialty Diagnoses / Procedures Referred By Contsindy t Referred To Contact Diagnoses Dizziness Procedures ECG 12 lead Radha Alvarado MD [address] [address] Phone: tel: fax: [facility] Medical Group Referral ID Status Reason Start Date Expiration Date Visits Re quested Visits Authorized [id number] Closed 10/18/2024 11/17/2025 1 1 Encounter Details Date Type Department Care Team (Late st Contact Info) Description 10/18/2024 3:00 PM INSIDE SALES ASSISTANT Procedure visit [facility] Medical Group Cardiology [address] [facility] [address] [place] [address] Dizziness Social History Tobacco Use Types Packs/Day [...] materials from doctor or pharmacy Never 10/07/2024 [facility] Utilities Answer Date Recorded In the past [...] Never 09/24/2024 How often do you attend taoist or hindu serv ices? Never 09/24/2024 Do you belong to any clubs o r organizations such as taoist groups, unions, fraternal or athletic groups, or [...] any time in the past 12 m [facility], were you homeless or living in a m[facility]p (including now)? No 09/24/2024 Personal Safety Answer Date Recorded Have you ever been in or are you currently in a harmful physical or emotional relationship or is someone making you feel afraid or unsafe? Denies 09/20/2024 Sex and Gender Information Value Date Recorded Sex Assigned at Not on file Legal Sex Male 1:22 PM INSIDE SALES ASSISTANT Gender Identity Not on file Sexual Orientation Not on file documented as of this encounter Plan of Treatment Not on file documented as of this encounter Visit Diagnoses Diagnosis Dizziness Dizziness and giddiness documented in this encounter Orders EKG Orders Without Results Count Last Ordered D ate First Ordered Date ECG 12-LEAD 1 10/18/2024 documented in this encounter Care Teams Wrecking Car Driver Relationship Specialty Start Date End Date Mariela Del Castillo MD [address] [facility] [address] [place] [address] PCP - General Family Medicine 09/26/24 [place] [address] [address] [facility] [address], [place] [address] Surgeon Cardiothoracic Surgery 09/26/24 Radha Alvarado MD [address] [facility] [address], [place] [address] Consulting Physician Interventional Cardiology 09/26/24 documented as of this encounter
--- OUTSIDE RECORDS SUMMARY | 2024-10-18 15:51 | XMS_ITS | Clinical Summary ---
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 08/27/2024 Coronary artery disease invo lving [place] coronary artery of [place] heart without angina pectoris 08/14/2024 Cardiac arrest [...] Encounters Date Type Department Care Team Description 10/18/2024 3:00 PM INFORMATION ASSURANCE Procedure visit [facility] Cardiology [address] [place] [address] [address] [place] [phone] Dizziness 10/17/2024 2:00 PM INFORMATION ASSURANCE Office Visit [address] [address] [address] [place] [address] Jazmin Machado NP Dizziness (Primary Dx); Coronary artery disease involving [place] coronary artery of [place] heart without angina pectoris; Hx of CABG; Type 2 diabetes mellitus without complication, with long-term current use of insulin ([facility]) ([facility]) 10/15/2024 Telephone [facility] Cardiology [address] [place] [address] [address] [place] [phone] Giuseppe Alvarado MD Dizziness 10/07/2024 Home Care Visit [address] [address] [address] [place] [address] Gerson Medina, RN SN VIRTUAL OASIS DISCHARGE 10/07/2024 Home Care Visit [address] [address] [place] [address] Zhane Mathis, FANNY TELEPHONE ENCOUNTER 10/04/2024 [facility] Post Discharge Follow up phone call [facility] [address] [place] [address] Ruchi Whitman, FANNY 10/02/2024 Home Care Visit [address] [address] [place] [address] Zhane Mathis, FANNY CASE COMMUNICATION 10/02/2024 Telephone [facility] Family Medicine [address] [facility] [address] [place] [address] Mariela Del Castillo MD 10/01/2024 11:45 AM INFORMATION ASSURANCE - 10/01/2024 11:59 PM INFORMATION ASSURANCE Hospital Encounter [facility] [address] [place] [address] Discharge Disposition: Discharge to home or self care 10/01/2024 11:00 AM INFORMATION ASSURANCE Home Care Visit [address] [address] [place] [address] Gerson Medina RN SN HOME VISIT 09/30/2024 1:00 PM INFORMATION ASSURANCE Home Care Visit [address] [place] [address] Alicia Auguste, PT PT INITIAL EVALUATION 09/29/2024 Plan of Care Documentation [address] [address] [place] [address] 09/27/2024 2:00 PM INFORMATION ASSURANCE Home Care Visit [address] [address] [place] [address] Tangela Zavala, FANNY SN OASIS START OF CARE 09/26/2024 Telephone [facility] [address] [facility] [address] [place] [address] Mariela Del Castillo MD suzan 09/26/2024 Telephone [facility] Home Care Services [address] [place] [address] Paul Alexandre MA 09/20/2024 8:00 AM INFORMATION ASSURANCE - 09/20/2024 1:00 PM INFORMATION ASSURANCE Surgery [facility] Operating Room [address] [place] [address] Victor Manuel Woo MD CABG X 2-3, LIGATION OF LA APPENDAGE /240MIN 09/20/2024 7:50 AM INFORMATION ASSURANCE Anesthesia Event [facility] Operating Room [address] [place] [address] Barry Ellington MD Barnhart, Lynlee Jo, NP 09/20/2024 5:29 AM INFORMATION ASSURANCE - 09/26/2024 5:43 PM INFORMATION ASSURANCE Hospital Encounter [address] [address] Victor Manuel Woo MD Coronary artery disease of [place] artery of [place] heart with stable angina pectoris (HCC) (Primary Dx); Coronary artery disease (CAD) excluded; Primary hypertension; Type 2 diabetes mellitus with hyperglycemia, without long-term current use of insulin (HCC) Discharge Disposition: Discharge to home, home health skilled care 09/17/2024 8:55 AM INFORMATION ASSURANCE - 09/17/2024 11:59 PM INFORMATION ASSURANCE Hospital Encounter [facility] Diagnostic Imaging [address] [place] [address] Discharge Disposition: Discharge to home or self care 09/17/2024 8:45 AM INFORMATION ASSURANCE Pre-Admission Testing [facility] Pre Anesthesia Testing [address] [place] [address] Coronary artery disease of [place] heart with stable angina pectoris, unspecified vessel or lesion type (HCC); Pre-op testing 09/05/2024 Telephone [facility] Medical Group Cardiology [address] [facility] [address] [place] [address] Giuseppe Alvarado MD 08/27/2024 2:30 PM INFORMATION ASSURANCE Office Visit [facility] Surgery [address] [facility] [address] [place] [address] Victor Manuel Woo MD Coronary artery disease involving [place] coronary artery of [place] heart without angina pectoris 08/26/2024 10:15 AM INFORMATION ASSURANCE Ancillary Procedure [facility] Medical Group Cardiology [address] [place] [address] Coronary artery disease involving [place] coronary artery of [place] heart without angina pectoris 08/14/2024 9:00 AM INFORMATION ASSURANCE Office Visit [facility] Medical Group Cardiology at [address] [place] [address] Giuseppe Alvarado MD Type 2 diabetes mellitus with hyperglycemia, unspecified whether group home insulin use (HCC) (Primary Dx); Coronary artery disease involving [place] coronary artery of [place] heart without angina pectoris; Cardiac arrest with ventricular fibrillation (CMS/HCC) (HCC); Paroxysmal atrial fibrillation (CMS/HCC) (HCC); Primary hypertension; Mixed hyperlipidemia 08/14/2024 Telephone [facility] Medical Group Cardiology at [address] [place] [phone] Giuseppe Alvarado MD from Last 3 Months [...] L4-5 CARDIAC CATHETERIZATION 06/11/2024 - 07/11/2024 @ [facility] COLONOSCOPY Medical History Medical History Date Comments [...] materials from doctor or pharmacy Never 10/07/[address] [facility] Utilities Answer Date Recorded In the past 12 months has th e [employer], gas, oil, or water company threatened to [...] Never 09/24/2024 How often do you attend sikhism or hoahaoism serv ices? Never 09/24/2024 Do you belong to any clubs o r organizations such as sikhism groups, unions, fraternal or athletic groups, or [...] any time in the past 12 m [facility], were you homeless or living in a intermediate (including now)? No 09/24/2024 Personal Safety Answer Date Recorded Have you ever been in or are you currently in a harmful physical or emotional relationship or is someone making you feel afraid or unsafe? Denies 09/20/2024 Sex and Gender Information Value Date Recorded Sex Assigned at Not on file Legal Sex Male 1:22 PM INFORMATION ASSURANCE Gender Identity Not on file Sexual Orientation Not on file Obstetrics History Last Filed Vital Signs Vital Sign Reading Time Taken Comments Blood Pressure 128/76 10/17/2024 1:58 PM INFORMATION ASSURANCE Pulse 68 10/17/2024 1:58 PM INFORMATION ASSURANCE Temperature 36.3 C (97.4 F) 10/01/2024 11:26 AM INFORMATION ASSURANCE Respiratory Rate 18 10/01/2024 11:26 AM INFORMATION ASSURANCE Oxygen Saturation 98% 10/17/2024 1:58 PM INFORMATION ASSURANCE Inhaled Oxygen Concentration - - Weight 82.1 kg (181 lb) 10/17/2024 1:58 PM INFORMATION ASSURANCE Height 170.2 cm (5' 7 ) 10/17/2024 1:58 PM INFORMATION ASSURANCE Body Mass Index 28.35 10/17/2024 1:58 PM INFORMATION ASSURANCE Plan of Treatment Health Maintenance Due Date [...] Completed 06/27/2024 Medical Devices Implanted Type Area School Age Program Associate Device Identifier Shelf Expiration Date Model / Serial / Lot Atricure Device Closure Atriclip Nitinol Titanium Polyester 45 D L45mm L6cm Flexible Shaft Plunger Engineering Mgr Left Atrial Appendage Exclusion System [id number] - [id number] Implanted:Qty: 1 on 09/20/2024 by Victor Manuel Woo MD at [facility] Clip Left: Atrial Appendage Atricure 04/11/2027 [id number] / [id number] Procedures Procedure Name Priority Date/Time Associated Diagnosis Comments EGFR Routine 10/01/2024 11:45 AM INFORMATION ASSURANCE CBC WITHOUT DIFFERENTIAL Routine 10/01/2024 11:45 AM INFORMATION ASSURANCE GLUCOSE, RANDOM (OUTREACH) Routine 10/01/2024 11:45 AM INFORMATION ASSURANCE BASIC METABOLIC PANEL WITHOUT GLUCOSE, PLASMA (OUTREACH) Routine 10/01/2024 11:45 AM INFORMATION ASSURANCE POTASSIUM LEVEL Timed 09/26/2024 12:55 PM INFORMATION ASSURANCE POCT GLUCOSE DEVICE Routine 09/26/2024 1 2:08 PM INFORMATION ASSURANCE PEP THERAPY Routine 09/26/2024 9:20 AM INFORMATION ASSURANCE POCT GLUCOSE DEVICE Routine 09/26/2024 7 :40 AM INFORMATION ASSURANCE XR CHEST 1 VIEW IP Routine 09/26/2024 5:50 AM INFORMATION ASSURANCE EGFR Routine 09/26/2024 4:50 AM INFORMATION ASSURANCE MAGNESIUM Routine 09/26/2024 4:50 AM INFORMATION ASSURANCE RENAL FUNCTION PANEL Routine 09/26/2024 4:50 AM INFORMATION ASSURANCE CBC WITHOUT DIFFERENTIAL Routine 09/26/2024 4:50 AM INFORMATION ASSURANCE ECG 12-LEAD STAT 09/26/2024 3:00 AM INFORMATION ASSURANCE POCT GLUCOSE DEVICE Routine 09/26/2024 2 :16 AM INFORMATION ASSURANCE POCT GLUCOSE DEVICE Routine 09/25/2024 8 :04 PM INFORMATION ASSURANCE POCT GLUCOSE DEVICE Routine 09/25/2024 5 :43 PM INFORMATION ASSURANCE POCT GLUCOSE DEVICE Routine 09/25/2024 1 2:25 PM INFORMATION ASSURANCE POCT GLUCOSE DEVICE Routine 09/25/2024 8 :01 AM INFORMATION ASSURANCE XR CHEST 1 VIEW IP Routine 09/25/2024 5:47 AM INFORMATION ASSURANCE EGFR Routine 09/25/2024 5:40 AM INFORMATION ASSURANCE PROTIME-INR Routine 09/25/2024 5:40 AM INFORMATION ASSURANCE APTT Routine 09/25/2024 5:40 AM INFORMATION ASSURANCE MAGNESIUM Routine 09/25/2024 5:40 AM INFORMATION ASSURANCE RENAL FUNCTION PANEL Routine 09/25/2024 5:40 AM INFORMATION ASSURANCE CBC WITHOUT DIFFERENTIAL Routine 09/25/2024 5:40 AM INFORMATION ASSURANCE POCT GLUCOSE DEVICE Routine 09/24/2024 9 :58 PM INFORMATION ASSURANCE POCT GLUCOSE DEVICE Routine 09/24/2024 5 :30 PM INFORMATION ASSURANCE POCT GLUCOSE DEVICE Routine 09/24/2024 1 2:14 PM INFORMATION ASSURANCE EGFR Routine 09/24/2024 10:41 AM INFORMATION ASSURANCE MAGNESIUM Routine 09/24/2024 10:41 AM INFORMATION ASSURANCE RENAL FUNCTION PANEL Routine 09/24/2024 10:41 AM INFORMATION ASSURANCE CBC WITHOUT DIFFERENTIAL Routine 09/24/2024 10:41 AM INFORMATION ASSURANCE ECG 12-LEAD Routine 09/24/2024 10:30 AM INFORMATION ASSURANCE POCT GLUCOSE DEVICE Routine 09/24/2024 7 :58 AM INFORMATION ASSURANCE XR CHEST 1 VIEW IP Routine 09/24/2024 6:29 AM INFORMATION ASSURANCE POCT GLUCOSE DEVICE Routine 09/23/2024 9 :35 PM INFORMATION ASSURANCE POCT GLUCOSE DEVICE Routine 09/23/2024 4 :59 PM INFORMATION ASSURANCE EGFR Timed 09/23/2024 2:00 PM INFORMATION ASSURANCE MAGNESIUM Timed 09/23/2024 2:00 PM INFORMATION ASSURANCE RENAL FUNCTION PANEL Timed 09/23/2024 2:00 PM INFORMATION ASSURANCE POCT GLUCOSE DEVICE Routine 09/23/2024 1 1:59 AM INFORMATION ASSURANCE POCT GLUCOSE DEVICE Routine 09/23/2024 8 :06 AM INFORMATION ASSURANCE CRITICAL CARE Routine 09/23/2024 7:46 AM INFORMATION ASSURANCE Coronary artery disease of [place] artery of [place] heart with stable angina pectoris (HCC) EGFR Routine 09/23/2024 4:41 AM INFORMATION ASSURANCE DIFFERENTIAL AUTO Routine 09/23/2024 4:4 1 AM INFORMATION ASSURANCE CALCIUM,IONIZED, WHOLE BLOOD STAT 09/23/2024 4:41 AM INFORMATION ASSURANCE OXYHEMOGLOBIN, CENTRAL VENOUS STAT 09/23/2024 4:41 AM INFORMATION ASSURANCE PHOSPHORUS Routine 09/23/2024 4:41 AM INFORMATION ASSURANCE MAGNESIUM Routine 09/23/2024 4:41 AM INFORMATION ASSURANCE BASIC METABOLIC PANEL Routine 09/23/2024 4:41 AM INFORMATION ASSURANCE CBC WITH AUTO DIFFERENTIAL Routine 09/23/2024 4:41 AM INFORMATION ASSURANCE XR CHEST 1 VIEW IP Routine 09/23/2024 4:01 AM INFORMATION ASSURANCE MAGNESIUM STAT 09/22/2024 9:55 PM INFORMATION ASSURANCE CALCIUM,IONIZED, WHOLE BLOOD STAT 09/22/2024 9:55 PM INFORMATION ASSURANCE POTASSIUM LEVEL STAT 09/22/2024 9:55 PM INFORMATION ASSURANCE POCT GLUCOSE DEVICE Routine 09/22/2024 8 :09 PM INFORMATION ASSURANCE CRITICAL CARE Routine 09/22/2024 7:30 PM INFORMATION ASSURANCE Coronary artery disease of [place] artery of [place] heart with stable angina pectoris (HCC) POCT GLUCOSE DEVICE Routine 09/22/2024 5 :04 PM INFORMATION ASSURANCE EGFR Routine 09/22/2024 1:16 PM INFORMATION ASSURANCE DIFFERENTIAL AUTO Routine 09/22/2024 1:1 6 PM INFORMATION ASSURANCE MAGNESIUM Routine 09/22/2024 1:16 PM INFORMATION ASSURANCE CBC WITH AUTO DIFFERENTIAL Routine 09/22/2024 1:16 PM INFORMATION ASSURANCE CALCIUM,IONIZED, WHOLE BLOOD Routine 09/22/2024 1:16 PM INFORMATION ASSURANCE BASIC METABOLIC PANEL Routine 09/22/2024 1:16 PM INFORMATION ASSURANCE POCT GLUCOSE DEVICE Routine 09/22/2024 1 2:17 PM INFORMATION ASSURANCE POCT GLUCOSE DEVICE Routine 09/22/2024 8 :05 AM INFORMATION ASSURANCE CRITICAL CARE Routine 09/22/2024 6:52 AM INFORMATION ASSURANCE Coronary artery disease of [place] artery of [place] heart with stable angina pectoris (HCC) XR CHEST 1 VIEW IP Routine 09/22/2024 5:35 AM INFORMATION ASSURANCE OXYHEMOGLOBIN, CENTRAL VENOUS STAT 09/22/2024 4:15 AM INFORMATION ASSURANCE EGFR Routine 09/22/2024 3:33 AM INFORMATION ASSURANCE DIFFERENTIAL AUTO Routine 09/22/2024 3:3 3 AM INFORMATION ASSURANCE PHOSPHORUS Routine 09/22/2024 3:33 AM INFORMATION ASSURANCE MAGNESIUM Routine 09/22/2024 3:33 AM INFORMATION ASSURANCE BASIC METABOLIC PANEL Routine 09/22/2024 3:33 AM INFORMATION ASSURANCE CBC WITH AUTO DIFFERENTIAL Routine 09/22/2024 3:33 AM INFORMATION ASSURANCE POCT GLUCOSE DEVICE Routine 09/21/2024 1 1:56 PM INFORMATION ASSURANCE POCT GLUCOSE DEVICE Routine 09/21/2024 8 :43 PM INFORMATION ASSURANCE EGFR STAT 09/21/2024 8:27 PM INFORMATION ASSURANCE DIFFERENTIAL AUTO STAT 09/21/2024 8:2 7 PM INFORMATION ASSURANCE CALCIUM,IONIZED, WHOLE BLOOD STAT 09/21/2024 8:27 PM INFORMATION ASSURANCE MAGNESIUM STAT 09/21/2024 8:27 PM INFORMATION ASSURANCE CBC WITH AUTO DIFFERENTIAL STAT 09/21/2024 8:27 PM INFORMATION ASSURANCE BASIC METABOLIC PANEL STAT 09/21/2024 8:27 PM INFORMATION ASSURANCE CRITICAL CARE Routine 09/21/2024 7:29 PM INFORMATION ASSURANCE Coronary artery disease of [place] artery of [place] heart with stable angina pectoris (HCC) POCT GLUCOSE DEVICE Routine 09/21/2024 7 :19 PM INFORMATION ASSURANCE POCT GLUCOSE DEVICE Routine 09/21/2024 6 :13 PM INFORMATION ASSURANCE POCT GLUCOSE DEVICE Routine 09/21/2024 4 :56 PM INFORMATION ASSURANCE POCT GLUCOSE DEVICE Routine 09/21/2024 2 :45 PM INFORMATION ASSURANCE EGFR Timed 09/21/2024 1:42 PM INFORMATION ASSURANCE MAGNESIUM Timed 09/21/2024 1:42 PM INFORMATION ASSURANCE CALCIUM,IONIZED, WHOLE BLOOD Timed 09/21/2024 1:42 PM INFORMATION ASSURANCE BASIC METABOLIC PANEL Timed 09/21/2024 1:42 PM INFORMATION ASSURANCE CBC WITHOUT DIFFERENTIAL Timed 09/21/2024 1:42 PM INFORMATION ASSURANCE POCT GLUCOSE DEVICE Routine 09/21/2024 1 2:36 PM INFORMATION ASSURANCE POCT GLUCOSE DEVICE Routine 09/21/2024 1 0:50 AM INFORMATION ASSURANCE ECG 12-LEAD Routine 09/21/2024 10:14 AM INFORMATION ASSURANCE POCT GLUCOSE DEVICE Routine 09/21/2024 9 :43 AM INFORMATION ASSURANCE POCT GLUCOSE DEVICE Routine 09/21/2024 8 :39 AM INFORMATION ASSURANCE CRITICAL CARE Routine 09/21/2024 8:32 AM INFORMATION ASSURANCE Coronary artery disease of [place] artery of [place] heart with stable angina pectoris (HCC) POCT GLUCOSE DEVICE Routine 09/21/2024 7 :31 AM INFORMATION ASSURANCE POCT GLUCOSE DEVICE Routine 09/21/2024 6 :28 AM INFORMATION ASSURANCE XR CHEST 1 VIEW IP Routine 09/21/2024 6:00 AM INFORMATION ASSURANCE POCT GLUCOSE DEVICE Routine 09/21/2024 5 :01 AM INFORMATION ASSURANCE EGFR Routine 09/21/2024 4:41 AM INFORMATION ASSURANCE DIFFERENTIAL AUTO Routine 09/21/2024 4:4 1 AM INFORMATION ASSURANCE OXYHEMOGLOBIN, CENTRAL VENOUS Routine 09/21/2024 4:41 AM INFORMATION ASSURANCE PHOSPHORUS Routine 09/21/2024 4:41 AM INFORMATION ASSURANCE MAGNESIUM Routine 09/21/2024 4:41 AM INFORMATION ASSURANCE BASIC METABOLIC PANEL Routine 09/21/2024 4:41 AM INFORMATION ASSURANCE CBC WITH AUTO DIFFERENTIAL Routine 09/21/2024 4:41 AM INFORMATION ASSURANCE POCT GLUCOSE DEVICE Routine 09/21/2024 4 :04 AM INFORMATION ASSURANCE POCT GLUCOSE DEVICE Routine 09/21/2024 2 :57 AM INFORMATION ASSURANCE POCT GLUCOSE DEVICE Routine 09/21/2024 1 :42 AM INFORMATION ASSURANCE POCT GLUCOSE DEVICE Routine 09/21/2024 1 2:45 AM INFORMATION ASSURANCE POCT GLUCOSE DEVICE Routine 09/20/2024 1 1:46 PM INFORMATION ASSURANCE OXYHEMOGLOBIN, CENTRAL VENOUS STAT 09/20/2024 11:41 PM INFORMATION ASSURANCE EGFR STAT 09/20/2024 11:33 PM INFORMATION ASSURANCE DIFFERENTIAL AUTO STAT 09/20/2024 11: 33 PM INFORMATION ASSURANCE MAGNESIUM STAT 09/20/2024 11:33 PM INFORMATION ASSURANCE CBC WITH AUTO DIFFERENTIAL STAT 09/20/2024 11:33 PM INFORMATION ASSURANCE CALCIUM,IONIZED, WHOLE BLOOD STAT 09/20/2024 11:33 PM INFORMATION ASSURANCE BASIC METABOLIC PANEL STAT 09/20/2024 11:33 PM INFORMATION ASSURANCE POCT GLUCOSE DEVICE Routine 09/20/2024 1 0:34 PM INFORMATION ASSURANCE BLOOD GAS, ARTERIAL STAT 09/20/2024 1 0:30 PM INFORMATION ASSURANCE POCT GLUCOSE DEVICE Routine 09/20/2024 9 :38 PM INFORMATION ASSURANCE POCT GLUCOSE DEVICE Routine 09/20/2024 8 :35 PM INFORMATION ASSURANCE POCT GLUCOSE DEVICE Routine 09/20/2024 7 :33 PM INFORMATION ASSURANCE EGFR STAT 09/20/2024 6:39 PM INFORMATION ASSURANCE CALCIUM,IONIZED, WHOLE BLOOD STAT 09/20/2024 6:39 PM INFORMATION ASSURANCE MAGNESIUM STAT 09/20/2024 6:39 PM INFORMATION ASSURANCE BASIC METABOLIC PANEL STAT 09/20/2024 6:39 PM INFORMATION ASSURANCE CBC WITHOUT DIFFERENTIAL Timed 09/20/2024 6:39 PM INFORMATION ASSURANCE BLOOD GAS, ARTERIAL Timed 09/20/2024 6 :39 PM INFORMATION ASSURANCE POCT GLUCOSE DEVICE Routine 09/20/2024 6 :30 PM INFORMATION ASSURANCE POCT GLUCOSE DEVICE Routine 09/20/2024 5 :07 PM INFORMATION ASSURANCE POCT GLUCOSE DEVICE Routine 09/20/2024 4 :25 PM INFORMATION ASSURANCE XR CHEST 1 VIEW Critical/Life-T hreatening 09/20/2024 3:00 PM INFORMATION ASSURANCE EGFR STAT 09/20/2024 2:59 PM INFORMATION ASSURANCE CALCIUM,IONIZED, WHOLE BLOOD STAT 09/20/2024 2:59 PM INFORMATION ASSURANCE APTT STAT 09/20/2024 2:59 PM INFORMATION ASSURANCE PROTIME-INR STAT 09/20/2024 2:59 PM INFORMATION ASSURANCE CBC WITHOUT DIFFERENTIAL Timed 09/20/2024 2:59 PM INFORMATION ASSURANCE BLOOD GAS, ARTERIAL Timed 09/20/2024 2 :59 PM INFORMATION ASSURANCE BASIC METABOLIC PANEL STAT 09/20/2024 2:59 PM INFORMATION ASSURANCE CRITICAL CARE Routine 09/20/2024 2:58 PM INFORMATION ASSURANCE Coronary artery disease of [place] artery of [place] heart with stable angina pectoris (HCC) POCT GLUCOSE DEVICE Routine 09/20/2024 2 :44 PM INFORMATION ASSURANCE POC BLOOD GAS AND CHEMISTRIES, ARTERIAL Routine 09/20/2024 1:56 PM INFORMATION ASSURANCE TRANSFUSE PLATELETS Timed 09/20/2024 1 :19 PM INFORMATION ASSURANCE POCT ACTIVATED CLOTTING TIME, HIGH RANGE Routine 09/20/2024 12:52 PM INFORMATION ASSURANCE POC BLOOD GAS AND CHEMISTRIES, ARTERIAL Routine 09/20/2024 12:50 PM INFORMATION ASSURANCE POCT ACTIVATED CLOTTING TIME, HIGH RANGE Routine 09/20/2024 12:47 PM INFORMATION ASSURANCE POC BLOOD GAS AND CHEMISTRIES, ARTERIAL Routine 09/20/2024 12:18 PM INFORMATION ASSURANCE POCT ACTIVATED CLOTTING TIME, HIGH RANGE Routine 09/20/2024 12:15 PM INFORMATION ASSURANCE PLATELET COUNT STAT 09/20/2024 12:03 PM INFORMATION ASSURANCE POC BLOOD GAS AND CHEMISTRIES, ARTERIAL Routine 09/20/2024 11:28 AM INFORMATION ASSURANCE POCT ACTIVATED CLOTTING TIME, HIGH RANGE Routine 09/20/2024 11:26 AM INFORMATION ASSURANCE POC BLOOD GAS AND CHEMISTRIES, ARTERIAL Routine 09/20/2024 10:47 AM INFORMATION ASSURANCE POCT ACTIVATED CLOTTING TIME, HIGH RANGE Routine 09/20/2024 10:44 AM INFORMATION ASSURANCE POCT ACTIVATED CLOTTING TIME, HIGH RANGE Routine 09/20/2024 9:44 AM INFORMATION ASSURANCE ANESTHESIA ARTERIAL LINE PLACEMENT Routine 09/20/2024 9:37 AM INFORMATION ASSURANCE ANESTHESIA CENTRAL VENOUS LINE PLACEMENT Routine 09/20/2024 9:35 AM INFORMATION ASSURANCE ANESTHESIA CENTRAL VENOUS LINE PLACEMENT Routine 09/20/2024 9:35 AM INFORMATION ASSURANCE CA AN ELECTIVE ENDOTRACHEAL AIRWAY Routine 09/20/2024 9:34 AM INFORMATION ASSURANCE POC BLOOD GAS AND CHEMISTRIES, ARTERIAL Routine 09/20/2024 8:31 AM INFORMATION ASSURANCE POCT ACTIVATED CLOTTING TIME, HIGH RANGE Routine 09/20/2024 8:27 AM INFORMATION ASSURANCE CORONARY ARTERY BYPASS GRAFT - INTERNAL MAMMARY/SAPHENOUS VEIN GRAFT - LEG 09/20/2024 7:49 AM INFORMATION ASSURANCE Coronary artery disease of [place] heart with stable angina pectoris, unspecified vessel or lesion type (HCC) CORONARY ARTERY BYPASS GRAFT - INTERNAL MAMMARY ARTERY 09/20/2024 7:49 AM INFORMATION ASSURANCE Coronary artery disease of [place] heart with stable angina pectoris, unspecified vessel or lesion type (HCC) TYPE AND SCREEN Timed 09/20/2024 7:25 AM INFORMATION ASSURANCE POCT GLUCOSE DEVICE Routine 09/20/2024 6 :11 AM INFORMATION ASSURANCE PREPARE PLATELETS STAT 09/20/2024 5:3 1 AM INFORMATION ASSURANCE PREPARE RBC STAT 09/20/2024 5:31 AM INFORMATION ASSURANCE ECG 12-LEAD Routine 09/17/2024 9:25 AM INFORMATION ASSURANCE Coronary artery disease of [place] heart with stable angina pectoris, unspecified vessel or lesion type (HCC) XR CHEST PA LATERAL 2 VIEWS Schedule Routine, Read Routine (OP Routine) 09/17/2024 9:07 AM INFORMATION ASSURANCE Coronary artery disease of [place] heart with stable angina pectoris, unspecified vessel or lesion type (HCC) EGFR Routine 09/17/2024 9:01 AM INFORMATION ASSURANCE Coronary artery disease of [place] heart with stable angina pectoris, unspecified vessel or lesion type (HCC) BASIC METABOLIC PANEL Routine 09/17/2024 9:01 AM INFORMATION ASSURANCE Coronary artery disease of [place] heart with stable angina pectoris, unspecified vessel or lesion type (HCC) PROTIME-INR Routine 09/17/2024 9:01 AM INFORMATION ASSURANCE Coronary artery disease of [place] heart with stable angina pectoris, unspecified vessel or lesion type (HCC) APTT Routine 09/17/2024 9:01 AM INFORMATION ASSURANCE Coronary artery disease of [place] heart with stable angina pectoris, unspecified vessel or lesion type (HCC) CBC WITHOUT DIFFERENTIAL Routine 09/17/2024 9:01 AM INFORMATION ASSURANCE Coronary artery disease of [place] heart with stable angina pectoris, unspecified vessel or lesion type (HCC) TYPE AND SCREEN Routine 09/17/2024 9:01 AM INFORMATION ASSURANCE Coronary artery disease of [place] heart with stable angina pectoris, unspecified vessel or lesion type (HCC) HEMOGLOBIN A1C Routine 09/17/2024 9:01 AM INFORMATION ASSURANCE Pre-op testing URINALYSIS AND REFLEX TO MICROSCOPIC AND CULTURE Routine 09/17/2024 9:01 AM INFORMATION ASSURANCE Coronary artery disease of [place] heart with stable angina pectoris, unspecified vessel or lesion type (HCC) TRANSTHORACIC ECHO (TTE) LIMITED/FOLLOW UP WO DOPPLER/CF W CONTRAST Routine 08/26/2024 11:20 AM INFORMATION ASSURANCE Coronary artery disease involving [place] coronary artery of [place] heart without angina pectoris LIPID PANEL Timed 06/27/2024 10:26 AM CDT HEPATITIS PANEL, ACUTE STAT 06/27/2024 5:24 AM CDT from Last 3 Months or Most Recently Relevant to Health Maintenance Results * (ABNORMAL) Glucose, random (Outreach) (10/01/2024 11:45 AM INFORMATION ASSURANCE) Glucose 228(H) 70 - 199 mg/dL Comment: [...] revised 2022. Blood 10/01/2024 11:4 5 AM INFORMATION ASSURANCE 10/01/2024 3:38 PM INFORMATION ASSURANCE us Notinfile Unknown LAB BLOOD ORDERABLES Final Res ult Performing Organization Address City/[facility]/ZIP Co de Phone Number [email or web address] [place] [address] * eGFR (10/01/2024 11:45 AM INFORMATION ASSURANCE) eGFR >90 >=60 mL/min/1. 73 m2 Comment: [...] reviewed 2021. Blood 10/01/2024 11:4 5 AM INFORMATION ASSURANCE 10/01/2024 4:03 PM INFORMATION ASSURANCE us Notinfile Unknown LAB BLOOD ORDERABLES Final Res ult Performing Organization Address City/[facility]/ZIP Co de Phone Number [facility] Department [place] [address] * Basic metabolic panel without glucose (10/01/2024 11:45 AM INFORMATION ASSURANCE) [facility] Sodium 137 135 - 145 mmol/L Comment:Repeated and Verifie d Potassium, pl 3.9 3.3 - 4.9 mmol/L [facility] Comment:Repeated and Verifie d Chloride 101 97 - 110 mmol/L [facility] Comment:Repeated and Verifie d CO2 23 22 - 32 mmol/L [facility] Anion gap 13 2 - 15 mmol/L [facility] Comment:Reviewed BUN 11 6 - 25 mg/dL [facility] Creatinine 0.88 0.80 - 1.30 mg/dL [facility] Calcium 9.0 8.5 - 10.3 mg/dL [facility] Comment:Repeated and Verifie d Blood 10/01/2024 11:4 5 AM INFORMATION ASSURANCE 10/01/2024 3:38 PM INFORMATION ASSURANCE us Notinfile Unknown LAB BLOOD ORDERABLES Final Res ult [facility] Department [place] [address] * (ABNORMAL) CBC without differential (10/01/2024 11:45 AM INFORMATION ASSURANCE) [facility] WBC 8.0 3.8 - 9.9 K/cumm Hgb 9.2(L) 13.0 - 17.5 g/dL [facility] Hct 28.8(L) 38.9 - 50.3 % [facility] Plt 565(H) 150 - 400 K/cumm [facility] MPV 9.8 9.1 - 12.3 fL [facility] RBC 3.32(L) 4.30 - 5.80 M/cumm [facility] MCV 86.7 81.3 - 96.4 fL [facility] MCH 27.7 27.1 - 33.3 pg [facility] MCHC 31.9(L) 32.3 - 35.7 g/dL [facility] RDW CV 13.3 11.1 - 14.9 % [facility] RDW SD 42.0 35.7 - 48.1 fL [facility] NRBC abs 0.00 0.00 - 0.01 K/cumm [facility] Blood 10/01/2024 11:4 5 AM INFORMATION ASSURANCE 10/01/2024 3:38 PM INFORMATION ASSURANCE us Notinfile Unknown LAB BLOOD ORDERABLES Final Res ult [facility] Department [place] [address] * (ABNORMAL) Potassium (09/26/2024 12:55 PM INFORMATION ASSURANCE) Potassium, pl 3.2(L) 3.3 - 4.9 mmol/L Blood 09/26/2024 12:5 5 PM INFORMATION ASSURANCE 09/26/2024 1:01 PM INFORMATION ASSURANCE us Celsa Orosco MANAGER OF APPLICATIONS DEVELOPMENT LAB BLOOD ORDERABLES Final Result Performing Organization Address [facility] Co de Phone Number TAB [address] [address] Department [place] [employer] [place] [address] * POCT glucose (09/26/2024 12:08 PM INFORMATION ASSURANCE) Glucose, POC 166 70 - 199 mg/dL Blood 09/26/2024 12:0 8 PM INFORMATION ASSURANCE 09/26/2024 12:08 PM INFORMATION ASSURANCE us Victor Manuel Woo MD LAB POCT ORDERABLES - DEVICE Final Result Performing Organization Address [facility] Co de Phone Number TAB [phone] [address] Department [place] [employer] [place] [address] * POCT glucose (09/26/2024 7:40 AM INFORMATION ASSURANCE) Glucose, POC 177 70 - 199 mg/dL Blood 09/26/2024 7:40 AM INFORMATION ASSURANCE 09/26/2024 7:40 AM INFORMATION ASSURANCE us Victor Manuel Woo MD LAB POCT [place] - [place] [id number] [address] Department [place] [address] * XR Chest 1 View - Portable - in AM (09/26/2024 5:50 AM INFORMATION ASSURANCE) Anatomical Region Laterality Modality Body, Chest N/A Computed Radiogr aphy 09/26/2024 10:5 4 AM INFORMATION ASSURANCE Impressions 09/26/2024 10:54 AM INFORMATION ASSURANCE Stable cardiomegaly without failure. Electronically signed by: Teddy Doherty M.D. Narrative 09/26/2024 10:54 AM INFORMATION ASSURANCE EXAMINATION: XR CHEST 1 VIEW DATE: 09/26/2024 [...] by: Teddy Doherty M.D. us Apoorva Mar MANAGER OF APPLICATIONS DEVELOPMENT IMG XR PROCEDURES Final Result * eGFR (09/26/2024 4:50 AM INFORMATION ASSURANCE) eGFR >90 >=60 mL/min/1. 73 m2 Comment: [...] last reviewed 2021. Blood 09/26/2024 4:50 AM INFORMATION ASSURANCE 09/26/2024 5:07 AM INFORMATION ASSURANCE us Apoorva Mar NP LAB BLOOD ORDERABLES Fin al Result [facility] [address] [address] Department [place] [address] * (ABNORMAL) CBC without differential (09/26/2024 4:50 AM INFORMATION ASSURANCE) Pathologist [facility] WBC 7.1 3.8 - 9.9 K/cumm Hgb 8.6(L) 13.0 - 17.5 g/dL [facility] Hct 26.8(L) 38.9 - 50.3 % [facility] Plt 296 150 - 400 K/cumm [facility] MPV 9.8 9.1 - 12.[address] [facility] RBC 3.17(L) 4.30 - 5.80 M/cumm [facility] MCV 84.5 81.3 - 96.4 fL [facility] MCH 27.1 27.1 - 33.3 pg [facility] MCHC 32.1(L) 32.3 - 35.7 g/dL [facility] RDW CV 13.2 11.1 - 14.9 % [facility] RDW SD 40.9 35.7 - 48.1 fL [facility] NRBC abs 0.02(H) 0.00 - 0.01 K/cumm [facility] Blood 09/26/2024 4:50 AM INFORMATION ASSURANCE 09/26/2024 5:03 AM INFORMATION ASSURANCE Apoorva Mar MANAGER OF APPLICATIONS DEVELOPMENT LAB BLOOD ORDERABLES Fin al Result Performing Organization Address City/[facility]/ZIP Co de Phone Number TAB GUARDADO [address] [address] [facility] [employer] [address] * Magnesium (09/26/2024 4:50 AM INFORMATION ASSURANCE) Pathologist [facility] Magnesium 1.8 1.4 - 2.5 mg/dL Blood 09/26/2024 4:50 AM INFORMATION ASSURANCE 09/26/2024 5:03 AM INFORMATION ASSURANCE Apoorva Mar MANAGER OF APPLICATIONS DEVELOPMENT LAB BLOOD ORDERABLES Fin al Result Performing Organization Address [facility] de Phone Number TAB GUARDADO [address] [address] Department [employer] [address] * (ABNORMAL) Renal function panel (09/26/2024 4:50 AM INFORMATION ASSURANCE) Pathologist [facility] Sodium 135 135 - 145 mmol/L Potassium, pl 2.9(L) 3.3 - 4.9 mmol/L [facility] Chloride 91(L) 97 - 110 mmol/L [facility] CO2 30 22 - 32 mmol/L [facility] Anion gap 14 2 - 15 mmol/L [facility] BUN 13 6 - 25 mg/dL [facility] Creatinine 0.64(L) 0.80 - 1.30 mg/dL [facility] Glucose 168 70 - 199 mg/dL [facility] Comment: Interpretive Data Fasting glucose >/= 126 [...] 2022. Calcium 9.3 8.5 - 10.3 mg/dL [facility] Phosphorus, pl 3.8 2.3 - 4.5 mg/dL [facility] Albumin 3.8 3.5 - 5.0 g/dL [facility] Blood 09/26/2024 4:50 AM INFORMATION ASSURANCE 09/26/2024 5:03 AM INFORMATION ASSURANCE Apoorva Mar MANAGER OF APPLICATIONS DEVELOPMENT LAB BLOOD ORDERABLES Fin al Result Performing Organization Address [facility] Co de Phone Number TAB GUARDADO [address] [address] Department [place] [employer] [place] [address] * ECG 12 lead (09/26/2024 3:00 AM INFORMATION ASSURANCE) 09/26/2024 3:00 AM INFORMATION ASSURANCE Narrative [facility] - 09/26/2024 10:04 AM INFORMATION ASSURANCE Vent Rate: 76 bpm RR Interval: 789 msec CA Interval: 164 msec QRS Duration: 101 msec QT Interval: 328 msec QTC Interval: 358 msec P-R-T Ellsworth: 20 - 18 - 35 degrees IMPRESSION: SINUS RHYTHM SEPTAL MYOCARDIAL INFARCTION , OF INDETERMINATE AGE POSSIBLE INFERIOR MYOCARDIAL INFARCTION , OF INDETERMINATE AGE Electronically Signed By: Dion Mitchell MD, [facility] Victor Manuel Woo MD ECG ORDERABLES Final Result Performing Organization Address [facility] Phone Number [facility] * POCT glucose (09/26/2024 2:16 AM INFORMATION ASSURANCE) Glucose, POC 157 70 - 199 mg/dL Blood 09/26/2024 2:16 AM INFORMATION ASSURANCE 09/26/2024 2:16 AM INFORMATION ASSURANCE Victor Manuel Woo MD LAB POCT ORDERABLES - DEVICE Final Result Performing Organization Address [facility] Co de Phone Number TAB GUARDADO [address] [address] Department [employer] [address] * POCT glucose (09/25/2024 8:04 PM INFORMATION ASSURANCE) Glucose, POC 179 70 - 199 mg/dL Blood 09/25/2024 8:04 PM INFORMATION ASSURANCE 09/25/2024 8:04 PM INFORMATION ASSURANCE us Victor Manuel Woo MD LAB POCT ORDERABLES - DEVICE Final Result Performing Organization Address City/[facility]/ZIP Co de Phone Number TAB GUARDADO [address] [address] [facility] [employer] [address] * POCT glucose (09/25/2024 5:43 PM INFORMATION ASSURANCE) Glucose, POC 143 70 - 199 mg/dL Blood 09/25/2024 5:43 PM INFORMATION ASSURANCE 09/25/2024 5:43 PM INFORMATION ASSURANCE us Victor Manuel Woo MD LAB POCT ORDERABLES - DEVICE Final Result Performing Organization Address [facility] Co de Phone Number YOLISLLUVIA GUARDADO [address] [address] [facility] [employer] [place] [address] * (ABNORMAL) POCT glucose (09/25/2024 12:25 PM INFORMATION ASSURANCE) Glucose, POC 226(H) 70 - 199 mg/dL Blood 09/25/2024 12:2 5 PM INFORMATION ASSURANCE 09/25/2024 12:25 PM INFORMATION ASSURANCE Victor Manuel Woo MD LAB POCT ORDERABLES - DEVICE Final Result Performing Organization Address [facility] Co de Phone Number YOLISLLUVIA GUARDADO [address] [address] [facility] [employer] [address] * POCT glucose (09/25/2024 8:01 AM INFORMATION ASSURANCE) Glucose, POC 147 70 - 199 mg/dL Blood 09/25/2024 8:01 AM INFORMATION ASSURANCE 09/25/2024 8:01 AM INFORMATION ASSURANCE us Victor Manuel Woo MD LAB POCT ORDERABLES - DEVICE Final Result Performing Organization Address City/[facility] Co de Phone Number YOLISLLUVIA GUARDADO [address] [address] Department [place] [address] * XR Chest 1 View - Portable - in AM (09/25/2024 5:47 AM INFORMATION ASSURANCE) Anatomical Region Laterality Modality Body, Chest N/A Computed Radiogr aphy 09/25/2024 8:20 AM INFORMATION ASSURANCE Impressions 09/25/2024 8:20 AM INFORMATION ASSURANCE Stable cardiomegaly without failure. Electronically signed by: Rodrick Modi M.D. Narrative 09/25/2024 8:20 AM INFORMATION ASSURANCE EXAMINATION: XR CHEST 1 VIEW DATE: 09/25/2024 [...] signed by: Rodrick Modi M.D. Apoorva Mar MANAGER OF APPLICATIONS DEVELOPMENT IMG XR PROCEDURES Final Result * eGFR (09/25/2024 5:40 AM INFORMATION ASSURANCE) eGFR >90 >=60 mL/min/1. 73 m2 Comment: [...] Inclusion of Race in Diagnosing Kidney Disease, SN 2020). The CKD-EPI equation should not be used for patients with unstable renal function and has not been validated in children and those over 70. Current interpretive data was last reviewed 2021. Blood 09/25/2024 5:40 AM INFORMATION ASSURANCE 09/25/2024 6:03 AM INFORMATION ASSURANCE Apoorva Mar MANAGER OF APPLICATIONS DEVELOPMENT LAB BLOOD ORDERABLES Fin al Result Performing Organization Address [facility] de Phone Number [facility] [address] [address] Department [employer] [address] * aPTT (09/25/2024 5:40 AM INFORMATION ASSURANCE) aPTT 30 28 - 38 sec Comment: Interpretive Data Heparin therapeutic range: 66.0 - 100.0 seconds. Range based on correlation with therapeutic heparin activity range of 0.3 - 0.7 Units/mL. Current interpretive data was last revised on 2023. Blood 09/25/2024 5:40 AM INFORMATION ASSURANCE 09/25/2024 5:58 AM INFORMATION ASSURANCE Celsa Orosco MANAGER OF APPLICATIONS DEVELOPMENT LAB BLOOD ORDERABLES Final Result Performing Organization Address [facility] de Phone Number [facility] [address] [address] [facility] [employer] [address] * Protime-INR (09/25/2024 5:40 AM INFORMATION ASSURANCE) PT 12.8 9.7 - 13.0 sec INR 1.18 0.90 - 1.20 TAB Comment: Interpretive data Oral anticoagulant therapeutic ranges: Venous thromboembolism prophylaxis or treatment: 2.0-3.0 CARDIOLOGY Standard range: 2.0-3.0 High-intensity range: 2.5-3.5 Refer to indication-specific guidelines for appropriate target ranges for prosthetic heart valve replacement. Current interpretive data was last revised on 2019. Blood 09/25/2024 5:40 AM INFORMATION ASSURANCE 09/25/2024 5:58 AM INFORMATION ASSURANCE Celsa Orosco MANAGER OF APPLICATIONS DEVELOPMENT LAB BLOOD ORDERABLES Final Result Performing Organization Address [facility] de Phone Number TAB GUARDADO [address] Department [place] [employer] [place] [address] * (ABNORMAL) CBC without differential (09/25/2024 5:40 AM INFORMATION ASSURANCE) WBC 6.4 3.8 - 9.9 K/cumm Hgb 8.3(L) 13.0 - 17.5 g/dL [facility] Hct 26.0(L) 38.9 - 50.3 % [facility] Plt 236 150 - 400 K/cumm [facility] MPV 9.9 9.1 - 12.3 fL [facility] RBC 3.08(L) 4.30 - 5.80 M/cumm [facility] MCV 84.4 81.3 - 96.4 fL [facility] MCH 26.9(L) 27.1 - 33.3 pg [facility] MCHC 31.9(L) 32.3 - 35.7 g/dL [facility] RDW CV 13.2 11.1 - 14.9 % [facility] RDW SD 40.5 35.7 - 48.1 fL [facility] NRBC abs 0.00 0.00 - 0.01 K/cumm [facility] Blood 09/25/2024 5:40 AM INFORMATION ASSURANCE 09/25/2024 5:58 AM INFORMATION ASSURANCE Apoorva Mar MANAGER OF APPLICATIONS DEVELOPMENT LAB BLOOD ORDERABLES Fin al Result Performing Organization Address [facility]/ZIP Co de Phone Number TAB GUARDADO [address] Department of [employer] [place], [place] [id number] * Magnesium (09/25/2024 5:40 AM INFORMATION ASSURANCE) Pathologist [facility] Magnesium 2.1 1.4 - 2.5 mg/dL Blood 09/25/2024 5:40 AM INFORMATION ASSURANCE 09/25/2024 5:58 AM INFORMATION ASSURANCE Apoorva Mar NP LAB BLOOD ORDERABLES Fin al Result TAB GUARDADO [address] [address] Department [place] [address] * (ABNORMAL) Renal function panel (09/25/2024 5:40 AM INFORMATION ASSURANCE) Sodium 138 135 - 145 mmol/L Potassium, pl 2.9(L) 3.3 - 4.9 mmol/L [facility] Chloride 94(L) 97 - 110 mmol/L [facility] CO2 31 22 - 32 mmol/L [facility] Anion gap 13 2 - 15 mmol/L [facility] BUN 16 6 - 25 mg/dL [facility] Creatinine 0.63(L) 0.80 - 1.30 mg/dL [facility] [...] pl 4.6(H) 2.3 - 4.5 mg/dL [facility] Albumin 3.6 3.5 - 5.0 g/dL [facility] Blood 09/25/2024 5:40 AM INFORMATION ASSURANCE 09/25/2024 5:58 AM INFORMATION ASSURANCE Apoorva Mar NP LAB BLOOD ORDERABLES Fin al Result TAB GUARDADO [address] [address] Department [place] [address] * POCT glucose (09/24/2024 9:58 PM INFORMATION ASSURANCE) Glucose, POC 138 70 - 199 mg/dL Blood 09/24/2024 9:58 PM INFORMATION ASSURANCE 09/24/2024 9:58 PM INFORMATION ASSURANCE us Victor Manuel Woo MD LAB POCT ORDERABLES - DEVICE Final Result Performing Organization Address [facility] de Phone Number TAB GUARDADO [address] [address] [facility] [employer] [address] * POCT glucose (09/24/2024 5:30 PM INFORMATION ASSURANCE) Glucose, POC 117 70 - 199 mg/dL Blood 09/24/2024 5:30 PM INFORMATION ASSURANCE 09/24/2024 5:30 PM INFORMATION ASSURANCE Victor Manuel Woo MD LAB POCT ORDERABLES - DEVICE Final Result Performing Organization Address [facility] de Phone Number TAB GEO [address] [address] [facility] [employer] [address] * (ABNORMAL) POCT glucose (09/24/2024 12:14 PM INFORMATION ASSURANCE) Glucose, POC 215(H) 70 - 199 mg/dL Blood 09/24/2024 12:1 4 PM INFORMATION ASSURANCE 09/24/2024 12:14 PM INFORMATION ASSURANCE Victor Manuel Woo MD LAB POCT ORDERABLES - DEVICE Final Result Performing Organization Address [facility] de Phone Number YOLISLLUVIA GUARDADO [address] [address] [facility] [employer] [address] * eGFR (09/24/2024 10:41 AM INFORMATION ASSURANCE) eGFR >90 >=60 mL/min/1. 73 m2 Comment: [...] reviewed 2021. Blood 09/24/2024 10:4 1 AM INFORMATION ASSURANCE 09/24/2024 10:41 AM INFORMATION ASSURANCE Apoorva Mar NP LAB BLOOD ORDERABLES Fin al Result [facility] [address] [address] Department [place] [address] * (ABNORMAL) CBC without differential (09/24/2024 10:41 AM INFORMATION ASSURANCE) WBC 7.0 3.8 - 9.9 K/cumm Hgb 8.5(L) 13.0 - 17.5 g/dL [facility] Hct 26.3(L) 38.9 - 50.3 % [facility] Plt 200 150 - 400 K/cumm [facility] MPV 10.3 9.1 - 12.3 fL [facility] RBC 3.10(L) 4.30 - 5.80 M/cumm [facility] MCV 84.8 81.3 - 96.4 fL [facility] MCH 27.4 27.1 - 33.3 pg [facility] MCHC 32.3 32.3 - 35.7 g/dL [facility] RDW CV 13.2 11.1 - 14.9 % [facility] RDW SD 41.1 35.7 - 48.1 fL [facility] NRBC abs 0.00 0.00 - 0.01 K/cumm [facility] Blood 09/24/2024 10:4 1 AM INFORMATION ASSURANCE 09/24/2024 10:41 AM INFORMATION ASSURANCE Apoorva Mar MANAGER OF APPLICATIONS DEVELOPMENT LAB BLOOD ORDERABLES Fin al Result Performing Organization Address City/[facility] Co de Phone Number TAB GUARDADO [address] [address] Department [employer] [address] * Magnesium (09/24/2024 10:41 AM INFORMATION ASSURANCE) Magnesium 1.7 1.4 - 2.5 mg/dL Blood 09/24/2024 10:4 1 AM INFORMATION ASSURANCE 09/24/2024 10:41 AM INFORMATION ASSURANCE Apoorva Mar MANAGER OF APPLICATIONS DEVELOPMENT LAB BLOOD ORDERABLES Fin al Result Performing Organization Address [facility] de Phone Number TAB GUARDADO [address] [address] Department [employer] [address] * (ABNORMAL) Renal function panel (09/24/2024 10:41 AM INFORMATION ASSURANCE) Sodium 136 135 - 145 mmol/L Potassium, pl 3.2(L) 3.3 - 4.9 mmol/L [facility] Chloride 93(L) 97 - 110 mmol/L [facility] CO2 30 22 - 32 mmol/L [facility] Anion gap 13 2 - 15 mmol/L [facility] BUN 20 6 - 25 mg/dL [facility] Creatinine 0.64(L) 0.80 - 1.30 mg/dL [facility] Glucose 258(H) 70 - 199 mg/dL [facility] Comment: Interpretive Data Fasting glucose >/= 126 [...] pl 2.6 2.3 - 4.5 mg/dL [facility] Albumin 3.6 3.5 - 5.0 g/dL [facility] Blood 09/24/2024 10:4 1 AM INFORMATION ASSURANCE 09/24/2024 10:41 AM INFORMATION ASSURANCE Apoorva Mar MANAGER OF APPLICATIONS DEVELOPMENT LAB BLOOD ORDERABLES Fin al Result Performing Organization Address [facility] Phone Number TAB GUARDADO [address] [address] Department [place] [employer] [place] [address] * ECG 12 lead (09/24/2024 10:30 AM INFORMATION ASSURANCE) 09/24/2024 10:3 0 AM INFORMATION ASSURANCE Narrative [facility] - 09/24/2024 1:12 PM INFORMATION ASSURANCE Vent Rate: 75 bpm RR Interval: 790 msec CA Interval: 156 msec QRS Duration: 95 msec QT Interval: 402 msec QTC Interval: 432 msec P-R-T Ellsworth: 26 - 10 - 47 degrees IMPRESSION: SINUS RHYTHM PROBABLE INFERIOR MYOCARDIAL INFARCTION , OF INDETERMINATE AGE [35 ms Q WAVE IN II/aVF] ANTEROSEPTAL MYOCARDIAL INFARCTION , OF INDETERMINATE AGE [40+ ms Q WAVE IN V1- V4] ABNORMAL ECG No significant change since previous tracing Electronically Signed By: Feliz Garnett MD, [facility] Celsa Orosco MANAGER OF APPLICATIONS DEVELOPMENT ECG ORDERABLES Final Resu lt Performing Organization Address [facility] Phone Number [facility] * POCT glucose (09/24/2024 7:58 AM INFORMATION ASSURANCE) [facility] Glucose, POC 172 70 - 199 mg/dL Blood 09/24/2024 7:58 AM INFORMATION ASSURANCE 09/24/2024 7:58 AM INFORMATION ASSURANCE Victor Manuel Woo MD LAB POCT ORDERABLES - DEVICE Final Result Performing Organization Address [facility] Co de Phone Number TAB GUARDADO [address] [address] Department [place] [employer] [place] [address] * XR Chest 1 View - Portable - in AM (09/24/2024 6:29 AM INFORMATION ASSURANCE) Anatomical Region Laterality Modality Body, Chest N/A Computed Radiogr aphy 09/24/2024 8:06 AM INFORMATION ASSURANCE Impressions 09/24/2024 8:06 AM INFORMATION ASSURANCE Chest tube removal without pneumothorax. No failure. Electronically signed by: Rodrick Modi M.D. Narrative 09/24/2024 8:06 AM INFORMATION ASSURANCE EXAMINATION: XR CHEST 1 VIEW DATE: 09/24/2024 5:10 AM HISTORY: Cardiac surgery follow-up FINDINGS:Compared with the study of the prior day, interval removal of thoracostomy tubes and mediastinal drain. Oxford-Shae catheter withdrawn into the superior vena cava. Cardiomegaly with postsurgical changes are seen without failure. No pneumothorax. No infiltrates Procedure Note Rodrick Modi MD - 09/24/2024 EXAMINATION: XR CHEST 1 VIEW DATE: 09/24/2024 5:10 AM HISTORY: Cardiac surgery follow-up FINDINGS:Compared with the study of the prior day, interval removal of thoracostomy tubes and mediastinal drain. Oxford-Shae catheter withdrawn into the superior vena cava. Cardiomegaly with postsurgical changes are seen without failure. No pneumothorax. No infiltrates IMPRESSION: Chest tube removal without pneumothorax. No failure. Electronically signed by: Rodrick Modi M.D. Apoorva Mar MANAGER OF APPLICATIONS DEVELOPMENT IMG XR PROCEDURES Final Result * POCT glucose (09/23/2024 9:35 PM INFORMATION ASSURANCE) Glucose, POC 109 70 - 199 mg/dL Blood 09/23/2024 9:35 PM INFORMATION ASSURANCE 09/23/2024 9:35 PM INFORMATION ASSURANCE us Victor Manuel Woo MD LAB POCT ORDERABLES [place] [id number] [address] [place] [address] * (ABNORMAL) POCT glucose (09/23/2024 4:59 PM INFORMATION ASSURANCE) Glucose, POC 220(H) 70 - 199 mg/dL Blood 09/23/2024 4:59 PM INFORMATION ASSURANCE 09/23/2024 4:59 PM INFORMATION ASSURANCE us Victor Manuel Woo MD LAB POCT ORDERABLES - DEVICE Final Result Performing Organization Address City/[facility]/ZIP Co de Phone Number TAB GUARDADO [address] [address] [place] [address] * eGFR (09/23/2024 2:00 PM INFORMATION ASSURANCE) eGFR >90 >=60 mL/min/1. 73 m2 Comment: [...] last reviewed 2021. Blood 09/23/2024 2:00 PM INFORMATION ASSURANCE 09/23/2024 2:04 PM INFORMATION ASSURANCE us Apoorva Mar NP LAB BLOOD ORDERABLES Fin al Result Performing Organization Address City/[facility]/ZIP Co de Phone Number TAB GUARDADO [address] [address] Department [employer] [place], [place] [id number] * Magnesium (09/23/2024 2:00 PM INFORMATION ASSURANCE) Magnesium 2.0 1.4 - 2.5 mg/dL Blood 09/23/2024 2:00 PM INFORMATION ASSURANCE 09/23/2024 2:04 PM INFORMATION ASSURANCE pAoorva Mar MANAGER OF APPLICATIONS DEVELOPMENT LAB BLOOD ORDERABLES Fin al Result [facility] [address] [address] Department [place] [address] * (ABNORMAL) Renal function panel (09/23/2024 2:00 PM INFORMATION ASSURANCE) Pathologist [facility] Sodium 135 135 - 145 mmol/L Potassium, pl 3.2(L) 3.3 - 4.9 mmol/L [facility] Chloride 96(L) 97 - 110 mmol/L [facility] CH CO2 29 22 - 32 mmol/L [facility] CH Anion gap 10 2 - 15 mmol/L [facility] CH BUN 18 6 - 25 mg/dL [facility] Creatinine 0.51(L) 0.80 - 1.30 mg/dL [facility] Glucose 224(H) 70 - 199 mg/dL [facility] Comment: Interpretive Data Fasting glucose >/= 126 [...] 5.0 g/dL [facility] Blood 09/23/2024 2:00 PM INFORMATION ASSURANCE 09/23/2024 2:04 PM INFORMATION ASSURANCE Apoorva Mar MANAGER OF APPLICATIONS DEVELOPMENT LAB BLOOD ORDERABLES Fin al Result Performing Organization Address City/[facility]/[place] [id number] [address] [facility] [employer] [place] [address] * (ABNORMAL) POCT glucose (09/23/2024 11:59 AM INFORMATION ASSURANCE) Glucose, POC 236(H) 70 - 199 mg/dL Blood 09/23/2024 11:5 9 AM INFORMATION ASSURANCE 09/23/2024 11:59 AM INFORMATION ASSURANCE Victor Manuel Woo MD LAB POCT ORDERABLES - DEVICE Final Result Performing Organization Address [facility] Co de Phone Number TAB GUARDADO [address] Jed [facility] [employer] [address] * POCT glucose (09/23/2024 8:06 AM INFORMATION ASSURANCE) Glucose, POC 158 70 - 199 mg/dL Blood 09/23/2024 8:06 AM INFORMATION ASSURANCE 09/23/2024 8:06 AM INFORMATION ASSURANCE Victor Manuel Woo MD LAB POCT ORDERABLES - DEVICE Final Result Performing Organization Address [facility] Co de Phone Number TAB [place] [address] Jed [facility] [employer] [place] [address] * Critical Care (09/23/2024 7:46 AM INFORMATION ASSURANCE) Narrative Jamal Lombardi MD - 09/23/2024 7:46 AM INFORMATION ASSURANCE Apoorva Mar NP 09/23/2024 8:10 AM Critical [...] plan with the ICU team and other medical/[employer] sales consultant staff, making frequent assessments and [...] * Oxyhemoglobin, central venous (09/23/2024 4:41 AM INFORMATION ASSURANCE) Oxyhemoglobin, CV 68.3 % Comment: Interpretive Data No reference range established. Current interpretive data was last revised 2019. Blood 09/23/2024 4:41 AM INFORMATION ASSURANCE 09/23/2024 4:50 AM INFORMATION ASSURANCE us Victor Manuel Woo MD LAB BLOOD ORDERABLES Final R esult Performing Organization Address City/[facility] Co de Phone Number TAB [phone] [place] [place] [address] * Calcium, ionized, whole blood (09/23/2024 4:41 AM INFORMATION ASSURANCE) Ca, ionized, bld 4.88 4.50 - 5.10 mg/dL Blood 09/23/2024 4:41 AM INFORMATION ASSURANCE 09/23/2024 4:50 AM INFORMATION ASSURANCE Victor Manuel Woo MD LAB BLOOD ORDERABLES Final R esult Performing Organization Address City/[facility] [place] [address] [address] Department [place] [employer] [place] [address] * eGFR (09/23/2024 4:41 AM INFORMATION ASSURANCE) eGFR >90 >=60 mL/min/1. 73 m2 Comment: [...] last reviewed 2021. Blood 09/23/2024 4:41 AM INFORMATION ASSURANCE 09/23/2024 4:51 AM INFORMATION ASSURANCE Victor Manuel Woo MD LAB BLOOD ORDERABLES Final R esult [facility] [address] [address] [facility] [place] [address] * Differential, auto (09/23/2024 4:41 AM INFORMATION ASSURANCE) Neutrophil abs 6.0 1.5 - 6.5 K/cumm Imm gran abs 0.0 0.0 - 0.1 K/cumm [facility] Lymphocyte abs 2.0 0.8 - 3.3 K/cumm [facility] Monocyte abs 0.7 0.2 - 0.8 K/cumm [facility] Eosinophil abs 0.4 0.0 - 0.5 K/cumm [facility] Basophil abs 0.0 0.0 - 0.1 K/cumm [facility] Neutrophil pct 64.9 % TAB Comment: Interpretive Data Percent cell [...] revised on 2017. Lymphocyte pct 21.9 % [facility] Comment: Interpretive Data Percent cell count reference ranges are not reported, since discordance with absolute values may lead to misinterpretation of CBC data. Current Interpretive Data was last revised on 2017. Monocyte pct 7.9 % [facility] Comment: Interpretive Data Percent cell count reference ranges are not reported, since discordance with absolute values may lead to misinterpretation of CBC data. Current Interpretive Data was last revised on 2017. Eosinophil pct 4.7 % [facility] Comment: Interpretive Data Percent cell count reference ranges are not reported, since discordance with absolute values may lead to misinterpretation of CBC data. Current Interpretive Data was last revised on 2017. Basophil pct 0.3 % [facility] Comment: Interpretive Data Percent cell count reference ranges are not reported, since discordance with absolute values may lead to misinterpretation of CBC data. Current Interpretive Data was last revised on 2017. Blood 09/23/2024 4:41 AM INFORMATION ASSURANCE 09/23/2024 4:54 AM INFORMATION ASSURANCE us Victor Manuel Woo MD LAB BLOOD ORDERABLES Final R esult [facility] [id number] [address] Department [place] [address] * (ABNORMAL) CBC with auto differential (09/23/2024 4:41 AM INFORMATION ASSURANCE) WBC 9.3 3.8 - 9.9 K/cumm Hgb 8.5(L) 13.0 - 17.5 g/dL [facility] Hct 26.3(L) 38.9 - 50.3 % [facility] Plt 133(L) 150 - 400 K/cumm [facility] MPV 10.3 9.1 - 12.[address] [facility] RBC 3.02(L) 4.30 - 5.80 M/cumm [facility] MCV 87.1 81.3 - 96.[address] [facility] MCH 28.1 27.1 - 33.[address] [facility] MCHC 32.3 32.3 - 35.7 g/dL [facility] RDW CV 13.5 11.1 - 14.9 % [facility] RDW SD 42.5 35.7 - 48.[address] [facility] NRBC abs 0.00 0.00 - 0.01 K/cumm [facility] Blood 09/23/2024 4:41 AM INFORMATION ASSURANCE 09/23/2024 4:54 AM INFORMATION ASSURANCE Victor Manuel Woo MD LAB BLOOD ORDERABLES Final R esult Performing Organization Address [facility] Co de Phone Number TAB [phone] Jed [facility] [employer] [place] [address] * (ABNORMAL) Phosphorus (09/23/2024 4:41 AM INFORMATION ASSURANCE) Phosphorus, pl 2.2(L) 2.3 - 4.5 mg/dL Blood 09/23/2024 4:41 AM INFORMATION ASSURANCE 09/23/2024 4:51 AM INFORMATION ASSURANCE Victor Manuel Woo MD LAB BLOOD ORDERABLES Final R esult Performing Organization Address [facility] Co de Phone Number TAB [phone] Jed Department [employer] [address] * Magnesium (09/23/2024 4:41 AM INFORMATION ASSURANCE) Magnesium 2.0 1.4 - 2.5 mg/dL Blood 09/23/2024 4:41 AM INFORMATION ASSURANCE 09/23/2024 4:51 AM INFORMATION ASSURANCE Victor Manuel Woo MD LAB BLOOD ORDERABLES Final R esult Performing Organization Address [facility] de Phone Number TAB [phone] Jed Department [employer] [place], [place] [id number] * (ABNORMAL) Basic metabolic panel (09/23/2024 4:41 AM INFORMATION ASSURANCE) Sodium 136 135 - 145 mmol/L Potassium, pl 3.9 3.3 - 4.9 mmol/L [facility] Chloride 102 97 - 110 mmol/L [facility] CO2 25 22 - 32 mmol/L [facility] Anion gap 9 2 - 15 mmol/L [facility] BUN 12 6 - 25 mg/dL [facility] Creatinine 0.51(L) 0.80 - 1.30 mg/dL [facility] Glucose 162 70 - 199 mg/dL [facility] Comment: Interpretive Data Fasting glucose >/= 126 [...] 2022. Calcium 8.8 8.5 - 10.3 mg/dL [facility] Blood 09/23/2024 4:41 AM INFORMATION ASSURANCE 09/23/2024 4:51 AM INFORMATION ASSURANCE Victor Manuel Woo MD LAB BLOOD ORDERABLES Final R es[place] TAB [id number] Jed [place] [address] * XR Chest 1 View - Portable - in AM (09/23/2024 4:01 AM INFORMATION ASSURANCE) Anatomical Region Laterality Modality Body, Chest N/A Computed Radiogr aphy 09/23/2024 8:39 AM INFORMATION ASSURANCE Impressions 09/23/2024 8:39 AM INFORMATION ASSURANCE No failure. No pneumothorax. Electronically signed by: Rodrick Modi M.D. Narrative 09/23/2024 8:39 AM INFORMATION ASSURANCE EXAMINATION: XR CHEST 1 VIEW DATE: 09/23/2024 3:15 AM HISTORY: Cardiac surgery follow-up FINDINGS:When compared with study of the prior day, cardiomegaly with postsurgical changes stable. Thoracostomy tubes and mediastinal drain and Oxford-Shae catheter remain in place. Cardiomegaly is seen. No evidence of pneumothorax or failure. Procedure Note Rodrick Modi MD - 09/23/2024 EXAMINATION: XR CHEST 1 VIEW DATE: 09/23/2024 3:15 AM HISTORY: Cardiac surgery follow-up FINDINGS:When compared with study of the prior day, cardiomegaly with postsurgical changes stable. Thoracostomy tubes and mediastinal drain and Oxford-Shae catheter remain in place. Cardiomegaly is seen. No evidence of pneumothorax or failure. IMPRESSION: No failure. No pneumothorax. Electronically signed by: Rodrick Modi M.D. Apoorva Mar MANAGER OF APPLICATIONS DEVELOPMENT IMG XR PROCEDURES Final Result * (ABNORMAL) Calcium, ionized, whole blood (09/22/2024 9:55 PM INFORMATION ASSURANCE) Ca, ionized, bld 4.49(L) 4.50 - 5.10 mg/dL Blood 09/22/2024 9:55 PM INFORMATION ASSURANCE 09/22/2024 10:01 PM INFORMATION ASSURANCE Victor Manuel Woo MD LAB BLOOD ORDERABLES Final R esult Performing Organization Address [facility] de Phone Number [facility] [phone] Jed [place] [address] * Potassium (09/22/2024 9:55 PM INFORMATION ASSURANCE) Potassium, pl 3.4 3.3 - 4.9 mmol/L Blood 09/22/2024 9:55 PM INFORMATION ASSURANCE 09/22/2024 10:01 PM INFORMATION ASSURANCE Victor Manuel Woo MD LAB BLOOD ORDERABLES Final R esult Performing Organization Address [facility] Co de Phone Number [facility] [address] [address] Department [place] [employer] [address] * Magnesium (09/22/2024 9:55 PM INFORMATION ASSURANCE) Magnesium 1.9 1.4 - 2.5 mg/dL Blood 09/22/2024 9:55 PM INFORMATION ASSURANCE 09/22/2024 10:01 PM INFORMATION ASSURANCE Victor Manuel Woo MD LAB BLOOD ORDERABLES Final R esult Performing Organization Address [facility] [place] [address] Jed Department [employer] [address] * POCT glucose (09/22/2024 8:09 PM INFORMATION ASSURANCE) Glucose, POC 147 70 - 199 mg/dL Blood 09/22/2024 8:09 PM INFORMATION ASSURANCE 09/22/2024 8:09 PM INFORMATION ASSURANCE Victor Manuel Woo MD LAB POCT ORDERABLES - DEVICE Final Result Performing Organization Address [facility] [place] [address] Jed Department [employer] [address] * Critical Care (09/22/2024 7:30 PM INFORMATION ASSURANCE) Narrative Andressa Jacobs MD - 09/22/2024 7:30 PM INFORMATION ASSURANCE Alex Melendez PA 09/23/2024 5:26 AM Critical [...] plan with the ICU team and other medical/[employer] sales consultant staff, making frequent assessments and [...] Result * POCT glucose (09/22/2024 5:04 PM INFORMATION ASSURANCE) Glucose, POC 174 70 - 199 mg/dL Blood 09/22/2024 5:04 PM INFORMATION ASSURANCE 09/22/2024 5:04 PM INFORMATION ASSURANCE Victor Manuel Woo MD LAB POCT ORDERABLES - DEVICE Final Result TAB [place] [address] [place] [address] * Calcium, ionized, whole blood (09/22/2024 1:16 PM INFORMATION ASSURANCE) Ca, ionized, bld 4.58 4.50 - 5.10 mg/dL Blood 09/22/2024 1:16 PM INFORMATION ASSURANCE 09/22/2024 1:24 PM INFORMATION ASSURANCE Victor Manuel Woo MD LAB BLOOD ORDERABLES Final R esult Performing Organization Address City/[facility]/[place] [address] [place] [address] * eGFR (09/22/2024 1:16 PM INFORMATION ASSURANCE) eGFR >90 >=60 mL/min/1. 73 m2 Comment: [...] last reviewed 2021. Blood 09/22/2024 1:16 PM INFORMATION ASSURANCE 09/22/2024 1:24 PM INFORMATION ASSURANCE us Victor Manuel Woo MD LAB BLOOD ORDERABLES [place] TAB [id number] Jed [address] [place] [address] * (ABNORMAL) Differential, auto (09/22/2024 1:16 PM INFORMATION ASSURANCE) Neutrophil abs 6.8(H) 1.5 - 6.5 K/cumm Imm gran abs 0.1 0.0 - 0.1 K/cumm [facility] Lymphocyte abs 1.7 0.8 - 3.3 K/cumm [facility] Monocyte abs 0.9(H) 0.2 - 0.8 K/cumm [facility] Eosinophil abs 0.3 0.0 - 0.5 K/cumm [facility] Basophil abs 0.0 0.0 - 0.1 K/cumm [facility] Neutrophil pct 69.4 % [facility] Comment: Interpretive Data Percent cell count reference [...] revised on 2017. Monocyte pct 9.6 % [facility] Comment: Interpretive Data Percent cell count reference ranges are not reported, since discordance with absolute values may lead to misinterpretation of CBC data. Current Interpretive Data was last revised on 2017. Eosinophil pct 3.1 % [facility] Comment: Interpretive Data Percent cell count reference ranges are not reported, since discordance with absolute values may lead to misinterpretation of CBC data. Current Interpretive Data was last revised on 2017. Basophil pct 0.3 % [facility] Comment: Interpretive Data Percent cell count reference ranges are not reported, since discordance with absolute values may lead to misinterpretation of CBC data. Current Interpretive Data was last revised on 2017. Blood 09/22/2024 1:16 PM INFORMATION ASSURANCE 09/22/2024 1:25 PM INFORMATION ASSURANCE us Victor Manuel Woo MD LAB BLOOD ORDERABLES Final R esult [facility] [address] [address] Department [place] [address] * (ABNORMAL) CBC with auto differential (09/22/2024 1:16 PM INFORMATION ASSURANCE) WBC 9.8 3.8 - 9.9 K/cumm Hgb 8.4(L) 13.0 - 17.5 g/dL [facility] Hct 25.7(L) 38.9 - 50.3 % [facility] Plt 112(L) 150 - 400 K/cumm [facility] MPV 9.8 9.1 - 12.[address] [facility] RBC 2.97(L) 4.30 - 5.80 M/cumm [facility] MCV 86.5 81.3 - 96.[address] [facility] MCH 28.3 27.1 - 33.[address] [facility] MCHC 32.7 32.3 - 35.7 g/dL [facility] RDW CV 13.6 11.1 - 14.9 % [facility] RDW SD 42.3 35.7 - 48.[address] [facility] NRBC abs 0.00 0.00 - 0.01 K/cumm [facility] Blood 09/22/2024 1:16 PM INFORMATION ASSURANCE 09/22/2024 1:25 PM INFORMATION ASSURANCE Victor Manuel Woo MD LAB BLOOD ORDERABLES Final R esult Performing Organization Address City/[facility] Co de Phone Number TAB [place] [address] Jed [facility] [employer] [address] * Magnesium (09/22/2024 1:16 PM INFORMATION ASSURANCE) Pathologist [facility] Magnesium 2.1 1.4 - 2.5 mg/dL Blood 09/22/2024 1:16 PM INFORMATION ASSURANCE 09/22/2024 1:24 PM INFORMATION ASSURANCE Victor Manuel Woo MD LAB BLOOD ORDERABLES Final R esult Performing Organization Address [facility] de Phone Number [facility] [address] [address] [employer] [address] * (ABNORMAL) Basic metabolic panel (09/22/2024 1:16 PM INFORMATION ASSURANCE) Pathologist [facility] Sodium 137 135 - 145 mmol/L Potassium, pl 4.3 3.3 - 4.9 mmol/L [facility] Chloride 106 97 - 110 mmol/L [facility] CO2 20(L) 22 - 32 mmol/L [facility] Anion gap 11 2 - 15 mmol/L [facility] BUN 14 6 - 25 mg/dL [facility] Creatinine 0.60(L) 0.80 - 1.30 mg/dL [facility] Glucose 207(H) 70 - 199 mg/dL [facility] Comment: Interpretive Data Fasting glucose >/= 126 [...] 2022. Calcium 8.5 8.5 - 10.3 mg/dL [facility] Blood 09/22/2024 1:16 PM INFORMATION ASSURANCE 09/22/2024 1:24 PM INFORMATION ASSURANCE Victor Manuel Woo MD LAB BLOOD ORDERABLES Final R esult Performing Organization Address [facility] Co de Phone Number TAB [phone] Jed Department [employer] [address] * POCT glucose (09/22/2024 12:17 PM INFORMATION ASSURANCE) Glucose, POC 187 70 - 199 mg/dL Blood 09/22/2024 12:1 7 PM INFORMATION ASSURANCE 09/22/2024 12:17 PM INFORMATION ASSURANCE Victor Manuel Woo MD LAB POCT ORDERABLES - DEVICE Final Result Performing Organization Address [facility] de Phone Number TAB [phone] [address] Department [employer] [address] * (ABNORMAL) POCT glucose (09/22/2024 8:05 AM INFORMATION ASSURANCE) Glucose, POC 225(H) 70 - 199 mg/dL Blood 09/22/2024 8:05 AM INFORMATION ASSURANCE 09/22/2024 8:05 AM INFORMATION ASSURANCE Victor Manuel Woo MD LAB POCT ORDERABLES - DEVICE Final Result Performing Organization Address [facility] de Phone Number [facility] [address] [address] [facility] [employer] [place] [address] * Critical Care (09/22/2024 6:52 AM INFORMATION ASSURANCE) Narrative Jamal Lombardi MD - 09/22/2024 6:52 AM INFORMATION ASSURANCE Ora Smith NP 09/22/2024 6:16 PM Critical [...] plan with the ICU team and other medical/[employer] sales consultant staff, making frequent assessments and [...] Portable - in AM (09/22/2024 5:35 AM INFORMATION ASSURANCE) Anatomical Region Laterality Modality Body, Chest N/A Computed Radiogr aphy 09/22/2024 8:12 AM INFORMATION ASSURANCE Impressions 09/22/2024 8:12 AM INFORMATION ASSURANCE Findings/impression: Pulmonary arterial catheter, right thoracostomy tube, left thoracostomy tube, and mediastinal drain are appropriately positioned. Poststernotomy changes are noted. Cardiomediastinal silhouette is normal in size. No pneumothorax or pleural effusion. Mild pulmonary vascular congestion. No consolidation. Electronically signed by: Raul Mendieta II, D.O. Narrative 09/22/2024 8:12 AM INFORMATION ASSURANCE EXAMINATION: XR CHEST 1 VIEW DATE: 09/22/2024 [...] Raul Mendieta II, D.O. us Apoorva Mar MANAGER OF APPLICATIONS DEVELOPMENT IMG XR PROCEDURES Final Result * Oxyhemoglobin, central venous (09/22/2024 4:15 AM INFORMATION ASSURANCE) Oxyhemoglobin, CV 59.1 % Comment: Interpretive Data No reference range established. Current interpretive data was last revised 2019. Blood 09/22/2024 4:15 AM INFORMATION ASSURANCE 09/22/2024 4:25 AM INFORMATION ASSURANCE us Victor Manuel Woo MD LAB BLOOD ORDERABLES [place] [id number] [address] Department of Laboratories [place] [id number] * eGFR (09/22/2024 3:33 AM INFORMATION ASSURANCE) eGFR >90 >=60 mL/min/1. 73 m2 Comment: [...] last reviewed 2021. Blood 09/22/2024 3:33 AM INFORMATION ASSURANCE 09/22/2024 4:33 AM INFORMATION ASSURANCE us Victor Manuel Woo MD LAB BLOOD ORDERABLES Final R esult [facility] [address] [address] Jesus Department [place] [address] * (ABNORMAL) Differential, auto (09/22/2024 3:33 AM INFORMATION ASSURANCE) Neutrophil abs 8.8(H) 1.5 - 6.5 K/cumm Imm gran abs 0.1 0.0 - 0.1 K/cumm [facility] Lymphocyte abs 1.5 0.8 - 3.3 K/cumm [facility] Monocyte abs 1.0(H) 0.2 - 0.8 K/cumm [facility] Eosinophil abs 0.1 0.0 - 0.5 K/cumm [facility] Basophil abs 0.0 0.0 - 0.1 K/cumm [facility] Neutrophil pct 76.2 % [facility] Comment: Interpretive Data Percent cell count reference ranges are not reported, since discordance with absolute values may lead to misinterpretation of CBC data. Current Interpretive Data was last revised on 2017. Imm gran pct 0.6 % [facility] Comment: Interpretive Data Percent cell count reference ranges are not reported, since discordance with absolute values may lead to misinterpretation of CBC data. Current Interpretive Data was last revised on 2017. Lymphocyte pct 12.9 % [facility] Comment: Interpretive Data Percent cell count reference ranges are not reported, since discordance with absolute values may lead to misinterpretation of CBC data. Current Interpretive Data was last revised on 2017. Monocyte pct 9.0 % [facility] Comment: Interpretive Data Percent cell count reference ranges are not reported, since discordance with absolute values may lead to misinterpretation of CBC data. Current Interpretive Data was last revised on 2017. Eosinophil pct 1.0 % [facility] Comment: Interpretive Data Percent cell count reference ranges are not reported, since discordance with absolute values may lead to misinterpretation of CBC data. Current Interpretive Data was last revised on 2017. Basophil pct 0.3 % [facility] Comment: Interpretive Data Percent cell count reference ranges are not reported, since discordance with absolute values may lead to misinterpretation of CBC data. Current Interpretive Data was last revised on 2017. Blood 09/22/2024 3:33 AM INFORMATION ASSURANCE 09/22/2024 4:34 AM INFORMATION ASSURANCE us Victor Manuel Woo MD LAB BLOOD ORDERABLES Final R esult [facility] [address] [address] Department [place] [address] * (ABNORMAL) CBC with auto differential (09/22/2024 3:33 AM INFORMATION ASSURANCE) WBC 11.6(H) 3.8 - 9.9 K/cumm Hgb 8.8(L) 13.0 - 17.5 g/dL [facility] Hct 26.9(L) 38.9 - 50.3 % [facility] Plt 126(L) 150 - 400 K/cumm [facility] MPV 10.2 9.1 - 12.[address] [facility] RBC 3.11(L) 4.30 - 5.80 M/cumm [facility] MCV 86.5 81.3 - 96.[address] [facility] MCH 28.3 27.1 - 33.[address] [facility] MCHC 32.7 32.3 - 35.7 g/dL [facility] RDW CV 13.6 11.1 - 14.9 % [facility] RDW SD 42.8 35.7 - 48.[address] [facility] NRBC abs 0.00 0.00 - 0.01 K/cumm [facility] Blood 09/22/2024 3:33 AM INFORMATION ASSURANCE 09/22/2024 4:34 AM INFORMATION ASSURANCE Victor Manuel Woo MD LAB BLOOD ORDERABLES Final R esult TAB [place] [address] [address] [facility] [employer] [address] * Phosphorus (09/22/2024 3:33 AM INFORMATION ASSURANCE) Pathologist [facility] Phosphorus, pl 3.2 2.3 - 4.5 mg/dL Blood 09/22/2024 3:33 AM INFORMATION ASSURANCE 09/22/2024 4:33 AM INFORMATION ASSURANCE Victor Manuel Woo MD LAB BLOOD ORDERABLES Final R esult Performing Organization Address [facility] Co de Phone Number TAB [place] [address] [address] [facility] [place] [address] * Magnesium (09/22/2024 3:33 AM INFORMATION ASSURANCE) Pathologist [facility] Magnesium 2.1 1.4 - 2.5 mg/dL Blood 09/22/2024 3:33 AM INFORMATION ASSURANCE 09/22/2024 4:33 AM INFORMATION ASSURANCE Victor Manuel Woo MD LAB BLOOD ORDERABLES Final R esult Performing Organization Address [facility] Co de Phone Number TAB GUARDADO [address] Jed [facility] [employer] [place] [address] * (ABNORMAL) Basic metabolic panel (09/22/2024 3:33 AM INFORMATION ASSURANCE) Pathologist [facility] Sodium 139 135 - 145 mmol/L Potassium, pl 3.8 3.3 - 4.9 mmol/L [facility] Chloride 106 97 - 110 mmol/L [facility] CO2 21(L) 22 - 32 mmol/L [facility] Anion gap 12 2 - 15 mmol/L [facility] BUN 12 6 - 25 mg/dL [facility] Creatinine 0.68(L) 0.80 - 1.30 mg/dL [facility] Glucose 210(H) 70 - 199 mg/dL [facility] Comment: Interpretive Data Fasting glucose >/= 126 [...] 2022. Calcium 8.4(L) 8.5 - 10.3 mg/dL [facility] Blood 09/22/2024 3:33 AM INFORMATION ASSURANCE 09/22/2024 4:33 AM INFORMATION ASSURANCE Victor Manuel Woo MD LAB BLOOD ORDERABLES Final R esult Performing Organization Address City/[facility] Co de Phone Number TAB 40169 Jed Department [employer] [place] [address] * POCT glucose (09/21/2024 11:56 PM INFORMATION ASSURANCE) Glucose, POC 175 70 - 199 mg/dL Blood 09/21/2024 11:5 6 PM INFORMATION ASSURANCE 09/21/2024 11:56 PM INFORMATION ASSURANCE Victor Manuel Woo MD LAB POCT ORDERABLES - DEVICE Final Result Performing Organization Address [facility] de Phone Number TAB [phone] Jed Department [place] [employer] [place] [address] * POCT glucose (09/21/2024 8:43 PM INFORMATION ASSURANCE) Glucose, POC 118 70 - 199 mg/dL Blood 09/21/2024 8:43 PM INFORMATION ASSURANCE 09/21/2024 8:43 PM INFORMATION ASSURANCE Victor Manuel Woo MD LAB POCT ORDERABLES - DEVICE Final Result Performing Organization Address [facility] Co de Phone Number TAB [phone] Jed Department [place] [employer] [place] [address] * Calcium, ionized, whole blood (09/21/2024 8:27 PM INFORMATION ASSURANCE) Ca, ionized, bld 4.60 4.50 - 5.10 mg/dL Blood 09/21/2024 8:27 PM INFORMATION ASSURANCE 09/21/2024 8:33 PM INFORMATION ASSURANCE Victor Manuel Woo MD LAB BLOOD ORDERABLES Final R esult TAB GUARDADO [address] Jed [address] [facility] [employer] [place] [address] * eGFR (09/21/2024 8:27 PM INFORMATION ASSURANCE) [facility] eGFR >90 >=60 mL/min/1. 73 m2 Comment: [...] last reviewed 2021. Blood 09/21/2024 8:27 PM INFORMATION ASSURANCE 09/21/2024 8:37 PM INFORMATION ASSURANCE Victor Manuel Woo MD LAB BLOOD ORDERABLES Final R esult TAB GUARDADO [address] Jed [address] [facility] Department [employer] [place], [place] [id number] * (ABNORMAL) Differential, auto (09/21/2024 8:27 PM INFORMATION ASSURANCE) Pathologist [facility] Neutrophil abs 8.0(H) 1.5 - 6.5 K/cumm Imm gran abs 0.1 0.0 - 0.1 K/cumm [facility] Lymphocyte abs 2.0 0.8 - 3.3 K/cumm [facility] Monocyte abs 1.2(H) 0.2 - 0.8 K/cumm [facility] Eosinophil abs 0.2 0.0 - 0.5 K/cumm [facility] Basophil abs 0.1 0.0 - 0.1 K/cumm [facility] Neutrophil pct 69.4 % [facility] Comment: Interpretive Data Percent cell count reference ranges are not reported, since discordance with absolute values may lead to misinterpretation of CBC data. Current Interpretive Data was last revised on 2017. Imm gran pct 0.6 % [facility] Comment: Interpretive Data Percent cell count reference ranges are not reported, since discordance with absolute values may lead to misinterpretation of CBC data. Current Interpretive Data was last revised on 2017. Lymphocyte pct 17.8 % [facility] Comment: Interpretive Data Percent cell count reference ranges are not reported, since discordance with absolute values may lead to misinterpretation of CBC data. Current Interpretive Data was last revised on 2017. Monocyte pct 10.0 % [facility] Comment: Interpretive Data Percent cell count reference ranges are not reported, since discordance with absolute values may lead to misinterpretation of CBC data. Current Interpretive Data was last revised on 2017. Eosinophil pct 1.8 % [facility] Comment: Interpretive Data Percent cell count reference ranges are not reported, since discordance with absolute values may lead to misinterpretation of CBC data. Current Interpretive Data was last revised on 2017. Basophil pct 0.4 % [facility] Comment: Interpretive Data Percent cell count reference ranges are not reported, since discordance with absolute values may lead to misinterpretation of CBC data. Current Interpretive Data was last revised on 2017. Blood 09/21/2024 8:27 PM INFORMATION ASSURANCE 09/21/2024 8:33 PM INFORMATION ASSURANCE us Victor Manuel Woo MD LAB BLOOD ORDERABLES Final R esult [facility] [address] [address] [facility] [employer] [place] [address] * (ABNORMAL) CBC with auto differential (09/21/2024 8:27 PM INFORMATION ASSURANCE) WBC 11.5(H) 3.8 - 9.9 K/cumm Hgb 9.1(L) 13.0 - 17.5 g/dL [facility] Hct 28.0(L) 38.9 - 50.3 % [facility] Plt 138(L) 150 - 400 K/cumm [facility] MPV 9.5 9.1 - 12.[address] [facility] RBC 3.26(L) 4.30 - 5.80 M/cumm [facility] MCV 85.9 81.3 - 96.[address] [facility] MCH 27.9 27.1 - 33.[address] [facility] MCHC 32.5 32.3 - 35.7 g/dL [facility] RDW CV 13.5 11.1 - 14.9 % [facility] RDW SD 42.1 35.7 - 48.[address] [facility] NRBC abs 0.00 0.00 - 0.01 K/cumm [facility] Blood 09/21/2024 8:27 PM INFORMATION ASSURANCE 09/21/2024 8:33 PM INFORMATION ASSURANCE us Victor Manuel Woo MD LAB BLOOD ORDERABLES Final R esult Performing Organization Address City/[facility]/ZIP Co de Phone Number TAB GUARDADO [address] Jed Department [employer] [place] [address] * Magnesium (09/21/2024 8:27 PM INFORMATION ASSURANCE) Pathologist [facility] Magnesium 1.9 1.4 - 2.5 mg/dL Blood 09/21/2024 8:27 PM INFORMATION ASSURANCE 09/21/2024 8:33 PM INFORMATION ASSURANCE Victor Manuel Woo MD LAB BLOOD ORDERABLES Final R esult TAB GUARDADO [address] Jed Department [employer] [address] * (ABNORMAL) Basic metabolic panel (09/21/2024 8:27 PM INFORMATION ASSURANCE) Sodium 140 135 - 145 mmol/L Potassium, pl 3.4 3.3 - 4.9 mmol/L [facility] Chloride 107 97 - 110 mmol/L [facility] [...] 2022. Calcium 8.6 8.5 - 10.3 mg/dL [facility] Blood 09/21/2024 8:27 PM INFORMATION ASSURANCE 09/21/2024 8:33 PM INFORMATION ASSURANCE us Victor Manuel Woo MD LAB BLOOD ORDERABLES Final R esult TAB [address] Jed [place] [address] * Critical Care (09/21/2024 7:29 PM INFORMATION ASSURANCE) Narrative Andressa Jacobs MD - 09/21/2024 7:29 PM INFORMATION ASSURANCE Alex Melendez PA 09/22/2024 5:41 AM Critical [...] plan with the ICU team and other medical/[employer] sales consultant staff, making frequent assessments and [...] Result * POCT glucose (09/21/2024 7:19 PM INFORMATION ASSURANCE) Glucose, POC 142 70 - 199 mg/dL Blood 09/21/2024 7:19 PM INFORMATION ASSURANCE 09/21/2024 7:19 PM INFORMATION ASSURANCE Victor Manuel Woo MD LAB POCT ORDERABLES - DEVICE Final Result Performing Organization Address [facility] [place] [address] [address] [employer] [place] [address] * POCT glucose (09/21/2024 6:13 PM INFORMATION ASSURANCE) Glucose, POC 130 70 - 199 mg/dL Blood 09/21/2024 6:13 PM INFORMATION ASSURANCE 09/21/2024 6:13 PM INFORMATION ASSURANCE us Victor Manuel Woo MD LAB POCT ORDERABLES - DEVICE Final Result Performing Organization Address [facility] [place] [address] Jed [address] Jesus Department [place] [employer] [place] [address] * POCT glucose (09/21/2024 4:56 PM INFORMATION ASSURANCE) Glucose, POC 141 70 - 199 mg/dL Blood 09/21/2024 4:56 PM INFORMATION ASSURANCE 09/21/2024 4:56 PM INFORMATION ASSURANCE us Victor Manuel Woo MD LAB POCT ORDERABLES - DEVICE Final Result Performing Organization Address [facility] Co de Phone Number TAB GUARDADO [address] Jed De Jesus [facility] [employer] [place], [place] [id number] * POCT glucose (09/21/2024 2:45 PM INFORMATION ASSURANCE) Pathologist [facility] Glucose, POC 116 70 - 199 mg/dL Blood 09/21/2024 2:45 PM INFORMATION ASSURANCE 09/21/2024 2:45 PM INFORMATION ASSURANCE Result [facility] Victor Manuel Woo MD LAB POCT ORDERABLES - DEVICE Final Result Performing Organization Address [facility] de Phone Number YOLISLLUVIA GUARDADO [address] Jed [facility] [employer] [place] [address] * Calcium, ionized, whole blood (09/21/2024 1:42 PM INFORMATION ASSURANCE) [facility] Ca, ionized, bld 4.93 4.50 - 5.10 mg/dL Blood 09/21/2024 1:42 PM INFORMATION ASSURANCE 09/21/2024 1:44 PM INFORMATION ASSURANCE Result [facility] Victor Manuel Woo MD LAB BLOOD ORDERABLES Final R esult Performing Organization Address [facility] [place] [address] Jed [facility] [employer] [place], [place] [id number] * eGFR (09/21/2024 1:42 PM INFORMATION ASSURANCE) [facility] eGFR >90 >=60 mL/min/1. 73 m2 Comment: [...] last reviewed 2021. Blood 09/21/2024 1:42 PM INFORMATION ASSURANCE 09/21/2024 1:46 PM INFORMATION ASSURANCE us Victor Manuel Woo MD LAB BLOOD ORDERABLES Final R esult [facility] [address] Jed [address] [place] [address] * (ABNORMAL) CBC without differential (09/21/2024 1:42 PM INFORMATION ASSURANCE) WBC 9.5 3.8 - 9.9 K/cumm Hgb 9.3(L) 13.0 - 17.5 g/dL [facility] Hct 29.1(L) 38.9 - 50.3 % [facility] Plt 149(L) 150 - 400 K/cumm [facility] MPV 9.6 9.1 - 12.[address] [facility] RBC 3.37(L) 4.30 - 5.80 M/cumm [facility] MCV 86.4 81.3 - 96.[address] [facility] MCH 27.6 27.1 - 33.3 pg [facility] MCHC 32.0(L) 32.3 - 35.7 g/dL [facility] RDW CV 13.3 11.1 - 14.9 % [facility] RDW SD 42.2 35.7 - 48.[address] [facility] NRBC abs 0.00 0.00 - 0.01 K/cumm [facility] Blood 09/21/2024 1:42 PM INFORMATION ASSURANCE 09/21/2024 1:46 PM INFORMATION ASSURANCE Victor Manuel Woo MD LAB BLOOD ORDERABLES Final R esult TAB GUARDADO [address] [address] [employer] [place] [address] * Magnesium (09/21/2024 1:42 PM INFORMATION ASSURANCE) Pathologist [facility] Magnesium 2.0 1.4 - 2.5 mg/dL Blood 09/21/2024 1:42 PM INFORMATION ASSURANCE 09/21/2024 1:44 PM INFORMATION ASSURANCE Victor Manuel Woo MD LAB BLOOD ORDERABLES Final R esult Performing Organization Address [facility] de Phone Number TAB GUARDADO [address] Jed Department [employer] [address] * (ABNORMAL) Basic metabolic panel (09/21/2024 1:42 PM INFORMATION ASSURANCE) Pathologist [facility] Sodium 141 135 - 145 mmol/L Potassium, pl 3.6 3.3 - 4.9 mmol/L [facility] Chloride 109 97 - 110 mmol/L [facility] CO2 20(L) 22 - 32 mmol/L [facility] Anion gap 12 2 - 15 mmol/L [facility] BUN 10 6 - 25 mg/dL [facility] Creatinine 0.70(L) 0.80 - 1.30 mg/dL [facility] Glucose 130 70 - 199 mg/dL [facility] Comment: Interpretive Data Fasting glucose >/= 126 [...] 2022. Calcium 8.6 8.5 - 10.3 mg/dL TAB Blood 09/21/2024 1:42 PM INFORMATION ASSURANCE 09/21/2024 1:44 PM INFORMATION ASSURANCE us Victor Manuel Woo MD LAB BLOOD ORDERABLES Final R esult Performing Organization Address [facility] de Phone Number TAB GUARDADO [address] Jed [facility] [employer] [place] [address] * POCT glucose (09/21/2024 12:36 PM INFORMATION ASSURANCE) Glucose, POC 100 70 - 199 mg/dL Blood 09/21/2024 12:3 6 PM INFORMATION ASSURANCE 09/21/2024 12:36 PM INFORMATION ASSURANCE us Victor Manuel Woo MD LAB POCT ORDERABLES - DEVICE Final Result Performing Organization Address [facility] de Phone Number YOLISLLUVIA [address] Jed [facility] [employer] [place] [address] * POCT glucose (09/21/2024 10:50 AM INFORMATION ASSURANCE) Glucose, POC 115 70 - 199 mg/dL Blood 09/21/2024 10:5 0 AM INFORMATION ASSURANCE 09/21/2024 10:50 AM INFORMATION ASSURANCE us Victor Manuel Woo MD LAB POCT ORDERABLES - DEVICE Final Result Performing Organization Address [facility] de Phone Number TAB GUARDADO [address] Jed [facility] [employer] [address] * ECG 12 lead (09/21/2024 10:14 AM INFORMATION ASSURANCE) 09/21/2024 10:1 4 AM INFORMATION ASSURANCE Narrative [facility] - 09/21/2024 12:09 PM INFORMATION ASSURANCE Vent Rate: 74 bpm RR Interval: 803 msec CA Interval: 154 msec QRS Duration: 96 msec QT Interval: 374 msec QTC Interval: 402 msec P-R-T [place]: 11 - -9 - 50 degrees IMPRESSION: SINUS RHYTHM WITH SINUS ARRHYTHMIA INFERIOR MYOCARDIAL INFARCTION , OF INDETERMINATE AGE [40+ ms Q WAVE AND/OR ST/T ABNORMALITY IN II/aVF] ABNORMAL ECG NO CHANGE FROM PREVIOUS TRACING NOTED Electronically Signed By: Bashir Mayberry MD Victor Manuel Woo MD ECG ORDERABLES Final Result Performing Organization Address [facility] Co de Phone Number [facility] * POCT glucose (09/21/2024 9:43 AM INFORMATION ASSURANCE) Glucose, POC 137 70 - 199 mg/dL Blood 09/21/2024 9:43 AM INFORMATION ASSURANCE 09/21/2024 9:43 AM INFORMATION ASSURANCE Victor Manuel Woo MD LAB POCT ORDERABLES - DEVICE Final Result Performing Organization Address [facility] Co mo Phone Number TAB 93190 Jed Department [employer] [place] [address] * POCT glucose (09/21/2024 8:39 AM INFORMATION ASSURANCE) Glucose, POC 127 70 - 199 mg/dL Blood 09/21/2024 8:39 AM INFORMATION ASSURANCE 09/21/2024 8:39 AM INFORMATION ASSURANCE Victor Manuel Woo MD LAB POCT ORDERABLES - DEVICE Final Result Performing Organization Address [facility] [place] [address] Jed Department [place] [employer] [place] [address] * Critical Care (09/21/2024 8:32 AM INFORMATION ASSURANCE) Narrative Jmaal Lombardi MD - 09/21/2024 8:32 AM INFORMATION ASSURANCE Ora Smith NP 09/21/2024 6:09 PM Critical [...] plan with the ICU team and other medical/[employer] sales consultant staff, making frequent assessments and [...] Result * POCT glucose (09/21/2024 7:31 AM INFORMATION ASSURANCE) Glucose, POC 135 70 - 199 mg/dL Blood 09/21/2024 7:31 AM INFORMATION ASSURANCE 09/21/2024 7:31 AM INFORMATION ASSURANCE Victor Manuel Woo MD LAB POCT ORDERABLES - DEVICE Final Result Performing Organization Address [facility] de Phone Number [facility] [address] Jed [address] Department [place] [employer] [place] [address] * POCT glucose (09/21/2024 6:28 AM INFORMATION ASSURANCE) Glucose, POC 137 70 - 199 mg/dL Blood 09/21/2024 6:28 AM INFORMATION ASSURANCE 09/21/2024 6:28 AM INFORMATION ASSURANCE Victor Manuel Woo MD LAB POCT ORDERABLES - DEVICE Final Result Performing Organization Address [facility] de Phone Number [facility] [address] Jed [address] Jesus Department [place] [employer] [place] [address] * XR Chest 1 View - Portable - in AM (09/21/2024 6:00 AM INFORMATION ASSURANCE) Anatomical Region Laterality Modality Body, Chest N/A Computed Radiogr aphy 09/21/2024 7:53 AM INFORMATION ASSURANCE Impressions 09/21/2024 7:53 AM INFORMATION ASSURANCE Findings/impression: Pulmonary arterial catheter, mediastinal drain, and bilateral thoracostomy tubes are appropriately positioned. No cardiomegaly. Poststernotomy changes and mild pulmonary vascular congestion. No pneumothorax or pleural effusion. Electronically signed by: Raul Mendieta II, D.O. Narrative 09/21/2024 7:53 AM INFORMATION ASSURANCE EXAMINATION: XR CHEST 1 VIEW DATE: 09/21/2024 [...] Raul Mendieta II, D.O. us Apoorva Mar MANAGER OF APPLICATIONS DEVELOPMENT IMG XR PROCEDURES Final Result * POCT glucose (09/21/2024 5:01 AM INFORMATION ASSURANCE) Glucose, POC 121 70 - 199 mg/dL Blood 09/21/2024 5:01 AM INFORMATION ASSURANCE 09/21/2024 5:01 AM INFORMATION ASSURANCE us Victor Manuel Woo MD LAB POCT ORDERABLES - [place] [address] [address] [place] [address] * Oxyhemoglobin, central venous (09/21/2024 4:41 AM INFORMATION ASSURANCE) Oxyhemoglobin, CV 66.2 % Comment: Interpretive Data No reference range established. Current interpretive data was last revised 2019. Blood 09/21/2024 4:41 AM INFORMATION ASSURANCE 09/21/2024 4:59 AM INFORMATION ASSURANCE us Victor Manuel Woo MD LAB BLOOD ORDERABLES Final R esult Performing Organization Address [facility] Co de Phone Number TAB GUARDADO [address] Jed Department [employer] [place] [address] * eGFR (09/21/2024 4:41 AM INFORMATION ASSURANCE) eGFR >90 >=60 mL/min/1. 73 m2 Comment: [...] last reviewed 2021. Blood 09/21/2024 4:41 AM INFORMATION ASSURANCE 09/21/2024 5:04 AM INFORMATION ASSURANCE Victor Manuel Woo MD LAB BLOOD ORDERABLES Final R esult Performing Organization Address City/[facility]/ZIP Co de Phone Number TAB GUARDADO [address] Jed De Jesus Department [employer] [place] [address] * Differential, auto (09/21/2024 4:41 AM INFORMATION ASSURANCE) Neutrophil abs 5.9 1.5 - 6.5 K/cumm Imm gran abs 0.0 0.0 - 0.1 K/cumm [facility] Lymphocyte abs 1.3 0.8 - 3.3 K/cumm [facility] Monocyte abs 0.7 0.2 - 0.8 K/cumm [facility] Eosinophil abs 0.0 0.0 - 0.5 K/cumm [facility] Basophil abs 0.0 0.0 - 0.1 K/cumm [facility] Neutrophil pct 73.1 % [facility] Comment: Interpretive Data Percent cell count reference ranges are not reported, since discordance with absolute values may lead to misinterpretation of CBC data. Current Interpretive Data was last revised on 2017. Imm gran pct 0.4 % [facility] Comment: Interpretive Data Percent cell count reference ranges are not reported, since discordance with absolute values may lead to misinterpretation of CBC data. Current Interpretive Data was last revised on 2017. Lymphocyte pct 16.6 % [facility] Comment: Interpretive Data Percent cell count reference ranges are not reported, since discordance with absolute values may lead to misinterpretation of CBC data. Current Interpretive Data was last revised on 2017. Monocyte pct 9.0 % [facility] Comment: Interpretive Data Percent cell count reference ranges are not reported, since discordance with absolute values may lead to misinterpretation of CBC data. Current Interpretive Data was last revised on 2017. Eosinophil pct 0.5 % [facility] Comment: Interpretive Data Percent cell count reference ranges are not reported, since discordance with absolute values may lead to misinterpretation of CBC data. Current Interpretive Data was last revised on 2017. Basophil pct 0.4 % [facility] Comment: Interpretive Data Percent cell count reference ranges are not reported, since discordance with absolute values may lead to misinterpretation of CBC data. Current Interpretive Data was last revised on 2017. Blood 09/21/2024 4:41 AM INFORMATION ASSURANCE 09/21/2024 5:04 AM INFORMATION ASSURANCE us Victor Manuel Woo MD LAB BLOOD ORDERABLES Final R esult TAB GUARDADO [address] Department [place] [address] * (ABNORMAL) CBC with auto differential (09/21/2024 4:41 AM INFORMATION ASSURANCE) Pathologist [facility] WBC 8.0 3.8 - 9.9 K/cumm Hgb 9.4(L) 13.0 - 17.5 g/dL [facility] Hct 29.8(L) 38.9 - 50.3 % [facility] Plt 150 150 - 400 K/cumm [facility] MPV 10.0 9.1 - 12.[address] [facility] RBC 3.43(L) 4.30 - 5.80 M/cumm [facility] CH MCV 86.9 81.3 - 96.4 fL [facility] CH MCH 27.4 27.1 - 33.[address] [facility] MCHC 31.5(L) 32.3 - 35.7 g/dL [facility] CH RDW CV 13.2 11.1 - 14.9 % [facility] RDW SD 41.3 35.7 - 48.[address] [facility] NRBC abs 0.00 0.00 - 0.01 K/cumm [facility] Blood 09/21/2024 4:41 AM INFORMATION ASSURANCE 09/21/2024 5:04 AM INFORMATION ASSURANCE Victor Manuel Woo MD LAB BLOOD ORDERABLES Final R esult Performing Organization Address [facility] Co de Phone Number TAB [address] Jed [facility] [employer] [place] [address] * (ABNORMAL) Phosphorus (09/21/2024 4:41 AM INFORMATION ASSURANCE) [facility] Phosphorus, pl 5.1(H) 2.3 - 4.5 mg/dL Blood 09/21/2024 4:41 AM INFORMATION ASSURANCE 09/21/2024 5:04 AM INFORMATION ASSURANCE Victor Manuel Woo MD LAB BLOOD ORDERABLES Final R esult Performing Organization Address City/[facility]/ZIP Co de Phone Number [facility] [address] [address] [facility] [employer] [address] * Magnesium (09/21/2024 4:41 AM INFORMATION ASSURANCE) Magnesium 2.2 1.4 - 2.5 mg/dL Blood 09/21/2024 4:41 AM INFORMATION ASSURANCE 09/21/2024 5:04 AM INFORMATION ASSURANCE Victor Manuel Woo MD LAB BLOOD ORDERABLES Final R esult Performing Organization Address City/State/[facility] Co de Phone Number [facility] [address] Department [place] [address] * (ABNORMAL) Basic metabolic panel (09/21/2024 4:41 AM INFORMATION ASSURANCE) Sodium 146(H) 135 - 145 mmol/L Potassium, pl 3.7 3.3 - 4.9 mmol/L [facility] Chloride 114(H) 97 - 110 mmol/L [facility] CO2 22 22 - 32 mmol/L [facility] Anion gap 10 2 - 15 mmol/L [facility] BUN 9 6 - 25 mg/dL [facility] Creatinine 0.62(L) 0.80 - 1.30 mg/dL [facility] Glucose 133 70 - 199 mg/dL [facility] Comment: Interpretive Data Fasting glucose >/= 126 [...] 2022. Calcium 8.2(L) 8.5 - 10.3 mg/dL [facility] Blood 09/21/2024 4:41 AM INFORMATION ASSURANCE 09/21/2024 5:04 AM INFORMATION ASSURANCE Victor Manuel Woo MD LAB BLOOD ORDERABLES Final R esult Performing Organization Address City/[facility] Co de Phone Number TAB GUARDADO [address] [address] [facility] [employer] [place] [address] * POCT glucose (09/21/2024 4:04 AM INFORMATION ASSURANCE) Glucose, POC 159 70 - 199 mg/dL Blood 09/21/2024 4:04 AM INFORMATION ASSURANCE 09/21/2024 4:04 AM INFORMATION ASSURANCE Victor Manuel Woo MD LAB POCT ORDERABLES - DEVICE Final Result Performing Organization Address [facility] de Phone Number TAB GUARDADO [address] [address] [facility] [employer] [address] * POCT glucose (09/21/2024 2:57 AM INFORMATION ASSURANCE) Glucose, POC 136 70 - 199 mg/dL Blood 09/21/2024 2:57 AM INFORMATION ASSURANCE 09/21/2024 2:57 AM INFORMATION ASSURANCE Victor Manuel Woo MD LAB POCT ORDERABLES - DEVICE Final Result Performing Organization Address [facility] de Phone Number TAB GUARDADO [address] [address] [facility] [employer] [place] [address] * POCT glucose (09/21/2024 1:42 AM INFORMATION ASSURANCE) Glucose, POC 140 70 - 199 mg/dL Blood 09/21/2024 1:42 AM INFORMATION ASSURANCE 09/21/2024 1:42 AM INFORMATION ASSURANCE Victor Manuel Woo MD LAB POCT ORDERABLES - DEVICE Final Result Performing Organization Address [facility] Co de Phone Number TAB GUARDADO [address] [address] [facility] [employer] [place] [address] * POCT glucose (09/21/2024 12:45 AM INFORMATION ASSURANCE) Glucose, POC 126 70 - 199 mg/dL Blood 09/21/2024 12:4 5 AM INFORMATION ASSURANCE 09/21/2024 12:45 AM INFORMATION ASSURANCE Victor Manuel Woo MD LAB POCT ORDERABLES - DEVICE Final Result Performing Organization Address [facility] de Phone Number TAB GUARDADO [address] [address] [facility] [employer] [place] [address] * POCT glucose (09/20/2024 11:46 PM INFORMATION ASSURANCE) Glucose, POC 141 70 - 199 mg/dL Blood 09/20/2024 11:4 6 PM INFORMATION ASSURANCE 09/20/2024 11:46 PM INFORMATION ASSURANCE Victor Manuel Woo MD LAB POCT ORDERABLES - DEVICE Final Result Performing Organization Address [facility] de Phone Number TAB GUARDADO [address] [address] [facility] [employer] [place] [address] * Oxyhemoglobin, central venous (09/20/2024 11:41 PM INFORMATION ASSURANCE) Oxyhemoglobin, CV 69.2 % Comment: Interpretive Data No reference range established. Current interpretive data was last revised 2019. Blood 09/20/2024 11:4 1 PM INFORMATION ASSURANCE 09/20/2024 11:54 PM INFORMATION ASSURANCE Victor Manuel Woo MD LAB BLOOD ORDERABLES Final R esult Performing Organization Address [facility] de Phone Number TAB GUARDADO [address] [address] [employer] [place] [address] * (ABNORMAL) Calcium, ionized, whole blood (09/20/2024 11:33 PM INFORMATION ASSURANCE) Ca, ionized, bld 5.22(H) 4.50 - 5.10 mg/dL Blood 09/20/2024 11:3 3 PM INFORMATION ASSURANCE 09/20/2024 11:54 PM INFORMATION ASSURANCE us Victor Manuel Woo MD LAB BLOOD ORDERABLES Final R esult Performing Organization Address City/[facility]/ZIP Co de Phone Number TAB GUARDADO [address] Department [place] [address] * eGFR (09/20/2024 11:33 PM INFORMATION ASSURANCE) eGFR >90 >=60 mL/min/1. 73 m2 Comment: [...] reviewed 2021. Blood 09/20/2024 11:3 3 PM INFORMATION ASSURANCE 09/21/2024 12:28 AM INFORMATION ASSURANCE Victor Manuel Woo MD LAB BLOOD ORDERABLES Final R esult TAB GUARDADO [address] Department of Laboratories [place], [place] [id number] * (ABNORMAL) Differential, auto (09/20/2024 11:33 PM INFORMATION ASSURANCE) Neutrophil abs 5.5 1.5 - 6.5 K/cumm Imm gran abs 0.0 0.0 - 0.1 K/cumm [facility] Lymphocyte abs 0.7(L) 0.8 - 3.3 K/cumm [facility] Monocyte abs 0.4 0.2 - 0.8 K/cumm [facility] Eosinophil abs 0.0 0.0 - 0.5 K/cumm [facility] Basophil abs 0.0 0.0 - 0.1 K/cumm [facility] Neutrophil pct 82.9 % [facility] Comment: Interpretive Data Percent cell count reference ranges are not reported, since discordance with absolute values may lead to misinterpretation of CBC data. Current Interpretive Data was last revised on 2017. Imm gran pct 0.5 % [facility] Comment: Interpretive Data Percent cell count reference ranges are not reported, since discordance with absolute values may lead to misinterpretation of CBC data. Current Interpretive Data was last revised on 2017. Lymphocyte pct 10.3 % [facility] Comment: Interpretive Data Percent cell count reference ranges are not reported, since discordance with absolute values may lead to misinterpretation of CBC data. Current Interpretive Data was last revised on 2017. Monocyte pct 5.3 % [facility] Comment: Interpretive Data Percent cell count reference ranges are not reported, since discordance with absolute values may lead to misinterpretation of CBC data. Current Interpretive Data was last revised on 2017. Eosinophil pct 0.5 % [facility] Comment: Interpretive Data Percent cell count reference ranges are not reported, since discordance with absolute values may lead to misinterpretation of CBC data. Current Interpretive Data was last revised on 2017. Basophil pct 0.5 % [facility] Comment: Interpretive Data Percent cell count reference ranges are not reported, since discordance with absolute values may lead to misinterpretation of CBC data. Current Interpretive Data was last revised on 2017. Blood 09/20/2024 11:3 3 PM INFORMATION ASSURANCE 09/20/2024 11:54 PM INFORMATION ASSURANCE us Victor Manuel Woo MD LAB BLOOD ORDERABLES Final R esult TAB GUARDADO [address] [address] Department [place] [address] * (ABNORMAL) CBC with auto differential (09/20/2024 11:33 PM INFORMATION ASSURANCE) WBC 6.6 3.8 - 9.9 K/cumm Hgb 9.6(L) 13.0 - 17.5 g/dL [facility] Hct 29.9(L) 38.9 - 50.3 % [facility] Plt 146(L) 150 - 400 K/cumm [facility] MPV 9.8 9.1 - 12.3 fL [facility] RBC 3.45(L) 4.30 - 5.80 M/cumm [facility] MCV 86.7 81.3 - 96.4 fL [facility] MCH 27.8 27.1 - 33.3 pg [facility] MCHC 32.1(L) 32.3 - 35.7 g/dL [facility] RDW CV 13.2 11.1 - 14.9 % [facility] RDW SD 41.1 35.7 - 48.1 fL [facility] NRBC abs 0.00 0.00 - 0.01 K/cumm [facility] Blood 09/20/2024 11:3 3 PM INFORMATION ASSURANCE 09/20/2024 11:54 PM INFORMATION ASSURANCE Victor Manuel Woo MD LAB BLOOD ORDERABLES Final R esult Performing Organization Address [facility] Co de Phone Number TAB GUARDADO [address] [place] [address] * Magnesium (09/20/2024 11:33 PM INFORMATION ASSURANCE) Magnesium 1.9 1.4 - 2.5 mg/dL Blood 09/20/2024 11:3 3 PM INFORMATION ASSURANCE 09/20/2024 11:54 PM INFORMATION ASSURANCE Victor Manuel Woo MD LAB BLOOD ORDERABLES Final R esult Performing Organization Address City/[facility] Co de Phone Number TAB GUARDADO [address] [address] [facility] [employer] [place], [place] [id number] * (ABNORMAL) Basic metabolic panel (09/20/2024 11:33 PM INFORMATION ASSURANCE) Sodium 148(H) 135 - 145 mmol/L Potassium, pl 3.8 3.3 - 4.9 mmol/L [facility] Chloride 115(H) 97 - 110 mmol/L [facility] CO2 23 22 - 32 mmol/L [facility] Anion gap 10 2 - 15 mmol/L [facility] BUN 9 6 - 25 mg/dL [facility] Creatinine 0.62(L) 0.80 - 1.30 mg/dL [facility] Glucose 146 70 - 199 mg/dL [facility] Comment: Interpretive Data Fasting glucose >/= 126 [...] 2022. Calcium 8.7 8.5 - 10.3 mg/dL [facility] Blood 09/20/2024 11:3 3 PM INFORMATION ASSURANCE 09/20/2024 11:54 PM INFORMATION ASSURANCE Victor Manuel Woo MD LAB BLOOD ORDERABLES Final R esult Performing Organization Address City/[facility] Co de Phone Number TAB GUARDADO [address] [address] [employer] [place] [address] * POCT glucose (09/20/2024 10:34 PM INFORMATION ASSURANCE) Glucose, POC 128 70 - 199 mg/dL Blood 09/20/2024 10:3 4 PM INFORMATION ASSURANCE 09/20/2024 10:34 PM INFORMATION ASSURANCE Victor Manuel Woo MD LAB POCT ORDERABLES - DEVICE Final Result Performing Organization Address [facility] Co de Phone Number TAB GUARDADO [address] [address] Department [place] [employer] [place] [address] * (ABNORMAL) Blood gas, arterial (09/20/2024 10:30 PM INFORMATION ASSURANCE) pH, Art 7.34(L) 7.35 - 7.45 PCO2, [...] [facility] Blood 09/20/2024 10:3 0 PM INFORMATION ASSURANCE 09/20/2024 10:39 PM INFORMATION ASSURANCE us Victor Manuel Woo MD LAB BLOOD ORDERABLES Final R esult Performing Organization Address [facility] Co de Phone Number TAB GUARDADO [address] [address] [facility] [employer] [place] [address] * POCT glucose (09/20/2024 9:38 PM INFORMATION ASSURANCE) Glucose, POC 100 70 - 199 mg/dL Blood 09/20/2024 9:38 PM INFORMATION ASSURANCE 09/20/2024 9:38 PM INFORMATION ASSURANCE Victor Manuel Woo MD LAB POCT ORDERABLES - DEVICE Final Result Performing Organization Address [facility] Co de Phone Number [facility] [address] [address] [facility] [employer] [place] [address] * POCT glucose (09/20/2024 8:35 PM INFORMATION ASSURANCE) Glucose, POC 100 70 - 199 mg/dL Blood 09/20/2024 8:35 PM INFORMATION ASSURANCE 09/20/2024 8:35 PM INFORMATION ASSURANCE us Victor Manuel Woo MD LAB POCT ORDERABLES - DEVICE Final Result Performing Organization Address [facility] Co de Phone Number TAB [address] [address] [facility] [employer] [address] * POCT glucose (09/20/2024 7:33 PM INFORMATION ASSURANCE) Glucose, POC 112 70 - 199 mg/dL Blood 09/20/2024 7:33 PM INFORMATION ASSURANCE 09/20/2024 7:33 PM INFORMATION ASSURANCE Victor Manuel Woo MD LAB POCT ORDERABLES - DEVICE Final Result Performing Organization Address City/[facility]/ZIP Co de Phone Number TAB GUARDADO [address] [address] Department of [employer] [place], [place] [id number] * (ABNORMAL) Calcium, ionized, whole blood (09/20/2024 6:39 PM INFORMATION ASSURANCE) Pathologist [facility] Ca, ionized, bld 5.54(H) 4.50 - 5.10 mg/dL Blood 09/20/2024 6:39 PM INFORMATION ASSURANCE 09/20/2024 6:55 PM INFORMATION ASSURANCE Victor Manuel Woo MD LAB BLOOD ORDERABLES Final R esult Performing Organization Address [facility] Co de Phone Number TAB GUARDADO [address] [address] Department [place] [employer] [place] [address] * eGFR (09/20/2024 6:39 PM INFORMATION ASSURANCE) Pathologist [facility] eGFR >90 >=60 mL/min/1. 73 m2 Comment: [...] last reviewed 2021. Blood 09/20/2024 6:39 PM INFORMATION ASSURANCE 09/20/2024 7:02 PM INFORMATION ASSURANCE Victor Manuel Woo MD LAB BLOOD ORDERABLES Final R esult Performing Organization Address City/[facility]/ZIP Co de Phone Number TAB [id number] [place] [address] * (ABNORMAL) CBC without differential (09/20/2024 6:39 PM INFORMATION ASSURANCE) WBC 7.0 3.8 - 9.9 K/cumm Hgb 9.9(L) 13.0 - 17.5 g/dL [facility] Hct 30.2(L) 38.9 - 50.3 % [facility] Plt 141(L) 150 - 400 K/cumm [facility] MPV 9.5 9.1 - 12.[address] [facility] RBC 3.55(L) 4.30 - 5.80 M/cumm [facility] MCV 85.1 81.3 - 96.4 fL [facility] MCH 27.9 27.1 - 33.3 pg [facility] MCHC 32.8 32.3 - 35.7 g/dL [facility] RDW CV 13.1 11.1 - 14.9 % [facility] RDW SD 40.9 35.7 - 48.1 fL [facility] NRBC abs 0.00 0.00 - 0.01 K/cumm [facility] Blood 09/20/2024 6:39 PM INFORMATION ASSURANCE 09/20/2024 6:56 PM INFORMATION ASSURANCE Victor Manuel Woo MD LAB BLOOD ORDERABLES Final R esult TAB Jaquez[address] Department [employer] [place] [address] * Magnesium (09/20/2024 6:39 PM INFORMATION ASSURANCE) Magnesium 2.1 1.4 - 2.5 mg/dL Blood 09/20/2024 6:39 PM INFORMATION ASSURANCE 09/20/2024 6:55 PM INFORMATION ASSURANCE Victor Manuel Woo MD LAB BLOOD ORDERABLES Final R esult Performing Organization Address [facility] de Phone Number TAB [address] [address] Department of [employer] [place], [place] [id number] * (ABNORMAL) Blood gas, arterial (09/20/2024 6:39 PM INFORMATION ASSURANCE) pH, Art 7.41 7.35 - 7.45 PCO2, [...] % [facility] Blood 09/20/2024 6:39 PM INFORMATION ASSURANCE 09/20/2024 6:55 PM INFORMATION ASSURANCE Victor Manuel Woo MD LAB BLOOD ORDERABLES Final R esult Performing Organization Address [facility] de Phone Number TAB [address] [address] Department [place] [employer] [place] [address] * (ABNORMAL) Basic metabolic panel (09/20/2024 6:39 PM INFORMATION ASSURANCE) Sodium 147(H) 135 - 145 mmol/L Potassium, [...] 2022. Calcium 10.0 8.5 - 10.3 mg/dL [facility] Blood 09/20/2024 6:39 PM INFORMATION ASSURANCE 09/20/2024 6:55 PM INFORMATION ASSURANCE Victor Manuel Woo MD LAB BLOOD ORDERABLES Final R esult Performing Organization Address [facility] Co de Phone Number TAB [address] [place] [address] * POCT glucose (09/20/2024 6:30 PM INFORMATION ASSURANCE) Glucose, POC 129 70 - 199 mg/dL Blood 09/20/2024 6:30 PM INFORMATION ASSURANCE 09/20/2024 6:30 PM INFORMATION ASSURANCE Victor Manuel Woo MD LAB POCT ORDERABLES - DEVICE Final Result Performing Organization Address [facility] de Phone Number [facility] [address] [address] [employer] [place], [place] [id number] * POCT glucose (09/20/2024 5:07 PM INFORMATION ASSURANCE) Glucose, POC 142 70 - 199 mg/dL Blood 09/20/2024 5:07 PM INFORMATION ASSURANCE 09/20/2024 5:07 PM INFORMATION ASSURANCE Victor Manuel Woo MD LAB POCT ORDERABLES - DEVICE Final Result Performing Organization Address [facility] de Phone Number [facility] [address] [address] [facility] [place] [address] * POCT glucose (09/20/2024 4:25 PM INFORMATION ASSURANCE) Glucose, POC 113 70 - 199 mg/dL Blood 09/20/2024 4:25 PM INFORMATION ASSURANCE 09/20/2024 4:25 PM INFORMATION ASSURANCE us Victor Manuel Woo MD LAB POCT ORDERABLES - DEVICE Final Result TAB GUARDADO [address] [address] Department [place] [address] * XR Chest 1 View - Portable (09/20/2024 3:00 PM INFORMATION ASSURANCE) Anatomical Region Laterality Modality Body, Chest N/A Computed Radiogr aphy 09/20/2024 3:07 PM INFORMATION ASSURANCE Impressions 09/20/2024 3:07 PM INFORMATION ASSURANCE FINDINGS/IMPRESSION: Endotracheal tube terminates 2.8 cm from the terri. Enteric tube is appropriately positioned. Bilateral thoracostomy tubes and mediastinal drain are appropriately positioned. Pulmonary arterial catheter is appropriately positioned. Poststernotomy changes. No pneumothorax or pleural effusion. Cardiac mediastinal silhouette is normal in size. No acute osseous abnormality. Electronically signed by: Raul Mendieta II, D.O. Narrative 09/20/2024 3:07 PM INFORMATION ASSURANCE EXAMINATION: XR CHEST 1 VIEW DATE: 09/20/2024 [...] Calcium, ionized, whole blood (09/20/2024 2:59 PM INFORMATION ASSURANCE) Ca, ionized, bld 4.77 4.50 - 5.10 mg/dL Blood 09/20/2024 2:59 PM INFORMATION ASSURANCE 09/20/2024 3:03 PM INFORMATION ASSURANCE Victor Manuel Woo MD LAB BLOOD ORDERABLES Final R esult TAB GEO [address] [address] Department [employer] [place] [address] * eGFR (09/20/2024 2:59 PM INFORMATION ASSURANCE) eGFR >90 >=60 mL/min/1. 73 m2 Comment: [...] last reviewed 2021. Blood 09/20/2024 2:59 PM INFORMATION ASSURANCE 09/20/2024 3:04 PM INFORMATION ASSURANCE Victor Manuel Woo MD LAB BLOOD ORDERABLES Final R esult TAB GUARDADO [address] [address] [facility] [employer] [place] [address] * aPTT (09/20/2024 2:59 PM INFORMATION ASSURANCE) aPTT 34 28 - 38 sec Comment: Interpretive Data Heparin therapeutic range: 66.0 - 100.0 seconds. Range based on correlation with therapeutic heparin activity range of 0.3 - 0.7 Units/mL. Current interpretive data was last revised on 2023. Blood 09/20/2024 2:59 PM INFORMATION ASSURANCE 09/20/2024 3:04 PM INFORMATION ASSURANCE Victor Manuel Woo MD LAB BLOOD ORDERABLES Final R esult Performing Organization Address [facility] de Phone Number TAB GUARDADO [address] [address] [facility] [employer] [place] [address] * (ABNORMAL) Protime-INR (09/20/2024 2:59 PM INFORMATION ASSURANCE) Pathologist [facility] PT 18.5(H) 9.7 - 13.0 sec INR 1.69(H) 0.90 - 1.20 TAB Comment: Interpretive data Oral anticoagulant therapeutic ranges: Venous thromboembolism prophylaxis or treatment: 2.0-3.0 CARDIOLOGY Standard range: 2.0-3.0 High-intensity range: 2.5-3.5 Refer to indication-specific guidelines for appropriate target ranges for prosthetic heart valve replacement. Current interpretive data was last revised on 2019. Blood 09/20/2024 2:59 PM INFORMATION ASSURANCE 09/20/2024 3:04 PM INFORMATION ASSURANCE Victor Manuel Woo MD LAB BLOOD ORDERABLES Final R esult Performing Organization Address [facility] Co de Phone Number TAB GUARDADO [address] Jed [facility] [employer] [place] [address] * (ABNORMAL) CBC without differential (09/20/2024 2:59 PM INFORMATION ASSURANCE) WBC 4.6 3.8 - 9.9 K/cumm Hgb [...] K/cumm [facility] Blood 09/20/2024 2:59 PM INFORMATION ASSURANCE 09/20/2024 3:04 PM INFORMATION ASSURANCE us Victor Manuel Woo MD LAB BLOOD ORDERABLES Final R esult Performing Organization Address City/[facility] Co de Phone Number [facility] [address] [address] [place] [address] * (ABNORMAL) Blood gas, arterial (09/20/2024 2:59 PM INFORMATION ASSURANCE) pH, Art 7.30(L) 7.35 - 7.45 PCO2, [...] % [facility] Blood 09/20/2024 2:59 PM INFORMATION ASSURANCE 09/20/2024 3:03 PM INFORMATION ASSURANCE us Victor Manuel Woo MD LAB BLOOD ORDERABLES Final R esult TAB GUARDADO [address] [address] [place] [address] * (ABNORMAL) Basic metabolic panel (09/20/2024 2:59 PM INFORMATION ASSURANCE) Sodium 146(H) 135 - 145 mmol/L Potassium, pl 3.7 3.3 - 4.9 mmol/L [facility] Chloride 117(H) 97 - 110 mmol/L [facility] CO2 20(L) 22 - 32 mmol/L [facility] Anion gap 9 2 - 15 mmol/L [facility] BUN 9 6 - 25 mg/dL [facility] Creatinine 0.49(L) 0.80 - 1.30 mg/dL [facility] Glucose 142 70 - 199 mg/dL [facility] Comment: [...] 2022. Calcium 7.4(L) 8.5 - 10.3 mg/dL [facility] Blood 09/20/2024 2:59 PM INFORMATION ASSURANCE 09/20/2024 3:04 PM INFORMATION ASSURANCE us Victor Manuel Woo MD LAB BLOOD ORDERABLES Final R esult TAB GUARDADO [address] [address] [place] [address] * Critical Care (09/20/2024 2:58 PM INFORMATION ASSURANCE) Narrative Tima Izquierdo MD - 09/20/2024 2:58 PM INFORMATION ASSURANCE Ora Smith NP 09/20/2024 5:34 PM Critical [...] plan with the ICU team and other medical/[employer] sales consultant staff, making frequent assessments and [...] Result * POCT glucose (09/20/2024 2:44 PM INFORMATION ASSURANCE) Glucose, POC 115 70 - 199 mg/dL Blood 09/20/2024 2:44 PM INFORMATION ASSURANCE 09/20/2024 2:44 PM INFORMATION ASSURANCE Victor Manuel Woo MD LAB POCT ORDERABLES - DEVICE Final Result TAB [address] [address] Department [place] [address] * (ABNORMAL) POC Blood Gas and Chemistries, Arterial - (09/20/2024 1:56 PM INFORMATION ASSURANCE) pH, Art POC 7.34(L) 7.35 - 7.45 [...] g/dL [facility] Blood 09/20/2024 1:56 PM INFORMATION ASSURANCE 09/20/2024 1:56 PM INFORMATION ASSURANCE Victor Manuel Woo MD LAB POCT ORDERABLES - DEVICE Final Result Performing Organization Address [facility] Co de Phone Number TAB GUARDADO [address] [place] [address] * Transfuse platelets (09/20/2024 1:20 PM INFORMATION ASSURANCE) Blood Barry Ellington MD BLOOD TRANSFUSION ORDERABLES F inal Result Performing Organization Address City/[facility]/ZIP Co de Phone Number TAB GUARDADO [address] [address] [employer] [place] [address] * POC Activated Clotting Time, High Range (09/20/2024 12:52 PM INFORMATION ASSURANCE) ACT 104 87 - 138 sec Blood 09/20/2024 12:5 2 PM INFORMATION ASSURANCE 09/20/2024 12:52 PM INFORMATION ASSURANCE Victor Manuel Woo MD LAB BLOOD ORDERABLES Final R esult Performing Organization Address City/[facility]/ZIP Co de Phone Number TAB GUARDADO [address] [place] [address] * (ABNORMAL) POC Blood Gas and Chemistries, Arterial - (09/20/2024 12:50 PM INFORMATION ASSURANCE) pH, Art POC 7.35 7.35 - 7.45 [...] [facility] Blood 09/20/2024 12:5 0 PM INFORMATION ASSURANCE 09/20/2024 12:50 PM INFORMATION ASSURANCE Victor Manuel Woo MD LAB POCT ORDERABLES - DEVICE Final Result TAB GUARDADO [address] [address] Department [employer] [place] [address] * (ABNORMAL) POC Activated Clotting Time, High Range (09/20/2024 12:47 PM INFORMATION ASSURANCE) ACT 178(H) 87 - 138 sec Blood 09/20/2024 12:4 7 PM INFORMATION ASSURANCE 09/20/2024 12:47 PM INFORMATION ASSURANCE us Victor Manuel Woo MD LAB BLOOD ORDERABLES Final R esult [facility] [address] [address] Department [place] [address] * (ABNORMAL) POC Blood Gas and Chemistries, Arterial - (09/20/2024 12:18 PM INFORMATION ASSURANCE) pH, Art POC 7.43 7.35 - 7.45 [...] [facility] Blood 09/20/2024 12:1 8 PM INFORMATION ASSURANCE 09/20/2024 12:18 PM INFORMATION ASSURANCE Victor Manuel Woo MD LAB POCT ORDERABLES - DEVICE Final Result Performing Organization Address [facility] [facility] Co de Phone Number TAB GUARDADO [address] [address] [facility] [employer] [address] * (ABNORMAL) POC Activated Clotting Time, High Range (09/20/2024 12:15 PM INFORMATION ASSURANCE) ACT 588(H) 87 - 138 sec Blood 09/20/2024 12:1 5 PM INFORMATION ASSURANCE 09/20/2024 12:15 PM INFORMATION ASSURANCE Victor Manuel Woo MD LAB BLOOD ORDERABLES Final R esult Performing Organization Address [facility] Co de Phone Number TAB GUARDADO [address] [address] [facility] [employer] [address] * (ABNORMAL) Platelet count (09/20/2024 12:03 PM INFORMATION ASSURANCE) Plt 134(L) 150 - 400 K/cumm Blood 09/20/2024 12:0 3 PM INFORMATION ASSURANCE 09/20/2024 12:08 PM INFORMATION ASSURANCE Narrative [facility] - 09/20/2024 12:10 PM INFORMATION ASSURANCE PLEASE CALL RESULTS TO EXT [phone]. THANK YOU Victor Manuel Woo MD LAB BLOOD ORDERABLES Final R esult Performing Organization Address [facility] Co de Phone Number TAB GUARDADO [address] [address] [facility] [employer] [address] * (ABNORMAL) POC Blood Gas and Chemistries, Arterial - (09/20/2024 11:28 AM INFORMATION ASSURANCE) pH, Art POC 7.36 7.35 - 7.45 [...] CERNER CH Blood 09/20/2024 11:2 8 AM INFORMATION ASSURANCE 09/20/2024 11:28 AM INFORMATION ASSURANCE Victor Manuel Woo MD LAB POCT ORDERABLES - DEVICE Final Result Performing Organization Address [facility]/ZIP Co de Phone Number TAB GEO [address] [place] [address] * (ABNORMAL) POC Activated Clotting Time, High Range (09/20/2024 11:26 AM INFORMATION ASSURANCE) ACT 722(H) 87 - 138 sec Blood 09/20/2024 11:2 6 AM INFORMATION ASSURANCE 09/20/2024 11:26 AM INFORMATION ASSURANCE Victor Manuel Woo MD LAB BLOOD ORDERABLES Final R esult YOLISLLUVIA GUARDADO [address] [address] [employer] [place], [place] [id number] * (ABNORMAL) POC Blood Gas and Chemistries, Arterial - (09/20/2024 10:47 AM INFORMATION ASSURANCE) pH, Art POC 7.33(L) 7.35 - 7.45 [...] CERNER CH Blood 09/20/2024 10:4 7 AM INFORMATION ASSURANCE 09/20/2024 10:47 AM INFORMATION ASSURANCE Victor Manuel Woo MD LAB POCT ORDERABLES - DEVICE Final Result Performing Organization Address [facility] Co de Phone Number [facility] [address] [address] [facility] [place] [address] * (ABNORMAL) POC Activated Clotting Time, High Range (09/20/2024 10:44 AM INFORMATION ASSURANCE) ACT 639(H) 87 - 138 sec Blood 09/20/2024 10:4 4 AM INFORMATION ASSURANCE 09/20/2024 10:44 AM INFORMATION ASSURANCE Victor Manuel Woo MD LAB BLOOD ORDERABLES Final R esult Performing Organization Address City/[facility]/[place] [address] [address] [facility] [place] [address] * (ABNORMAL) POC Activated Clotting Time, High Range (09/20/2024 9:44 AM INFORMATION ASSURANCE) ACT 562(H) 87 - 138 sec Blood 09/20/2024 9:44 AM INFORMATION ASSURANCE 09/20/2024 9:44 AM INFORMATION ASSURANCE us Victor Manuel Woo MD LAB BLOOD ORDERABLES Final R esult Performing Organization Address [facility] de Phone Number TAB GUARDADO [address] [address] [facility] [place] [address] * Arterial Line (09/20/2024 9:37 AM INFORMATION ASSURANCE) Narrative Barry Ellington MD - 09/20/2024 9:37 AM INFORMATION ASSURANCE Tong Ahuja AA 09/20/2024 9:37 AM Arterial [...] PERFORMABLE, PULMONARY ARTERY CATH (09/20/2024 9:35 AM INFORMATION ASSURANCE) Narrative Barry Ellington MD - 09/20/2024 9:35 AM INFORMATION ASSURANCE Tong Ahuja AA 09/20/2024 9:36 AM Central [...] MD ANESTHESIA ORDERABLES Final Re sult * CA AN ELECTIVE ENDOTRACHEAL AIRWAY (09/20/2024 9:34 AM INFORMATION ASSURANCE) Narrative Barry Ellington MD - 09/20/2024 9:34 AM INFORMATION ASSURANCE Tong Ahuja AA 09/20/2024 9:35 AM Airway [...] and Chemistries, Arterial - (09/20/2024 8:31 AM INFORMATION ASSURANCE) pH, Art POC 7.39 7.35 - 7.45 [...] g/dL CERNER CH Blood 09/20/2024 8:31 AM INFORMATION ASSURANCE 09/20/2024 8:31 AM INFORMATION ASSURANCE us Victor Manuel Woo MD LAB POCT ORDERABLES - DEVICE Final Result Performing Organization Address [facility] de Phone Number TAB GUARDADO [address] [address] [facility] [employer] [address] * POC Activated Clotting Time, High Range (09/20/2024 8:27 AM INFORMATION ASSURANCE) ACT 120 87 - 138 sec Blood 09/20/2024 8:27 AM INFORMATION ASSURANCE 09/20/2024 8:27 AM INFORMATION ASSURANCE Victor Manuel Woo MD LAB BLOOD ORDERABLES Final R esult Performing Organization Address [facility] de Phone Number TAB GUARDADO [address] [address] [facility] [employer] [address] * Type and screen (09/20/2024 7:25 AM INFORMATION ASSURANCE) Tereza, indirect Negative ABO Rh O Positive CERNER Blood 09/20/2024 7:25 AM INFORMATION ASSURANCE 09/20/2024 7:38 AM INFORMATION ASSURANCE Narrative [facility] - 09/20/2024 8:20 AM INFORMATION ASSURANCE Has the patient had Daratumumab or Isatuximab in the past 6 months?->Unknown Victor Manuel Woo MD LAB BLOOD BANK TEST ORDERABL ES Final Result Performing Organization Address [facility] de Phone Number YOLISLLUVIA GUARDADO [address] [address] [facility] [employer] [address] * (ABNORMAL) POCT glucose (09/20/2024 6:11 AM INFORMATION ASSURANCE) Glucose, POC 203(H) 70 - 199 mg/dL Blood 09/20/2024 6:11 AM INFORMATION ASSURANCE 09/20/2024 6:11 AM INFORMATION ASSURANCE Victor Manuel Woo MD LAB POCT ORDERABLES - DEVICE Final Result Performing Organization Address [facility] Co de Phone Number TAB GUARDADO [address] [address] Department [employer] [address] * Prepare platelets: 2 Units (09/20/2024 5:31 AM INFORMATION ASSURANCE) Product code [id number] Unit Number [id number] 4 CERNER CH Product Blood Type APOS CERNER CH Dispense Status PRESUMED TRANSFUSED CERNER CH Blood (Blood, Venous) 09/20/2024 5:31 AM INFORMATION ASSURANCE Narrative CERNER CH - 09/20/2024 10:15 PM INFORMATION ASSURANCE Specify Procedure:->CABG Are special requirements needed? (all products are leukoreduced)->No Date required:-[id number] PLT # of Units:-2-Units Reasons:-Hold for procedure (specify procedure)} Rashad Jones NP BLOOD BANK PRODUCT ORDERABLES F inal Result [facility] [address] [address] [place] [address] * Prepare RBC: 4 Units (09/20/2024 5:31 AM INFORMATION ASSURANCE) Product code [id number] CERNER CH Unit Number [id number] 9-* CERNER CH Product Blood Type OPOS CERNER CH Dispense Status RETURNED CERNER CH Product code [id number] CERNER CH Unit Number [id number] 5-P CERNER CH Product Blood Type OPOS CERNER CH Dispense Status RETURNED CERNER CH Product code [id number] CERNER CH Unit Number [id number] 9-3 CERNER CH Product Blood Type OPOS CERNER CH Dispense Status RETURNED CERNER CH Product code [id number] Unit Number [id number] 2-L CERNER CH Product Blood Type OPOS CERNER CH Dispense Status RETURNED CERNER CH Blood 09/20/2024 5:31 AM INFORMATION ASSURANCE Narrative CERNER CH - 09/21/2024 12:24 AM INFORMATION ASSURANCE Specify Procedure:->CABG Are special requirements needed? (All products are leukoreduced and CMV- safe)- >No Date required:-[id number] LRRBC # of [id number] Reasons:-Hold for procedure (specify procedure)} us Rashad Jones NP BLOOD BANK PRODUCT ORDERABLES F inal Result Performing Organization Address [facility] Co de Phone Number TAB GUARDADO [address] [address] [facility] [place] [address] * ECG 12 lead (09/17/2024 9:25 AM INFORMATION ASSURANCE) 09/17/2024 9:25 AM INFORMATION ASSURANCE Narrative [facility] - 09/17/2024 9:19 AM INFORMATION ASSURANCE Vent Rate: 60 bpm RR Interval: 996 msec CA Interval: 171 msec QRS Duration: 96 msec QT Interval: 416 msec QTC Interval: 416 msec P-R-T Ellsworth: 1 - -2 - 50 degrees IMPRESSION: SINUS RHYTHM INFERIOR MYOCARDIAL INFARCTION , PROBABLY OLD ANTEROSEPTAL MYOCARDIAL INFARCTION , OF INDETERMINATE AGE ABNORMAL ECG Electronically Signed By: Yady Ward MD Victor Manuel Woo MD ECG ORDERABLES Final Result Performing Organization Address [facility] de Phone Number [facility] [employer] [facility] * XR Chest PA Lateral 2 View (09/17/2024 9:07 AM INFORMATION ASSURANCE) Anatomical Region Laterality Modality Body, Chest N/A Computed Radiogr aphy 09/17/2024 9:10 AM INFORMATION ASSURANCE Impressions 09/17/2024 9:10 AM INFORMATION ASSURANCE Normal study. Borderline cardiomegaly. Electronically signed by: Rodrick Modi M.D. Narrative 09/17/2024 9:10 AM INFORMATION ASSURANCE EXAMINATION: XR CHEST PA LATERAL 2 VIEWS [...] Resu lt * eGFR (09/17/2024 9:01 AM INFORMATION ASSURANCE) eGFR >90 >=60 mL/min/1. 73 m2 Comment: [...] last reviewed 2021. Blood 09/17/2024 9:01 AM INFORMATION ASSURANCE 09/17/2024 9:07 AM INFORMATION ASSURANCE Victor Manuel Woo MD LAB BLOOD ORDERABLES Final R esult [facility] [address] [address] [place] [address] * (ABNORMAL) Urinalysis reflex to microscopic and culture Urine, clean voided (09/17/2024 9:01 AM INFORMATION ASSURANCE) Color, ur Straw Yellow Clarity, ur Clear Clear [facility] Specific gravity, ur 1.019 1.003 - 1.030 [...] tendency for uric acid stone formation. Source: [facility] Current Interpretive Data was last revised on [...] for microscopic UA and culture not met. [facility] Urine, clean voided 09/17/2024 9:01 AM INFORMATION ASSURANCE 09/17/2024 9:32 AM INFORMATION ASSURANCE Victor Manuel Woo MD LAB MICROBIOLOGY - GENERAL O RDERABLES Final Result Performing Organization Address [facility] Co de Phone Number TAB [address] [place] [address] * aPTT (09/17/2024 9:01 AM INFORMATION ASSURANCE) aPTT 32 28 - 38 sec Comment: Interpretive Data Heparin therapeutic range: 66.0 - 100.0 seconds. Range based on correlation with therapeutic heparin activity range of 0.3 - 0.7 Units/mL. Current interpretive data was last revised on 2023. Blood 09/17/2024 9:01 AM INFORMATION ASSURANCE 09/17/2024 9:07 AM INFORMATION ASSURANCE Victor Manuel Woo MD LAB BLOOD ORDERABLES Final R esult Performing Organization Address [facility]/ZIP Co de Phone Number [facility] [address] [address] [facility] [employer] [place], [place] [id number] * Protime-INR (09/17/2024 9:01 AM INFORMATION ASSURANCE) PT 11.6 9.7 - 13.0 sec INR 1.07 0.90 - 1.[address] [facility] Comment: Interpretive data Oral anticoagulant therapeutic ranges: Venous thromboembolism prophylaxis or treatment: 2.0-3.0 CARDIOLOGY Standard range: 2.0-3.0 High-intensity range: 2.5-3.5 Refer to indication-specific guidelines for appropriate target ranges for prosthetic heart valve replacement. Current interpretive data was last revised on 2019. Blood 09/17/2024 9:01 AM INFORMATION ASSURANCE 09/17/2024 9:07 AM INFORMATION ASSURANCE Victor Manuel Woo MD LAB BLOOD ORDERABLES Final R esult Performing Organization Address [facility] Co de Phone Number TAB [address] [place] [address] * CBC without differential (09/17/2024 9:01 AM INFORMATION ASSURANCE) [facility] WBC 6.0 3.8 - 9.9 K/cumm Hgb 14.8 13.0 - 17.5 g/dL [facility] Hct 45.3 38.9 - 50.3 % [facility] Plt 229 150 - 400 K/cumm [facility] MPV 9.8 9.1 - 12.[address] [facility] RBC 5.34 4.30 - 5.80 M/cumm [facility] MCV 84.8 81.3 - 96.[address] [facility] MCH 27.7 27.1 - 33.3 pg [facility] MCHC 32.7 32.3 - 35.7 g/dL [facility] RDW CV 12.8 11.1 - 14.9 % [facility] RDW SD 39.5 35.7 - 48.[address] [facility] NRBC abs 0.00 0.00 - 0.01 K/cumm [facility] Blood 09/17/2024 9:01 AM INFORMATION ASSURANCE 09/17/2024 9:07 AM INFORMATION ASSURANCE Victor Manuel Woo MD LAB BLOOD ORDERABLES Final R esult Performing Organization Address [facility] Co de Phone Number TAB [address] [address] [employer] [place] [address] * Type and screen (09/17/2024 9:01 AM INFORMATION ASSURANCE) Tereza, indirect Negative ABO Rh O Positive [facility] Blood 09/17/2024 9:01 AM INFORMATION ASSURANCE 09/17/2024 9:25 AM INFORMATION ASSURANCE Narrative [facility] - 09/17/2024 1:26 PM INFORMATION ASSURANCE Has the patient had Daratumumab or Isatuximab in the past 6 months?->Unknown Victor Manuel Woo MD LAB BLOOD BANK TEST ORDERABL ES Final Result Performing Organization Address [facility] de Phone Number [facility] [address] [address] [employer] [place] [address] * (ABNORMAL) Hemoglobin A1c (09/17/2024 9:01 AM INFORMATION ASSURANCE) Pathologist [facility] Hgb A1C 7.1(H) 4.0 - 5.6 % Estimated Average Glucose 157 mg/dL [facility] Comment: The ADA recommends reporting an estimated Average Glucose (eAG) with all Hemoglobin A1c results using the equation derived from a study of 507 normal and diabetic adults. Minority populations were underrepresented and children were not included. (Diabetes Care 31:8780-0582, 2008). The eAG is not equivalent to a fasting glucose. Blood 09/17/2024 9:01 AM INFORMATION ASSURANCE 09/17/2024 9:07 AM INFORMATION ASSURANCE Victor Manuel Woo MD LAB BLOOD ORDERABLES Final R esult Performing Organization Address City/[facility] Co de Phone Number TAB [address] [address] [employer] [place], [place] [id number] * (ABNORMAL) Basic metabolic panel (09/17/2024 9:01 AM INFORMATION ASSURANCE) Pathologist [facility] Sodium 138 135 - 145 mmol/L Potassium, pl 3.8 3.3 - 4.9 mmol/L [facility] Chloride 101 97 - 110 mmol/L [facility] CO2 25 22 - 32 mmol/L [facility] Anion gap 12 2 - 15 mmol/L [facility] BUN 8 6 - 25 mg/dL [facility] Creatinine 0.60(L) 0.80 - 1.30 mg/dL [facility] Glucose 164 70 - 199 mg/dL [facility] Comment: Interpretive Data Fasting glucose >/= 126 [...] 2022. Calcium 9.4 8.5 - 10.3 mg/dL [facility] Blood 09/17/2024 9:01 AM INFORMATION ASSURANCE 09/17/2024 9:07 AM INFORMATION ASSURANCE us Victor Manuel Woo MD LAB BLOOD ORDERABLES Final R esult [facility] [address] [address] [place] [address] * TRANSTHORACIC ECHO (TTE) LIMITED/FOLLOW UP WO DOPPLER/CF W CONTRAST (08/26/2024 11:20 AM INFORMATION ASSURANCE) Anatomical Region Laterality Modality Ultrasound 08/26/2024 10:5 6 AM INFORMATION ASSURANCE Narrative 08/26/2024 1:11 PM INFORMATION ASSURANCE [facility] Medical [facility] Cardiology [address], [place] [address] [address] [facility] [address], [place] [address] P:[phone] P:[phone] Echocardiographic Report Patient Name: RAYMOND DELGADO L : 1965 Study Date: 08/26/2024 10:56:04 AM Gender: M Tech: LUIS Location: [place] Ref Provider: GIUSEPPE ALVARADO Height(Cm): 170 BSA: 2.05 Weight(Kg): 88.9 Heart Rate: 58 BP: 123 / 66 Quality: Good Order Provider: GIUSEPPE ALVARADO PROCEDURES: Echocardiographic Report: Limited transthoracic echocardiogram with 2D and Definity contrast. With Strain Analysis. INDICATIONS: I25.10 Atherosclerotic heart disease of [place] coronary artery without angina pectoris. MEASUREMENTS: 2D/MM Value Range EF Mod BP 47 % [ 52 - 72 ] Estimated EF 40-45 % 2D/MM Value Range - FINDINGS: Interpretation Site: Exam was interpreted at [facility]. Left Ventricle: Definity contrast agent used to [...] By: Tima Kwan MD 08/26/2024 1:11:38 PM INFORMATION ASSURANCE 40-45 Procedure Note Tima Kwan MD - 08/26/2024 [facility] Medical [facility] Cardiology [address] [facility] [address] [address] [address] [facility] [address], [place] [address] P:[phone] P:[phone] Echocardiographic Report Patient Name: RAYMOND DELGADO L : 1965 Study Date: 08/26/2024 10:56:04 AM Gender: M Tech: Location: [facility] Provider: GIUSEPPE ALVARADO Height(Cm): 170 BSA: 2.05 Weight(Kg): 88.9 Heart Rate: 58 BP: 123 / 66 Quality: Good Order Provider: GIUSEPPE ALVARADO PROCEDURES: Echocardiographic Report: Limited transthoracic echocardiogram with 2D and Definity contrast. WithStrain Analysis. INDICATIONS: I25.10 Atherosclerotic heart disease of [place] coronary artery withoutangina pectoris. MEASUREMENTS: 2D/MM Value Range EF Mod BP 47 % [ 52 - 72 ] Estimated EF 40-45 % 2D/MM Value Range - FINDINGS: Interpretation Site: Exam was interpreted at [facility]. Left Ventricle: Definity contrast agent used to [...] By: Tima Kwan MD 08/26/2024 1:11:38 PM INFORMATION ASSURANCE 40-45 [facility] Nadine Alvarado MD CV ECHO PROCEDURES Yumiko [...] NCEP Expert Panel. Circulation 2004;110:227 3. Ricardo Castaneda et al. OCTAVIO Cardiol. 2020 January 09;5(5):540-548. doi: [...] last revised on 2018. Chol/HDL ratio [address] [facility] Blood 06/27/2024 10:2 6 AM CDT 06/27/2024 10:39 AM CDT Narrative [facility] - 06/27/2024 11:57 AM CDT This lipid panel was automatically ordered due to a significant change in Troponin. The dietary status of the patient at the collection time should be correlated with the lipid results. Arabella Browne MD LAB BLOOD ORDERABLES Yumiko dong Result [facility] [address] Department [place] [address] * Hepatitis panel, acute Blood (06/27/2024 5:24 AM CDT) Hep A IgM Nonreactive Nonreactive Comment: Interpretive Data: If Hep A IgM Ab is reported as Equivocal, a new sample should be drawn in two weeks for testing. Current interpretive data was last revised on 19. Hep B core IgM Nonreactive Nonreactive [facility] Comment: Interpretive Data If HepB Core IgM Ab is reported as Equivocal, a new sample should be drawn in two weeks for testing. Current interpretive data was last revised on 19. Hep C Ab Nonreactive Nonreactive [facility] Comment: Interpretive Data Nonreactive: Antibodies to HCV [...] - GENERA L ORDERABLES Final Result TAB [address] [address] [place] [address] from Last 3 Months or Most Recently Relevant to Health Maintenance Insurance [facility]/PPO Address: [address] [address] [place] [address] [facility]/PPO Address: [address] [address] [place] [address] Advance Directives For more information, please contact: [phone] * Full Code (Latest Code Status on File) Date Activated Date Inactivated Comments 09/20/2024 2:48 PM 09/26/2024 9:43 PM * Full Code Date Activated Date Inactivated Comments 06/27/2024 4:46 AM 07/17/2024 5:43 PM Care Teams Shell Coremaker Relationship Specialty Start Date End Date Mariela Del Castillo MD [address] [place] [address] [place] [address] PCP - General Family Medicine 09/26/24 [place] [address] [facility] [address] [address] Surgeon Cardiothoracic Surgery 09/26/24 Giuseppe Alvarado MD [facility] [address]OH[address] [place] [address] Consulting Physician Interventional Cardiology 09/26/24
--- OUTSIDE RECORDS SUMMARY | 2024-10-18 15:51 | XMS_ITS | Clinical Summary ---
Author Organization [facility] Address [facility] [place] [address] Care Team Providers Care Binder Stripper Hand Name Role Phone Unavailable Primary Care Provider [...]
--- OUTSIDE RECORDS SUMMARY | 2024-10-18 15:51 | XMS_ITS | Referral Summary ---
Author Organization [facility] Address [address] [place] [address] Care Team Providers Care Pt Escort Name Role Phone Victor Manuel Woo MD Unavailable [phone] Giuseppe Alvarado MD Unavailable [phone] Mariela Del Castillo MD Primary Care Provider [phone] Encounters Date Type Department Care Team Description 10/18/2024 3:00 PM SALES AGENT INSURANCE Procedure visit [address] [place] [address] Dizziness 10/17/2024 2:00 PM SALES AGENT INSURANCE Office Visit [place] [address] [place] [address] Jazmin Machado NP Dizziness (Primary Dx); Coronary artery disease 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; Hx of CABG; Type 2 diabetes mellitus without complication, with long-term current use of insulin ([facility]) (HCC) 10/15/2024 Telephone [facility] Cardiology [address] [place] [address] [address] [place] [address] Giuseppe Alvarado MD Dizziness 10/07/2024 Home Care Visit [facility] - [address] [place] [address] Gerson Medina RN SN VIRTUAL OASIS DISCHARGE 10/07/2024 Home Care Visit [address] [place] [address] Zhane Mathis, FANNY TELEPHONE ENCOUNTER 10/04/2024 [facility] Post Discharge Follow up phone call [facility] [address] [place] [address] Ruchi Whitman RN 10/02/2024 Home Care Visit [place] [address] [address] [place] [address] Zhane Mathis, FANNY CASE COMMUNICATION 10/02/2024 Telephone [facility] [address] [facility] [address] [place] [address] Mariela Del Castillo MD 10/01/2024 11:45 AM SALES AGENT INSURANCE - 10/01/2024 11:59 PM SALES AGENT INSURANCE Hospital Encounter [facility] [address] [place], [place] [id number] Discharge Disposition: Discharge to home or self care 10/01/2024 11:00 AM SALES AGENT INSURANCE Home Care Visit [place] [address] [address] [place] [address] Gerson Medina RN SN HOME VISIT 09/30/2024 1:00 PM SALES AGENT INSURANCE Home Care Visit [place] [address] [address] [place] [address] Alicia Auguste, PT PT INITIAL EVALUATION 09/29/2024 Plan of Care Documentation [address] [place] [address] 09/27/2024 2:00 PM SALES AGENT INSURANCE Home Care Visit [address] [place] [address] Tangela Zavala, FANNY SN OASIS START OF CARE 09/26/2024 Telephone [facility] [address] [facility] [address] [place] [address] Mariela Del Castillo MD suzan 09/26/2024 Telephone [facility] Home Care Services [address] [place] [address] Paul Alexandre MA 09/20/2024 5:29 AM SALES AGENT INSURANCE - 09/26/2024 5:43 PM SALES AGENT INSURANCE Hospital Encounter [address] [address] Victor Manuel Woo MD 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 Operating [facility] [address] [place] [address] Victor Manuel Woo MD CABG X 2-3, LIGATION OF LA APPENDAGE /240MIN 09/20/2024 7:50 AM SALES AGENT INSURANCE Anesthesia Event [facility] [address] [place] [address] Barry Ellington MD Barnhart, Lynlee Jo, NP 09/17/2024 8:55 AM SALES AGENT INSURANCE - 09/17/2024 11:59 PM SALES AGENT INSURANCE Hospital Encounter [facility] [address] [place] [address] Discharge Disposition: Discharge to home or self care 09/17/2024 8:45 AM SALES AGENT INSURANCE Pre-Admission Testing 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 08/26/2024 10:15 AM SALES AGENT INSURANCE Ancillary Procedure [facility] Medical [facility] Cardiology [address] [place] [address] Coronary artery disease 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 08/14/2024 Telephone [facility] Cardiology at [address] [place] [address] Giuseppe Alvarado MD 08/14/2024 9:00 AM SALES AGENT INSURANCE Office Visit [facility]iology at [address] [place] [address] Giuspepe Alvarado MD Type 2 diabetes mellitus with hyperglycemia, unspecified whether watermelon inspector insulin use (HCC) (Primary Dx); Coronary artery disease 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; Cardiac arrest with [...] Active Droplet Pen Needle 31 gauge x /16 needle USE ONE DAILY WITH INSULIN PEN 08/28/20 Active Accu-Chek Softclix Lancets lancets USE TO TEST EVERY DAY 08/29/20 Active glimepiride (AMARYL) 2 mg tabletIndication s:type [...] times a day with meals 60 tablet 07/17/20 24 025 Discontinu ed(Stop Taking [...] pectoris 08/27/2024 Coronary artery disease invo lving shoalwater coronary artery 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 08/14/2024 Cardiac arrest [...] materials from doctor or pharmacy Never 10/07/2024 C Utilities Answer Date Recorded In the past 12 months has th e [employer], gas, oil, or water [employer] threatened to shut off services in your home? No 09/24/2024 Social Connection and Isolation Panel [NHANES] A nswer Date Recorded In a typical week, how many times do you talk on the phone with family, friends, or neighbors? Patient declined 09/24/2024 How often do you get togethe r with friends or relatives? Never 09/24/2024 How often do you attend amish or anabaptism serv ices? Never 09/24/2024 Do you belong to any clubs o r organizations such as amish groups, unions, fraternal or athletic groups, or [...] time in the past 12 m [facility], were you homeless or living in a group home (including now)? No 09/24/2024 Personal Safety Answer Date Recorded Have you ever been in or are you currently in a harmful physical or emotional relationship or is someone making you feel afraid or unsafe? Denies 09/20/2024 Sex and Gender Information Value Date Recorded Sex Assigned at Not on file Legal Sex Male 1:22 PM SALES AGENT INSURANCE Gender Identity Not on file Sexual Orientation Not on file Last Filed Vital Signs Vital Sign Reading Time Taken Comments Blood Pressure 128/76 10/17/2024 1:58 PM SALES AGENT INSURANCE Pulse 68 10/17/2024 1:58 PM SALES AGENT INSURANCE Temperature 36.3 C (97.4 F) 10/01/2024 11:26 AM SALES AGENT INSURANCE Respiratory Rate 18 10/01/2024 11:26 AM SALES AGENT INSURANCE Oxygen Saturation 98% 10/17/2024 1:58 PM SALES AGENT INSURANCE Inhaled Oxygen Concentration - - Weight 82.1 kg (181 lb) 10/17/2024 1:58 PM SALES AGENT INSURANCE Height 170.2 cm (5' 7 ) 10/17/2024 1:58 PM SALES AGENT INSURANCE Body Mass Index 28.35 10/17/2024 1:58 PM SALES AGENT INSURANCE Plan of Treatment Not on file Medical Devices Implanted Type Area Pump House Engineer Device Identifier Shelf Expiration Date Model / Serial / Lot Atricure Device Closure Atriclip Nitinol Titanium Polyester 45 D L45mm L6cm Flexible Shaft Plunger Model Maker Scale Left Atrial Appendage Exclusion System [id number] - [id number] Implanted:Qty: 1 on 09/20/2024 by Victor Manuel Woo MD at [facility] Clip Left: Atrial Appendage Atricure 04/11/2027 [id number] / [id number] Procedures Procedure Name Priority Date/Time Associated Diagnosis Comments EGFR Routine 10/01/2024 11:45 AM SALES AGENT INSURANCE CBC WITHOUT DIFFERENTIAL Routine 10/01/2024 11:45 AM SALES AGENT INSURANCE GLUCOSE, RANDOM (OUTREACH) Routine 10/01/2024 11:45 AM SALES AGENT INSURANCE BASIC METABOLIC PANEL WITHOUT GLUCOSE, PLASMA (OUTREACH) Routine 10/01/2024 11:45 AM SALES AGENT INSURANCE POTASSIUM LEVEL Timed 09/26/2024 12:55 PM SALES AGENT INSURANCE POCT GLUCOSE DEVICE Routine 09/26/2024 1 2:08 PM SALES AGENT INSURANCE PEP THERAPY Routine 09/26/2024 9:20 AM SALES AGENT INSURANCE POCT GLUCOSE DEVICE Routine 09/26/2024 7 :40 AM SALES AGENT INSURANCE XR CHEST 1 VIEW IP Routine 09/26/2024 5:50 AM SALES AGENT INSURANCE EGFR Routine 09/26/2024 4:50 AM SALES AGENT INSURANCE MAGNESIUM Routine 09/26/2024 4:50 AM SALES AGENT INSURANCE RENAL FUNCTION PANEL Routine 09/26/2024 4:50 AM SALES AGENT INSURANCE CBC WITHOUT DIFFERENTIAL Routine 09/26/2024 4:50 AM SALES AGENT INSURANCE ECG 12-LEAD STAT 09/26/2024 3:00 AM SALES AGENT INSURANCE POCT GLUCOSE DEVICE Routine 09/26/2024 2 :16 AM SALES AGENT INSURANCE POCT GLUCOSE DEVICE Routine 09/25/2024 8 :04 PM SALES AGENT INSURANCE POCT GLUCOSE DEVICE Routine 09/25/2024 5 :43 PM SALES AGENT INSURANCE POCT GLUCOSE DEVICE Routine 09/25/2024 1 2:25 PM SALES AGENT INSURANCE POCT GLUCOSE DEVICE Routine 09/25/2024 8 :01 AM SALES AGENT INSURANCE XR CHEST 1 VIEW IP Routine 09/25/2024 5:47 AM SALES AGENT INSURANCE EGFR Routine 09/25/2024 5:40 AM SALES AGENT INSURANCE PROTIME-INR Routine 09/25/2024 5:40 AM SALES AGENT INSURANCE APTT Routine 09/25/2024 5:40 AM SALES AGENT INSURANCE MAGNESIUM Routine 09/25/2024 5:40 AM SALES AGENT INSURANCE RENAL FUNCTION PANEL Routine 09/25/2024 5:40 AM SALES AGENT INSURANCE CBC WITHOUT DIFFERENTIAL Routine 09/25/2024 5:40 AM SALES AGENT INSURANCE POCT GLUCOSE DEVICE Routine 09/24/2024 9 :58 PM SALES AGENT INSURANCE POCT GLUCOSE DEVICE Routine 09/24/2024 5 :30 PM SALES AGENT INSURANCE POCT GLUCOSE DEVICE Routine 09/24/2024 1 2:14 PM SALES AGENT INSURANCE EGFR Routine 09/24/2024 10:41 AM SALES AGENT INSURANCE MAGNESIUM Routine 09/24/2024 10:41 AM SALES AGENT INSURANCE RENAL FUNCTION PANEL Routine 09/24/2024 10:41 AM SALES AGENT INSURANCE CBC WITHOUT DIFFERENTIAL Routine 09/24/2024 10:41 AM SALES AGENT INSURANCE ECG 12-LEAD Routine 09/24/2024 10:30 AM SALES AGENT INSURANCE POCT GLUCOSE DEVICE Routine 09/24/2024 7 :58 AM SALES AGENT INSURANCE XR CHEST 1 VIEW IP Routine 09/24/2024 6:29 AM SALES AGENT INSURANCE POCT GLUCOSE DEVICE Routine 09/23/2024 9 :35 PM SALES AGENT INSURANCE POCT GLUCOSE DEVICE Routine 09/23/2024 4 :59 PM SALES AGENT INSURANCE EGFR Timed 09/23/2024 2:00 PM SALES AGENT INSURANCE MAGNESIUM Timed 09/23/2024 2:00 PM SALES AGENT INSURANCE RENAL FUNCTION PANEL Timed 09/23/2024 2:00 PM SALES AGENT INSURANCE POCT GLUCOSE DEVICE Routine 09/23/2024 1 1:59 AM SALES AGENT INSURANCE POCT GLUCOSE DEVICE Routine 09/23/2024 8 :06 AM SALES AGENT INSURANCE CRITICAL CARE Routine 09/23/2024 7:46 AM SALES AGENT INSURANCE 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) EGFR Routine 09/23/2024 4:41 AM SALES AGENT INSURANCE DIFFERENTIAL AUTO Routine 09/23/2024 4:4 1 AM SALES AGENT INSURANCE CALCIUM,IONIZED, WHOLE BLOOD STAT 09/23/2024 4:41 AM SALES AGENT INSURANCE OXYHEMOGLOBIN, CENTRAL VENOUS STAT 09/23/2024 4:41 AM SALES AGENT INSURANCE PHOSPHORUS Routine 09/23/2024 4:41 AM SALES AGENT INSURANCE MAGNESIUM Routine 09/23/2024 4:41 AM SALES AGENT INSURANCE BASIC METABOLIC PANEL Routine 09/23/2024 4:41 AM SALES AGENT INSURANCE CBC WITH AUTO DIFFERENTIAL Routine 09/23/2024 4:41 AM SALES AGENT INSURANCE XR CHEST 1 VIEW IP Routine 09/23/2024 4:01 AM SALES AGENT INSURANCE MAGNESIUM STAT 09/22/2024 9:55 PM SALES AGENT INSURANCE CALCIUM,IONIZED, WHOLE BLOOD STAT 09/22/2024 9:55 PM SALES AGENT INSURANCE POTASSIUM LEVEL STAT 09/22/2024 9:55 PM SALES AGENT INSURANCE POCT GLUCOSE DEVICE Routine 09/22/2024 8 :09 PM SALES AGENT INSURANCE CRITICAL CARE Routine 09/22/2024 7:30 PM SALES AGENT INSURANCE 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) POCT GLUCOSE DEVICE Routine 09/22/2024 5 :04 PM SALES AGENT INSURANCE EGFR Routine 09/22/2024 1:16 PM SALES AGENT INSURANCE DIFFERENTIAL AUTO Routine 09/22/2024 1:1 6 PM SALES AGENT INSURANCE MAGNESIUM Routine 09/22/2024 1:16 PM SALES AGENT INSURANCE CBC WITH AUTO DIFFERENTIAL Routine 09/22/2024 1:16 PM SALES AGENT INSURANCE CALCIUM,IONIZED, WHOLE BLOOD Routine 09/22/2024 1:16 PM SALES AGENT INSURANCE BASIC METABOLIC PANEL Routine 09/22/2024 1:16 PM SALES AGENT INSURANCE POCT GLUCOSE DEVICE Routine 09/22/2024 1 2:17 PM SALES AGENT INSURANCE POCT GLUCOSE DEVICE Routine 09/22/2024 8 :05 AM SALES AGENT INSURANCE CRITICAL CARE Routine 09/22/2024 6:52 AM SALES AGENT INSURANCE 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) XR CHEST 1 VIEW IP Routine 09/22/2024 5:35 AM SALES AGENT INSURANCE OXYHEMOGLOBIN, CENTRAL VENOUS STAT 09/22/2024 4:15 AM SALES AGENT INSURANCE EGFR Routine 09/22/2024 3:33 AM SALES AGENT INSURANCE DIFFERENTIAL AUTO Routine 09/22/2024 3:3 3 AM SALES AGENT INSURANCE PHOSPHORUS Routine 09/22/2024 3:33 AM SALES AGENT INSURANCE MAGNESIUM Routine 09/22/2024 3:33 AM SALES AGENT INSURANCE BASIC METABOLIC PANEL Routine 09/22/2024 3:33 AM SALES AGENT INSURANCE CBC WITH AUTO DIFFERENTIAL Routine 09/22/2024 3:33 AM SALES AGENT INSURANCE POCT GLUCOSE DEVICE Routine 09/21/2024 1 1:56 PM SALES AGENT INSURANCE POCT GLUCOSE DEVICE Routine 09/21/2024 8 :43 PM SALES AGENT INSURANCE EGFR STAT 09/21/2024 8:27 PM SALES AGENT INSURANCE DIFFERENTIAL AUTO STAT 09/21/2024 8:2 7 PM SALES AGENT INSURANCE CALCIUM,IONIZED, WHOLE BLOOD STAT 09/21/2024 8:27 PM SALES AGENT INSURANCE MAGNESIUM STAT 09/21/2024 8:27 PM SALES AGENT INSURANCE CBC WITH AUTO DIFFERENTIAL STAT 09/21/2024 8:27 PM SALES AGENT INSURANCE BASIC METABOLIC PANEL STAT 09/21/2024 8:27 PM SALES AGENT INSURANCE CRITICAL CARE Routine 09/21/2024 7:29 PM SALES AGENT INSURANCE 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) POCT GLUCOSE DEVICE Routine 09/21/2024 7 :19 PM SALES AGENT INSURANCE POCT GLUCOSE DEVICE Routine 09/21/2024 6 :13 PM SALES AGENT INSURANCE POCT GLUCOSE DEVICE Routine 09/21/2024 4 :56 PM SALES AGENT INSURANCE POCT GLUCOSE DEVICE Routine 09/21/2024 2 :45 PM SALES AGENT INSURANCE EGFR Timed 09/21/2024 1:42 PM SALES AGENT INSURANCE MAGNESIUM Timed 09/21/2024 1:42 PM SALES AGENT INSURANCE CALCIUM,IONIZED, WHOLE BLOOD Timed 09/21/2024 1:42 PM SALES AGENT INSURANCE BASIC METABOLIC PANEL Timed 09/21/2024 1:42 PM SALES AGENT INSURANCE CBC WITHOUT DIFFERENTIAL Timed 09/21/2024 1:42 PM SALES AGENT INSURANCE POCT GLUCOSE DEVICE Routine 09/21/2024 1 2:36 PM SALES AGENT INSURANCE POCT GLUCOSE DEVICE Routine 09/21/2024 1 0:50 AM SALES AGENT INSURANCE ECG 12-LEAD Routine 09/21/2024 10:14 AM SALES AGENT INSURANCE POCT GLUCOSE DEVICE Routine 09/21/2024 9 :43 AM SALES AGENT INSURANCE POCT GLUCOSE DEVICE Routine 09/21/2024 8:39 AM SALES AGENT INSURANCE CRITICAL CARE Routine 09/21/2024 8:32 AM SALES AGENT INSURANCE 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) POCT GLUCOSE DEVICE Routine 09/21/2024 7 :31 AM SALES AGENT INSURANCE POCT GLUCOSE DEVICE Routine 09/21/2024 6 :28 AM SALES AGENT INSURANCE XR CHEST 1 VIEW IP Routine 09/21/2024 6:00 AM SALES AGENT INSURANCE POCT GLUCOSE DEVICE Routine 09/21/2024 5 :01 AM SALES AGENT INSURANCE EGFR Routine 09/21/2024 4:41 AM SALES AGENT INSURANCE DIFFERENTIAL AUTO Routine 09/21/2024 4:4 1 AM SALES AGENT INSURANCE OXYHEMOGLOBIN, CENTRAL VENOUS Routine 09/21/2024 4:41 AM SALES AGENT INSURANCE PHOSPHORUS Routine 09/21/2024 4:41 AM SALES AGENT INSURANCE MAGNESIUM Routine 09/21/2024 4:41 AM SALES AGENT INSURANCE BASIC METABOLIC PANEL Routine 09/21/2024 4:41 AM SALES AGENT INSURANCE CBC WITH AUTO DIFFERENTIAL Routine 09/21/2024 4:41 AM SALES AGENT INSURANCE POCT GLUCOSE DEVICE Routine 09/21/2024 4 :04 AM SALES AGENT INSURANCE POCT GLUCOSE DEVICE Routine 09/21/2024 2 :57 AM SALES AGENT INSURANCE POCT GLUCOSE DEVICE Routine 09/21/2024 1 :42 AM SALES AGENT INSURANCE POCT GLUCOSE DEVICE Routine 09/21/2024 1 2:45 AM SALES AGENT INSURANCE POCT GLUCOSE DEVICE Routine 09/20/2024 1 1:46 PM SALES AGENT INSURANCE OXYHEMOGLOBIN, CENTRAL VENOUS STAT 09/20/2024 11:41 PM SALES AGENT INSURANCE EGFR STAT 09/20/2024 11:33 PM SALES AGENT INSURANCE DIFFERENTIAL AUTO STAT 09/20/2024 11: 33 PM SALES AGENT INSURANCE MAGNESIUM STAT 09/20/2024 11:33 PM SALES AGENT INSURANCE CBC WITH AUTO DIFFERENTIAL STAT 09/20/2024 11:33 PM SALES AGENT INSURANCE CALCIUM,IONIZED, WHOLE BLOOD STAT 09/20/2024 11:33 PM SALES AGENT INSURANCE BASIC METABOLIC PANEL STAT 09/20/2024 11:33 PM SALES AGENT INSURANCE POCT GLUCOSE DEVICE Routine 09/20/2024 1 0:34 PM SALES AGENT INSURANCE BLOOD GAS, ARTERIAL STAT 09/20/2024 1 0:30 PM SALES AGENT INSURANCE POCT GLUCOSE DEVICE Routine 09/20/2024 9 :38 PM SALES AGENT INSURANCE POCT GLUCOSE DEVICE Routine 09/20/2024 8 :35 PM SALES AGENT INSURANCE POCT GLUCOSE DEVICE Routine 09/20/2024 7 :33 PM SALES AGENT INSURANCE EGFR STAT 09/20/2024 6:39 PM SALES AGENT INSURANCE CALCIUM,IONIZED, WHOLE BLOOD STAT 09/20/2024 6:39 PM SALES AGENT INSURANCE MAGNESIUM STAT 09/20/2024 6:39 PM SALES AGENT INSURANCE BASIC METABOLIC PANEL STAT 09/20/2024 6:39 PM SALES AGENT INSURANCE CBC WITHOUT DIFFERENTIAL Timed 09/20/2024 6:39 PM SALES AGENT INSURANCE BLOOD GAS, ARTERIAL Timed 09/20/2024 6 :39 PM SALES AGENT INSURANCE POCT GLUCOSE DEVICE Routine 09/20/2024 6 :30 PM SALES AGENT INSURANCE POCT GLUCOSE DEVICE Routine 09/20/2024 5 :07 PM SALES AGENT INSURANCE POCT GLUCOSE DEVICE Routine 09/20/2024 4 :25 PM SALES AGENT INSURANCE XR CHEST 1 VIEW Critical/Life-T hreatening 09/20/2024 3:00 PM SALES AGENT INSURANCE EGFR STAT 09/20/2024 2:59 PM SALES AGENT INSURANCE CALCIUM,IONIZED, WHOLE BLOOD STAT 09/20/2024 2:59 PM SALES AGENT INSURANCE APTT STAT 09/20/2024 2:59 PM SALES AGENT INSURANCE PROTIME-INR STAT 09/20/2024 2:59 PM SALES AGENT INSURANCE CBC WITHOUT DIFFERENTIAL Timed 09/20/2024 2:59 PM SALES AGENT INSURANCE BLOOD GAS, ARTERIAL Timed 09/20/2024 2 :59 PM SALES AGENT INSURANCE BASIC METABOLIC PANEL STAT 09/20/2024 2:59 PM SALES AGENT INSURANCE CRITICAL CARE Routine 09/20/2024 2:58 PM SALES AGENT INSURANCE 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) POCT GLUCOSE DEVICE Routine 09/20/2024 2 :44 PM SALES AGENT INSURANCE POC BLOOD GAS AND CHEMISTRIES, ARTERIAL Routine 09/20/2024 1:56 PM SALES AGENT INSURANCE TRANSFUSE PLATELETS Timed 09/20/2024 1 :19 PM SALES AGENT INSURANCE POCT ACTIVATED CLOTTING TIME, HIGH RANGE Routine 09/20/2024 12:52 PM SALES AGENT INSURANCE POC BLOOD GAS AND CHEMISTRIES, ARTERIAL Routine 09/20/2024 12:50 PM SALES AGENT INSURANCE POCT ACTIVATED CLOTTING TIME, HIGH RANGE Routine 09/20/2024 12:47 PM SALES AGENT INSURANCE POC BLOOD GAS AND CHEMISTRIES, ARTERIAL Routine 09/20/2024 12:18 PM SALES AGENT INSURANCE POCT ACTIVATED CLOTTING TIME, HIGH RANGE Routine 09/20/2024 12:15 PM SALES AGENT INSURANCE PLATELET COUNT STAT 09/20/2024 12:03 PM SALES AGENT INSURANCE POC BLOOD GAS AND CHEMISTRIES, ARTERIAL Routine 09/20/2024 11:28 AM SALES AGENT INSURANCE POCT ACTIVATED CLOTTING TIME, HIGH RANGE Routine 09/20/2024 11:26 AM SALES AGENT INSURANCE POC BLOOD GAS AND CHEMISTRIES, ARTERIAL Routine 09/20/2024 10:47 AM SALES AGENT INSURANCE POCT ACTIVATED CLOTTING TIME, HIGH RANGE Routine 09/20/2024 10:44 AM SALES AGENT INSURANCE POCT ACTIVATED CLOTTING TIME, HIGH RANGE Routine 09/20/2024 9:44 AM SALES AGENT INSURANCE ANESTHESIA ARTERIAL LINE PLACEMENT Routine 09/20/2024 9:37 AM SALES AGENT INSURANCE ANESTHESIA CENTRAL VENOUS LINE PLACEMENT Routine 09/20/2024 9:35 AM SALES AGENT INSURANCE ANESTHESIA CENTRAL VENOUS LINE PLACEMENT Routine 09/20/2024 9:35 AM SALES AGENT INSURANCE WI AN ELECTIVE ENDOTRACHEAL AIRWAY Routine 09/20/2024 9:34 AM SALES AGENT INSURANCE POC BLOOD GAS AND CHEMISTRIES, ARTERIAL Routine 09/20/2024 8:31 AM SALES AGENT INSURANCE POCT ACTIVATED CLOTTING TIME, HIGH RANGE Routine 09/20/2024 8:27 AM SALES AGENT INSURANCE CORONARY ARTERY BYPASS GRAFT - INTERNAL MAMMARY/SAPHENOUS VEIN GRAFT - LEG 09/20/2024 7:49 AM SALES AGENT INSURANCE 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, unspecified vessel or lesion type (HCC) CORONARY ARTERY BYPASS GRAFT - INTERNAL MAMMARY ARTERY 09/20/2024 7:49 AM SALES AGENT INSURANCE 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, unspecified vessel or lesion type (HCC) TYPE AND SCREEN Timed 09/20/2024 7:25 AM SALES AGENT INSURANCE POCT GLUCOSE DEVICE Routine 09/20/2024 6 :11 AM SALES AGENT INSURANCE PREPARE PLATELETS STAT 09/20/2024 5:3 1 AM SALES AGENT INSURANCE PREPARE RBC STAT 09/20/2024 5:31 AM SALES AGENT INSURANCE ECG 12-LEAD Routine 09/17/2024 9:25 AM SALES AGENT INSURANCE 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, unspecified vessel or lesion type (HCC) XR CHEST PA LATERAL 2 VIEWS Schedule Routine, Read Routine (OP Routine) 09/17/2024 9:07 AM SALES AGENT INSURANCE 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, unspecified vessel or lesion type (HCC) EGFR Routine 09/17/2024 9:01 AM SALES AGENT INSURANCE 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, unspecified vessel or lesion type (HCC) BASIC METABOLIC PANEL Routine 09/17/2024 9:01 AM SALES AGENT INSURANCE 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, unspecified vessel or lesion type (HCC) PROTIME-INR Routine 09/17/2024 9:01 AM SALES AGENT INSURANCE 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, unspecified vessel or lesion type (HCC) APTT Routine 09/17/2024 9:01 AM SALES AGENT INSURANCE 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, unspecified vessel or lesion type (HCC) CBC WITHOUT DIFFERENTIAL Routine 09/17/2024 9:01 AM SALES AGENT INSURANCE 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, unspecified vessel or lesion type (HCC) TYPE AND SCREEN Routine 09/17/2024 9:01 AM SALES AGENT INSURANCE 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, unspecified vessel or lesion type (HCC) HEMOGLOBIN A1C Routine 09/17/2024 9:01 AM SALES AGENT INSURANCE Pre-op testing URINALYSIS AND REFLEX TO MICROSCOPIC AND CULTURE Routine 09/17/2024 9:01 AM SALES AGENT INSURANCE 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 Blood 10/01/2024 11:4 5 AM SALES AGENT INSURANCE 10/01/2024 3:38 PM SALES AGENT INSURANCE us Notinfile Unknown LAB BLOOD ORDERABLES Final Res ult TAB [facility] Department [place] [address] * eGFR (10/01/2024 11:45 AM SALES AGENT INSURANCE) eGFR >90 >=60 mL/min/1. 73 m2 Comment: [...] reviewed 2021. Blood 10/01/2024 11:4 5 AM SALES AGENT INSURANCE 10/01/2024 4:03 PM SALES AGENT INSURANCE us Notinfile Unknown LAB BLOOD ORDERABLES Final Res ult Performing Organization Address City/[facility]/ZIP Co de Phone Number Mineral [facility] [place] [address] * Basic metabolic panel without glucose (10/01/2024 11:45 AM SALES AGENT INSURANCE) [facility] Sodium 137 135 - 145 mmol/L Comment:Repeated and Verifie d Potassium, pl 3.9 3.3 - 4.9 mmol/L [facility] Comment:Repeated and Verifie d Chloride 101 97 - 110 mmol/L [facility] Comment:Repeated and Verifie d CO2 23 22 - 32 mmol/L [facility] Anion gap 13 2 - 15 mmol/L [facility] Comment:Reviewed BUN 11 6 - 25 mg/dL [facility] Creatinine 0.88 0.80 - 1.30 mg/dL [facility] Calcium 9.0 8.5 - 10.3 mg/dL [facility] Comment:Repeated and Verifie d Blood 10/01/2024 11:4 5 AM SALES [employer]ENT INSURANCE 10/01/2024 3:38 PM SALES [employer]ENT INSURANCE us Notinfile Unknown LAB BLOOD ORDERABLES Final Res ult Performing Organization Address [facility] Co de Phone Number [facility] Department [place] [address] * (ABNORMAL) CBC without differential (10/01/2024 11:45 AM SALES AGENT INSURANCE) [facility] WBC 8.0 3.8 - 9.9 K/cumm Hgb 9.2(L) 13.0 - 17.5 g/dL [facility] Hct 28.8(L) 38.9 - 50.3 % [facility] Plt 565(H) 150 - 400 K/cumm [facility] MPV 9.8 9.1 - 12.3 fL [facility] RBC 3.32(L) 4.30 - 5.80 M/cumm [facility] MCV 86.7 81.3 - 96.4 fL [facility] MCH 27.7 27.1 - 33.3 pg [facility] MCHC 31.9(L) 32.3 - 35.7 g/dL [facility] RDW CV 13.3 11.1 - 14.9 % [facility] RDW SD 42.0 35.7 - 48.1 fL [facility] NRBC abs 0.00 0.00 - 0.01 K/cumm [facility] Blood 10/01/2024 11:4 5 AM SALES [employer]ANCE 10/01/2024 3:38 PM SALES [employer]ENT INSURANCE us Notinfile Unknown LAB BLOOD ORDERABLES Final Res ult [facility] Department [place] [address] * (ABNORMAL) Potassium (09/26/2024 12:55 PM SALES [employer]ENT INSURANCE) Potassium, pl 3.2(L) 3.3 - 4.9 mmol/L Blood 09/26/2024 12:5 5 PM SALES [employer] INSURANCE 09/26/2024 1:01 PM SALES [employer]ENT INSURANCE us Celsa Orosco NP LAB BLOOD ORDERABLES Final Result Performing Organization Address [facility]/ZIP Co de Phone Number [facility] [address] [address] Department [place] [address] * POCT glucose (09/26/2024 12:08 PM SALES [employer]URANCE) Glucose, POC 166 70 - 199 mg/dL Blood 09/26/2024 12:0 8 PM SALES [employer]ANCE 09/26/2024 12:08 PM SALES [employer]URANCE us Victor Manuel Woo MD LAB POCT ORDERABLES - DEVICE Final Result Performing Organization Address City/[facility]/ZIP Co de Phone Number [facility] [place] [address] [address] Department [place] [address] * POCT glucose (09/26/2024 7:40 AM SALES [employer]URANCE) Glucose, POC 177 70 - 199 mg/dL Blood 09/26/2024 7:40 AM SALES [employer]URANCE 09/26/2024 7:40 AM SAL[employer]ANCE Victor Manuel Woo MD LAB POCT ORDERABLES - DEVICE Final Result Performing Organization Address City/State/ZIP Co mi Phone Number TAB [phone] [facility] Department [place] [address] * XR Chest 1 View - Portable - in AM (09/26/2024 5:50 AM SALES [employer]URANCE) Anatomical Region Laterality Modality Body, Chest N/A Computed Radiogr aphy 09/26/2024 10:5 4 AM SAL[employer]ANCE Impressions 09/26/2024 10:54 AM SAL[employer]URANCE Stable cardiomegaly without failure. Electronically signed by: Teddy Doherty M.D. Narrative 09/26/2024 10:54 AM SALES [employer] INSURANCE EXAMINATION: XR CHEST 1 VIEW DATE: 09/26/2024 [...] by: Teddy Doherty M.D. us Apoorva Mar CODING CLERK IMG XR PROCEDURES Final Result * eGFR (09/26/2024 4:50 AM SALES [employer]ENT INSURANCE) Pathologist [facility] eGFR >90 >=60 mL/min/1. 73 m2 Comment: [...] last reviewed 2021. Blood 09/26/2024 4:50 AM SALES [employer]URANCE 09/26/2024 5:07 AM SALES [employer] INSURANCE Apoorva Mar NP LAB BLOOD ORDERABLES Fin al Result [facility] [address] [address] Department [place] [address] * (ABNORMAL) CBC without differential (09/26/2024 4:50 AM SALES [employer]URANCE) WBC 7.1 3.8 - 9.9 K/cumm Hgb 8.6(L) 13.0 - 17.5 g/dL [facility] Hct 26.8(L) 38.9 - 50.3 % [facility] Plt 296 150 - 400 K/cumm [facility] MPV 9.8 9.1 - 12.3 fL [facility] RBC 3.17(L) 4.30 - 5.80 M/cumm [facility] MCV 84.5 81.3 - 96.4 fL [facility] MCH 27.1 27.1 - 33.3 pg [facility] MCHC 32.1(L) 32.3 - 35.7 g/dL [facility] RDW CV 13.2 11.1 - 14.9 % [facility] RDW SD 40.9 35.7 - 48.1 fL [facility] NRBC abs 0.02(H) 0.00 - 0.01 K/cumm [facility] Blood 09/26/2024 4:50 AM SALES [employer]URANCE 09/26/2024 5:03 AM SALES [employer]ENT INSURANCE Apoorva Ang Isabela CODING CLERK LAB BLOOD ORDERABLES Fin al Result Performing Organization Address City/[facility] Co de Phone Number TAB [place] [address] [address] [facility] [place] [address] * Magnesium (09/26/2024 4:50 AM SALES [employer]URANCE) Pathologist [facility] Magnesium 1.8 1.4 - 2.5 mg/dL Blood 09/26/2024 4:50 AM SALES [employer]URANCE 09/26/2024 5:03 AM SALES [employer]URANCE Apoorva Mar CODING CLERK LAB BLOOD ORDERABLES Fin al Result Performing Organization Address [facility] de Phone Number TAB [address] [place] [address] * (ABNORMAL) Renal function panel (09/26/2024 4:50 AM SALES [employer]URANCE) Sodium 135 135 - 145 mmol/L Potassium, pl 2.9(L) 3.3 - 4.9 mmol/L [facility] Chloride 91(L) 97 - 110 mmol/L [facility] CO2 30 22 - 32 mmol/L [facility] Anion gap 14 2 - 15 mmol/L [facility] BUN 13 6 - 25 mg/dL [facility] Creatinine 0.64(L) 0.80 - 1.30 mg/dL [facility] Glucose 168 70 - 199 mg/dL [facility] Comment: Interpretive Data Fasting glucose >/= [...] 2022. Calcium 9.3 8.5 - 10.3 mg/dL [facility] Phosphorus, pl 3.8 2.3 - 4.5 mg/dL [facility] Albumin 3.8 3.5 - 5.0 g/dL [facility] Blood 09/26/2024 4:50 AM SALES [employer]URANCE 09/26/2024 5:03 AM SALES [employer]URANCE Apoorva Mar CODING CLERK LAB BLOOD ORDERABLES Fin al Result Performing Organization Address [facility] Co de Phone Number TAB [place] [address] [address] Department [place] [address] * ECG 12 lead (09/26/2024 3:00 AM SALES [employer]ENT [employer]URANCE) 09/26/2024 3:00 AM SALES [employer]ENT INSURANCE Narrative [facility] - 09/26/2024 10:04 AM SALES [employer] INSURANCE Vent Rate: 76 bpm RR Interval: 789 msec [place] Interval: 164 msec QRS Duration: 101 msec QT Interval: 328 msec QTC Interval: 358 msec P-R-T [place]: 20 - 18 - 35 degrees IMPRESSION: SINUS RHYTHM SEPTAL MYOCARDIAL INFARCTION , OF INDETERMINATE AGE POSSIBLE INFERIOR MYOCARDIAL INFARCTION , OF INDETERMINATE AGE Electronically Signed By: Dion Mitchell MD, [facility] Victor Manuel Woo MD ECG ORDERABLES Final Result Performing Organization Address [facility] Phone Number [facility] * POCT glucose (09/26/2024 2:16 AM SALES [employer]URANCE) Glucose, POC 157 70 - 199 mg/dL Blood 09/26/2024 2:16 AM SALES [employer]URANCE 09/26/2024 2:16 AM SAL[employer]ANCE Victor Manuel Woo MD LAB POCT ORDERABLES - DEVICE Final Result Performing Organization Address [facility] Co de Phone Number TAB [place] [address] [address] Department [place] [address] * POCT glucose (09/25/2024 8:04 PM SALES [employer]URANCE) Glucose, POC 179 70 - 199 mg/dL Blood 09/25/2024 8:04 PM SALES [employer] INSURANCE 09/25/2024 8:04 PM SALES [employer] INSURANCE us Victor Manuel Woo MD LAB POCT ORDERABLES - DEVICE Final Result Performing Organization Address [facility] Co de Phone Number TAB [place] [address] [address] [facility] [place] [address] * POCT glucose (09/25/2024 5:43 PM SALES [employer]URANCE) Glucose, POC 143 70 - 199 mg/dL Blood 09/25/2024 5:43 PM SALES [employer] INSURANCE 09/25/2024 5:43 PM SALES [employer]URANCE us Victor Manuel Woo MD LAB POCT ORDERABLES - DEVICE Final Result Performing Organization Address [facility] de Phone Number TAB [place] [address] [address] [facility] [place] [address] * (ABNORMAL) POCT glucose (09/25/2024 12:25 PM SALES [employer]URANCE) Glucose, POC 226(H) 70 - 199 mg/dL Blood 09/25/2024 12:2 5 PM SALES [employer] INSURANCE 09/25/2024 12:25 PM SALES [employer]URANCE us Victor Manuel Woo MD LAB POCT ORDERABLES - DEVICE Final Result Performing Organization Address [facility] de Phone Number TAB [address] [address] [facility] [place] [address] * POCT glucose (09/25/2024 8:01 AM SAL[employer]URANCE) Glucose, POC 147 70 - 199 mg/dL Blood 09/25/2024 8:01 AM SAL[employer]URANCE 09/25/2024 8:01 AM SAL[employer]URANCE us Victor Manuel Woo MD LAB POCT ORDER[place] - [place] [id number] [facility] Department [place] [address] * XR Chest 1 View - Portable - in AM (09/25/2024 5:47 AM SAL[employer]ANCE) Anatomical Region Laterality Modality Body, Chest N/A Computed Radiogr aphy 09/25/2024 8:20 AM SALES [employer]URANCE Impressions 09/25/2024 8:20 AM SAL[employer]URANCE Stable cardiomegaly without failure. Electronically signed by: Rodrick Modi M.D. Narrative 09/25/2024 8:20 AM SALES [employer] INSURANCE EXAMINATION: XR CHEST 1 VIEW DATE: 09/25/2024 [...] signed by: Rodrick Modi M.D. Apoorva Mar CODING CLERK IMG XR PROCEDURES Final Result * eGFR (09/25/2024 5:40 AM SALES [employer]URANCE) eGFR >90 >=60 mL/min/1. 73 m2 Comment: [...] last reviewed 2021. Blood 09/25/2024 5:40 AM SALES [employer] INSURANCE 09/25/2024 6:03 AM SALES [employer] INSURANCE us Apoorva Mar CODING CLERK LAB BLOOD ORDERABLES Fin [place] [address] [address] Department [facility] [place] [address] * aPTT (09/25/2024 5:40 AM SALES [employer] INSURANCE) aPTT 30 28 - 38 sec Comment: Interpretive Data Heparin therapeutic range: 66.0 - 100.0 seconds. Range based on correlation with therapeutic heparin activity range of 0.3 - 0.7 Units/mL. Current interpretive data was last revised on 2023. Blood 09/25/2024 5:40 AM SALES [employer]ENT INSURANCE 09/25/2024 5:58 AM SALES [employer] INSURANCE us Celsa Orosco CODING CLERK LAB BLOOD ORDERABLES Final Result TAB [address] [address] Department [facility] [place] [address] * Protime-INR (09/25/2024 5:40 AM SALES [employer]ENT INSURANCE) PT 12.8 9.7 - 13.0 sec INR 1.18 0.90 - 1.20 TAB [place] Comment: Interpretive data Oral anticoagulant therapeutic ranges: Venous thromboembolism prophylaxis or treatment: 2.0-3.0 CARDIOLOGY Standard range: 2.0-3.0 High-intensity range: 2.5-3.5 Refer to indication-specific guidelines for appropriate target ranges for prosthetic heart valve replacement. Current interpretive data was last revised on 2019. Blood 09/25/2024 5:40 AM SALES AGENT INSURANCE 09/25/2024 5:58 AM SALES [employer]ENT INSURANCE us Celsa Orosco CODING CLERK LAB BLOOD ORDERABLES Final Result TAB [place] [address] [address] Department [place] [address] * (ABNORMAL) CBC without differential (09/25/2024 5:40 AM SALES [employer]URANCE) WBC 6.4 3.8 - 9.9 K/cumm Hgb 8.3(L) 13.0 - 17.5 g/dL [facility] Hct 26.0(L) 38.9 - 50.3 % [facility] Plt 236 150 - 400 K/cumm [facility] MPV 9.9 9.1 - 12.3 fL [facility] RBC 3.08(L) 4.30 - 5.80 M/cumm [facility] MCV 84.4 81.3 - 96.4 fL [facility] MCH 26.9(L) 27.1 - 33.3 pg [facility] MCHC 31.9(L) 32.3 - 35.7 g/dL [facility] RDW CV 13.2 11.1 - 14.9 % [facility] RDW SD 40.5 35.7 - 48.1 fL [facility] NRBC abs 0.00 0.00 - 0.01 K/cumm [facility] Blood 09/25/2024 5:40 AM SALES [employer] INSURANCE 09/25/2024 5:58 AM SALES [employer] INSURANCE Apoorva Mar CODING CLERK LAB BLOOD ORDERABLES Fin al Result TAB [place] [address] [address] Department [place] [address] * Magnesium (09/25/2024 5:40 AM SALES [employer]URANCE) Magnesium 2.1 1.4 - 2.5 mg/dL Blood 09/25/2024 5:40 AM SAL[employer] INSURANCE 09/25/2024 5:58 AM SAL[employer] INSURANCE Apoorva Mar CODING CLERK LAB BLOOD ORDERABLES Fin al Result TAB [place] [address] [address] [address] * (ABNORMAL) Renal function panel (09/25/2024 5:40 AM SALES [employer]URANCE) Sodium 138 135 - 145 mmol/L Potassium, [...] 5.0 g/dL [facility] Blood 09/25/2024 5:40 AM SALES [employer] INSURANCE 09/25/2024 5:58 AM SALES [employer] INSURANCE Apoorva Mar CODING CLERK LAB BLOOD ORDERABLES Fin al Result TAB [place] [address] [address] Department [facility] [place], [place] [id number] * POCT glucose (09/24/2024 9:58 PM SALES [employer]URANCE) Glucose, POC 138 70 - 199 mg/dL Blood 09/24/2024 9:58 PM SALES [employer] INSURANCE 09/24/2024 9:58 PM SAL[employer]URANCE Victor Manuel Woo MD LAB POCT ORDERABLES - DEVICE Final Result Performing Organization Address [facility] Co de Phone Number TAB [place] [address] [address] [facility] [place] [address] * POCT glucose (09/24/2024 5:30 PM SAL[employer]URANCE) Glucose, POC 117 70 - 199 mg/dL Blood 09/24/2024 5:30 PM SALES [employer] INSURANCE 09/24/2024 5:30 PM SAL[employer] INSURANCE Victor Manuel Woo MD LAB POCT ORDERABLES - DEVICE Final Result Performing Organization Address [facility] de Phone Number YOLISLLUVIA [address] [address] [facility] [place] [address] * (ABNORMAL) POCT glucose (09/24/2024 12:14 PM SALES [employer]URANCE) Glucose, POC 215(H) 70 - 199 mg/dL Blood 09/24/2024 12:1 4 PM SALES [employer] INSURANCE 09/24/2024 12:14 PM SAL[employer] INSURANCE Victor Manuel Woo MD LAB POCT ORDERABLES - DEVICE Final Result Performing Organization Address [facility] de Phone Number TAB [address] [address] [facility] [place] [address] * eGFR (09/24/2024 10:41 AM SALES [employer]URANCE) Pathologist [facility] eGFR >90 >=60 mL/min/1. 73 m2 Comment: [...] reviewed 2021. Blood 09/24/2024 10:4 1 AM SALES [employer] INSURANCE 09/24/2024 10:41 AM SALES [employer] INSURANCE us Apoorva Mar NP LAB BLOOD ORDERABLES Fin al Result [facility] [address] [address] Department [place] [address] * (ABNORMAL) CBC without differential (09/24/2024 10:41 AM SALES [employer]URANCE) WBC 7.0 3.8 - 9.9 K/cumm Hgb 8.5(L) 13.0 - 17.5 g/dL [facility] Hct 26.3(L) 38.9 - 50.3 % [facility] Plt 200 150 - 400 K/cumm [facility] MPV 10.3 9.1 - 12.3 fL [facility] RBC 3.10(L) 4.30 - 5.80 M/cumm [facility] MCV 84.8 81.3 - 96.4 fL [facility] MCH 27.4 27.1 - 33.3 pg [facility] MCHC 32.3 32.3 - 35.7 g/dL [facility] RDW CV 13.2 11.1 - 14.9 % [facility] RDW SD 41.1 35.7 - 48.1 fL [facility] NRBC abs 0.00 0.00 - 0.01 K/cumm [facility] Blood 09/24/2024 10:4 1 AM SALES [employer]ENT INSURANCE 09/24/2024 10:41 AM SAL[employer] INSURANCE Apoorva Mar CODING CLERK LAB BLOOD ORDERABLES Fin al Result Performing Organization Address [facility] Co de Phone Number TAB [place] [address] [address] [facility] [place] [address] * Magnesium (09/24/2024 10:41 AM SALES [employer]ENT INSURANCE) Pathologist [facility] Magnesium 1.7 1.4 - 2.5 mg/dL Blood 09/24/2024 10:4 1 AM SALES [employer] INSURANCE 09/24/2024 10:41 AM SAL[employer] INSURANCE Apoorva Ashia Mar CODING CLERK LAB BLOOD ORDERABLES Fin al Result Performing Organization Address [facility] de Phone Number TAB [place] [address] [address] [place] [address] * (ABNORMAL) Renal function panel (09/24/2024 10:41 AM SALES [employer]URANCE) Sodium 136 135 - 145 mmol/L Potassium, pl 3.2(L) 3.3 - 4.9 mmol/L [facility] Chloride 93(L) 97 - 110 mmol/L [facility] CO2 30 22 - 32 mmol/L [facility] Anion gap 13 2 - 15 mmol/L [facility] BUN 20 6 - 25 mg/dL [facility] Creatinine 0.64(L) 0.80 - 1.30 mg/dL [facility] Glucose 258(H) 70 - 199 mg/dL [facility] Comment: Interpretive Data Fasting glucose >/= [...] 2022. Calcium 9.1 8.5 - 10.3 mg/dL [facility] Phosphorus, pl 2.6 2.3 - 4.5 mg/dL [facility] Albumin 3.6 3.5 - 5.0 g/dL [facility] Blood 09/24/2024 10:4 1 AM SALES AGENT INSURANCE 09/24/2024 10:41 AM SAL[employer] INSURANCE Apoorva Mar CODING CLERK LAB BLOOD ORDERABLES Fin al Result Performing Organization Address [facility] Co de Phone Number TAB [place] [address] [address] Department of Laboratories [place], [place] [id number] * ECG 12 lead (09/24/2024 10:30 AM SALES [employer]ENT INSURANCE) 09/24/2024 10:3 0 AM SALES AGENT INSURANCE Narrative [facility] - 09/24/2024 1:12 PM SALES AGENT INSURANCE Vent Rate: 75 bpm RR Interval: 790 msec WI Interval: 156 msec QRS Duration: 95 msec QT Interval: 402 msec QTC Interval: 432 msec P-R-T Costilla: 26 - 10 - 47 degrees IMPRESSION: SINUS RHYTHM PROBABLE INFERIOR MYOCARDIAL INFARCTION , OF INDETERMINATE AGE [35 ms Q WAVE IN II/aVF] ANTEROSEPTAL MYOCARDIAL INFARCTION , OF INDETERMINATE AGE [40+ ms Q WAVE IN V1- V4] ABNORMAL ECG No significant change since previous tracing Electronically Signed By: Feliz Garnett MD, [facility] Celsa Orosco CODING CLERK ECG ORDERABLES Final Resu lt Performing Organization Address [facility] Co de Phone Number [facility] * POCT glucose (09/24/2024 7:58 AM SALES [employer]ENT INSURANCE) [facility] Signature Glucose, POC 172 70 - 199 mg/dL Blood 09/24/2024 7:58 AM SAL[employer] INSURANCE 09/24/2024 7:58 AM SAL[employer] INSURANCE Victor Manuel Woo MD LAB POCT ORDERABLES - DEVICE Final Result Performing Organization Address [facility] Co de Phone Number YOLISLLUVIA GUARD[place] [address] [address] Department [place] [address] * XR Chest 1 View - Portable - in AM (09/24/2024 6:29 AM [employer]ANCE) Anatomical Region Laterality Modality Body, Chest N/A Computed Radiogr aphy 09/24/2024 8:06 AM SALES [employer] INSURANCE Impressions 09/24/2024 8:06 AM SALES [employer] INSURANCE Chest tube removal without pneumothorax. No failure. Electronically signed by: Rodrick Modi M.D. Narrative 09/24/2024 8:06 AM SALES [employer] INSURANCE EXAMINATION: XR CHEST 1 VIEW DATE: 09/24/2024 5:10 AM HISTORY: Cardiac surgery follow-up FINDINGS:Compared with the study of the prior day, interval removal of thoracostomy tubes and mediastinal drain. [place]-Shae catheter withdrawn into the superior vena cava. Cardiomegaly with postsurgical changes are seen without failure. No pneumothorax. No infiltrates Procedure Note Rodrick Modi MD - 09/24/2024 EXAMINATION: XR CHEST 1 VIEW DATE: 09/24/2024 5:10 AM HISTORY: Cardiac surgery follow-up FINDINGS:Compared with the study of the prior day, interval removal of thoracostomy tubes and mediastinal drain. [place]-Shae catheter withdrawn into the superior vena cava. Cardiomegaly with postsurgical changes are seen without failure. No pneumothorax. No infiltrates IMPRESSION: Chest tube removal without pneumothorax. No failure. Electronically signed by: Rodrick Modi M.D. us Apoorva Mar CODING CLERK IMG XR PROCEDURES Final Result * POCT glucose (09/23/2024 9:35 PM SALES [employer]URANCE) Glucose, POC 109 70 - 199 mg/dL Blood 09/23/2024 9:35 PM SALES [employer] INSURANCE 09/23/2024 9:35 PM SALES [employer] INSURANCE us Victor Manuel Woo MD LAB POCT ORDERABLES - [place] [address] [address] Department [place] [address] * (ABNORMAL) POCT glucose (09/23/2024 4:59 PM [employer]ES [employer]URANCE) Glucose, POC 220(H) 70 - 199 mg/dL Blood 09/23/2024 4:59 PM SALES [employer] INSURANCE 09/23/2024 4:59 PM SALES [employer] INSURANCE Victor Manuel Woo MD LAB POCT ORDERABLES - DEVICE Final Result Performing Organization Address [facility] Co de Phone Number TAB GU[place] [address] [address] Department [facility] [place] [address] * eGFR (09/23/2024 2:00 PM SALES [employer]URANCE) Pathologist [facility] eGFR >90 >=60 mL/min/1. 73 m2 Comment: [...] last reviewed 2021. Blood 09/23/2024 2:00 PM SALES [employer] INSURANCE 09/23/2024 2:04 PM SALES [employer] INSURANCE us Apoorva Mar NP LAB BLOOD ORDERABLES Fin al Result Performing Organization Address [facility] [place] [address] [address] Department [facility] [place] [address] * Magnesium (09/23/2024 2:00 PM SALES [employer]URANCE) Magnesium 2.0 1.4 - 2.5 mg/dL Blood 09/23/2024 2:00 PM [employer]URANCE 09/23/2024 2:04 PM SAL[employer] INSURANCE Apoorva Mar CODING CLERK LAB BLOOD ORDERABLES Fin al Result [facility] [address] [address] Department [place] [address] * (ABNORMAL) Renal function panel (09/23/2024 2:00 PM SALES [employer]URANCE) Sodium 135 135 - 145 mmol/L Potassium, [...] Calcium 8.8 8.5 - 10.3 mg/dL [facility] Phosphorus, pl 2.2(L) 2.3 - 4.5 mg/dL [facility] Albumin 3.6 3.5 - 5.0 g/dL [facility] Blood 09/23/2024 2:00 PM SALES [employer]ENT INSURANCE 09/23/2024 2:04 PM SALES [employer] INSURANCE Apoorva Mar NP LAB BLOOD ORDERABLES Fin al Result Performing Organization Address [facility] Co de Phone Number TAB [place] [address] [address] [facility] [place] [address] * (ABNORMAL) POCT glucose (09/23/2024 11:59 AM [employer]URANCE) Glucose, POC 236(H) 70 - 199 mg/dL Blood 09/23/2024 11:5 9 AM SALES [employer] INSURANCE 09/23/2024 11:59 AM SAL[employer] INSURANCE Victor Manuel Woo MD LAB POCT ORDERABLES - DEVICE Final Result Performing Organization Address [facility] [facility] Co de Phone Number TAB GUARDADO [address] [address] [facility] [place] [address] * POCT glucose (09/23/2024 8:06 AM [employer]) Glucose, POC 158 70 - 199 mg/dL Blood 09/23/2024 8:06 AM [employer] 09/23/2024 8:06 AM [employer] Victor Manuel Woo MD LAB POCT ORDERABLES - DEVICE Final Result Performing Organization Address [facility] Co de Phone Number TAB GUARDADO [address] [address] [facility] [place] [address] * Critical Care (09/23/2024 7:46 AM [employer]) Narrative Jamal Lombardi MD - 09/23/2024 7:46 AM [employer] Apoorva Mar NP 09/23/2024 8:10 AM Critical [...] plan with the ICU team and other medical/independent crop consultant staff, making frequent assessments and decisions [...] * Oxyhemoglobin, central venous (09/23/2024 4:41 AM [employer]) Oxyhemoglobin, CV 68.3 % Comment: Interpretive Data No reference range established. Current interpretive data was last revised 2019. Blood 09/23/2024 4:41 AM SAL[employer] 09/23/2024 4:50 AM [employer]ANCE Victor Manuel Woo MD LAB BLOOD ORDERABLES Final R esult Performing Organization Address [facility] [place] [address] [place] [address] * Calcium, ionized, whole blood (09/23/2024 4:41 AM [employer]ES [employer]) Pathologist [facility] Ca, ionized, bld 4.88 4.50 - 5.10 mg/dL Blood 09/23/2024 4:41 AM [employer] 09/23/2024 4:50 AM SAL[employer] Victor Manuel Woo MD LAB BLOOD ORDERABLES Final R esult Performing Organization Address [facility] [place] [address] [address] Moya Department [place] [employer] [address] * eGFR (09/23/2024 4:41 AM [employer]) eGFR >90 >=60 mL/min/1. 73 m2 Comment: [...] last reviewed 2021. Blood 09/23/2024 4:41 AM [employer] 09/23/2024 4:51 AM [employer] us Victor Manuel Woo MD LAB BLOOD ORDERABLES Final R esult [facility] [id number] [address] Department [place] [address] * Differential, auto (09/23/2024 4:41 AM [employer]) Pathologist [facility] Neutrophil abs 6.0 1.5 - 6.5 K/cumm Imm gran abs 0.0 0.0 - 0.1 K/cumm [facility] Lymphocyte abs 2.0 0.8 - 3.3 K/cumm [facility] Monocyte abs 0.7 0.2 - 0.8 K/cumm [facility] Eosinophil abs 0.4 0.0 - 0.5 K/cumm [facility] Basophil abs 0.0 0.0 - 0.1 K/cumm [facility] Neutrophil pct 64.9 % [facility] Comment: Interpretive Data Percent cell count reference ranges are not reported, since discordance with absolute values may lead to misinterpretation of CBC data. Current Interpretive Data was last revised on 2017. Imm gran pct 0.3 % [facility] Comment: Interpretive Data Percent cell count reference ranges are not reported, since discordance with absolute values may lead to misinterpretation of CBC data. Current Interpretive Data was last revised on 2017. Lymphocyte pct 21.9 % [facility] Comment: Interpretive Data Percent cell count reference ranges are not reported, since discordance with absolute values may lead to misinterpretation of CBC data. Current Interpretive Data was last revised on 2017. Monocyte pct 7.9 % [facility] Comment: Interpretive Data Percent cell count reference ranges are not reported, since discordance with absolute values may lead to misinterpretation of CBC data. Current Interpretive Data was last revised on 2017. Eosinophil pct 4.7 % [facility] Comment: Interpretive Data Percent cell count reference ranges are not reported, since discordance with absolute values may lead to misinterpretation of CBC data. Current Interpretive Data was last revised on 2017. Basophil pct 0.3 % [facility] Comment: Interpretive Data Percent cell count reference ranges are not reported, since discordance with absolute values may lead to misinterpretation of CBC data. Current Interpretive Data was last revised on 2017. Blood 09/23/2024 4:41 AM [employer] 09/23/2024 4:54 AM [employer] us Victor Manuel Woo MD LAB BLOOD ORDERABLES Final R esult [facility] [phone] [address] Department [place] [address] * (ABNORMAL) CBC with auto differential (09/23/2024 4:41 AM [employer]) WBC 9.3 3.8 - 9.9 K/cumm Hgb 8.5(L) 13.0 - 17.5 g/dL [facility] Hct 26.3(L) 38.9 - 50.3 % [facility] Plt 133(L) 150 - 400 K/cumm [facility] MPV 10.3 9.1 - 12.3 fL [facility] RBC 3.02(L) 4.30 - 5.80 M/cumm [facility] MCV 87.1 81.3 - 96.4 fL [facility] MCH 28.1 27.1 - 33.3 pg [facility] MCHC 32.3 32.3 - 35.7 g/dL [facility] RDW CV 13.5 11.1 - 14.9 % [facility] RDW SD 42.5 35.7 - 48.1 fL [facility] NRBC abs 0.00 0.00 - 0.01 K/cumm [facility] Blood 09/23/2024 4:41 AM [employer] 09/23/2024 4:54 AM [employer] Victor Manuel Woo MD LAB BLOOD ORDERABLES Final R esult Performing Organization Address [facility] Co de Phone Number YOLISLLUVIA [address] [address] Moya [facility] [place] [address] * (ABNORMAL) Phosphorus (09/23/2024 4:41 AM [employer]) Phosphorus, pl 2.2(L) 2.3 - 4.5 mg/dL Blood 09/23/2024 4:41 AM [employer] 09/23/2024 4:51 AM [employer] Victor Manuel Woo MD LAB BLOOD ORDERABLES Final R esult Performing Organization Address [facility] Co de Phone Number YOLISLLUVIA [address] [address] Department [place] [address] * Magnesium (09/23/2024 4:41 AM [employer]) Magnesium 2.0 1.4 - 2.5 mg/dL Blood 09/23/2024 4:41 AM [employer] 09/23/2024 4:51 AM [employer] Victor Manuel Woo MD LAB BLOOD ORDERABLES Final R esult Performing Organization Address [facility] Co de Phone Number TAB [phone] [address] Department [place] [address] * (ABNORMAL) Basic metabolic panel (09/23/2024 4:41 AM [employer]) Sodium 136 135 - 145 mmol/L Potassium, pl 3.9 3.3 - 4.9 mmol/L [facility] Chloride 102 97 - 110 mmol/L [facility] CH CO2 25 22 - 32 mmol/L [facility] Anion gap 9 2 - 15 mmol/L [facility] BUN 12 6 - 25 mg/dL [facility] Creatinine 0.51(L) 0.80 - 1.30 mg/dL [facility] Glucose 162 70 - 199 mg/dL [facility] Comment: Interpretive Data Fasting glucose >/= [...] 2022. Calcium 8.8 8.5 - 10.3 mg/dL [facility] Blood 09/23/2024 4:41 AM [employer] 09/23/2024 4:51 AM [employer] us Victor Manuel Woo MD LAB BLOOD ORDERABLES Final R esult [facility] [address] [address] Department [place] [address] * XR Chest 1 View - Portable - in AM (09/23/2024 4:01 AM [employer]) Anatomical Region Laterality Modality Body, Chest N/A Computed Radiogr aphy 09/23/2024 8:39 AM [employer] Impressions 09/23/2024 8:39 AM [employer] No failure. No pneumothorax. Electronically signed by: Rodrick Modi M.D. Narrative 09/23/2024 8:39 AM [employer] EXAMINATION: XR CHEST 1 VIEW DATE: 09/23/2024 3:15 AM HISTORY: Cardiac surgery follow-up FINDINGS:When compared with study of the prior day, cardiomegaly with postsurgical changes stable. Thoracostomy tubes and mediastinal drain and [place] catheter remain in place. Cardiomegaly is seen. No evidence of pneumothorax or failure. Procedure Note Rodrick Modi MD - 09/23/2024 EXAMINATION: XR CHEST 1 VIEW DATE: 09/23/2024 3:15 AM HISTORY: Cardiac surgery follow-up FINDINGS:When compared with study of the prior day, cardiomegaly with postsurgical changes stable. Thoracostomy tubes and mediastinal drain and [place] catheter remain in place. Cardiomegaly is seen. No evidence of pneumothorax or failure. IMPRESSION: No failure. No pneumothorax. Electronically signed by: Rodrick Modi M.D. us Apoorva Mar CODING CLERK IMG XR PROCEDURES Final Result * (ABNORMAL) Calcium, ionized, whole blood (09/22/2024 9:55 PM [employer]) Ca, ionized, bld 4.49(L) 4.50 - 5.10 mg/dL Blood 09/22/2024 9:55 PM [employer] 09/22/2024 10:01 PM [employer] us Victor Manuel Woo MD LAB BLOOD ORDERABLES Final R esult Performing Organization Address [facility] Co de Phone Number TAB [phone] [address] Moya Department [facility] [place] [address] * Potassium (09/22/2024 9:55 PM [employer]) Potassium, pl 3.4 3.3 - 4.9 mmol/L Blood 09/22/2024 9:55 PM [employer] 09/22/2024 10:01 PM [employer] Victor Manuel Woo MD LAB BLOOD ORDERABLES Final R esult Performing Organization Address [facility] Co de Phone Number TAB [phone] [address] [facility] [place] [address] * Magnesium (09/22/2024 9:55 PM [employer]) Magnesium 1.9 1.4 - 2.5 mg/dL Blood 09/22/2024 9:55 PM [employer] 09/22/2024 10:01 PM [employer] Victor Manuel Woo MD LAB BLOOD ORDERABLES Final R esult Performing Organization Address [facility] [address] [place] [address] * POCT glucose (09/22/2024 8:09 PM [employer]) Glucose, POC 147 70 - 199 mg/dL Blood 09/22/2024 8:09 PM [employer]ANCE 09/22/2024 8:09 PM SALES [employer]URANCE Result [facility] Victor Manuel Woo MD LAB POCT ORDERABLES - DEVICE Final Result Performing Organization Address [facility] [address] [place] [address] * Critical Care (09/22/2024 7:30 PM [employer]) Narrative Andressa Jacobs MD - 09/22/2024 7:30 PM SAL[employer] Alex Melendez PA 09/23/2024 5:26 AM Critical [...] plan with the ICU team and other medical/independent crop consultant staff, making frequent assessments and decisions [...] Result * POCT glucose (09/22/2024 5:04 PM [employer]) Glucose, POC 174 70 - 199 mg/dL Blood 09/22/2024 5:04 PM [employer]ANCE 09/22/2024 5:04 PM [employer] us Victor Manuel Woo MD LAB POCT ORDERABLES - DEVICE Final Result Performing Organization Address [facility] Co de Phone Number TAB GUARDADO [address] [address] Moya Department [facility] [place], [place] [id number] * Calcium, ionized, whole blood (09/22/2024 1:16 PM [employer]) Pathologist [facility] Ca, ionized, bld 4.58 4.50 - 5.10 mg/dL Blood 09/22/2024 1:16 PM [employer] 09/22/2024 1:24 PM [employer] Victor Manuel Woo MD LAB BLOOD ORDERABLES Final R esult Performing Organization Address [facility]/[place] [address] [address]ia Moya Department [place] [employer] [place] [address] * eGFR (09/22/2024 1:16 PM [employer]) Pathologist [facility] eGFR >90 >=60 mL/min/1. 73 m2 Comment: [...] last reviewed 2021. Blood 09/22/2024 1:16 PM [employer] 09/22/2024 1:24 PM [employer] us Victor Manuel Woo MD LAB BLOOD ORDERABLES Final R esult [facility] [address] [address]oya Department [place] [address] * (ABNORMAL) Differential, auto (09/22/2024 1:16 PM [employer]) Neutrophil abs 6.8(H) 1.5 - 6.5 K/cumm Imm gran abs 0.1 0.0 - 0.1 K/cumm [facility] CH Lymphocyte abs 1.7 0.8 - 3.3 K/cumm [facility] Monocyte abs 0.9(H) 0.2 - 0.8 K/cumm [facility] Eosinophil abs 0.3 0.0 - 0.5 K/cumm [facility] Basophil abs 0.0 0.0 - 0.1 K/cumm [facility] Neutrophil pct 69.4 % [facility] Comment: Interpretive Data Percent cell count reference ranges are not reported, since discordance with absolute values may lead to misinterpretation of CBC data. Current Interpretive Data was last revised on 2017. Imm gran pct 0.6 % [facility] Comment: Interpretive Data Percent cell count reference ranges are not reported, since discordance with absolute values may lead to misinterpretation of CBC data. Current Interpretive Data was last revised on 2017. Lymphocyte pct 17.0 % [facility] Comment: Interpretive Data Percent cell count reference ranges are not reported, since discordance with absolute values may lead to misinterpretation of CBC data. Current Interpretive Data was last revised on 2017. Monocyte pct 9.6 % [facility] Comment: Interpretive Data Percent cell count reference ranges are not reported, since discordance with absolute values may lead to misinterpretation of CBC data. Current Interpretive Data was last revised on 2017. Eosinophil pct 3.1 % [facility] Comment: Interpretive Data Percent cell count reference ranges are not reported, since discordance with absolute values may lead to misinterpretation of CBC data. Current Interpretive Data was last revised on 2017. Basophil pct 0.3 % [facility] Comment: Interpretive Data Percent cell count reference ranges are not reported, since discordance with absolute values may lead to misinterpretation of CBC data. Current Interpretive Data was last revised on 2017. Blood 09/22/2024 1:16 PM [employer] 09/22/2024 1:25 PM [employer] us Victor Manuel Woo MD LAB BLOOD ORDERABLES Final R esult [facility] [address] [address]oya Department [place] [address] * (ABNORMAL) CBC with auto differential (09/22/2024 1:16 PM [employer]) WBC 9.8 3.8 - 9.9 K/cumm Hgb 8.4(L) 13.0 - 17.5 g/dL [facility] Hct 25.7(L) 38.9 - 50.3 % [facility] Plt 112(L) 150 - 400 K/cumm [facility] MPV 9.8 9.1 - 12.3 fL [facility] RBC 2.97(L) 4.30 - 5.80 M/cumm [facility] MCV 86.5 81.3 - 96.4 fL [facility] MCH 28.3 27.1 - 33.3 pg [facility] MCHC 32.7 32.3 - 35.7 g/dL [facility] RDW CV 13.6 11.1 - 14.9 % [facility] RDW SD 42.3 35.7 - 48.1 fL [facility] NRBC abs 0.00 0.00 - 0.01 K/cumm [facility] Blood 09/22/2024 1:16 PM [employer]ANCE 09/22/2024 1:25 PM [employer] Victor Manuel Woo MD LAB BLOOD ORDERABLES Final R esult Performing Organization Address [facility] Co de Phone Number TAB [phone] [address] Department [facility] [place] [address] * Magnesium (09/22/2024 1:16 PM [employer]) Pathologist [facility] Magnesium 2.1 1.4 - 2.5 mg/dL Blood 09/22/2024 1:16 PM [employer]ANCE 09/22/2024 1:24 PM [employer] Victor Manuel oWo MD LAB BLOOD ORDERABLES Final R esult Performing Organization Address [facility] de Phone Number [facility] [address] [place] [address] * (ABNORMAL) Basic metabolic panel (09/22/2024 1:16 PM [employer]) Pathologist [facility] Sodium 137 135 - 145 mmol/L Potassium, pl 4.3 3.3 - 4.9 mmol/L [facility] Chloride 106 97 - 110 mmol/L [facility] CO2 20(L) 22 - 32 mmol/L [facility] Anion gap 11 2 - 15 mmol/L [facility] BUN 14 6 - 25 mg/dL [facility] Creatinine 0.60(L) 0.80 - 1.30 mg/dL [facility] Glucose 207(H) 70 - 199 mg/dL [facility] Comment: Interpretive Data Fasting glucose >/= [...] 2022. Calcium 8.5 8.5 - 10.3 mg/dL TAB Blood 09/22/2024 1:16 PM [employer]ES [employer]ANCE 09/22/2024 1:24 PM [employer] Victor Manuel Woo MD LAB BLOOD ORDERABLES Final R esult Performing Organization Address [facility]/ZIP Co de Phone Number YOLISLLUVIA GUARDADO [address] [address] Moya Department [place] [address] * POCT glucose (09/22/2024 12:17 PM [employer]) Glucose, POC 187 70 - 199 mg/dL Blood 09/22/2024 12:1 7 PM [employer] 09/22/2024 12:17 PM [employer] Victor Manuel Woo MD LAB POCT ORDERABLES - DEVICE Final Result Performing Organization Address [facility] Co de Phone Number YOLISLLUVIA GUARDADO [address] [address] Moya [facility] [place] [address] * (ABNORMAL) POCT glucose (09/22/2024 8:05 AM [employer]) Glucose, POC 225(H) 70 - 199 mg/dL Blood 09/22/2024 8:05 AM SAL[employer]ANCE 09/22/2024 8:05 AM [employer] Victor Manuel Woo MD LAB POCT ORDERABLES - DEVICE Final Result Performing Organization Address [facility] Co de Phone Number YOLISLLUVIA GUARDADO [phone] [address] Moya [facility] [place] [address] * Critical Care (09/22/2024 6:52 AM [employer]) Narrative Jamal Lombardi MD - 09/22/2024 6:52 AM [employer] Ora Smith NP 09/22/2024 6:16 PM Critical [...] plan with the ICU team and other medical/independent crop consultant staff, making frequent assessments and decisions [...] Portable - in AM (09/22/2024 5:35 AM [employer]) Anatomical Region Laterality Modality Body, Chest N/A Computed Radiogr aphy 09/22/2024 8:12 AM [employer] Impressions 09/22/2024 8:12 AM [employer] Findings/impression: Pulmonary arterial catheter, right thoracostomy tube, left thoracostomy tube, and mediastinal drain are appropriately positioned. Poststernotomy changes are noted. Cardiomediastinal silhouette is normal in size. No pneumothorax or pleural effusion. Mild pulmonary vascular congestion. No consolidation. Electronically signed by: Raul Mendieta II, D.O. Narrative 09/22/2024 8:12 AM [employer] EXAMINATION: XR CHEST 1 VIEW DATE: 09/22/2024 [...] No consolidation. Electronically signed by: Raul Mendieta II D.OHoda us Apoorva Mar NP IMG XR PROCEDURES Final Result * Oxyhemoglobin, central venous (09/22/2024 4:15 AM [employer]) Oxyhemoglobin, CV 59.1 % Comment: Interpretive Data No reference range established. Current interpretive data was last revised 2019. Blood 09/22/2024 4:15 AM [employer]ANCE 09/22/2024 4:25 AM [employer] us Victor Manuel Woo MD LAB BLOOD ORDERABLES Final R esult [facility] [address] [facility] Department [place] [address] * eGFR (09/22/2024 3:33 AM [employer]) eGFR >90 >=60 mL/min/1. 73 m2 Comment: [...] last reviewed 2021. Blood 09/22/2024 3:33 AM [employer] 09/22/2024 4:33 AM [employer] us Victor Manuel Woo MD LAB BLOOD ORDERABLES Final R esult [facility] [address] [address] Moya Department [place] [address] * (ABNORMAL) Differential, auto (09/22/2024 3:33 AM [employer]) Neutrophil abs 8.8(H) 1.5 - 6.5 K/cumm Imm gran abs 0.1 0.0 - 0.1 K/cumm [facility] Lymphocyte abs 1.5 0.8 - 3.3 K/cumm [facility] Monocyte abs 1.0(H) 0.2 - 0.8 K/cumm [facility] Eosinophil abs 0.1 0.0 - 0.5 K/cumm [facility] Basophil abs 0.0 0.0 - 0.1 K/cumm [facility] Neutrophil pct 76.2 % [facility] Comment: Interpretive Data Percent cell count reference ranges are not reported, since discordance with absolute values may lead to misinterpretation of CBC data. Current Interpretive Data was last revised on 2017. Imm gran pct 0.6 % [facility] Comment: Interpretive Data Percent cell count reference ranges are not reported, since discordance with absolute values may lead to misinterpretation of CBC data. Current Interpretive Data was last revised on 2017. Lymphocyte pct 12.9 % [facility] Comment: Interpretive Data Percent cell count reference ranges are not reported, since discordance with absolute values may lead to misinterpretation of CBC data. Current Interpretive Data was last revised on 2017. Monocyte pct 9.0 % [facility] Comment: Interpretive Data Percent cell count reference ranges are not reported, since discordance with absolute values may lead to misinterpretation of CBC data. Current Interpretive Data was last revised on 2017. Eosinophil pct 1.0 % [facility] Comment: Interpretive Data Percent cell count reference ranges are not reported, since discordance with absolute values may lead to misinterpretation of CBC data. Current Interpretive Data was last revised on 2017. Basophil pct 0.3 % [facility] Comment: Interpretive Data Percent cell count reference ranges are not reported, since discordance with absolute values may lead to misinterpretation of CBC data. Current Interpretive Data was last revised on 2017. Blood 09/22/2024 3:33 AM [employer] 09/22/2024 4:34 AM [employer] us Victor Manuel Woo MD LAB BLOOD ORDERABLES Final R esult [facility] [address] [address]oya Department [place] [address] * (ABNORMAL) CBC with auto differential (09/22/2024 3:33 AM [employer]) WBC 11.6(H) 3.8 - 9.9 K/cumm Hgb 8.8(L) 13.0 - 17.5 g/dL [facility] Hct 26.9(L) 38.9 - 50.3 % [facility] Plt 126(L) 150 - 400 K/cumm [facility] MPV 10.2 9.1 - 12.3 fL [facility] RBC 3.11(L) 4.30 - 5.80 M/cumm [facility] MCV 86.5 81.3 - 96.4 fL [facility] MCH 28.3 27.1 - 33.3 pg [facility] MCHC 32.7 32.3 - 35.7 g/dL [facility] RDW CV 13.6 11.1 - 14.9 % [facility] RDW SD 42.8 35.7 - 48.1 fL [facility] NRBC abs 0.00 0.00 - 0.01 K/cumm [facility] Blood 09/22/2024 3:33 AM [employer] 09/22/2024 4:34 AM [employer] us Victor Manuel Woo MD LAB BLOOD ORDERABLES Final R esult Performing Organization Address [facility] Co de Phone Number TAB GUARDADO [address] [address] [facility] [facility] [place] [address] * Phosphorus (09/22/2024 3:33 AM SALES AGENT INSURANCE) Pathologist [facility] Phosphorus, pl 3.2 2.3 - 4.5 mg/dL Blood 09/22/2024 3:33 AM SALES AGENT INSURANCE 09/22/2024 4:33 AM SALES AGENT INSURANCE Victor Manuel Woo MD LAB BLOOD ORDERABLES Final R esult Performing Organization Address [facility] Co de Phone Number TAB GUARDADO [address] Angelia Department [place] [address] * Magnesium (09/22/2024 3:33 AM SALES AGENT INSURANCE) [facility] Magnesium 2.1 1.4 - 2.5 mg/dL Blood 09/22/2024 3:33 AM SALES AGENT INSURANCE 09/22/2024 4:33 AM SALES AGENT INSURANCE Victor Manuel Woo MD LAB BLOOD ORDERABLES Final R esult Performing Organization Address [facility] de Phone Number TAB GUARDADO [address] Angelia Department [place] [address] * (ABNORMAL) Basic metabolic panel (09/22/2024 3:33 AM SALES AGENT INSURANCE) Pathologist [facility] Sodium 139 135 - 145 mmol/L Potassium, pl 3.8 3.3 - 4.9 mmol/L [facility] Chloride 106 97 - 110 mmol/L [facility] CO2 21(L) 22 - 32 mmol/L [facility] Anion gap 12 2 - 15 mmol/L [facility] BUN 12 6 - 25 mg/dL [facility] Creatinine 0.68(L) 0.80 - 1.30 mg/dL [facility] Glucose 210(H) 70 - 199 mg/dL [facility] Comment: Interpretive Data Fasting glucose >/= [...] 10.3 mg/dL TAB Blood 09/22/2024 3:33 AM SALES AGENT INSURANCE 09/22/2024 4:33 AM SALES AGENT INSURANCE Victor Manuel Woo MD LAB BLOOD ORDERABLES Final R esult Performing Organization Address [facility] Co de Phone Number TAB [phone] Angelia Moya [facility] [place] [address] * POCT glucose (09/21/2024 11:56 PM SALES [employer]ENT INSURANCE) Glucose, POC 175 70 - 199 mg/dL Blood 09/21/2024 11:5 6 PM SALES AGENT INSURANCE 09/21/2024 11:56 PM SALES AGENT INSURANCE Victor Manuel Woo MD LAB POCT ORDERABLES - DEVICE Final Result Performing Organization Address [facility] Co de Phone Number TAB [phone] Angelia Beetailer [employer] [place], [place] [id number] * POCT glucose (09/21/2024 8:43 PM SALES AGENT INSURANCE) Glucose, POC 118 70 - 199 mg/dL Blood 09/21/2024 8:43 PM SALES AGENT INSURANCE 09/21/2024 8:43 PM SALES AGENT INSURANCE Victor Manuel Woo MD LAB POCT ORDERABLES - DEVICE Final Result Performing Organization Address [facility] Co de Phone Number TAB 53578 Angelia Moya Department [facility] [place] [address] * Calcium, ionized, whole blood (09/21/2024 8:27 PM SALES AGENT [employer]URANCE) Ca, ionized, bld 4.60 4.50 - 5.10 mg/dL Blood 09/21/2024 8:27 PM SALES AGENT INSURANCE 09/21/2024 8:33 PM SALES AGENT INSURANCE Victor Manuel Woo MD LAB BLOOD ORDERABLES Final R esult Performing Organization Address City/[facility]/ZIP Co de Phone Number TAB GUARDADO [address] Angelia Moya Department [facility] [place] [address] * eGFR (09/21/2024 8:27 PM SALES [employer]ENT [employer]URANCE) eGFR >90 >=60 mL/min/1. 73 m2 Comment: [...] last reviewed 2021. Blood 09/21/2024 8:27 PM SALES AGENT INSURANCE 09/21/2024 8:37 PM SALES AGENT INSURANCE Victor Manuel Woo MD LAB BLOOD ORDERABLES Final R esult Performing Organization Address City/[facility]/ZIP Co de Phone Number TAB GUARDADO [address] Angelia Moya Department [facility] [place] [address] * (ABNORMAL) Differential, auto (09/21/2024 8:27 PM SALES AGENT INSURANCE) Neutrophil abs 8.0(H) 1.5 - 6.5 K/cumm Imm gran abs 0.1 0.0 - 0.1 K/cumm [facility] Lymphocyte abs 2.0 0.8 - 3.3 K/cumm [facility] Monocyte abs 1.2(H) 0.2 - 0.8 K/cumm [facility] Eosinophil abs 0.2 0.0 - 0.5 K/cumm [facility] Basophil abs 0.1 0.0 - 0.1 K/cumm [facility] Neutrophil pct 69.4 % [facility] Comment: Interpretive Data Percent cell count reference ranges are not reported, since discordance with absolute values may lead to misinterpretation of CBC data. Current Interpretive Data was last revised on 2017. Imm gran pct 0.6 % [facility] Comment: Interpretive Data Percent cell count reference ranges are not reported, since discordance with absolute values may lead to misinterpretation of CBC data. Current Interpretive Data was last revised on 2017. Lymphocyte pct 17.8 % [facility] Comment: Interpretive Data Percent cell count reference ranges are not reported, since discordance with absolute values may lead to misinterpretation of CBC data. Current Interpretive Data was last revised on 2017. Monocyte pct 10.0 % [facility] Comment: Interpretive Data Percent cell count reference ranges are not reported, since discordance with absolute values may lead to misinterpretation of CBC data. Current Interpretive Data was last revised on 2017. Eosinophil pct 1.8 % [facility] Comment: Interpretive Data Percent cell count reference ranges are not reported, since discordance with absolute values may lead to misinterpretation of CBC data. Current Interpretive Data was last revised on 2017. Basophil pct 0.4 % [facility] Comment: Interpretive Data Percent cell count reference ranges are not reported, since discordance with absolute values may lead to misinterpretation of CBC data. Current Interpretive Data was last revised on 2017. Blood 09/21/2024 8:27 PM SALES [employer]ENT INSURANCE 09/21/2024 8:33 PM SALES AGENT INSURANCE us Victor Manuel Woo MD LAB BLOOD ORDERABLES Final R esult TAB GUARDADO [address] Angelia [facility] [place] [address] * (ABNORMAL) CBC with auto differential (09/21/2024 8:27 PM SALES AGENT INSURANCE) WBC 11.5(H) 3.8 - 9.9 K/cumm Hgb 9.1(L) 13.0 - 17.5 g/dL [facility] Hct 28.0(L) 38.9 - 50.3 % [facility] Plt 138(L) 150 - 400 K/cumm [facility] MPV 9.5 9.1 - 12.3 fL [facility] RBC 3.26(L) 4.30 - 5.80 M/cumm [facility] MCV 85.9 81.3 - 96.4 fL [facility] MCH 27.9 27.1 - 33.3 pg [facility] MCHC 32.5 32.3 - 35.7 g/dL [facility] RDW CV 13.5 11.1 - 14.9 % [facility] CH RDW SD 42.1 35.7 - 48.1 fL [facility] NRBC abs 0.00 0.00 - 0.01 K/cumm [facility] Blood 09/21/2024 8:27 PM SALES AGENT INSURANCE 09/21/2024 8:33 PM SALES AGENT INSURANCE Victor Manuel Woo MD LAB BLOOD ORDERABLES Final R esult TAB GUARDADO [address] Angelia [facility] [place] [address] * Magnesium (09/21/2024 8:27 PM SALES [employer]URANCE) Magnesium 1.9 1.4 - 2.5 mg/dL Blood 09/21/2024 8:27 PM SALES AGENT INSURANCE 09/21/2024 8:33 PM SALES AGENT INSURANCE Victor Manuel Woo MD LAB BLOOD ORDERABLES Final R esult Performing Organization Address [facility]/ZIP Co de Phone Number TAB [phone] Angelia [place] [address] * (ABNORMAL) Basic metabolic panel (09/21/2024 8:27 PM SALES [employer]ENT [employer]URANCE) Sodium 140 135 - 145 mmol/L Potassium, pl 3.4 3.3 - 4.9 mmol/L [facility] Chloride 107 97 - 110 mmol/L [facility] CO2 21(L) 22 - 32 mmol/L [facility] Anion gap 12 2 - 15 mmol/L [facility] BUN 11 6 - 25 mg/dL [facility] Creatinine 0.76(L) 0.80 - 1.30 mg/dL [facility] [...] 2022. Calcium 8.6 8.5 - 10.3 mg/dL [facility] Blood 09/21/2024 8:27 PM SALES AGENT INSURANCE 09/21/2024 8:33 PM SALES AGENT INSURANCE Victor Manuel Woo MD LAB BLOOD ORDERABLES Final R esult Performing Organization Address [facility] Co de Phone Number TAB [phone] Angelia Moya [place] [address] * Critical Care (09/21/2024 7:29 PM SALES AGENT INSURANCE) Narrative Andressa Jacobs MD - 09/21/2024 7:29 PM SALES AGENT INSURANCE Alex Melendez PA 09/22/2024 5:41 AM Critical [...] plan with the ICU team and other medical/independent crop consultant staff, making frequent assessments and decisions [...] Result * POCT glucose (09/21/2024 7:19 PM SALES [employer]ENT INSURANCE) Glucose, POC 142 70 - 199 mg/dL Blood 09/21/2024 7:19 PM SALES AGENT INSURANCE 09/21/2024 7:19 PM SALES AGENT INSURANCE us Victor Manuel Woo MD LAB POCT ORDERABLES - DEVICE Final Result Performing Organization Address [facility] Co de Phone Number TAB [phone] Angelia Moya Department [facility] [place] [address] * POCT glucose (09/21/2024 6:13 PM SALES AGENT INSURANCE) Glucose, POC 130 70 - 199 mg/dL Blood 09/21/2024 6:13 PM SALES AGENT INSURANCE 09/21/2024 6:13 PM SALES AGENT INSURANCE us Victor Manuel Woo MD LAB POCT ORDERABLES - DEVICE Final Result Performing Organization Address [facility] [place] [address] Angelia Moya Department [place] [address] * POCT glucose (09/21/2024 4:56 PM SALES AGENT INSURANCE) Glucose, POC 141 70 - 199 mg/dL Blood 09/21/2024 4:56 PM SALES AGENT INSURANCE 09/21/2024 4:56 PM SALES AGENT INSURANCE Victor Manuel Woo MD LAB POCT ORDERABLES - DEVICE Final Result Performing Organization Address [facility] Co de Phone Number TAB 14692 Angelia Moya [facility] [place] [address] * POCT glucose (09/21/2024 2:45 PM SALES AGENT INSURANCE) Glucose, POC 116 70 - 199 mg/dL Blood 09/21/2024 2:45 PM SALES AGENT INSURANCE 09/21/2024 2:45 PM SALES AGENT INSURANCE Victor Manuel Woo MD LAB POCT ORDERABLES - DEVICE Final Result Performing Organization Address [facility] de Phone Number TAB 47120 Angelia Moya [facility] [place] [address] * Calcium, ionized, whole blood (09/21/2024 1:42 PM SALES AGENT INSURANCE) [facility] Ca, ionized, bld 4.93 4.50 - 5.10 mg/dL Blood 09/21/2024 1:42 PM SALES AGENT INSURANCE 09/21/2024 1:44 PM SALES AGENT INSURANCE Victor Manuel Woo MD LAB BLOOD ORDERABLES Final R esult Performing Organization Address [facility] de Phone Number TAB [phone] Angelia Moya [facility] [employer] [place], [place] [id number] * eGFR (09/21/2024 1:42 PM SALES AGENT INSURANCE) [facility] eGFR >90 >=60 mL/min/1. 73 m2 Comment: [...] last reviewed 2021. Blood 09/21/2024 1:42 PM SALES AGENT INSURANCE 09/21/2024 1:46 PM SALES AGENT INSURANCE us Victor Manuel Woo MD LAB BLOOD ORDERABLES Final R esult [facility] [address] Angelia Moya [place] [address] * (ABNORMAL) CBC without differential (09/21/2024 1:42 PM SALES AGENT INSURANCE) WBC 9.5 3.8 - 9.9 K/cumm Hgb 9.3(L) 13.0 - 17.5 g/dL [facility] Hct 29.1(L) 38.9 - 50.3 % [facility] Plt 149(L) 150 - 400 K/cumm [facility] MPV 9.6 9.1 - 12.3 fL [facility] RBC 3.37(L) 4.30 - 5.80 M/cumm [facility] MCV 86.4 81.3 - 96.4 fL [facility] MCH 27.6 27.1 - 33.3 pg [facility] MCHC 32.0(L) 32.3 - 35.7 g/dL [facility] RDW CV 13.3 11.1 - 14.9 % [facility] RDW SD 42.2 35.7 - 48.1 fL [facility] NRBC abs 0.00 0.00 - 0.01 K/cumm [facility] Blood 09/21/2024 1:42 PM SALES AGENT INSURANCE 09/21/2024 1:46 PM SALES AGENT INSURANCE Victor Manuel Woo MD LAB BLOOD ORDERABLES Final R [facility] Performing Organization Address City/[facility] Co de Phone Number TAB [phone] Angelia Department [facility] [place] [address] * Magnesium (09/21/2024 1:42 PM SALES AGENT INSURANCE) Pathologist [facility] Magnesium 2.0 1.4 - 2.5 mg/dL Blood 09/21/2024 1:42 PM SALES AGENT INSURANCE 09/21/2024 1:44 PM SALES AGENT INSURANCE Victor Manuel Woo MD LAB BLOOD ORDERABLES Final R [facility] Performing Organization Address City/[facility] de Phone Number [facility] [address] [place] [address] * (ABNORMAL) Basic metabolic panel (09/21/2024 1:42 PM SALES AGENT INSURANCE) Pathologist [facility] Sodium 141 135 - 145 mmol/L Potassium, pl 3.6 3.3 - 4.9 mmol/L [facility] Chloride 109 97 - 110 mmol/L [facility] CO2 20(L) 22 - 32 mmol/L [facility] Anion gap 12 2 - 15 mmol/L [facility] BUN 10 6 - 25 mg/dL [facility] Creatinine 0.70(L) 0.80 - 1.30 mg/dL [facility] Glucose 130 70 - 199 mg/dL [facility] Comment: Interpretive Data Fasting glucose >/= [...] classification and Diagnosis of Diabetes Diabetes Care 2022; 46: S19-S40. Current interpretive data was last revised 2022. Calcium 8.6 8.5 - 10.3 mg/dL TAB Blood 09/21/2024 1:42 PM SALES AGENT INSURANCE 09/21/2024 1:44 PM SALES AGENT INSURANCE Victor Manuel Woo MD LAB BLOOD ORDERABLES Final R esult Performing Organization Address [facility] Co de Phone Number TAB 48731 Angelia Department [place] [address] * POCT glucose (09/21/2024 12:36 PM SALES [employer]URANCE) Glucose, POC 100 70 - 199 mg/dL Blood 09/21/2024 12:3 6 PM SALES [employer]URANCE 09/21/2024 12:36 PM SALES AGENT INSURANCE Victor Manuel Woo MD LAB POCT ORDERABLES - DEVICE Final Result Performing Organization Address [facility] de Phone Number TAB [phone] Angelia Department [place] [address] * POCT glucose (09/21/2024 10:50 AM SALES AGENT INSURANCE) Glucose, POC 115 70 - 199 mg/dL Blood 09/21/2024 10:5 0 AM SALES AGENT INSURANCE 09/21/2024 10:50 AM SALES AGENT INSURANCE Victor Manuel Woo MD LAB POCT ORDERABLES - DEVICE Final Result Performing Organization Address [facility] Co de Phone Number TAB [phone] Angelia [facility] [place] [address] * ECG 12 lead (09/21/2024 10:14 AM SALES AGENT INSURANCE) 09/21/2024 10:1 4 AM SALES AGENT INSURANCE Narrative [facility] - 09/21/2024 12:09 PM SALES AGENT INSURANCE Vent Rate: 74 bpm RR Interval: 803 msec WI Interval: 154 msec QRS Duration: 96 msec QT Interval: 374 msec QTC Interval: 402 msec P-R-T [place]: 11 - -9 - 50 degrees IMPRESSION: SINUS RHYTHM WITH SINUS ARRHYTHMIA INFERIOR MYOCARDIAL INFARCTION , OF INDETERMINATE AGE [40+ ms Q WAVE AND/OR ST/T ABNORMALITY IN II/aVF] ABNORMAL ECG NO CHANGE FROM PREVIOUS TRACING NOTED Electronically Signed By: Bashir Mayberry MD Victor Manuel Woo MD ECG ORDERABLES Final Result Performing Organization Address [facility] de Phone Number [facility] * POCT glucose (09/21/2024 9:43 AM SALES AGENT INSURANCE) Glucose, POC 137 70 - 199 mg/dL Blood 09/21/2024 9:43 AM SALES AGENT INSURANCE 09/21/2024 9:43 AM SALES AGENT INSURANCE Victor Manuel Woo MD LAB POCT ORDERABLES - DEVICE Final Result Performing Organization Address [facility] de Phone Number [facility] [address] Angelia Department [place] [address] * POCT glucose (09/21/2024 8:39 AM SALES AGENT INSURANCE) Glucose, POC 127 70 - 199 mg/dL Blood 09/21/2024 8:39 AM SALES AGENT INSURANCE 09/21/2024 8:39 AM SALES AGENT INSURANCE Victor Manuel Woo MD LAB POCT ORDERABLES - DEVICE Final Result Performing Organization Address [facility] de [place] [facility] [place] [address] Angelia Department [place] [address] * Critical Care (09/21/2024 8:32 AM SALES AGENT INSURANCE) Narrative Jamal Lombardi MD - 09/21/2024 8:32 AM SALES AGENT INSURANCE Ora Smith NP 09/21/2024 6:09 PM Critical [...] plan with the ICU team and other medical/independent crop consultant staff, making frequent assessments and decisions [...] Result * POCT glucose (09/21/2024 7:31 AM SALES AGENT INSURANCE) Glucose, POC 135 70 - 199 mg/dL Blood 09/21/2024 7:31 AM SALES AGENT INSURANCE 09/21/2024 7:31 AM SALES AGENT INSURANCE Victor Manuel Woo MD LAB POCT ORDERABLES - DEVICE Final Result Performing Organization Address [facility] de Phone Number TAB GUARDADO [address] Angelia Moya [facility] [place] [address] * POCT glucose (09/21/2024 6:28 AM SALES AGENT INSURANCE) Glucose, POC 137 70 - 199 mg/dL Blood 09/21/2024 6:28 AM SALES AGENT INSURANCE 09/21/2024 6:28 AM SALES AGENT INSURANCE Victor Manuel Woo MD LAB POCT ORDERABLES - DEVICE Final Result Performing Organization Address [facility] de Phone Number TAB GUARDADO [address] Angelia Moya Department [place] [address] * XR Chest 1 View - Portable - in AM (09/21/2024 6:00 AM SALES [employer]URANCE) Anatomical Region Laterality Modality Body, Chest N/A Computed Radiogr aphy 09/21/2024 7:53 AM SALES AGENT INSURANCE Impressions 09/21/2024 7:53 AM SALES AGENT INSURANCE Findings/impression: Pulmonary arterial catheter, mediastinal drain, and bilateral thoracostomy tubes are appropriately positioned. No cardiomegaly. Poststernotomy changes and mild pulmonary vascular congestion. No pneumothorax or pleural effusion. Electronically signed by: Raul Mendieta II, D.O. Narrative 09/21/2024 7:53 AM SALES AGENT INSURANCE EXAMINATION: XR CHEST 1 VIEW DATE: 09/21/2024 [...] Raul Mendieta II, D.O. us Apoorva Mar CODING CLERK IMG XR PROCEDURES Final Result * POCT glucose (09/21/2024 5:01 AM SALES [employer] INSURANCE) Glucose, POC 121 70 - 199 mg/dL Blood 09/21/2024 5:01 AM SALES AGENT INSURANCE 09/21/2024 5:01 AM SALES AGENT INSURANCE us Victor Manuel Woo MD LAB POCT ORDERABLES - DEVICE Final Result TAB GEO [address] Angelia Moya Department [place] [address] * Oxyhemoglobin, central venous (09/21/2024 4:41 AM SALES [employer]ENT INSURANCE) Oxyhemoglobin, CV 66.2 % Comment: Interpretive Data No reference range established. Current interpretive data was last revised 2019. Blood 09/21/2024 4:41 AM SALES AGENT INSURANCE 09/21/2024 4:59 AM SALES AGENT INSURANCE Victor Manuel Woo MD LAB BLOOD ORDERABLES Final R esult Performing Organization Address [facility] Co de Phone Number TAB GUARDADO [address] Angelia Moya [employer] [place], [place] [id number] * eGFR (09/21/2024 4:41 AM SALES [employer]ENT INSURANCE) eGFR >90 >=60 mL/min/1. 73 m2 Comment: [...] last reviewed 2021. Blood 09/21/2024 4:41 AM SALES AGENT INSURANCE 09/21/2024 5:04 AM SALES AGENT INSURANCE Victor Manuel Woo MD LAB BLOOD ORDERABLES Final R esult Performing Organization Address City/[facility]/ZIP Co de Phone Number YOLISLLUVIA [address] Angelia Moya Department [facility] [place] [address] * Differential, auto (09/21/2024 4:41 AM SALES [employer]ENT INSURANCE) Neutrophil abs 5.9 1.5 - 6.5 K/cumm Imm gran abs 0.0 0.0 - 0.1 K/cumm [facility] Lymphocyte abs 1.3 0.8 - 3.3 K/cumm [facility] Monocyte abs 0.7 0.2 - 0.8 K/cumm [facility] Eosinophil abs 0.0 0.0 - 0.5 K/cumm [facility] Basophil abs 0.0 0.0 - 0.1 K/cumm [facility] Neutrophil pct 73.1 % [facility] Comment: Interpretive [...] revised on 2017. Blood 09/21/2024 4:41 AM SALES AGENT INSURANCE 09/21/2024 5:04 AM SALES AGENT INSURANCE Victor Manuel Woo MD LAB BLOOD ORDERABLES Final R esult Performing Organization Address [facility] Co de Phone Number TAB GUARDADO [address] Angelia [facility] [place] [address] * (ABNORMAL) CBC with auto differential (09/21/2024 4:41 AM SALES AGENT INSURANCE) WBC 8.0 3.8 - 9.9 K/cumm Hgb 9.4(L) 13.0 - 17.5 g/dL [facility] Hct 29.8(L) 38.9 - 50.3 % [facility] Plt 150 150 - 400 K/cumm [facility] MPV 10.0 9.1 - 12.3 fL [facility] RBC 3.43(L) 4.30 - 5.80 M/cumm [facility] MCV 86.9 81.3 - 96.4 fL [facility] MCH 27.4 27.1 - 33.3 pg [facility] MCHC 31.5(L) 32.3 - 35.7 g/dL [facility] RDW CV 13.2 11.1 - 14.9 % [facility] CH RDW SD 41.3 35.7 - 48.1 fL [facility] NRBC abs 0.00 0.00 - 0.01 K/cumm [facility] Blood 09/21/2024 4:41 AM SALES AGENT INSURANCE 09/21/2024 5:04 AM SALES AGENT INSURANCE Victor Manuel Woo MD LAB BLOOD ORDERABLES Final R esult Performing Organization Address [facility] Co de Phone Number TAB GUARDADO [address] Angelia Department [place] [address] * (ABNORMAL) Phosphorus (09/21/2024 4:41 AM SALES AGENT INSURANCE) Phosphorus, pl 5.1(H) 2.3 - 4.5 mg/dL Blood 09/21/2024 4:41 AM SALES AGENT INSURANCE 09/21/2024 5:04 AM SALES [employer]ENT INSURANCE Victor Manuel Woo MD LAB BLOOD ORDERABLES Final R esult TAB GUARDADO [address] Angelia Department [facility] [place] [address] * Magnesium (09/21/2024 4:41 AM SALES AGENT INSURANCE) Pathologist [facility] Magnesium 2.2 1.4 - 2.5 mg/dL Blood 09/21/2024 4:41 AM SALES AGENT INSURANCE 09/21/2024 5:04 AM SALES AGENT INSURANCE Victor Manuel Woo MD LAB BLOOD ORDERABLES Final R igor Performing Organization Address [facility] Co de Phone Number TAB GUARDADO [address] Angelia Department [place] [address] * (ABNORMAL) Basic metabolic panel (09/21/2024 4:41 AM SALES [employer]ENT INSURANCE) Pathologist [facility] Sodium 146(H) 135 - 145 mmol/L Potassium, pl 3.7 3.3 - 4.9 mmol/L [facility] Chloride 114(H) 97 - 110 mmol/L [facility] CO2 22 22 - 32 mmol/L [facility] Anion gap 10 2 - 15 mmol/L [facility] BUN 9 6 - 25 mg/dL [facility] Creatinine 0.62(L) 0.80 - 1.30 mg/dL [facility] Glucose 133 70 - 199 mg/dL [facility] Comment: Interpretive Data Fasting glucose >/= [...] 2022. Calcium 8.2(L) 8.5 - 10.3 mg/dL [facility] Blood 09/21/2024 4:41 AM SALES AGENT INSURANCE 09/21/2024 5:04 AM SALES AGENT INSURANCE us Victor Manuel Woo MD LAB BLOOD ORDERABLES Final R esult Performing Organization Address [facility]/ZIP Co de Phone Number TAB GUARDADO [address] [address] [facility] [place] [address] * POCT glucose (09/21/2024 4:04 AM SALES AGENT INSURANCE) Glucose, POC 159 70 - 199 mg/dL Blood 09/21/2024 4:04 AM SALES AGENT INSURANCE 09/21/2024 4:04 AM SALES AGENT INSURANCE Victor Manuel Woo MD LAB POCT ORDERABLES - DEVICE Final Result Performing Organization Address [facility] Co de Phone Number TAB [phone] [address] [facility] [place] [address] * POCT glucose (09/21/2024 2:57 AM SALES AGENT INSURANCE) Glucose, POC 136 70 - 199 mg/dL Blood 09/21/2024 2:57 AM SALES AGENT INSURANCE 09/21/2024 2:57 AM SALES AGENT INSURANCE us Victor Manuel Woo MD LAB POCT ORDERABLES - DEVICE Final Result Performing Organization Address [facility] Co de Phone Number TAB [phone] [address] [facility] [place] [address] * POCT glucose (09/21/2024 1:42 AM SALES AGENT INSURANCE) Glucose, POC 140 70 - 199 mg/dL Blood 09/21/2024 1:42 AM SALES AGENT INSURANCE 09/21/2024 1:42 AM SALES AGENT INSURANCE us Victor Manuel Woo MD LAB POCT ORDERABLES - DEVICE Final Result Performing Organization Address [facility] Co de Phone Number TAB [phone] [address] [facility] [place] [address] * POCT glucose (09/21/2024 12:45 AM SALES AGENT INSURANCE) Glucose, POC 126 70 - 199 mg/dL Blood 09/21/2024 12:4 5 AM SALES AGENT INSURANCE 09/21/2024 12:45 AM SALES AGENT INSURANCE Victor Manuel Woo MD LAB POCT ORDERABLES - DEVICE Final Result Performing Organization Address [facility] de Phone Number TAB GUARDADO [address] [address] Moya [facility] [employer] [place], [place] [id number] * POCT glucose (09/20/2024 11:46 PM SALES AGENT INSURANCE) Glucose, POC 141 70 - 199 mg/dL Blood 09/20/2024 11:4 6 PM SALES AGENT INSURANCE 09/20/2024 11:46 PM SALES AGENT INSURANCE Victor Manuel Woo MD LAB POCT ORDERABLES - DEVICE Final Result Performing Organization Address [facility] de Phone Number YOLISLLUVIA GUARDADO [address] [address] Moya [facility] [employer] [place], [place] [id number] * Oxyhemoglobin, central venous (09/20/2024 11:41 PM SALES AGENT INSURANCE) Pathologist [facility] Oxyhemoglobin, CV 69.2 % Comment: Interpretive Data No reference range established. Current interpretive data was last revised 2019. Blood 09/20/2024 11:4 1 PM SALES AGENT INSURANCE 09/20/2024 11:54 PM SALES AGENT INSURANCE Victor Manuel Woo MD LAB BLOOD ORDERABLES Final R esult Performing Organization Address [facility] de Phone Number TAB GUARDADO [address] [address] [facility] [place] [address] * (ABNORMAL) Calcium, ionized, whole blood (09/20/2024 11:33 PM SALES AGENT INSURANCE) Ca, ionized, bld 5.22(H) 4.50 - 5.10 mg/dL Blood 09/20/2024 11:3 3 PM SALES AGENT INSURANCE 09/20/2024 11:54 PM SALES AGENT INSURANCE Victor Manuel Woo MD LAB BLOOD ORDERABLES Final R esult Performing Organization Address City/[facility] Co de Phone Number TAB GUARDDAO [address] [address] Department of [employer] [place], [place] [id number] * eGFR (09/20/2024 11:33 PM SALES AGENT INSURANCE) eGFR >90 >=60 mL/min/1. 73 m2 Comment: [...] reviewed 2021. Blood 09/20/2024 11:3 3 PM SALES AGENT INSURANCE 09/21/2024 12:28 AM SALES AGENT INSURANCE Victor Manuel Woo MD LAB BLOOD ORDERABLES Final R domit[place] TAB GUARDADO [address] [place] [address] * (ABNORMAL) Differential, auto (09/20/2024 11:33 PM SALES AGENT INSURANCE) Neutrophil abs 5.5 1.5 - 6.5 K/cumm Imm gran abs 0.0 0.0 - 0.1 K/cumm C[facility] Lymphocyte abs 0.7(L) 0.8 - 3.3 K/cumm [facility] Monocyte abs 0.4 0.2 - 0.8 K/cumm [facility] Eosinophil abs 0.0 0.0 - 0.5 K/cumm [facility] Basophil abs 0.0 0.0 - 0.1 K/cumm [facility] Neutrophil pct 82.9 % [facility] Comment: Interpretive Data Percent cell count reference ranges are not reported, since discordance with absolute values may lead to misinterpretation of CBC data. Current Interpretive Data was last revised on 2017. Imm gran pct 0.5 % [facility] Comment: Interpretive Data Percent cell count reference ranges are not reported, since discordance with absolute values may lead to misinterpretation of CBC data. Current Interpretive Data was last revised on 2017. Lymphocyte pct 10.3 % [facility] Comment: Interpretive Data Percent cell count reference ranges are not reported, since discordance with absolute values may lead to misinterpretation of CBC data. Current Interpretive Data was last revised on 2017. Monocyte pct 5.3 % [facility] Comment: Interpretive Data Percent cell count [...] revised on 2017. Basophil pct 0.5 % [facility] Comment: Interpretive Data Percent cell count reference ranges are not reported, since discordance with absolute values may lead to misinterpretation of CBC data. Current Interpretive Data was last revised on 2017. Blood 09/20/2024 11:3 3 PM SALES AGENT INSURANCE 09/20/2024 11:54 PM SALES AGENT INSURANCE us Victor Manuel Woo MD LAB BLOOD ORDERABLES Final R esult TAB [id number] [address] Moya [place] [address] * (ABNORMAL) CBC with auto differential (09/20/2024 11:33 PM SALES AGENT INSURANCE) WBC 6.6 3.8 - 9.9 K/cumm Hgb [...] [facility] CH Blood 09/20/2024 11:3 3 PM SALES AGENT INSURANCE 09/20/2024 11:54 PM SALES AGENT INSURANCE Victor Manuel Woo MD LAB BLOOD ORDERABLES Final R esult Performing Organization Address [facility] Co de Phone Number [facility] [address] [place] [address] * Magnesium (09/20/2024 11:33 PM SALES AGENT INSURANCE) Pathologist [facility] Magnesium 1.9 1.4 - 2.5 mg/dL Blood 09/20/2024 11:3 3 PM SALES AGENT INSURANCE 09/20/2024 11:54 PM SALES AGENT INSURANCE Victor Manuel Woo MD LAB BLOOD ORDERABLES Final R esult Performing Organization Address City/[facility] Co de Phone Number [facility] [address] [address] Department [place] [employer] [address] * (ABNORMAL) Basic metabolic panel (09/20/2024 11:33 PM SALES AGENT INSURANCE) Sodium 148(H) 135 - 145 mmol/L Potassium, pl 3.8 3.3 - 4.9 mmol/L [facility] Chloride 115(H) 97 - 110 mmol/L [facility] CH CO2 23 22 - 32 mmol/L [facility] Anion gap 10 2 - 15 mmol/L [facility] BUN 9 6 - 25 mg/dL [facility] Creatinine 0.62(L) 0.80 - 1.30 mg/dL [facility] Glucose 146 70 - 199 mg/dL [facility] CH Comment: [...] 2022. Calcium 8.7 8.5 - 10.3 mg/dL [facility] Blood 09/20/2024 11:3 3 PM SALES AGENT INSURANCE 09/20/2024 11:54 PM SALES AGENT INSURANCE Victor Manuel Woo MD LAB BLOOD ORDERABLES Final R esult Performing Organization Address City/[facility] Co de Phone Number [facility] [address] [place] [address] * POCT glucose (09/20/2024 10:34 PM SALES AGENT INSURANCE) Glucose, POC 128 70 - 199 mg/dL Blood 09/20/2024 10:3 4 PM SALES AGENT INSURANCE 09/20/2024 10:34 PM SALES AGENT INSURANCE Victor Manuel Woo MD LAB POCT ORDERABLES - DEVICE Final Result Performing Organization Address City/[facility] Co de Phone Number [facility] [address] [place] [address] * (ABNORMAL) Blood gas, arterial (09/20/2024 10:30 PM SALES AGENT INSURANCE) pH, Art 7.34(L) 7.35 - 7.45 PCO2, [...] [facility] CH Blood 09/20/2024 10:3 0 PM SALES AGENT INSURANCE 09/20/2024 10:39 PM SALES AGENT INSURANCE Victor Manuel Woo MD LAB BLOOD ORDERABLES Final R esult Performing Organization Address [facility] Co de Phone Number TAB [phone] Angelia Moya Department [place] [address] * POCT glucose (09/20/2024 9:38 PM SALES AGENT INSURANCE) Glucose, POC 100 70 - 199 mg/dL Blood 09/20/2024 9:38 PM SALES AGENT INSURANCE 09/20/2024 9:38 PM SALES AGENT INSURANCE Victor Manuel Woo MD LAB POCT ORDERABLES - DEVICE Final Result Performing Organization Address [facility] Co de Phone Number YOLISLLUVIA [address] [address] Moya Department [place] [address] * POCT glucose (09/20/2024 8:35 PM SALES AGENT INSURANCE) Glucose, POC 100 70 - 199 mg/dL Blood 09/20/2024 8:35 PM SALES AGENT INSURANCE 09/20/2024 8:35 PM SALES AGENT INSURANCE Victor Manuel Woo MD LAB POCT ORDERABLES - DEVICE Final Result Performing Organization Address [facility] Co de Phone Number TAB [phone] [address] [facility] [place] [address] * POCT glucose (09/20/2024 7:33 PM SALES AGENT INSURANCE) Glucose, POC 112 70 - 199 mg/dL Blood 09/20/2024 7:33 PM SALES AGENT INSURANCE 09/20/2024 7:33 PM SALES AGENT INSURANCE Victor Manuel Woo MD LAB POCT ORDERABLES - DEVICE Final Result Performing Organization Address [facility] Co de Phone Number TAB GUARDADO [address] [address] [facility] [place] [address] * (ABNORMAL) Calcium, ionized, whole blood (09/20/2024 6:39 PM SALES AGENT INSURANCE) Ca, ionized, bld 5.54(H) 4.50 - 5.10 mg/dL Blood 09/20/2024 6:39 PM SALES AGENT INSURANCE 09/20/2024 6:55 PM SALES AGENT INSURANCE Victor Manuel Woo MD LAB BLOOD ORDERABLES Final R esult Performing Organization Address [facility] Co de Phone Number TAB GUARDADO [address] [address] [facility] [employer] [place], [place] [phone] * eGFR (09/20/2024 6:39 PM SALES AGENT INSURANCE) eGFR >90 >=60 mL/min/1. 73 m2 Comment: [...] last reviewed 2021. Blood 09/20/2024 6:39 PM SALES AGENT INSURANCE 09/20/2024 7:02 PM SALES AGENT INSURANCE Victor Manuel Woo MD LAB BLOOD ORDERABLES Final R esult Performing Organization Address City/[facility]/ZIP Co de Phone Number TAB GUARDADO [address] [place] [address] * (ABNORMAL) CBC without differential (09/20/2024 6:39 PM SALES AGENT INSURANCE) WBC 7.0 3.8 - 9.9 K/cumm Hgb [...] K/cumm [facility] Blood 09/20/2024 6:39 PM SALES AGENT INSURANCE 09/20/2024 6:56 PM SALES AGENT INSURANCE Victor Manuel Woo MD LAB BLOOD ORDERABLES Final R esult Performing Organization Address [facility]/ZIP Co de Phone Number TAB GUARDADO [address] Angel[address] Moya Department [facility] [place] [address] * Magnesium (09/20/2024 6:39 PM SALES AGENT INSURANCE) Magnesium 2.1 1.4 - 2.5 mg/dL Blood 09/20/2024 6:39 PM SALES AGENT INSURANCE 09/20/2024 6:55 PM SALES AGENT INSURANCE Victor Manuel Woo MD LAB BLOOD ORDERABLES Final R [facility] Performing Organization Address [facility] de Phone Number TAB 43820 [address] Department [facility] [place] [address] * (ABNORMAL) Blood gas, arterial (09/20/2024 6:39 PM SALES AGENT INSURANCE) Pathologist [facility] pH, Art 7.41 7.35 - 7.45 PCO2, [...] % [facility] CH Blood 09/20/2024 6:39 PM SALES AGENT INSURANCE 09/20/2024 6:55 PM SALES AGENT INSURANCE Victor Manuel Woo MD LAB BLOOD ORDERABLES Final R [facility] Performing Organization Address [facility] de Phone Number TAB GUARDADO [address] [address] Department [facility] [place] [address] * (ABNORMAL) Basic metabolic panel (09/20/2024 6:39 PM SALES AGENT INSURANCE) Sodium 147(H) 135 - 145 mmol/L Potassium, pl 3.5 3.3 - 4.9 mmol/L [facility] Chloride 115(H) 97 - 110 mmol/L [facility] CH CO2 21(L) 22 - 32 mmol/L [facility] Anion gap 11 2 - 15 mmol/L [facility] CH BUN 9 6 - 25 mg/dL [facility] Creatinine 0.51(L) 0.80 - 1.30 mg/dL [facility] Glucose 132 70 - 199 mg/dL [facility] Comment: Interpretive Data Fasting glucose >/= [...] 2022. Calcium 10.0 8.5 - 10.3 mg/dL [facility] Blood 09/20/2024 6:39 PM SALES AGENT INSURANCE 09/20/2024 6:55 PM SALES AGENT INSURANCE Result [facility] Victor Manuel Woo MD LAB BLOOD ORDERABLES Final R esult Performing Organization Address [facility] Co de Phone Number [facility] [address] [place] [address] * POCT glucose (09/20/2024 6:30 PM SALES AGENT INSURANCE) Glucose, POC 129 70 - 199 mg/dL Blood 09/20/2024 6:30 PM SALES AGENT INSURANCE 09/20/2024 6:30 PM SALES AGENT INSURANCE Victor Manuel Woo MD LAB POCT ORDERABLES - DEVICE Final Result Performing Organization Address [facility] Co de Phone Number [facility] [address] [address] [facility] [place] [address] * POCT glucose (09/20/2024 5:07 PM SALES AGENT INSURANCE) Glucose, POC 142 70 - 199 mg/dL Blood 09/20/2024 5:07 PM SALES AGENT INSURANCE 09/20/2024 5:07 PM SALES AGENT INSURANCE Victor Manuel Woo MD LAB POCT ORDER[place] - [place] [id number] Angelia Moya Department [place] [address] * POCT glucose (09/20/2024 4:25 PM SALES AGENT INSURANCE) Glucose, POC 113 70 - 199 mg/dL Blood 09/20/2024 4:25 PM SALES AGENT INSURANCE 09/20/2024 4:25 PM SALES AGENT INSURANCE us Victor Manuel Woo MD LAB POCT ORDERABLES - DEVICE Final Result Performing Organization Address [facility] [place] [id number] Angelia Moya Department [place] [address] * XR Chest 1 View - Portable (09/20/2024 3:00 PM SALES AGENT INSURANCE) Anatomical Region Laterality Modality Body, Chest N/A Computed Radiogr aphy 09/20/2024 3:07 PM SALES AGENT INSURANCE Impressions 09/20/2024 3:07 PM SALES AGENT INSURANCE FINDINGS/IMPRESSION: Endotracheal tube terminates 2.8 cm from the terri. Enteric tube is appropriately positioned. Bilateral thoracostomy tubes and mediastinal drain are appropriately positioned. Pulmonary arterial catheter is appropriately positioned. Poststernotomy changes. No pneumothorax or pleural effusion. Cardiac mediastinal silhouette is normal in size. No acute osseous abnormality. Electronically signed by: Raul Mendieta II, D.O. Narrative 09/20/2024 3:07 PM SALES AGENT INSURANCE EXAMINATION: XR CHEST 1 VIEW DATE: 09/20/2024 2:55 PM INDICATION: Cardiac surgery. COMPARISON: 09/17/2024. Procedure Note Raul Mendieta II, - 09/20/2024 EXAMINATION: XR CHEST 1 VIEW [...] Electronically signed by: Raul Mendieta II, D.O. Result Jad Woo MD IMG XR PROCEDURES Final Resu lt * Calcium, ionized, whole blood (09/20/2024 2:59 PM SALES AGENT INSURANCE) Ca, ionized, bld 4.77 4.50 - 5.10 mg/dL Blood 09/20/2024 2:59 PM SALES AGENT INSURANCE 09/20/2024 3:03 PM SALES AGENT INSURANCE Result Jad Woo MD LAB BLOOD ORDERABLES Final R esult TAB [address] [address] Department [place] [address] * eGFR (09/20/2024 2:59 PM SALES AGENT INSURANCE) eGFR >90 >=60 mL/min/1. 73 m2 Comment: [...] last reviewed 2021. Blood 09/20/2024 2:59 PM SALES AGENT INSURANCE 09/20/2024 3:04 PM SALES AGENT INSURANCE us Victor Manuel Woo MD LAB BLOOD ORDERABLES Final R esult Performing Organization Address [facility] Co de Phone Number TAB GUARDADO [address] [address] [facility] [employer] [place], [place] [phone] * aPTT (09/20/2024 2:59 PM SALES AGENT INSURANCE) aPTT 34 28 - 38 sec Comment: Interpretive Data Heparin therapeutic range: 66.0 - 100.0 seconds. Range based on correlation with therapeutic heparin activity range of 0.3 - 0.7 Units/mL. Current interpretive data was last revised on 2023. Blood 09/20/2024 2:59 PM SALES AGENT INSURANCE 09/20/2024 3:04 PM SALES AGENT INSURANCE Victor Manuel Woo MD LAB BLOOD ORDERABLES Final R [facility] Performing Organization Address [facility] de Phone Number TAB GUARDADO [address] [address] [facility] [place] [address] * (ABNORMAL) Protime-INR (09/20/2024 2:59 PM SALES AGENT INSURANCE) PT 18.5(H) 9.7 - 13.0 sec INR 1.69(H) 0.90 - 1.20 TAB GUARDADO Comment: Interpretive data Oral anticoagulant therapeutic ranges: Venous thromboembolism prophylaxis or treatment: 2.0-3.0 CARDIOLOGY Standard range: 2.0-3.0 High-intensity range: 2.5-3.5 Refer to indication-specific guidelines for appropriate target ranges for prosthetic heart valve replacement. Current interpretive data was last revised on 2019. Blood 09/20/2024 2:59 PM SALES AGENT INSURANCE 09/20/2024 3:04 PM SALES AGENT INSURANCE Victor Manuel Woo MD LAB BLOOD ORDERABLES Final R esult Performing Organization Address [facility] Co de Phone Number TAB GUARDADO [address] [address] [facility] [place] [address] * (ABNORMAL) CBC without differential (09/20/2024 2:59 PM SALES AGENT INSURANCE) WBC 4.6 3.8 - 9.9 K/cumm Hgb [...] K/cumm [facility] CH Blood 09/20/2024 2:59 PM SALES AGENT INSURANCE 09/20/2024 3:04 PM SALES AGENT INSURANCE Victor Manuel Woo MD LAB BLOOD ORDERABLES Final R esult TAB GUARDADO [address] [address]ia Moya Department [place] [address] * (ABNORMAL) Blood gas, arterial (09/20/2024 2:59 PM SALES AGENT INSURANCE) pH, Art 7.30(L) 7.35 - 7.45 PCO2, [...] % [facility] CH Blood 09/20/2024 2:59 PM SALES AGENT INSURANCE 09/20/2024 3:03 PM SALES AGENT INSURANCE us Victor Manuel Woo MD LAB BLOOD ORDERABLES Final R esult TAB GUARDADO [address] [address] Department [facility] [place] [address] * (ABNORMAL) Basic metabolic panel (09/20/2024 2:59 PM SALES AGENT INSURANCE) Sodium 146(H) 135 - 145 mmol/L Potassium, pl 3.7 3.3 - 4.9 mmol/L [facility] Chloride 117(H) 97 - 110 mmol/L [facility] CH CO2 20(L) 22 - 32 mmol/L [facility] CH Anion gap 9 2 - 15 mmol/L [facility] BUN 9 6 - 25 mg/dL [facility] Creatinine 0.49(L) 0.80 - 1.30 mg/dL [facility] CH Glucose 142 70 - 199 mg/dL [facility] Comment: Interpretive Data Fasting glucose >/= [...] 2022. Calcium 7.4(L) 8.5 - 10.3 mg/dL [facility] Blood 09/20/2024 2:59 PM SALES AGENT INSURANCE 09/20/2024 3:04 PM SALES AGENT INSURANCE Victor Manuel Woo MD LAB BLOOD ORDERABLES Final R esult TAB GUARDADO [address] [address] Department [place] [address] * Critical Care (09/20/2024 2:58 PM SALES AGENT INSURANCE) Narrative Tima Izquierdo MD - 09/20/2024 2:58 PM SALES AGENT INSURANCE Ora Smith NP 09/20/2024 5:34 PM Critical [...] plan with the ICU team and other medical/independent crop consultant staff, making frequent assessments and decisions [...] Result * POCT glucose (09/20/2024 2:44 PM SALES AGENT INSURANCE) Pathologist [facility] Glucose, POC 115 70 - 199 mg/dL Blood 09/20/2024 2:44 PM SALES AGENT INSURANCE 09/20/2024 2:44 PM SALES AGENT INSURANCE Victor Manuel Woo MD LAB POCT ORDERABLES - DEVICE Final Result TAB [id number] Angelia Moya Department [place] [address] * (ABNORMAL) POC Blood Gas and Chemistries, Arterial - (09/20/2024 1:56 PM SALES AGENT INSURANCE) pH, Art POC 7.34(L) 7.35 - 7.45 [...] g/dL [facility] CH Blood 09/20/2024 1:56 PM SALES AGENT INSURANCE 09/20/2024 1:56 PM SALES AGENT INSURANCE Victor Manuel Woo MD LAB POCT ORDERABLES - DEVICE Final Result Performing Organization Address [facility]/ZIP Co de Phone Number TAB GUARDADO [address] [place] [address] * Transfuse platelets (09/20/2024 1:20 PM SALES AGENT INSURANCE) Blood us Barry Ellington MD BLOOD TRANSFUSION ORDERABLES F inal Result Performing Organization Address City/[facility]/ZIP Co de Phone Number TAB GUARDADO [address] [address] Department [facility] [place] [address] * POC Activated Clotting Time, High Range (09/20/2024 12:52 PM SALES AGENT INSURANCE) ACT 104 87 - 138 sec Blood 09/20/2024 12:5 2 PM SALES AGENT INSURANCE 09/20/2024 12:52 PM SALES AGENT INSURANCE us Victor Manuel Woo MD LAB BLOOD ORDERABLES Final R esult TAB [id number] [place] [address] * (ABNORMAL) POC Blood Gas and Chemistries, Arterial - (09/20/2024 12:50 PM SALES AGENT INSURANCE) pH, Art POC 7.35 7.35 - 7.45 [...] [facility]ER CH Blood 09/20/2024 12:5 0 PM SALES AGENT INSURANCE 09/20/2024 12:50 PM SALES AGENT INSURANCE us Victor Manuel Woo MD LAB POCT ORDERABLES - DEVICE Final Result TAB [id number] [place] [address] * (ABNORMAL) POC Activated Clotting Time, High Range (09/20/2024 12:47 PM SALES AGENT INSURANCE) ACT 178(H) 87 - 138 sec Blood 09/20/2024 12:4 7 PM SALES AGENT INSURANCE 09/20/2024 12:47 PM SALES AGENT INSURANCE Victor Manuel Woo MD LAB [place]LOOD [place] [address] [address] Moya Department [place] [address] * (ABNORMAL) POC Blood Gas and Chemistries, Arterial - (09/20/2024 12:18 PM SALES AGENT INSURANCE) pH, Art POC 7.43 7.35 - 7.45 [...] [facility]ERNER CH Blood 09/20/2024 12:1 8 PM SALES AGENT INSURANCE 09/20/2024 12:18 PM SALES AGENT INSURANCE Victor Manuel Woo MD LAB POCT ORDERABLES - DEVICE Final Result Performing Organization Address [facility] de Phone Number TAB GUARDADO [address] [address] [facility] [place] [address] * (ABNORMAL) POC Activated Clotting Time, High Range (09/20/2024 12:15 PM SALES AGENT INSURANCE) ACT 588(H) 87 - 138 sec Blood 09/20/2024 12:1 5 PM SALES AGENT INSURANCE 09/20/2024 12:15 PM SALES AGENT INSURANCE Victor Manuel Woo MD LAB BLOOD ORDERABLES Final R esult Performing Organization Address [facility] de Phone Number TAB GUARDADO [address] [address] [facility] [place] [address] * (ABNORMAL) Platelet count (09/20/2024 12:03 PM SALES AGENT INSURANCE) Pathologist [facility] Plt 134(L) 150 - 400 K/cumm Blood 09/20/2024 12:0 3 PM SALES AGENT INSURANCE 09/20/2024 12:08 PM SALES AGENT INSURANCE Narrative [facility] CH - 09/20/2024 12:10 PM SALES AGENT INSURANCE [place]ULTS [place] EXT [phone]. THANK YOU Victor Manuel Woo MD LAB BLOOD ORDERABLES Final R esult Performing Organization Address [facility] Co de Phone Number TAB GUARDADO [address] [address] Department [place] [address] * (ABNORMAL) POC Blood Gas and Chemistries, Arterial - (09/20/2024 11:28 AM SALES AGENT INSURANCE) pH, Art POC 7.36 7.35 - 7.45 [...] CERNER CH Blood 09/20/2024 11:2 8 AM SALES AGENT INSURANCE 09/20/2024 11:28 AM SALES AGENT INSURANCE Victor Manuel Woo MD LAB POCT ORDERABLES - DEVICE Final Result Performing Organization Address [facility] Co de Phone Number TAB GUARDADO [address] [place] [address] * (ABNORMAL) POC Activated Clotting Time, High Range (09/20/2024 11:26 AM SALES AGENT INSURANCE) ACT 722(H) 87 - 138 sec Blood 09/20/2024 11:2 6 AM SALES AGENT INSURANCE 09/20/2024 11:26 AM SALES AGENT INSURANCE Victor Manuel Woo MD LAB BLOOD ORDERABLES Final R esult Performing Organization Address [facility] Co de Phone Number TAB GUARDADO [address] [address] Department [place] [address] * (ABNORMAL) POC Blood Gas and Chemistries, Arterial - (09/20/2024 10:47 AM SALES AGENT INSURANCE) pH, Art POC 7.33(L) 7.35 - 7.45 [...] CERNER CH Blood 09/20/2024 10:4 7 AM SALES AGENT INSURANCE 09/20/2024 10:47 AM SALES AGENT INSURANCE Victor Manuel Woo MD LAB POCT ORDERABLES - DEVICE Final Result TAB [address] [address] Department [place] [address] * (ABNORMAL) POC Activated Clotting Time, High Range (09/20/2024 10:44 AM SALES AGENT INSURANCE) ACT 639(H) 87 - 138 sec Blood 09/20/2024 10:4 4 AM SALES AGENT INSURANCE 09/20/2024 10:44 AM SALES AGENT INSURANCE us Victor Manuel Woo MD LAB BLOOD ORDERABLES Final R esult Performing Organization Address City/[facility]/ZIP Co de Phone Number TAB GUARDADO [address] [address] Department [place] [address] * (ABNORMAL) POC Activated Clotting Time, High Range (09/20/2024 9:44 AM SALES AGENT INSURANCE) ACT 562(H) 87 - 138 sec Blood 09/20/2024 9:44 AM SALES AGENT INSURANCE 09/20/2024 9:44 AM SALES AGENT INSURANCE us Victor Manuel Woo MD LAB BLOOD ORDERABLES Final R esult Performing Organization Address [facility] Co de Phone Number TAB GUARDADO [address] [address] Department [place] [address] * Arterial Line (09/20/2024 9:37 AM SALES AGENT INSURANCE) Narrative Barry Ellington MD - 09/20/2024 9:37 AM SALES AGENT INSURANCE Tong Ahuja AA 09/20/2024 9:37 AM Arterial [...] PERFORMABLE, PULMONARY ARTERY CATH (09/20/2024 9:35 AM SALES AGENT INSURANCE) Narrative Barry Ellington MD - 09/20/2024 9:35 AM SALES AGENT INSURANCE Tong Ahuja AA 09/20/2024 9:36 AM Central [...] MD ANESTHESIA ORDERABLES Final Re sult * WI AN ELECTIVE ENDOTRACHEAL AIRWAY (09/20/2024 9:34 AM SALES AGENT INSURANCE) Narrative Barry Ellington MD - 09/20/2024 9:34 AM SALES AGENT INSURANCE Tong Ahuja AA 09/20/2024 9:35 AM Airway [...] and Chemistries, Arterial - (09/20/2024 8:31 AM SALES AGENT INSURANCE) pH, Art POC 7.39 7.35 - 7.45 [...] g/dL CERNER CH Blood 09/20/2024 8:31 AM SALES AGENT INSURANCE 09/20/2024 8:31 AM SALES AGENT INSURANCE Victor Manuel Woo MD LAB POCT ORDERABLES - DEVICE Final Result Performing Organization Address [facility] de Phone Number [facility] [address] [address] [facility] [place] [address] * POC Activated Clotting Time, High Range (09/20/2024 8:27 AM SALES AGENT INSURANCE) Pathologist [facility] ACT 120 87 - 138 sec Blood 09/20/2024 8:27 AM SALES AGENT INSURANCE 09/20/2024 8:27 AM SALES AGENT INSURANCE Victor Manuel Woo MD LAB BLOOD ORDERABLES Final R esult Performing Organization Address [facility] de Phone Number [facility] [address] [address] [facility] [place] [address] * Type and screen (09/20/2024 7:25 AM SALES AGENT INSURANCE) Pathologist [facility] Tereza, indirect Negative ABO Rh O Positive [facility] Blood 09/20/2024 7:25 AM SALES AGENT INSURANCE 09/20/2024 7:38 AM SALES AGENT INSURANCE Narrative [facility] - 09/20/2024 8:20 AM SALES AGENT INSURANCE Has the patient had Daratumumab or Isatuximab in the past 6 months?->Unknown Result [facility] Victor Manuel Woo MD LAB BLOOD BANK TEST ORDERABL ES Final Result Performing Organization Address [facility] de Phone Number [facility] [address] [address] [facility] [place] [address] * (ABNORMAL) POCT glucose (09/20/2024 6:11 AM SALES AGENT INSURANCE) Pathologist [facility] Glucose, POC 203(H) 70 - 199 mg/dL Blood 09/20/2024 6:11 AM SALES AGENT INSURANCE 09/20/2024 6:11 AM SALES AGENT INSURANCE Victor Manuel Woo MD LAB POCT ORDERABLES - DEVICE Final Result Performing Organization Address [facility] de Phone Number TAB GU[address] [address] [place] [address] * Prepare platelets: 2 Units (09/20/2024 5:31 AM SALES AGENT INSURANCE) Product code [id number] Unit Number [id number] CERNER CH Product Blood Type APOS CERNER CH Dispense Status PRESUMED TRANSFUSED CERNER CH Blood (Blood, Venous) 09/20/2024 5:31 AM SALES AGENT INSURANCE Narrative CERNER CH - 09/20/2024 10:15 PM SALES AGENT INSURANCE Specify Procedure:->CABG Are special requirements needed? (all products are leukoreduced)->No Date required:-[id number] PLT # of Units:-2-Units Reasons:-Hold for procedure (specify procedure)} Rashad Jones NP BLOOD BANK PRODUCT ORDERABLES F inal Result Performing Organization Address [facility] de Phone Number TAB GU[address] [address] [place] [address] * Prepare RBC: 4 Units (09/20/2024 5:31 AM SALES AGENT INSURANCE) Product code [id number] CERNER CH Unit Number [id number] 9-* CERNER CH Product Blood Type OPOS CERNER CH Dispense Status RETURNED CERNER CH Product code [id number] CERNER CH Unit Number [id number] 5-P CERNER CH Product Blood Type OPOS CERNER CH Dispense Status RETURNED CERNER CH Product code [id number] CERNER CH Unit Number [id number] 9-3 CERNER CH Product Blood Type OPOS CERNER CH Dispense Status RETURNED CERNER CH Product code [id number] Unit Number [id number] 2-L CERNER CH Product Blood Type OPOS CERNER CH Dispense Status RETURNED CERNER CH Blood 09/20/2024 5:31 AM SALES AGENT INSURANCE Narrative CERNER CH - 09/21/2024 12:24 AM SALES AGENT INSURANCE Specify Procedure:->CABG Are special requirements needed? (All products are leukoreduced and CMV- safe)- >No Date required:-[id number] [facility] # of [id number] Reasons:-Hold for procedure (specify procedure)} us Rashad Jones NP BLOOD BANK PRODUCT ORDERABLES F inal Result Performing Organization Address City/[facility]/ZIP Co de Phone Number TAB GUARDAD[address] [address] [address] Department [place] [address] * ECG 12 lead (09/17/2024 9:25 AM SALES AGENT INSURANCE) 09/17/2024 9:25 AM SALES AGENT INSURANCE Narrative [facility] - 09/17/2024 9:19 AM SALES AGENT INSURANCE Vent Rate: 60 bpm RR Interval: 996 msec WI Interval: 171 msec QRS Duration: 96 msec QT Interval: 416 msec QTC Interval: 416 msec P-R-T [place]illa: 1 - -2 - 50 degrees IMPRESSION: SINUS RHYTHM INFERIOR MYOCARDIAL INFARCTION , PROBABLY OLD ANTEROSEPTAL MYOCARDIAL INFARCTION , OF INDETERMINATE AGE ABNORMAL ECG Electronically Signed By: Yady Ward MD us Victor Manuel Woo MD ECG ORDERABLES Final Result Performing Organization Address [facility] Co de Phone Number [facility] * XR Chest PA Lateral 2 View (09/17/2024 9:07 AM SALES AGENT INSURANCE) Anatomical Region Laterality Modality Body, Chest N/A Computed Radiogr aphy 09/17/2024 9:10 AM SALES AGENT INSURANCE Impressions 09/17/2024 9:10 AM SALES AGENT INSURANCE Normal study. Borderline cardiomegaly. Electronically signed by: Rodrick Modi M.D. Narrative 09/17/2024 9:10 AM SALES AGENT INSURANCE EXAMINATION: XR CHEST PA LATERAL 2 VIEWS [...] Resu lt * eGFR (09/17/2024 9:01 AM SALES AGENT INSURANCE) eGFR >90 >=60 mL/min/1. 73 m2 Comment: [...] last reviewed 2021. Blood 09/17/2024 9:01 AM SALES AGENT INSURANCE 09/17/2024 9:07 AM SALES AGENT INSURANCE Victor Manuel Woo MD LAB BLOOD ORDERABLES Final R esult TAB [address]ARDAD[address] [address] [address] Department [place] [address] * (ABNORMAL) Urinalysis reflex to microscopic and culture Urine, clean voided (09/17/2024 9:01 AM SALES AGENT INSURANCE) Color, ur Straw Yellow Clarity, ur Clear Clear CERNER CH Specific gravity, ur 1.019 1.003 - 1.030 CERLLUVIA CH pH, urine 5.5 CERLLUVIA CH Comment: Interpretive Data U rine pH is affected by diet, medications, systemic acid-base disturbances, and renal tubular function. pH may affect urinary stone formation. For example, urine pH below 6.0 may help reduce the tendency for calcium phosphate stones and pH greater than 6.0 may reduce the tendency for uric acid stone formation. Source: [facility] Current Interpretive Data was last revised on 2017 Protein, ur ql Negative Negative CERNER CH Glucose, ur ql 4+(A) Negative CERNER CH Ketones, ur Negative Negative CERNER CH Bilirubin, ur Negative Negative CERNER CH Blood, ur Negative Negative CERNER CH Urobilinogen, ur <2.0 <2.0 mg/dL CERNER CH Nitrite, ur Negative Negative CERNER CH Leukocyte esterase, ur Negative Negative CERNER CH UA reflex comment Reflex conditions for microscopic UA and culture not met. [facility] Urine, clean voided 09/17/2024 9:01 AM SALES AGENT INSURANCE 09/17/2024 9:32 AM SALES AGENT INSURANCE Victor Manuel Woo MD LAB MICROBIOLOGY - GENERAL O RDERABLES Final Result Performing Organization Address [facility] Co de Phone Number TAB GUARDADO [address] [place] [address] * aPTT (09/17/2024 9:01 AM SALES AGENT INSURANCE) aPTT 32 28 - 38 sec Comment: Interpretive Data Heparin therapeutic range: 66.0 - 100.0 seconds. Range based on correlation with therapeutic heparin activity range of 0.3 - 0.7 Units/mL. Current interpretive data was last revised on 2023. Blood 09/17/2024 9:01 AM SALES AGENT INSURANCE 09/17/2024 9:07 AM SALES AGENT INSURANCE Victor Manuel Woo MD LAB BLOOD ORDERABLES Final R esult Performing Organization Address [facility] Co de Phone Number TAB GUARDADO [address] [address] Department of [employer] [place], [place] [address] * Protime-INR (09/17/2024 9:01 AM SALES AGENT INSURANCE) PT 11.6 9.7 - 13.0 sec INR 1.07 0.90 - 1.20 [facility] Comment: Interpretive data Oral anticoagulant therapeutic ranges: Venous thromboembolism prophylaxis or treatment: 2.0-3.0 CARDIOLOGY Standard range: 2.0-3.0 High-intensity range: 2.5-3.5 Refer to indication-specific guidelines for appropriate target ranges for prosthetic heart valve replacement. Current interpretive data was last revised on 2019. Blood 09/17/2024 9:01 AM SALES AGENT INSURANCE 09/17/2024 9:07 AM SALES AGENT INSURANCE Victor Manuel Woo MD LAB BLOOD ORDERABLES Final R esult Performing Organization Address City/[facility] Co de Phone Number TAB [address] [address] Department [place] [address] * CBC without differential (09/17/2024 9:01 AM SALES AGENT INSURANCE) Pathologist [facility] WBC 6.0 3.8 - 9.9 K/cumm Hgb 14.8 13.0 - 17.5 g/dL [facility] Hct 45.3 38.9 - 50.3 % [facility] Plt 229 150 - 400 K/cumm [facility] MPV 9.8 9.1 - 12.3 fL [facility] RBC 5.34 4.30 - 5.80 M/cumm [facility] MCV 84.8 81.3 - 96.4 fL [facility] MCH 27.7 27.1 - 33.3 pg [facility] MCHC 32.7 32.3 - 35.7 g/dL [facility] RDW CV 12.8 11.1 - 14.9 % [facility] RDW SD 39.5 35.7 - 48.1 fL [facility] NRBC abs 0.00 0.00 - 0.01 K/cumm [facility] Blood 09/17/2024 9:01 AM SALES AGENT INSURANCE 09/17/2024 9:07 AM SALES AGENT INSURANCE Victor Manuel Woo MD LAB BLOOD ORDERABLES Final R esult ATB GUARDAD[address] [address] [address] [facility] [place] [address] * Type and screen (09/17/2024 9:01 AM SALES AGENT INSURANCE) Pathologist [facility] Tereza, indirect Negative ABO Rh O Positive [facility] Blood 09/17/2024 9:01 AM SALES AGENT INSURANCE 09/17/2024 9:25 AM SALES AGENT INSURANCE Narrative [facility] - 09/17/2024 1:26 PM SALES AGENT INSURANCE Has the patient had Daratumumab or Isatuximab in the past 6 months?->Unknown Victor Manuel Woo MD LAB BLOOD BANK TEST ORDERABL ES Final Result Performing Organization Address [facility] de Phone Number TAB GU[address] [place] [address] * (ABNORMAL) Hemoglobin A1c (09/17/2024 9:01 AM SALES AGENT INSURANCE) [facility] Hgb A1C 7.1(H) 4.0 - 5.6 % Estimated Average Glucose 157 mg/dL [facility] Comment: The ADA recommends reporting an estimated Average Glucose (eAG) with all Hemoglobin A1c results using the equation derived from a study of 507 normal and diabetic adults. Minority populations were underrepresented and children were not included. (Diabetes Care 31:1071-0359, 2008). The eAG is not equivalent to a fasting glucose. Blood 09/17/2024 9:01 AM SALES AGENT INSURANCE 09/17/2024 9:07 AM SALES AGENT INSURANCE Victor Manuel Woo MD LAB BLOOD ORDERABLES Final R esult Performing Organization Address City/[facility]/ZIP Co de Phone Number YOLISLLUVIA GUARDADO [address] [place] [address] * (ABNORMAL) Basic metabolic panel (09/17/2024 9:01 AM SALES AGENT INSURANCE) Pathologist [facility] Sodium 138 135 - 145 mmol/L Potassium, pl 3.8 3.3 - 4.9 mmol/L [facility] Chloride 101 97 - 110 mmol/L [facility] CO2 25 22 - 32 mmol/L [facility] Anion gap 12 2 - 15 mmol/L [facility] BUN 8 6 - 25 mg/dL [facility] Creatinine 0.60(L) 0.80 - 1.30 mg/dL [facility] Glucose 164 70 - 199 mg/dL [facility] Comment: Interpretive Data Fasting glucose >/= [...] 2022. Calcium 9.4 8.5 - 10.3 mg/dL [facility] Blood 09/17/2024 9:01 AM SALES AGENT INSURANCE 09/17/2024 9:07 AM SALES AGENT INSURANCE us Victor Manuel Woo MD LAB BLOOD ORDERABLES Final R esult [facility] [address] [address] Department [place] [address] * TRANSTHORACIC ECHO (TTE) LIMITED/FOLLOW UP WO DOPPLER/CF W CONTRAST (08/26/2024 11:20 AM SALES AGENT INSURANCE) Anatomical Region Laterality Modality Ultrasound 08/26/2024 10:5 6 AM SALES AGENT INSURANCE Narrative 08/26/2024 1:11 PM SALES AGENT INSURANCE [facility] Cardiology [address], [place] [address] [address] [facility] [address], [place] [address] P:[phone] P:[phone] Echocardiographic Report Patient Name: RAYMOND DELGADO L : 1965 Study Date: 08/26/2024 10:56:04 AM Gender: M Tech: LUIS Location: [place] Ref Provider: GIUSEPPE ALVARADO Height(Cm): 170 BSA: 2.05 Weight(Kg): 88.9 Heart Rate: 58 BP: 123 / 66 Quality: Good Order Provider: GIUSEPPE ALVARADO PROCEDURES: Echocardiographic Report: Limited transthoracic echocardiogram with 2D and Definity contrast. With Strain Analysis. INDICATIONS: I25.10 Atherosclerotic heart disease of [place] coronary artery without angina pectoris. MEASUREMENTS: 2D/MM Value Range EF Mod BP 47 % [ 52 - 72 ] Estimated EF 40-45 % 2D/MM Value Range - FINDINGS: Interpretation Site: Exam was interpreted at [facility]. Left Ventricle: Definity contrast agent used [...] By: Tima Kwan MD 08/26/2024 1:11:38 PM SALES AGENT INSURANCE 40-45 Procedure Note Tima Kwan MD - 08/26/2024 [facility] [address] [facility] [address], [place] [address] [address] [facility] [id number], [place] [address] P:[phone] P:[phone] Echocardiographic Report Patient Name: RAYMOND DELGADO L : 1965 Study Date: 08/26/2024 10:56:04 AM Gender: M Tech: Location: [facility] Provider: GIUSEPPE ALVARADO Height(Cm): 170 BSA: 2.05 Weight(Kg): 88.9 Heart Rate: 58 BP: 123 / 66 Quality: Good Order Provider: GIUSEPPE ALVARADO PROCEDURES: Echocardiographic Report: Limited transthoracic echocardiogram with 2D and Definity contrast. WithStrain Analysis. INDICATIONS: I25.10 Atherosclerotic heart disease of [place] coronary artery withoutangina pectoris. MEASUREMENTS: 2D/MM Value Range EF Mod BP 47 % [ 52 - 72 ] Estimated EF 40-45 % 2D/MM Value Range - FINDINGS: Interpretation Site: Exam was interpreted at [facility]. Left Ventricle: Definity contrast agent used [...] By: Tima Kwan MD 08/26/2024 1:11:38 PM SALES AGENT INSURANCE 40-45 [facility] Nadine Alvarado MD CV ECHO PROCEDURES [...] on 2018. HDL 40 >=40 mg/dL TAB GUARDADO Comment: Interpretive Data Ages [...] 2018. LDL, calculated 56 <=129 mg/dL TAB GUARDADO Comment: Interpretive Data Ages [...] 2. NCEP Expert Panel. Circulation 2004;110:227 3. Silva M et al. OCTAVIO Cardiol. 2020 January 09;5(5):540-548. doi: 10.1001/[email or web address].2020.0013 Current Interpretive Data was last revised on 2024. Non-HDL Cholesterol 92 mg/dL [facility] Comment: Interpretive Data Ages < or = [...] last revised on 2018. Chol/HDL ratio 3 [facility] Blood 06/27/2024 10:2 6 AM CDT 06/27/2024 10:39 AM CDT Narrative [facility] - 06/27/2024 11:57 AM CDT This lipid panel was automatically ordered due to a significant change in Troponin. The dietary status of the patient at the collection time should be correlated with the lipid results. Arabella Browne MD LAB BLOOD ORDERABLES Yumiko dong Result [facility] [address] [address] Department [place] [address] * Hepatitis panel, acute Blood (06/27/2024 5:24 AM CDT) Hep A IgM Nonreactive Nonreactive Comment: Interpretive Data: If Hep A IgM Ab is reported as Equivocal, a new sample should be drawn in two weeks for testing. Current interpretive data was last revised on 19. Hep B core IgM Nonreactive Nonreactive [facility] Comment: Interpretive Data If HepB Core IgM Ab is reported as Equivocal, a new sample should be drawn in two weeks for testing. Current interpretive data was last revised on 19. Hep C Ab Nonreactive Nonreactive [facility] Comment: Interpretive Data Nonreactive: Antibodies to [...] revised on 2019. HepBsAg Nonreactive Nonreactive TAB Blood 06/27/2024 5:24 AM CDT 06/27/2024 5:37 AM CDT Arabella Browne MD LAB MICROBIOLOGY - GENERA L ORDERABLES Final Result TAB [address] [address] Department [place] [address] from Last 3 Months or Most Recently Relevant to Health Maintenance Insurance [facility] H[facility]/PPO Address: [address] [address] [place] [address] [facility]/PPO Address: [address] [address] [place] [address] Advance Directives For more information, please contact: [phone] * Full Code (Latest Code Status on File) Date Activated Date Inactivated Comments 09/20/2024 2:48 PM 09/26/2024 9:43 PM * Full Code Date Activated Date Inactivated Comments 06/27/2024 4:46 AM 07/17/2024 5:43 PM Care Teams Pt Escort Relationship Specialty Start Date End Date Mariela Del Castillo MD [address] [facility] [address] [place] [address] PCP - General Family Medicine 09/26/24 [place] [address] [place] [address] Surgeon Cardiothoracic Surgery 09/26/24 Giuseppe Alvarado MD [address] [facility] [address] [place] [address] Consulting Physician Interventional Cardiology 09/26/24
--- OUTSIDE RECORDS SUMMARY | 2024-10-18 15:51 | XMS_ITS | Clinical Summary ---
Author Organization [facility] Address [id number] [place] [id number] Care Team Providers Care Climatology Professor Name Role Phone Cassidyt, Generic Provider Primary [...] patient's age to complete this topic Insurance Care Teams Climatology Professor Relationship Specialty Start Date End Date Alondra Cerna Provider PCP - General 01/14/21
== END 2024-10-18 15:46 | disposition home or self-care (01) ==
PROVIDERS: PCP Nurse Practitioner Family; Visit Provider Internal Medicine
DX: R42 Dizziness and giddiness (principal)
CPT/HCPCS: 36415; 84443